=== PATIENT | male | born 1970 | race Caucasian/White ===

== ENCOUNTER 2019-06-26 06:00 | Outpatient (RCR) | payer BC, SELFPAY | END 2019-07-13 23:00 | disposition home or self-care (01) | LOC: TPT 06:00 | PROVIDERS: Visit Provider Nurse Practitioner Family | DX: M54.2 Cervicalgia (principal) | CPT/HCPCS: 97110 ×3; G0283 ×3 ==

== ENCOUNTER → 2019-08-26 15:01 | Outpatient (BNVA) | payer BC, SELFPAY | PROVIDERS: Visit Provider Nurse Practitioner Family | DX: R05 Cough (principal) | CPT/HCPCS: 71046; 85025; 87804 ==

== ENCOUNTER 2019-08-28 12:49 | Inpatient (IN) | payer BC, SELFPAY ==
[2019-08-28] VITALS (16 sets, daily range): BP systolic 138–166; BP diastolic 72–118; PULSE 20–103; RESP 16–24; TEMP 36.4–36.9; O2SAT 91–99; BMI 54.1
--- NOTE | 2019-08-28 13:14 | ED_ITS ---
Entered by Marlys Philip, acting as scribe for Aug 28, 2019 12:49 HPI - SOB/Dyspnea General: Chief Complaint: Shortness of Breath/Dyspnea Stated Complaint: LOW OXYGEN Time Seen by Provider: 08/28/19 13:14 Source: patient and family Mode of arrival: ambulatory Limitations: no limitations History of Present Illness: HPI Narrative: 48 yo male presents with shortness of breath. pt states this started a few hours ago. pt states exertion and walking makes this worse and nothing makes it better. pt has a hx of COPD. MD elicited complaint: shortness of breath Pertinent past history: COPD Onset (ago): hour(s) (today) Timing: constant Severity: moderate Exacerbating factors: exertion and coughing Relieving factors: nothing Known history of: COPD Associated symptoms: Reports cough; Deny abdominal pain, chest pain, fever(s), nausea or vomiting Review of Systems Const: Denies: fever, chills, body aches or change in appetite Eyes: Denies: blurry vision or eye discomfort ENMT: Denies: throat pain or dental pain Card: Denies: chest pain Resp: Reports: shortness of breath and productive cough GI: Denies: abdominal pain, nausea, vomiting or diarrhea : Denies: painful urination Musc: Denies: neck pain or back pain Skin/Breast: Denies: rash Neuro: Denies: headache Psych: Denies: depression Javier/Lymph: Denies: easy bruising All/Imm: Denies: hives PFSH ED PFSH: Statuses (acute, chronic, etc) shown below reflect problem list status as previously entered and may not be historically accurate Social History Smoking and tobacco status: never smoked Alcohol intake: never Current occupational status: disabled Physical Exam Const: COMMON NORMALS: no apparent distress, oriented x3 and healthy appearing HENMT: COMMON NORMALS: normocephalic and head/scalp atraumatic HEAD & SCALP: normocephalic and atraumatic Eye: COMMON NORMALS: PERRL and EOMs intact bilaterally PUPIL: Yes PERRL Neck/C-Spine: COMMON NORMALS: full ROM and supple Chest: COMMONS NORMALS: inspection of chest normal and palpation of chest no rmal Resp: EFFORT & INSPECTION: Yes tachypneic and Yes respiratory distress AUSCULTATION: wheezes Cardio: COMMON NORMALS: regular rate, regular rhythm and no murmurs RATE: regular rate RHYTHM: regular rhythm GI: COMMON NORMALS: normal to inspection, nondistended, normoactive bowel sounds, soft to palpation, non-tender and no masses PALPATION: Yes soft Extremity: COMMON NORMALS: normal to inspection and full ROM Neuro: COMMON NORMALS: oriented x3, moves all extremities and no focal motor deficits Psych: COMMON NORMALS: mental status grossly normal, thought process normal and cooperative THOUGHT PROCESS: normal thought process Skin: COMMON NORMALS: no rashes or lesions noted and no wounds GENERAL SKIN EXAM: no rashes or lesions noted Course Vital Signs: Vital signs: Vital Signs Temperature 98.2 F 08/28/19 13:13 Pulse Rate 76 08/28/19 15:15 Respiratory Rate 16 08/28/19 15:15 Blood Pressure 149/118 08/28/19 15:15 Pulse Oximetry 91 08/28/19 15:15 MDM - SOB/Dyspnea MDM Narrative: Medical decision making narrative: Patient presents here with cough along with bronchitis. Likely has COPD exacerbation with possible pneumonia. Patient is requiring oxygen here even after breathing treatment. I spoke to hospitalist will admit on antibiotics and continue steroids and treatments. Lab Data: Labs: Lab Results 08/28/19 08/28/19 Range/Units 13:45 13:45 WBC 7.1 (4.0-10.0) 10^3/ uL RBC 3.93 L (4.1-5.3) 10^6/u L Hgb 9.4 L (11.7-16.6) g/dL Hct 31.4 L (42.0-52.0) % MCV 79.9 L (80-94) fL MCH 23.9 L (28.0-34.0) pg MCHC 29.9 L (30.0-36.0) g/dL RDW 14.9 (12.1-15.1) % Plt Count 272 (130-400) 10^3/c mm MPV 9.6 (7.4-10.4) fL Neut % (Auto) 72.1 % Lymph % (Auto) 16.8 % Terrell % (Auto) 9.8 % Eos % (Auto) 0.3 % Baso % (Auto) 0.6 % Neut # (Auto) 5.1 (1.8-7.7) 10^3/u L Lymph # (Auto) 1.2 (0.8-4.8) 10^3/u L Terrell # (Auto) 0.7 (0.2-0.9) 10^3/u L Eos # (Auto) 0.0 (0.0-0.8) 10^3/u L Baso # (Auto) 0.0 (0.0-0.1) 10^3/u L Nucleated RBC % (a uto) 0.3 % Nucleated RBCs # 0.0 /100WBC Sodium 143 (136-145) mmol/L Potassium 2.9 L (3.5-5.1) mmol/L Chloride 98 (98-107) mmol/L Carbon Dioxide 34 H (22-29) mmol/L Anion Gap 13.9 (5-19) BUN 14 (6-20) mg/dL Creatinine 1.7 H (0.7-1.2) mg/dL GFR Calculation 43.2 L (90-130) mL/min Glucose 125 H (74-109) mg/dL Calcium 8.8 (8.5-10.5) mg/dL Total Bilirubin 0.2 (0.15-1.2) mg/dL AST 14 (0-40) U/L ALT 11 (0-41) U/L Alkaline Phosphata se 100 (40-130) IU/L NT-Pro-B Natriuret Pep 673 H (0-125) pg/mL Total Protein 6.7 (6.6-8.7) g/dL Albumin 3.5 (3.5-5.2) g/dL Globulin 3.2 (1.3-4.6) g/dL Imaging Data^: CXR: Radiologist's impression: Ordering Provider/Ordering MD: Jere Tom MD Date of Service: 08/28/19 Procedure(s): XR chest 1V portable [id number] Accession Number(s): [id number] Report Number: [id number] PROCEDURE INFORMATION: Exam: XR Chest, 1 View Exam date and time: 08/28/2019 1:25 PM Age: 48 years old Clinical indication: Shortness of breath; Additional info: SOB TECHNIQUE: Imaging protocol: XR of the chest Views: 1 view. COMPARISON: CR XR chest 2V* [id number] 08/26/2019 3:08 PM FINDINGS: Lungs: There is a streaky left basilar opacity. Pleural space: No pleural effusion. No pneumothorax. Heart/Mediastinum: No cardiomegaly. Bones/joints: Unremarkable for technique. XR/XR chest 1V portable [id number] IMPRESSION: 1. Streaky left basilar opacity, likely reflecting atelectasis. Early consolidation is possible and clinical correlation is suggested. Discharge Plan Discharge Condition: Stable Prescriptions: No Action albuterol sulfate 2.5 mg/0.5 mL solution for nebulization 2.5 mg INHALATION ONCE Qty: 1 RF: 0 prednisone 20 mg tablet 40 mg PO QDAY Qty: 10 RF: 0 amoxicillin-pot clavulanate [Augmentin] 875-125 mg tablet 1 tab PO BID 10 Days Qty: 20 RF: 0 amlodipine 10 mg tablet 15 mg PO QDAY RF: 0 llhupubdnn-qbwrtocepjate-runh 50-325-40 mg tablet 1 tab PO BID PRNRF: 0 cyclobenzaprine 10 mg tablet 10 mg PO TID RF: 0 escitalopram oxalate 10 mg tablet 10 mg PO QDAY RF: 0 furosemide 20 mg tablet 20 mg PO QAM RF: 0 hydralazine 50 mg tablet 50 mg PO BID RF: 0 potassium chloride [Klor-Con M20] 20 mEq tablet,ER particles/crystals 20 meq PO QDAY RF: 0 Latuda 80 mg tablet 80 mg PO QAM RF: 0 losartan 100 mg tablet 100 mg PO QDAY RF: 0 melatonin 5 mg capsule 5 mg PO .hs RF: 0 metoprolol tartrate 100 mg tablet 100 mg PO BID RF: 0 omeprazole 20 mg capsule,delayed release(DR/EC) 20 mg PO QDAY RF: 0 albuterol sulfate [ProAir HFA] 90 mcg/actuation HFA aerosol inhaler 2 puff INHALATION QID RF: 0 simvastatin 20 mg tablet 20 mg PO QDAY RF: 0 Tradjenta 5 mg tablet 5 mg PO QAM RF: 0 trazodone 150 mg tablet 150 mg PO .hs RF: 0 Aimovig Autoinjector 140 mg/mL auto-injector 140 mg SUBCUT .monthly RF: 0 Tresiba FlexTouch U-200 200 unit/mL (3 mL) insulin pen 70 unit SUBCUT QDAY 30 Days Qty: 10.5 RF: 3 Coding Level of Care Code 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
--- NOTE | 2019-08-28 13:24 | XRR_ITS ---
PROCEDURE INFORMATION: Exam: XR Chest, 1 View Exam date and time: 08/28/2019 1:25 PM Age: 48 years old Clinical indication: Shortness of breath; Additional info: SOB TECHNIQUE: Imaging protocol: XR of the chest Views: 1 view. COMPARISON: CR XR chest 2V* [id number] 08/26/2019 3:08 PM FINDINGS: Lungs: There is a streaky left basilar opacity. Pleural space: No pleural effusion. No pneumothorax. Heart/Mediastinum: No cardiomegaly. Bones/joints: Unremarkable for technique. XR/XR chest 1V portable [id number] IMPRESSION: 1. Streaky left basilar opacity, likely reflecting atelectasis. Early consolidation is possible and clinical correlation is suggested.
[2019-08-28] MEDS: ipratropium-albuterol 3 mL Neb INHALATION ×4 (13:50→23:35)
--- NOTE | 2019-08-28 13:52 | PC.NURSE ---
Placed on O2 @ 2L due to sats 88-89%. Within 2min of O2, sats 95-96%
[2019-08-28 13:53] LABS: Basophils % 0.6 %; Eosinophils % 0.3 %; Hematocrit 31.4 % (42.0-52.0); Hemoglobin 9.4 g/dL (11.7-16.6); Lymphocytes # 1.2 10^3/uL (0.8-4.8); Lymphocytes % 16.8 %; Mean Corpuscular HGB Conc 29.9 g/dL (30.0-36.0); Mean Corpuscular Hemoglobin 23.9 pg (28.0-34.0); Mean Corpuscular Volume 79.9 fL (80-94); Mean Platelet Volume 9.6 fL (7.4-10.4); Monocytes # 0.7 10^3/uL (0.2-0.9); Monocytes % 9.8 %; Neutrophils # 5.1 10^3/uL (1.8-7.7); Neutrophils % 72.1 %; Nucleated Red Blood Cells % 0.3 %; Platelet Count 272 10^3/cmm (130-400); Red Blood Count 3.93 10^6/uL (4.1-5.3); Red Cell Distribution Width 14.9 % (12.1-15.1); White Blood Count 7.1 10^3/uL (4.0-10.0)
[2019-08-28 14:29] LABS: Alanine Aminotransferase 11 U/L (0-41); Albumin Level 3.5 g/dL (3.5-5.2); Alkaline Phosphatase 100 IU/L (40-130); Anion Gap 13.9 (5-19); Aspartate Amino Transferase 14 U/L (0-40); Blood Urea Nitrogen 14 mg/dL (6-20); Calcium 8.8 mg/dL (8.5-10.5); Carbon Dioxide 34 mmol/L (22-29); Chloride 98 mmol/L (98-107); Globulin 3.2 g/dL (1.3-4.6); Glomerular Filtration Rate 43.2 mL/min (90-130); Glucose 125 mg/dL (74-109); NT Pro B Type Natriuretic Pept 673 pg/mL (0-125); Potassium 2.9 mmol/L (3.5-5.1); Sodium 143 mmol/L (136-145); Total Bilirubin 0.2 mg/dL (0.15-1.2); Total Protein 6.7 g/dL (6.6-8.7)
[2019-08-28] MEDS: cefTRIAXone 1,000 MG in sodium chloride 0.9% (plus) 50 ML 100 MG IV (15:20)
[2019-08-28] MEDS: azithromycin 500 MG in sodium chloride 0.9% 250 ML 250 MG IV (15:52)
--- NOTE | 2019-08-28 16:09 | CTR_ITS ---
PROCEDURE INFORMATION: Exam: CT Chest With Contrast Exam date and time: 08/28/2019 4:49 PM Age: 48 years old Clinical indication: Shortness of breath and wheezing; Patient HX: SOB, wheezing, and hypoxia. TECHNIQUE: Imaging protocol: Computed tomography of the chest with intravenous contrast. Total DLP: 938.07 mGy-cm Radiation optimization: All CT scans at this facility use at least one of these dose optimization techniques: automated exposure control; mA and/or kV adjustment per patient size (includes targeted exams where dose is matched to clinical indication); or iterative reconstruction. Contrast material: VISI 320; Contrast volume: 95 ml; Contrast route: 20G; COMPARISON: CR (CHEST, ) 08/28/2019 1:29 PM FINDINGS: Lungs: There are streaky opacities within the left lower lobe and lingula with a few small air bronchograms. Scattered ground-glass and tree-in-bud opacities are present within the left lower lobe. Pleural space: No pneumothorax. No pleural effusion. Heart: No cardiomegaly. No significant pericardial effusion. Aorta: No aortic aneurysm. Lymph nodes: No enlarged lymph nodes. Bones/joints: There are no acute osseous findings. Soft tissues: There is mild bilateral gynecomastia. Other findings: Incidental note is made of a bovine arch. CT/CT chest w con* [id number] IMPRESSION: 1. Streaky opacities within the left lower lobe and lingula with scattered tree-in-bud opacities within left lower lobe. Findings most commonly reflect nonspecific inflammatory or infectious change to include atypical and fungal disease. Consider follow-up evaluation in 4-6 weeks to assess for resolution. 2. Additional nonacute findings as detailed above. Radiation Dose CTDIVOL = (mGy): DLP = 938.07 (mGy-cm)
--- NOTE | 2019-08-28 16:12 | P.HP_ITS ---
Providers/Chief Complaint Admitting Physician: Jarrod Reyes MD Chief Complaint: LOW OXYGEN History of Present Illness Buddy Yanez is a 48 year old male with a past medical history of COPD, not oxygen dependent, no smoking history, exposure to pollutants, migraine headaches, back pain, bilateral extremity edema, hypertension, insulin-dependent type 2 diabetes mellitus, hyperlipidemia, GERD, who presents to the emergency room due to 1 week complaint of cough, shortness of breath, wheezing. 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 Denies any hospitalization for COPD, no isolation, no intubation, does not use CPAP at home, no diagnosis of LORENZA. Patient states that for the past week he has been having a nonproductive cough, expiratory wheezing, shortness of breath at with exertion, progressing to with exertion. Patient states at baseline, he has no significant limitations in terms of his shortness of breath. However for the past week, he has been short of breath less than 50 feet, progressing to shortness of breath at rest, expiratory wheezing at rest. Denies any sick contacts, no recent illness, no sick contacts, no recent travel. Patient denies fevers, chills, nausea, vomiting. Denies calf pain, calf swelling. Does have bilateral lower extremity swelling, does see a nuclear equipment sales engineer because he says he is worried about about his heart given his family history of CAD, but no diagnosis of CHF or CAD. Patient states that he has been very anxious for the last few days, about his health, states that he is very anxious at baseline. Patient states that he always has chest pain, they have chalked it up to anxiety according to him, states that the chest pain is pinpoint pain, sometimes substernal on the right and left, last a few seconds, stabbing pain, nonradiating, not associate with shortness of breath, no lightheaded, no dizziness, usually goes away on its own, but he gets worried given his family history of CAD. Patient states that he saw his nuclear equipment sales engineer 2 months ago acc ording to him he had an echocardiogram done which was normal at that time. Currently no chest pain Review of Systems Const: Denies: fever, chills, fatigue or malaise Eyes: Denies: change in vision or blurry vision ENMT: Denies: nasal congestion Card: Reports: chest pain; Denies: palpitations or irregular heart rhythm Resp: Reports: shortness of breath, non-productive cough and wheezing; Denies: productive cough GI: Denies: abdominal pain, nausea, vomiting, vomiting blood, diarrhea, constipation, blood in stool or black tarry stool : Denies: flank pain, difficulty urinating, painful urination or urinary fr equency Musc: Denies: neck pain or back pain Skin/Breast: Denies: rash Neuro: Denies: headache, dizziness or vertigo Psych: Denies: anxiety or depression Endo: Denies: excessive urination or excessive thirst Medications/Allergies Home Medications Medication Instructions Recorded Confirmed Last Taken Type insulin aspart U-100 [Novolog See Rx Instructions .ROUTE .COMPLEX 08/28/19 08/28/19 Unknown History PenFill U-100 Insulin] metformin 1,000 mg PO BID 08/28/19 08/28/19 Unknown History sumatriptan succinate 100 mg PO PRN 08/28/19 08/28/19 Unknown History Allergies Allergy/AdvReac Type Severity Reaction Status Date / Time venom-wasp Allergy breathing Verified 08/28/19 13:19 issues Additional Medication Information Additional Medication Information: Albuterol Amlodipine 5 mg once daily Flexeril 10 mg p.o. 3 times daily aimovig Escitalopram 10 mg once daily Lasix 20 mg p.o. every morning Hydralazine 50 twice daily Tresiba 70 units every afternoon Losartan 100 mg once daily Latuda 80 mg p.o. every morning Melatonin 5 milligrams at bedtime Metoprolol 100 twice daily Omeprazole 20 mg p.o. daily Potassium chloride 20 mEq p.o. daily Simvastatin 20 mg p.o. daily Trazodone 150 mg p.o. nightly Insulin sliding scale PFSH Acute PFSH: Statuses (acute, chronic, etc) shown below reflect problem list status as previously entered and may not be historically accurate Medical History (Updated 08/28/19 @ 16:25 by Jarrod Reyes MD) Bipolar 1 disorder (Acute) CKD (chronic kidney disease) (Acute) Depression (Acute) Diabetes (Acute) Fibromyalgia (Acute) JACY (generalized anxiety disorder) (Acute) Hypertension (Acute) Hypothyroidism (Acute) Insomnia (Acute) Legally blind in right eye, as defined in [place] (Acute) Surgical History (Updated 08/28/19 @ 16:21 by Jarrod Reyes MD) S/P hernia repair (Acute) Family History (Updated 08/28/19 @ 16:21 by Jarrod Reyes MD) Mother CAD (coronary artery disease) Father CAD (coronary artery disease) Social History Smoking and tobacco status: never smoked Alcohol intake: never Current occupational status: disabled Vitals/I&O/Wt Last Vital Signs Temp 98.2 F 08/28/19 13:13 Pulse 76 08/28/19 15:15 Resp 16 08/28/19 15:15 BP 149/118 08/28/19 15:15 Pulse Ox 95 08/28/19 15:15 Weight last 48 hrs Weight 142.882 kg Physical Exam Const: COMMON NORMALS: no apparent distress and oriented x3 GENERAL APPEARANCE: cooperative and comfortable HENMT: COMMON NORMALS: normocephalic HEAD & SCALP: normocephalic Eye: COMMON NORMALS: PERRL, EOMs intact bilaterally and no papilledema GENERAL EYE: normal appearance of both eyes PUPIL: Yes PERRL DIRECT OPH THALMOSCOPY: Yes no papilledema Neck/C-Spine: COMMON NORMALS: full ROM, no lymphadenopathy, no JVD and thyroid normal THYROID: thyroid normal Lymph: LYMPHATIC: no lymphadenopathy noted Resp: COMMON NORMALS: normal respiratory effort and no use of accessory muscles EFFORT & INSPECTION: Yes tachypneic AUSCULTATION: clear to auscultation bilaterally and wheezes Cardio: COMMON NORMALS: no JVD, regular rate, regular rhythm, S1 normal heart sound, S2 normal heart sound, no gallops, no clicks and no murmurs RATE: regu lar rate RHYTHM: regular rhythm HEART SOUNDS: S1 normal and S2 normal GI: COMMON NORMALS: normal to inspection, nondistended, normoactive bowel sounds, soft to palpation, non-tender and no hepatosplenomegaly PALPATION: Yes soft and Yes no hepatosplenomegaly Extremity: COMMON NORMALS: normal to inspection, full ROM and no pedal edema Neuro: COMMON NORMALS: oriented x3, CN's II-XII intact bilaterally, moves all extremities and no focal motor deficits Psych: COMMON NORMALS: mental status grossly normal, thought process normal and cooperative THOUGHT PROCESS: normal thought process Data : 08/28/19 13:45 08/28/19 13:45 Micro: Microbiology 08/28/19 13:45 Blood Culture - Preliminary Blood SPECIMEN COLLECTED 08/28/19 15:04 Blood Culture - Preliminary Blood SPECIMEN COLLECTED A&P Assessment and plan (1) Acute respiratory failure with hypoxia: -Patient's oxygen saturations were dropping to the late low 80s on room air -ABG is currently pending -Chest x-ray shows left basilar opacity -Has bilateral lower extremity edema nonpitting, BNP 673 -Likely secondary to COPD Plan: -Solu-Medrol -Duo nebs -Azithromycin Rocephin -Lasix 40 mg IV push -Urine bacterial antigen, respiratory viral panel pending -CT of the chest without contrast -We will order cardiac echocardiogram to evaluate for CHF Status: Acute Code(s): J96.01 - Acute respiratory failure with hypoxia (2) Type 2 diabetes mellitus: Continue Tresiba and insulin sliding scale Status: Acute Code(s): E11.9 - Type 2 diabetes mellitus without complications (3) Hypertension: Continue amlodipine 10 mg once daily, metoprolol 100 twice daily, losartan 100 mg once daily Status: Acute Code(s): I10 - Essential (primary) hypertension (4) Fibromyalgia: Continue Latuda, Flexeril, Status: Acute Code(s): M79.7 - Fibromyalgia (5) JACY (generalized anxiety disorder): Status: Acute Code(s): F41.1 - Generalized anxiety disorder (6) Insomnia: Status: Acute Code(s): G47.00 - Insomnia, unspecified (7) Depression: Status: Acute Code(s): F32.9 - Major depressive disorder, single episode, unspecified (8) Bipolar 1 disorder: Status: Acute Code(s): F31.9 - Bipolar disorder, unspecified (9) CKD stage 3 due to type 2 diabetes mellitus: Creatinine is 1.7 Baseline creatinine is 1.4 Monitor urine output, monitor creatinine Status: Acute Code(s): E11.22 - Type 2 diabetes mellitus with diabetic chronic kidney disease; N18.3 - Chronic kidney disease, stage 3 (moderate) (10) Anemia: Patient's hemoglobin has slowly been declining, hemoglobin is 9.4, patient states that he had a work-up for GI bleed including a negative colonoscopy, negative EGD, negative capsule endoscopy in [facility] [place] patient state patient states that he always has bloody stools Ferritin, TIBC, reticulocyte Status: Acute Code(s): D64.9 - Anemia, unspecified Attestations Medical Necessity Statement*: Patient requires hospitalization, outpatient observation, hypoxic respiratory failure Coding Level of Care Code 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
--- NOTE | 2019-08-28 16:15 | ECG_ITS ---
Measurements Intervals [place] Rate: 85 P: 55 NM: 155 QRS: 11 QRSD: 84 T: 42 QT: 376 QTc: [address] & T-WAVE ABNORMALITY INTERPRETATION BASED ON A DEFAULT AGE OF 40 YEARS Compared to ECG 09/10/2017 21:49:16 T-wave abnormality now present Myocardial infarct finding no longer present Electronically Signed On 08-28-2019 20:26:58 ASSEMBLY INSPECTOR by Yonathan Luna M.D. [email or web address]
[2019-08-28 16:37] LABS: Folate Level 9.6 ng/mL (4.5-32.2)
[2019-08-28 16:39] LABS: ABG PCO2 53.5 mmHg (35-45); ABG PH Result 7.42 (7.35-7.45); Arterial Blood Gas Hematocrit 32.7 % (42-52); Base Excess ABG 8.5 mmol/L (-2.0-2.0); Blood Gas Sample Site Brachial, right; Blood Gas Sample Type Arterial; HCO3 ABG 34.4 mmol/L (22-26); Oxygen Device NC; PO2 ABG 74.2 mmHg (80.0-100.0)
[2019-08-28 16:44] LABS: Procalcitonin 0.08 ng/mL (0-0.5); Vitamin B12 396 pg/mL (232-1245)
[2019-08-28] MEDS: iodixanol 320 mg/mL 100mL Btl IV (16:51)
[2019-08-28 16:55] LABS: Ferritin 14 ng/mL (30-400); Iron 28 ug/dL (59-158); Percent Saturation 8.8 % (20-50); Total Iron Binding Capacity 317 mcg/dl; Unsaturated Iron Binding 289 ug/dL (112-347)
[2019-08-28 17:26] LABS: Glucose Point of Care 110 mg/dL (70-110)
[2019-08-28 18:00] LABS: Troponin(5th) Baseline 15 ng/mL (0-15)
[2019-08-28] MEDS: amlodipine 10 mg Tablet PO (18:14)
[2019-08-28] MEDS: losartan 50 mg Tablet 100 MG PO (18:14)
[2019-08-28] MEDS: FUROsemide 10 mg/mL SDV 4mL 40 MG IVP (18:15)
[2019-08-28] MEDS: escitalopram 10 mg Tablet PO (18:15)
[2019-08-28] MEDS: hyDRALAzine 50 mg Tablet PO (18:15)
[2019-08-28] MEDS: metoprolol tartrate 50 mg Tablet 100 MG PO (18:15)
[2019-08-28] MEDS: enoxaparin 40 mg/0.4 mL Syringe SUBCUT (18:16)
[2019-08-28] MEDS: sodium chloride 0.9% 1,000 ML 75 ML IV (18:25)
[2019-08-28 19:12] LABS: Potassium 2.7 mmol/L (3.5-5.1)
[2019-08-28 20:45] LABS: Troponin 5 2HR 13.61 ng/mL (0-15); Troponin 5 2HR Delta -1.39 ABS# (0-10)
[2019-08-28] MEDS: trazodone 150 mg Tablet PO (21:15)
[2019-08-28] MEDS: cyclobenzaprine 10 mg Tablet PO (21:15)
[2019-08-28 21:33] LABS: Glucose Point of Care 262 mg/dL (70-110)
[2019-08-28 23:20] LABS: Magnesium 1.8 mg/dL (1.7-2.3)
[2019-08-29] VITALS (20 sets, daily range): BP systolic 132–154; BP diastolic 69–88; PULSE 75–105; RESP 15–20; TEMP 36.5–36.8; O2SAT 89–95
[2019-08-29 00:57] LABS: Anion Gap 17.1 (5-19); Blood Urea Nitrogen 16 mg/dL (6-20); Calcium 8.5 mg/dL (8.5-10.5); Carbon Dioxide 31 mmol/L (22-29); Chloride 93 mmol/L (98-107); Glomerular Filtration Rate 40.5 mL/min (90-130); Glucose 305 mg/dL (74-109); Osmolality Calculated 294 mOsm/kg (285-295); Potassium 3.1 mmol/L (3.5-5.1); Sodium 138 mmol/L (136-145)
[2019-08-29 00:59] LABS: Troponin 5 6HR 11.46 ng/L (0-15)
[2019-08-29 01:00] LABS: Troponin 5 6HR Delta -3.54 ng/L (0-12)
[2019-08-29] MEDS: ipratropium-albuterol 3 mL Neb INHALATION ×6 (03:36→23:19)
[2019-08-29 05:25] LABS: Hematocrit 30.2 % (42.0-52.0); Hemoglobin 9.1 g/dL (11.7-16.6); Lymphocytes # 0.7 10^3/uL (0.8-4.8); Lymphocytes % 10.6 %; Mean Corpuscular HGB Conc 30.1 g/dL (30.0-36.0); Mean Corpuscular Hemoglobin 23.8 pg (28.0-34.0); Mean Corpuscular Volume 79.1 fL (80-94); Mean Platelet Volume 10.5 fL (7.4-10.4); Monocytes # 0.3 10^3/uL (0.2-0.9); Monocytes % 5.2 %; Neutrophils # 5.5 10^3/uL (1.8-7.7); Nucleated Red Blood Cells % 0 %; Platelet Count 278 10^3/cmm (130-400); Red Blood Count 3.82 10^6/uL (4.1-5.3); Red Cell Distribution Width 15.2 % (12.1-15.1); White Blood Count 6.6 10^3/uL (4.0-10.0)
[2019-08-29 05:56] LABS: Alanine Aminotransferase 11 U/L (0-41); Albumin Level 3.3 g/dL (3.5-5.2); Alkaline Phosphatase 96 IU/L (40-130); Anion Gap 17.3 (5-19); Aspartate Amino Transferase 15 U/L (0-40); Blood Urea Nitrogen 18 mg/dL (6-20); Calcium 8.4 mg/dL (8.5-10.5); Carbon Dioxide 31 mmol/L (22-29); Chloride 95 mmol/L (98-107); Globulin 3.1 g/dL (1.3-4.6); Glomerular Filtration Rate 43.2 mL/min (90-130); Glucose 252 mg/dL (74-109); Potassium 3.3 mmol/L (3.5-5.1); Sodium 140 mmol/L (136-145); Total Bilirubin 0.2 mg/dL (0.15-1.2); Total Protein 6.4 g/dL (6.6-8.7)
[2019-08-29] MEDS: FUROsemide 20 mg Tablet PO (06:16)
[2019-08-29] MEDS: lurasidone 80 mg Tablet PO (06:16)
[2019-08-29] MEDS: sodium chloride 0.9% 1,000 ML 75 ML IV (06:17)
[2019-08-29 06:39] LABS: Glucose Point of Care 234 mg/dL (70-110)
[2019-08-29] MEDS: metoprolol tartrate 50 mg Tablet 100 MG PO ×2 (08:10→18:23)
[2019-08-29] MEDS: losartan 50 mg Tablet 100 MG PO (08:10)
[2019-08-29] MEDS: escitalopram 10 mg Tablet PO (08:10)
[2019-08-29] MEDS: hyDRALAzine 50 mg Tablet PO ×2 (08:10→18:23)
[2019-08-29] MEDS: cyclobenzaprine 10 mg Tablet PO ×3 (08:11→21:58)
[2019-08-29] MEDS: amlodipine 10 mg Tablet PO (08:11)
[2019-08-29] MEDS: pantoprazole DR 40 mg Tablet PO (08:11)
[2019-08-29] MEDS: atorvastatin 40 mg Tablet 20 MG PO (08:11)
[2019-08-29] MEDS: cefTRIAXone 1,000 MG in sodium chloride 0.9% (plus) 50 ML 100 MG IV (08:12)
[2019-08-29] MEDS: azithromycin 500 MG in sodium chloride 0.9% 250 ML 250 MG IV (10:13)
--- NOTE | 2019-08-29 11:19 | P.PN_ITS ---
Subjective Subjective: Interval history: Chart reviewed. AM labs noted. Still requiring supplemental oxygen. Patient seen and examined, family at bedside, audibly wheezing and looks swollen. Echo ordered. Will give extra dose of Lasix, IVF already discontinued. Medications: Reviewed: Yes Medication Review Details: Current Medications Generic Name Dose Route Start Last Admin Trade Name Freq PRN Reason Stop Dose Admin Albuterol/Ipratrop ium 3 ml 08/28/19 20:00 08/29/19 08:31 Duoneb INHALATION 3 ml Q4H.RESPIRATORY S CH Administration Amlodipine Besylat e 10 mg 08/28/19 15:45 08/29/19 08:11 Norvasc PO 10 mg DAILY ANÍBAL Administration Atorvastatin Calci um 20 mg 08/29/19 09:00 08/29/19 08:11 Lipitor PO 20 mg DAILY ANÍBAL Administration Cyclobenzaprine HC l 10 mg 08/28/19 21:00 08/29/19 08:11 Flexeril PO 10 mg TID ANÍBAL Administration Enoxaparin Sodium 40 mg 08/28/19 17:02 08/28/19 18:16 Lovenox SUBCUT 40 mg Q24H ANÍBAL Administration Escitalopram Oxala te 10 mg 08/28/19 16:45 08/29/19 08:10 Lexapro PO 10 mg DAILY ANÍBAL Administration Furosemide 20 mg 08/29/19 06:00 08/29/19 06:16 Lasix PO 20 mg QAM ANÍBAL Administration Hydralazine HCl 50 mg 08/28/19 18:00 08/29/19 08:10 Apresoline PO 50 mg BID ANÍBAL Administration Azithromycin 500 m g/ Sodium 250 mls @ 250 mls /hr 08/29/19 08:00 08/29/19 10:13 Chloride IV 250 mls/hr Q24H ANÍBAL Administration Protocol Ceftriaxone Sodium 1,000 mg/ 50 mls @ 100 mls/ hr 08/29/19 08:00 08/29/19 08:12 Sodium Chloride IV 100 mls/hr Q24H ANÍBAL Administration Protocol Sodium Chloride 1,000 mls @ 75 ml s/hr 08/28/19 17:02 08/29/19 06:17 Sodium Chloride 0.9% IV 75 mls/hr .[id number] ANÍBAL Administration Insulin Aspart 0 unit 08/28/19 18:00 08/29/19 08:08 Novolog SUBCUT 6 unit TIDWM ANÍBAL Administration Protocol Losartan Potassium 100 mg 08/28/19 17:00 08/29/19 08:10 Cozaar PO 100 mg DAILY ANÍBAL Administration Lurasidone HCl 80 mg 08/29/19 06:00 08/29/19 06:16 Latuda PO 80 mg QAM ANÍBAL Administration Methylprednisolone Sodium Succinate 40 mg 08/29/19 08:00 08/29/19 08:13 Solu-Medrol IVP 40 mg Q8H ANÍBAL Administration Metoprolol Tartrat e 100 mg 08/28/19 18:00 08/29/19 08:10 Lopressor PO 100 mg BID ANÍBAL Administration Non-Formulary Medi cation 70 unit 08/28/19 18:00 08/28/19 18:18 Insulin Degludec [Tresiba Flextouc h U-200] SUBCUT Not Given QPM NAÍBAL Pantoprazole Sodiu m 40 mg 08/29/19 09:00 08/29/19 08:11 Protonix PO 40 mg DAILY ANÍBAL Administration Potassium Chloride 20 meq 08/28/19 17:00 08/29/19 08:11 Klor-Con 10 PO 20 meq DAILY ANÍBAL Administration Trazodone HCl 150 mg 08/28/19 21:00 08/28/19 21:15 Desyrel PO 150 mg BEDTIME ANÍBAL Administration Vitals/I&O/Wt Last Vital Signs Temp 97.7 F 08/29/19 08:00 Pulse 105 H 08/29/19 08:40 Resp 20 H 08/29/19 08:40 BP 132/69 08/29/19 08:10 Pulse Ox 95 08/29/19 08:40 08/28/19 08/29/19 08/29/19 22:59 06:59 14:59 Intake Total 598.75 / 598.75 1591.25 / 2190.00 360 / 360 Output Total 1300 / 1300 501 / 1801 300 / 300 Balance -701.25 / -701.25 1090.25 / 389.00 60 / 60 Weight last 48 hrs Weight 142.882 kg Physical Exam Const: COMMON NORMALS: no apparent distress and oriented x3 GENERAL APPEARANCE: cooperative and comfortable NUTRITIONAL APPEARANCE: obese morbidly obese ORIENTATION/CONSCIOUSNESS: Yes awake HENMT: COMMON NORMALS: normocephalic, head/scalp atraumatic, hearing grossly normal bilaterally and moist oral mucous membranes HEAD & SCALP: normo cephalic and atraumatic Eye: COMMON NORMALS: PERRL, EOMs intact bilaterally and conjunctivae normal CONJUNCTIVA: Yes conjunctivae normal PUPIL: Yes PERRL Neck/C-Spine: COMMON NORMALS: full ROM GENERAL: Yes normal visual inspection and Yes trachea midline Resp: COMMON NORMALS: normal respiratory effort, no retractions and no use of accessory muscles EFFORT & INSPECTION: Yes able to speak in complete sentence s, Yes symmetric chest movement and No tachypneic AUSCULTATION: rhonchi and wheezes expiratory wheezes Cardio: COMMON NORMALS: regular rate, regular rhythm, S1 normal heart sound, S2 normal heart sound and no murmurs RATE: regular rate RHYTHM: regular rhythm HEART SOUNDS: S1 normal and S2 normal GI: COMMON NORMALS: normal to inspection, nondistended, normoactive bowel sounds, soft to palpation and non-tender INSPECTION: Yes central obesity PALPATION: Yes soft Extremity: COMMON NORMALS: normal to inspection, full ROM and no clubbing, cyanosis or edema GENERAL: Yes edema (pedal, bilateral) Neuro: COMMON NORMALS: oriented x3, moves all extremities, no focal motor deficits, no sensory deficits noted and gait normal Psych: COMMON NORMALS: mental status grossly normal, thought process normal, cooperative, affect normal and speech normal SPEECH: Yes normal speech THOUGHT PROCESS: normal thought process Skin: COMMON NORMALS: no rashes or lesions noted, no jaundice, no petechiae and no mottling GENERAL SKIN EXAM: no rashes or lesions noted Data : 08/29/19 05:00 08/29/19 05:00 Micro: Microbiology 08/28/19 19:34 Legionella Urinary Antigen - Final Urine,Voided 08/28/19 19:34 Bacterial Antigens - Final Urine,Clean Catch 08/28/19 13:45 Blood Culture - Preliminary Blood SPECIMEN COLLECTED 08/28/19 15:04 Blood Culture - Preliminary Blood SPECIMEN COLLECTED A&P Assessment and plan (1) Acute respiratory failure with hypoxia: -likely secondary to acute COPD exacerbation with superimposed infectious process -continue IV steroids, Neb treatments, empiric antibiotics -reviewed CXR, CT chest -supplemental oxygen as needed; home oxygen evaluation if unable to wean as not oxygen dependent at baseline -no leukocytosis, afebrile, pro-calcitonin wnl -continue to monitor respiratory status -ABG noted -negative Legionella, bacterial antigens -f/u blood cx -check Echo to r/o component of CHF; EF=67%, G2DD, no RWMA, mild MR, mild AR, mild TR -due to concern for fluid overload, d/c IVF and give extra dose of Lasix Status: Acute Code(s): J96.01 - Acute respiratory failure with hypoxia (2) Anemia: -has acute on chronic iron deficiency anemia -per patient report, he has had extensive GI w/u done in [place] including EGD, colonoscopy, small capsule endoscopy, all negative -iron panel noted -continue to monitor H/H Status: Acute Qualifiers: Anemia type: iron deficiency Iron deficiency anemia type: other iron deficiency Qualified Code(s): D50.8 - Other iron deficiency anemias Code(s): D64.9 - Anemia, unspecified (3) CKD stage 3 due to type 2 diabetes mellitus: -baseline Cr around 1.4 -has VERONICA on CKD stage 3 -stable Cr today -continue to monitor renal function -avoid nephrotoxins, renally dose meds Status: Acute Code(s): E11.22 - Type 2 diabetes mellitus with diabetic chronic kidney disease; N18.3 - Chronic kidney disease, stage 3 (moderate) Additional A&P Information -Morbid obesity: BMI-54 kg/m2 -Depression/Anxiety, Bipolar disorder; continue home meds -Fibromyalgia; pain control as needed -Insulin dependent DM type II; accuchecks, ISS, consistent carb diet -Insomnia -GI ppx with PPI -DVT ppx with SCDs due to bleeding risk -Dispo: home -Code status: FULL code Attestations Medical Necessity Statement*: Patient requires hospitalization for continued management of acute COPD exacerbation with superimposed infectious process, on h igher than baseline oxygen requirement, IV steroids, IV antibiotics. Time Spent in Patient Care: Greater than 35 minutes (>than 50% of time spent in counselling and/or direct pt care on unit) . Coding Level of Care Code Acute Clock And Watch Hands Painter for Chg Fwd Exam Problem Focused Diagnoses Acute respiratory failure with hypoxia J96.01 Anemia D50.8 Anemia type: iron deficiency Iron deficiency anemia type: other iron deficiency CKD stage 3 due to type 2 diabetes mellitus E11.22; N18.3
--- NOTE | 2019-08-29 11:26 | USCV_ITS ---
Buddy Yanez Age: 48 Gender: M : 1970 Exam Date: 08/29/2019 14:15 Ordering Phys: Trisha Parada MD Technologist: María Mars [place] [facility] [place]: Shortness of breath BP: 146 / 82 HR: 91 Rhythm: Sinus Technical Quality: Technically difficult study MEASUREMENTS (Male / Female) Normal Values 2D ECHO LV Diastolic Diameter PLAX 3.7 cm 4.2 - 5.9 / 3.9 - 5.3 cm LV Systolic Diameter PLAX 2.6 cm LV Chamber Size 3.3 cm IVS Diastolic Thickness 1.5 cm 0.6 - 1.0 / 0.6 - 0.9 cm IVS Systolic Thickness 2.0 cm LVPW Diastolic Thickness 1.5 cm 0.6 - 1.0 / 0.6 - 0.9 cm LVPW Systolic Thickness 1.6 cm RV Chamber Size 2.5 cm LVOT Diameter 2.1 cm LV Ejection Fraction 2D Teich 58.3 % LA Diameter 4.6 cm LA Width 3.4 cm LA Height 4.5 cm RA Width 3.1 cm RA Height 3.1 cm Aorta at Sinotubular Diameter 2.6 cm M-MODE LV Diastolic Diameter MM 5.3 cm 4.2 - 5.9 / 3.9 - 5.3 cm LV Systolic Diameter MM 3.3 cm LV Ejection Fraction MM Teich 67.1 % IVS Diastolic Thickness MM 1.4 cm 0.6 - 1.0 / 0.6 - 0.9 cm IVS Systolic Thickness MM 1.8 cm LVPW Diastolic Thickness MM 1.3 cm 0.6 - 1.0 / 0.6 - 0.9 cm LVPW Systolic Thickness MM 1.7 cm Aortic Annulus Diameter 3.2 cm LA Ao Ratio MM 1.4 MV E Point Septal Separation 0.4 cm DOPPLER AV Peak Velocity 118.0 cm/s LVOT Peak Velocity 79.0 cm/s AV Area Cont Eq vti 2.1 cm squared AV Area Cont Eq pk 2.2 cm squared MV Area PHT 5.0 cm squared Mitral E to A Ratio 1.3 MV E' Velocity 11.0 cm/s Mitral E to MV E' Ratio 9.3 Mitral E to LV E' Lateral Ratio 9.5 Mitral E to LV E' Septal Ratio 9.2 TV Peak E Velocity 105.0 cm/s Right Atrial Pressure 8.0 mmHg PV Peak Velocity 75.0 cm/s RV Acceleration Time 0.1 s RV Ejection Time 0.3 s RV AcT/ET 0.3 FINDINGS Left Ventricle Normal left ventricular cavity size. Normal left ventricular systolic function. No regional wall motion abnormalities. Left ventricular ejection fraction is estimated at 67 %. Grade II/IV diastolic dysfunction, moderately elevated filling pressures. Right Ventricle The right ventricle is normal in size and function. RVSP could not be calculated due to incomplete tricuspid regurgitation velocity profile. Right Atrium The right atrium is normal in size. Left Atrium The left atrium is normal in size. Mitral Valve Moderately thickened mitral valve. Mild mitral annular calcification. No mitral valve stenosis. Mild mitral valve regurgitation. Aortic Valve Mild aortic valve calcification. No aortic valve stenosis. Mild aortic valve regurgitation. Tricuspid Valve Mild tricuspid valve regurgitation. Pulmonic Valve Structurally normal pulmonic valve without significant stenosis. There is no pulmonic regurgitation. Pericardium Normal pericardium without effusion. Aorta Normal ascending aorta dimension. CONCLUSIONS 1-Normal left ventricular cavity size. Normal left ventricular systolic function. No regional wall motion abnormalities. Left ventricular ejection fraction is estimated at 67 %. Grade II/IV diastolic dysfunction, moderately elevated filling pressures. 2-Moderately thickened mitral valve. Mild mitral annular calcification. No mitral valve stenosis. Mild mitral valve regurgitation. 3-Mild aortic valve calcification. No aortic valve stenosis. Mild aortic valve regurgitation. 4-Mild tricuspid valve regurgitation. 5-The right ventricle is normal in size and function. RVSP could not be calculated due to incomplete tricuspid regurgitation velocity profile. 6-Right atrial pressure is around 5 mm of mercury. 7-There are no prior echocardiogram studies to compare. Fabrizio Silva MD (Electronically Signed) Final Date: 29 August 2019 18:07 S
[2019-08-29 11:27] LABS: Glucose Point of Care 302 mg/dL (70-110)
--- NOTE | 2019-08-29 12:49 | PC.CHAP ---
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 [] Patient/Family/Request visit [] Outpatient visit [] Follow-up visit [] Physician referral [] Code/Alert [] Routine visit [] Staff referral [] Actively dying [x] Patient sleeping [] Family support [] [] Out of room [] Palliative care [] [] Receiving care in room [] Pre-surgical visit [] Trauma [] Long length of stay [] ICU visit [x] Other: Follow up needed Relational/Emotional Strength [] Patient feels connected with others/family/visitors/staff [] Distress [] Loneliness/isolation [] Abandonment Spirituality of Patient [] Person of Chen [] Attends Adventism of their Chen [] Believes in Prayer [] Reads Bible or Confucianist materials [] There are Spiritual issues to be addressed Fruit Canner Interventions [] Prayer [] Active listening [] Non-anxious presence [] Spiritual/emotional support [] Crisis/trauma care [] Spiritual counseling [] Bereavement support [] Provided bereavement packet [] Provided Bible/devotional materials [] Provided toy/stuffed animal, coloring book to patient or family member [] Provided Communion [] Anointing/[place] [] Salvation [] Completed spiritual assessment [] Other: Impact on Illness or Injury [] Angry [] Fearful [] Anxious [] Often cries [] Exhaustion [] Unable to work [] Unable to attend mu-ism [] Unable to walk/stand [] Unable to read [] Unable to drive [] Unable to eat/drink [] Unable to sleep [] Unable to be with family [] Patient intubated [] Other: Summary Pt will be sleeping much due to medications. Follow up needed Time spent with patient 3 minutes
[2019-08-29] MEDS: enoxaparin 40 mg/0.4 mL Syringe SUBCUT (16:34)
[2019-08-29] MEDS: FUROsemide 10 mg/mL SDV 4mL 40 MG IVP (16:34)
[2019-08-29 17:03] LABS: Glucose Point of Care 280 mg/dL (70-110)
[2019-08-29 21:15] LABS: Glucose Point of Care 232 mg/dL (70-110)
[2019-08-29] MEDS: trazodone 150 mg Tablet PO (21:58)
[2019-08-30] VITALS (15 sets, daily range): BP systolic 145–179; BP diastolic 69–100; PULSE 73–97; RESP 16–24; TEMP 36.4–37; O2SAT 91–97
[2019-08-30] MEDS: ipratropium-albuterol 3 mL Neb INHALATION ×6 (03:16→23:39)
[2019-08-30 05:17] LABS: Basophils % 0.1 %; Hematocrit 31.8 % (42.0-52.0); Hemoglobin 9.4 g/dL (11.7-16.6); Lymphocytes # 0.8 10^3/uL (0.8-4.8); Lymphocytes % 7.9 %; Mean Corpuscular HGB Conc 29.6 g/dL (30.0-36.0); Mean Corpuscular Hemoglobin 23.7 pg (28.0-34.0); Mean Corpuscular Volume 80.1 fL (80-94); Mean Platelet Volume 10.2 fL (7.4-10.4); Monocytes # 0.4 10^3/uL (0.2-0.9); Monocytes % 4.2 %; Neutrophils # 8.8 10^3/uL (1.8-7.7); Neutrophils % 87.1 %; Nucleated Red Blood Cells % 0 %; Platelet Count 290 10^3/cmm (130-400); Red Blood Count 3.97 10^6/uL (4.1-5.3); Red Cell Distribution Width 15.8 % (12.1-15.1)
[2019-08-30 05:31] LABS: Alanine Aminotransferase 14 U/L (0-41); Albumin Level 3.3 g/dL (3.5-5.2); Alkaline Phosphatase 90 IU/L (40-130); Anion Gap 15.8 (5-19); Aspartate Amino Transferase 20 U/L (0-40); Blood Urea Nitrogen 26 mg/dL (6-20); Calcium 8.9 mg/dL (8.5-10.5); Carbon Dioxide 33 mmol/L (22-29); Chloride 97 mmol/L (98-107); Globulin 3.3 g/dL (1.3-4.6); Glucose 145 mg/dL (74-109); Potassium 3.8 mmol/L (3.5-5.1); Sodium 142 mmol/L (136-145); Total Bilirubin 0.2 mg/dL (0.15-1.2); Total Protein 6.6 g/dL (6.6-8.7)
[2019-08-30] MEDS: lurasidone 80 mg Tablet PO (05:39)
[2019-08-30] MEDS: FUROsemide 20 mg Tablet PO (05:39)
[2019-08-30 06:33] LABS: Glucose Point of Care 138 mg/dL (70-110)
[2019-08-30] MEDS: metoprolol tartrate 50 mg Tablet 100 MG PO ×2 (08:59→18:24)
[2019-08-30] MEDS: amlodipine 10 mg Tablet PO (08:59)
[2019-08-30] MEDS: losartan 50 mg Tablet 100 MG PO (09:00)
[2019-08-30] MEDS: atorvastatin 40 mg Tablet 20 MG PO (09:00)
[2019-08-30] MEDS: hyDRALAzine 50 mg Tablet PO ×2 (09:00→18:24)
[2019-08-30] MEDS: pantoprazole DR 40 mg Tablet PO (09:00)
[2019-08-30] MEDS: cyclobenzaprine 10 mg Tablet PO ×3 (09:00→20:35)
[2019-08-30] MEDS: escitalopram 10 mg Tablet PO (09:00)
[2019-08-30] MEDS: cefTRIAXone 1,000 MG in sodium chloride 0.9% (plus) 50 ML 100 MG IV (09:02)
[2019-08-30] MEDS: azithromycin 500 MG in sodium chloride 0.9% 250 ML 250 MG IV (10:44)
--- NOTE | 2019-08-30 11:12 | PM.PN ---
Subjective Subjective: Interval history: AM labs noted, had 1150 mL urine output overnight. Patient seen and examined, family at bedside, looks a little better today, renal function noted with worsening creatinine. Medications: Reviewed: Yes Medication Review Details: Current Medications Generic Name Dose Route Start Last Admin Trade Name Freq PRN Reason Stop Dose Admin Albuterol/Ipratrop ium 3 ml 08/28/19 20:00 08/30/19 07:28 Duoneb INHALATION 3 ml Q4H.RESPIRATORY S CH Administration Amlodipine Besylat e 10 mg 08/28/19 15:45 08/30/19 08:59 Norvasc PO 10 mg DAILY ANÍBAL Administration Atorvastatin Calci um 20 mg 08/29/19 09:00 08/30/19 09:00 Lipitor PO 20 mg DAILY ANÍBAL Administration Cyclobenzaprine HC l 10 mg 08/28/19 21:00 08/30/19 09:00 Flexeril PO 10 mg TID ANÍBAL Administration Enoxaparin Sodium 40 mg 08/28/19 17:02 08/29/19 16:34 Lovenox SUBCUT 40 mg Q24H ANÍBAL Administration Escitalopram Oxala te 10 mg 08/28/19 16:45 08/30/19 09:00 Lexapro PO 10 mg DAILY ANÍBAL Administration Furosemide 20 mg 08/29/19 06:00 08/30/19 05:39 Lasix PO 20 mg QAM ANÍBAL Administration Hydralazine HCl 50 mg 08/28/19 18:00 08/30/19 09:00 Apresoline PO 50 mg BID ANÍBAL Administration Azithromycin 500 m g/ Sodium 250 mls @ 250 mls /hr 08/29/19 08:00 08/30/19 10:44 Chloride IV 250 mls/hr Q24H ANÍBAL Administration Protocol Ceftriaxone Sodium 1,000 mg/ 50 mls @ 100 mls/ hr 08/29/19 08:00 08/30/19 09:02 Sodium Chloride IV 100 mls/hr Q24H ANÍBAL Administration Protocol Insulin Aspart 0 unit 08/28/19 18:00 08/30/19 07:45 Novolog SUBCUT Not Given TIDWM ANÍBAL Protocol Losartan Potassium 100 mg 08/28/19 17:00 08/30/19 09:00 Cozaar PO 100 mg DAILY ANÍBAL Administration Lurasidone HCl 80 mg 08/29/19 06:00 08/30/19 05:39 Latuda PO 80 mg QAM ANÍBAL Administration Methylprednisolone Sodium Succinate 40 mg 08/29/19 08:00 08/30/19 09:12 Solu-Medrol IVP 40 mg Q8H ANÍBAL Administration Metoprolol Tartrat e 100 mg 08/28/19 18:00 08/30/19 08:59 Lopressor PO 100 mg BID ANÍBAL Administration Non-Formulary Medi cation 70 unit 08/28/19 18:00 08/29/19 18:25 Insulin Degludec [Tresiba Flextouc h U-200] SUBCUT 70 unit QPM ANÍBAL Administration Pantoprazole Sodiu m 40 mg 08/29/19 09:00 08/30/19 09:00 Protonix PO 40 mg DAILY ANÍBAL Administration Potassium Chloride 20 meq 08/28/19 17:00 08/30/19 09:00 Klor-Con 10 PO 20 meq DAILY ANÍBAL Administration Trazodone HCl 150 mg 08/28/19 21:00 08/29/19 21:58 Desyrel PO 150 mg BEDTIME ANÍBAL Administration Vitals/I&O/Wt Last Vital Signs Temp 97.9 F 08/30/19 08:00 Pulse 95 08/30/19 08:00 Resp 20 H 08/30/19 08:00 BP 179/99 08/30/19 08:00 Pulse Ox 96 08/30/19 08:00 08/29/19 08/30/19 08/30/19 22:59 06:59 14:59 Intake Total 280 / 1300 600 / 1900 480 / 480 Output Total 1250 / 1830 500 / 2330 300 / 300 Balance -970 / -530 100 / -430 180 / 180 Weight last 48 hrs Weight 142.882 kg Physical Exam Const: COMMON NORMALS: no apparent distress and oriented x3 GENERAL APPEARANCE: cooperative and comfortable NUTRITIONAL APPEARANCE: obese morbidly obese ORIENTATION/CONSCIOUSNESS: Yes awake HENMT: COMMON NORMALS: normocephalic, head/scalp atraumatic, hearing grossly normal bilaterally and moist oral mucous membranes HEAD & SCALP: normocephalic and atraumatic Eye: COMMON NORMALS: PERRL, EOMs intact bilaterally and conjunctivae normal CONJUNCTIVA: Yes conjunctivae normal PUPIL: Yes PERRL Neck/C-Spine: COMMON NORMALS: full ROM GENERAL: Yes normal visual inspection and Yes trachea midline Resp: COMMON NORMALS: normal respiratory effort, no retractions and no use of accessory muscles EFFORT & INSPECTION: Yes able to speak in complete sentences, Yes symmetric chest movement and No tachypneic AUSCULTATION: rhonchi and wheezes expiratory wheezes Cardio: COMMON NORMALS: regular rate, regular rhythm, S1 normal heart sound, S2 normal heart sound and no murmurs RATE: regular rate RHYTHM: regular rhythm HEART SOUNDS: S1 normal and S2 normal GI: COMMON NORMALS: normal to inspection, nondistended, normoactive bowel sounds, soft to palpation and non-tender INSPECTION: Yes central obesity PALPATION: Yes soft Extremity: COMMON NORMALS: normal to inspection, full ROM and no clubbing, cyanosis or edema GENERAL: Yes edema (pedal, bilateral) Neuro: COMMON NORMALS: oriented x3, moves all extremities, no focal motor deficits and no sensory deficits noted Psych: COMMON NORMALS: mental status grossly normal, thought process normal, cooperative, affect normal and speech normal SPEECH: Yes normal speech THOUGHT PROCESS: normal thought process Skin: COMMON NORMALS: no rashes or lesions noted, no jaundice, no petechiae and no mottling GENERAL SKIN EXAM: no rashes or lesions noted Data : 08/30/19 04:50 08/30/19 04:50 Micro: Microbiology 08/28/19 15:04 Blood Culture - Preliminary Blood NEGATIVE TO DATE 08/28/19 13:45 Blood Culture - Preliminary Blood NEGATIVE TO DATE A&P Assessment and plan (1) Acute respiratory failure with hypoxia: -likely secondary to acute COPD exacerbation with superimposed infectious process -continue IV steroids, Neb treatments, empiric antibiotics -reviewed CXR, CT chest -supplemental oxygen as needed; home oxygen evaluation if unable to wean as not oxygen dependent at baseline -no leukocytosis, afebrile, pro-calcitonin wnl -continue to monitor respiratory status -ABG noted -negative Legionella, bacterial antigens -blood cx: prelim negative -Echo: EF=67%, G2DD, no RWMA, mild MR, mild AR, mild TR -due to concern for fluid overload, d/c IVF, got extra dose of Lasix yesterday. Will switch to Bumex for continued diuresis due to renal impairment Status: Acute Code(s): J96.01 - Acute respiratory failure with hypoxia (2) Anemia: -has acute on chronic iron deficiency anemia -per patient report, he has had extensive GI w/u done in [place] including EGD, colonoscopy, small capsule endoscopy, all negative -iron panel noted -baseline Hg around 10 -continue to monitor H/H Status: Acute Qualifiers: Anemia type: iron deficiency Iron deficiency anemia type: other iron deficiency Qualified Code(s): D50.8 - Other iron deficiency anemias Code(s): D64.9 - Anemia, unspecified (3) CKD stage 3 due to type 2 diabetes mellitus: -baseline Cr around 1.4 -has VERONICA on CKD stage 3 -worsening Cr today likely secondary to diuretics -continue to monitor renal function -avoid nephrotoxins, renally dose meds Status: Acute Code(s): E11.22 - Type 2 diabetes mellitus with diabetic chronic kidney disease; N18.3 - Chronic kidney disease, stage 3 (moderate) Additional A&P Information -Morbid obesity: BMI-54 kg/m2 -Depression/Anxiety, Bipolar disorder; continue home meds -Fibromyalgia; pain control as needed -Insulin dependent DM type II; accuchecks, ISS, consistent carb diet -Insomnia -Acute on chronic diastolic CHF; cautious diuresis with renal impairment -GI ppx with PPI -DVT ppx with SCDs due to bleeding risk -Dispo: home -Code status: FULL code Attestations Medical Necessity Statement*: Patient requires hospitalization for continued management of acute COPD exacerbation and mild CHF exacerbation. Time Spent in Patient Care: Greater than 35 minutes (>than 50% of time spent in counselling and/or direct pt care on unit). Coding Level of Care Code Acute Measurer Machine for Riki Fwvenancio Exam Problem Focused Diagnoses Acute respiratory failure with hypoxia J96.01 Anemia D50.8 Anemia type: iron deficiency Iron deficiency anemia type: other iron deficiency CKD stage 3 due to type 2 diabetes mellitus E11.22; N18.3
[2019-08-30 11:15] LABS: Glucose Point of Care 285 mg/dL (70-110)
[2019-08-30] MEDS: enoxaparin 40 mg/0.4 mL Syringe SUBCUT (16:17)
[2019-08-30] MEDS: bumetanide 0.25 mg/mL SDV 10 mL 1 MG IV (18:06)
[2019-08-30] MEDS: trazodone 150 mg Tablet PO (20:35)
[2019-08-31] VITALS (18 sets, daily range): BP systolic 143–162; BP diastolic 77–85; PULSE 78–96; RESP 18–24; TEMP 36.4–36.8; O2SAT 92–96
[2019-08-31 01:43] LABS: Glucose Point of Care 352 mg/dL (70-110)
[2019-08-31 02:30] LABS: Glucose Point of Care 289 mg/dL (70-110)
[2019-08-31] MEDS: ipratropium-albuterol 3 mL Neb INHALATION ×6 (03:21→23:44)
[2019-08-31 05:35] LABS: Basophils % 0.1 %; Hematocrit 31.8 % (42.0-52.0); Hemoglobin 9.4 g/dL (11.7-16.6); Lymphocytes # 0.9 10^3/uL (0.8-4.8); Lymphocytes % 9.1 %; Mean Corpuscular HGB Conc 29.6 g/dL (30.0-36.0); Mean Corpuscular Hemoglobin 23.5 pg (28.0-34.0); Mean Corpuscular Volume 79.5 fL (80-94); Mean Platelet Volume 10.1 fL (7.4-10.4); Monocytes # 0.5 10^3/uL (0.2-0.9); Monocytes % 5.3 %; Neutrophils # 8.3 10^3/uL (1.8-7.7); Neutrophils % 84.7 %; Nucleated Red Blood Cells % 0 %; Platelet Count 284 10^3/cmm (130-400); Red Cell Distribution Width 15.6 % (12.1-15.1); White Blood Count 9.8 10^3/uL (4.0-10.0)
[2019-08-31] MEDS: bumetanide 0.25 mg/mL SDV 10 mL 1 MG IV ×2 (05:41→18:24)
[2019-08-31 05:54] LABS: Alanine Aminotransferase 17 U/L (0-41); Albumin Level 3.3 g/dL (3.5-5.2); Alkaline Phosphatase 83 IU/L (40-130); Anion Gap 14.6 (5-19); Aspartate Amino Transferase 18 U/L (0-40); Blood Urea Nitrogen 36 mg/dL (6-20); Calcium 8.9 mg/dL (8.5-10.5); Carbon Dioxide 33 mmol/L (22-29); Chloride 96 mmol/L (98-107); Glomerular Filtration Rate 43.2 mL/min (90-130); Potassium 3.6 mmol/L (3.5-5.1); Sodium 140 mmol/L (136-145); Total Bilirubin 0.2 mg/dL (0.15-1.2); Total Protein 6.3 g/dL (6.6-8.7)
[2019-08-31 06:24] LABS: Glucose Point of Care 237 mg/dL (70-110)
[2019-08-31] MEDS: cefTRIAXone 1,000 MG in sodium chloride 0.9% (plus) 50 ML 100 MG IV (08:26)
[2019-08-31] MEDS: hyDRALAzine 50 mg Tablet PO ×2 (08:27→18:24)
[2019-08-31] MEDS: cyclobenzaprine 10 mg Tablet PO ×3 (08:27→21:11)
[2019-08-31] MEDS: losartan 50 mg Tablet 100 MG PO (08:27)
[2019-08-31] MEDS: atorvastatin 40 mg Tablet 20 MG PO (08:28)
[2019-08-31] MEDS: escitalopram 10 mg Tablet PO (08:28)
[2019-08-31] MEDS: metoprolol tartrate 50 mg Tablet 100 MG PO ×2 (08:29→18:25)
[2019-08-31] MEDS: pantoprazole DR 40 mg Tablet PO (08:29)
[2019-08-31] MEDS: amlodipine 10 mg Tablet PO (08:29)
[2019-08-31] MEDS: azithromycin 500 MG in sodium chloride 0.9% 250 ML 250 MG IV (08:39)
[2019-08-31] MEDS: acetaminophen 325 mg Tablet 650 MG PO (08:52)
[2019-08-31 09:10] LABS: Glucose 244 mg/dL (65-115)
--- NOTE | 2019-08-31 09:49 | P.PN_ITS ---
Subjective Subjective: Interval history: AM labs noted, had 1025 mL urine output overnight. Creatinine slightly improved. Patient seen and examined, at bedside, resting in bed, complains of bilateral CVA tenderness, denies dysuria, continues to feel puffy. Noted hyperglycemia, will discontinue steroids for now. Medications: Reviewed: Yes Medication Review Details: Current Medications Generic Name Dose Route Start Last Admin Trade Name Freq PRN Reason Stop Dose Admin Acetaminophen 650 mg 08/28/19 17:02 08/31/19 08:52 Tylenol PO 650 mg Q6H PRN Administration Mild/Mod Pain Or Temp >/= 101 Albuterol/Ipratrop ium 3 ml 08/28/19 20:00 08/31/19 08:17 Duoneb INHALATION 3 ml Q4H.RESPIRATORY S CH Administration Amlodipine Besylat e 10 mg 08/28/19 15:45 08/31/19 08:29 Norvasc PO 10 mg DAILY ANÍBAL Administration Atorvastatin Calci um 20 mg 08/29/19 09:00 08/31/19 08:28 Lipitor PO 20 mg DAILY ANÍBAL Administration Bumetanide 1 mg 08/30/19 17:30 08/31/19 05:41 Bumex IV 1 mg Q12H ANÍBAL Administration Cyclobenzaprine HC l 10 mg 08/28/19 21:00 08/31/19 08:27 Flexeril PO 10 mg TID ANÍBAL Administration Enoxaparin Sodium 40 mg 08/28/19 17:02 08/30/19 16:17 Lovenox SUBCUT 40 mg Q24H ANÍBAL Administration Escitalopram Oxala te 10 mg 08/28/19 16:45 08/31/19 08:28 Lexapro PO 10 mg DAILY ANÍBAL Administration Hydralazine HCl 50 mg 08/28/19 18:00 08/31/19 08:27 Apresoline PO 50 mg BID ANÍBAL Administration Azithromycin 500 m g/ Sodium 250 mls @ 250 mls /hr 08/29/19 08:00 08/31/19 08:39 Chloride IV 250 mls/hr Q24H ANÍBAL Administration Protocol Ceftriaxone Sodium 1,000 mg/ 50 mls @ 100 mls/ hr 08/29/19 08:00 08/31/19 08:26 Sodium Chloride IV 100 mls/hr Q24H ANÍBAL Administration Protocol Insulin Aspart 0 unit 08/28/19 18:00 08/31/19 08:26 Novolog SUBCUT 6 unit TIDWM ANÍBAL Administration Protocol Losartan Potassium 100 mg 08/28/19 17:00 08/31/19 08:27 Cozaar PO 100 mg DAILY ANÍBAL Administration Lurasidone HCl 80 mg 08/29/19 06:00 08/31/19 05:41 Latuda PO Not Given QAM ANÍBAL Methylprednisolone Sodium Succinate 40 mg 08/29/19 08:00 08/31/19 08:29 Solu-Medrol IVP 40 mg Q8H ANÍBAL Administration Metoprolol Tartrat e 100 mg 08/28/19 18:00 08/31/19 08:29 Lopressor PO 100 mg BID ANÍBAL Administration Non-Formulary Medi cation 70 unit 08/28/19 18:00 08/30/19 18:25 Insulin Degludec [Tresiba Flextouc h U-200] SUBCUT 70 unit QPM ANÍBAL Administration Pantoprazole Sodiu m 40 mg 08/29/19 09:00 08/31/19 08:29 Protonix PO 40 mg DAILY ANÍBAL Administration Potassium Chloride 20 meq 08/28/19 17:00 08/31/19 08:27 Klor-Con 10 PO 20 meq DAILY ANÍBAL Administration Trazodone HCl 150 mg 08/28/19 21:00 08/30/19 20:35 Desyrel PO 150 mg BEDTIME ANÍBAL Administration Vitals/I&O/Wt Last Vital Signs Temp 98.0 F 08/31/19 07:32 Pulse 90 08/31/19 08:22 Resp 18 08/31/19 08:17 BP 155/81 08/31/19 07:32 Pulse Ox 96 08/31/19 08:17 08/30/19 08/31/19 08/31/19 22:59 06:59 14:59 Intake Total 480 / 480 Output Total 950 / 1250 375 / 1625 250 / 250 Balance -950 / -230 -375 / -605 230 / 230 Physical Exam Const: COMMON NORMALS: no apparent distress and oriented x3 GENERAL APPEARANCE: cooperative and comfortable NUTRITIONAL APPEARANCE: obese morbidly obese ORIENTATION/CONSCIOUSNESS: Yes awake OTHER: Anasarca HENMT: COMMON NORMALS: normocephalic, head/scalp atraumatic, hearing grossly normal bilaterally and moist oral mucous membranes HEAD & SCALP: normocephalic and atraumatic Eye: COMMON NORMALS: PERRL, EOMs intact bilaterally and conjunctivae normal CONJUNCTIVA: Yes conjunctivae normal PUPIL: Yes PERRL Neck/C-Spine: COMMON NORMALS: full ROM GENERAL: Yes normal visual inspection and Yes trachea midline Resp: COMMON NORMALS: normal respiratory effort, no retractions and no use of accessory muscles EFFORT & INSPECTION: Yes able to speak in complete sentences, Yes symmetric chest movement and No tachypneic AUSCULTATION: r hon[place] and wheezes expiratory wheezes Cardio: COMMON NORMALS: regular rate, regular rhythm, S1 normal heart sound, S2 normal heart sound and no murmurs RATE: regular rate RHYTHM: regular rhythm HEART SOUNDS: S1 normal and S2 normal GI: COMMON NORMALS: normal to inspection, nondistended, normoactive bowel sounds, soft to palpation and non-tender INSPECTION: Yes anasarca present and Yes central obesity PALPATION: Yes soft : BLADDER/KIDNEY EXAM: Yes CVA tenderness bilateral (worse on the R) Back/Pelvis: GENERAL BACK: Yes CVA tenderness Extremity: COMMON NORMALS: normal to inspection and full ROM GENERAL: Yes edema (pedal, bilateral) Neuro: COMMON NORMALS: oriented x3, moves all extremities, no focal motor deficits and no sensory deficits noted Psych: COMMON NORMALS: mental status grossly normal, thought process normal, cooperative, affect normal and speech normal SPEECH: Yes normal speech THOUGHT PROCESS: normal thought process Skin: COMMON NORMALS: no rashes or lesions noted, no jaundice, no petechiae and no mottling GENERAL SKIN EXAM: no rashes or lesions noted Data : 08/31/19 05:05 08/31/19 05:05 A&P Assessment and plan (1) Acute respiratory failure with hypoxia: -likely secondary to acute COPD exacerbation with superimposed infectious process as well as mild acute diastolic CHF exacerbation -continue Neb treatments, empiric antibiotics. Discontinue steroids given anasarca, hyperglycemia -reviewed CXR, CT chest -supplemental oxygen as needed; home oxygen evaluation if unable to wean as not oxygen dependent at baseline -no leukocytosis, afebrile, pro-calcitonin wnl -continue to monitor respiratory status -ABG noted -negative Legionella, bacterial antigens -blood cx: prelim negative -Echo: EF=67%, G2DD, no RWMA, mild MR, mild AR, mild TR -due to concern for fluid overload, off IVF. On diuresis with Bumex -continue to monitor daily weights, Is & Os -telemetry monitoring Status: Acute Code(s): J96.01 - Acute respiratory failure with hypoxia (2) Anemia: -has acute on chronic iron deficiency anemia -per patient report, he has had extensive GI w/u done in [place] including EGD, colonoscopy, small capsule endoscopy, all negative -iron panel noted -baseline Hg around 10 -continue to monitor H/H Status: Acute Qualifiers: Anemia type: iron deficiency Iron deficiency anemia type: other iron deficiency Qualified Code(s): D50.8 - Other iron deficiency anemias Code(s): D64.9 - Anemia, unspecified (3) CKD stage 3 due to type 2 diabetes mellitus: -baseline Cr around 1.4 -has VERONICA on CKD stage 3 -worsening Cr today likely secondary to diuretics -continue to monitor renal function -avoid nephrotoxins, renally dose meds Status: Acute Code(s): E11.22 - Type 2 diabetes mellitus with diabetic chronic kidney disease; N18.3 - Chronic kidney disease, stage 3 (moderate) Additional A&P Information -Morbid obesity: BMI-54 kg/m2 -Depression/Anxiety, Bipolar disorder; continue home meds -Fibromyalgia; pain control as needed -Insulin dependent DM type II; accuchecks, ISS, consistent carb diet -Insomnia -Acute on chronic diastolic CHF; cautious diuresis with renal impairment -noted bilateral CVA tenderness, check UA; already on dual antibiotics -GI ppx with PPI -DVT ppx with SCDs due to bleeding risk -Dispo: home -Code status: FULL code Attestations Medical Necessity Statement*: Patient requires hospitalization for continued IV diuresis, management of acute COPD exacerbation. Time Spent in Patient Care: Greater than 35 minutes (>than 50% of time spent in counselling and/or direct pt care on unit) . Coding Level of Care Code Acute Systems Software Manager for Chg Fwd Exam Problem Focused Diagnoses Acute respiratory failure with hypoxia J96.01 Anemia D50.8 Anemia type: iron deficiency Iron deficiency anemia type: other iron deficiency CKD stage 3 due to type 2 diabetes mellitus E11.22; N18.3
[2019-08-31 11:39] LABS: Glucose Point of Care 308 mg/dL (70-110)
[2019-08-31] MEDS: lidocaine 5% Patch 1 PATCH TOPICAL (14:24)
[2019-08-31 15:29] LABS: Glucose Point of Care 291 mg/dL (70-110)
[2019-08-31 16:47] LABS: Glucose Point of Care 318 mg/dL (70-110)
[2019-08-31] MEDS: enoxaparin 40 mg/0.4 mL Syringe SUBCUT (18:26)
[2019-08-31 20:31] LABS: Glucose Point of Care 347 mg/dL (70-110)
[2019-08-31] MEDS: trazodone 150 mg Tablet PO (21:11)
[2019-09-01] VITALS (17 sets, daily range): BP systolic 113–150; BP diastolic 67–84; PULSE 77–87; RESP 16–24; TEMP 36.4–36.9; O2SAT 91–97
[2019-09-01 00:52] LABS: Adenovirus Not Detected (Not Detected); Human Metapneumovirus Detected (Not Detected); Human Parainflu Virus 1 Not Detected (Not Detected); Human Parainflu Virus 2 Not Detected (Not Detected); Human Parainflu Virus 3 Not Detected (Not Detected); Human Rsv A Detected (Not Detected); Influenza A Not Detected (Not Detected); Influenza B Not Detected (Not Detected); Rhinovirus/Enterovirus Not Detected (Not Detected)
[2019-09-01 00:57] LABS: Add Urine Microscopic? NO
[2019-09-01 01:02] LABS: Bilirubin Urine Neg (NEGATIVE); Blood Urine Neg (Negative); Glucose Urine UA Norm (Normal); Ketones Urine Negative (Negative); Leukocyte Esterase Urine Negative (Negative); Nitrate Urine Negative (Negative); Protein Urine Neg (Negative); Specific Gravity, Urine 1.015 (1.005-1.030); Urine Appearance Clear (CLEAR); Urine Color Yellow (Yellow); Urobilinogen Urine Norm (Negative); pH Urine 5 (5-7)
[2019-09-01] MEDS: ipratropium-albuterol 3 mL Neb INHALATION ×6 (03:25→23:24)
[2019-09-01 04:56] LABS: Anion Gap 12.3 (5-19); Blood Urea Nitrogen 39 mg/dL (6-20); Calcium 8.7 mg/dL (8.5-10.5); Carbon Dioxide 34 mmol/L (22-29); Chloride 96 mmol/L (98-107); Glomerular Filtration Rate 46.4 mL/min (90-130); Glucose 152 mg/dL (65-115); Osmolality Calculated 289 mOsm/kg (285-295); Potassium 3.3 mmol/L (3.5-5.1); Sodium 139 mmol/L (136-145)
[2019-09-01] MEDS: bumetanide 0.25 mg/mL SDV 10 mL 1 MG IV ×2 (05:43→17:04)
[2019-09-01 06:16] LABS: Glucose Point of Care 125 mg/dL (70-110)
[2019-09-01] MEDS: metoprolol tartrate 50 mg Tablet 100 MG PO ×2 (08:25→17:03)
[2019-09-01] MEDS: losartan 50 mg Tablet 100 MG PO (08:26)
[2019-09-01] MEDS: pantoprazole DR 40 mg Tablet PO (08:27)
[2019-09-01] MEDS: cyclobenzaprine 10 mg Tablet PO ×3 (08:27→22:38)
[2019-09-01] MEDS: escitalopram 10 mg Tablet PO (08:27)
[2019-09-01] MEDS: atorvastatin 40 mg Tablet 20 MG PO (08:27)
[2019-09-01] MEDS: hyDRALAzine 50 mg Tablet PO ×2 (08:27→17:03)
[2019-09-01] MEDS: amlodipine 10 mg Tablet PO (08:27)
[2019-09-01] MEDS: cefTRIAXone 1,000 MG in sodium chloride 0.9% (plus) 50 ML 100 MG IV (08:28)
[2019-09-01] MEDS: azithromycin 500 MG in sodium chloride 0.9% 250 ML 250 MG IV (09:33)
--- NOTE | 2019-09-01 09:51 | PM.PN ---
Subjective Subjective: Interval history: AM labs noted, had 725 mL urine output overnight. Very modest diuretic effect so far, continues to feel generally swollen. Blood sugar control is much better now that steroids are discontinued. Medications: Reviewed: Yes Medication Review Details: Current Medications Generic Name Dose Route Start Last Admin Trade Name Freq PRN Reason Stop Dose Admin Acetaminophen 650 mg 08/28/19 17:02 08/31/19 08:52 Tylenol PO 650 mg Q6H PRN Administration Mild/Mod Pain Or Temp >/= 101 Albuterol/Ipratrop ium 3 ml 08/28/19 20:00 09/01/19 07:34 Duoneb INHALATION 3 ml Q4H.RESPIRATORY S CH Administration Amlodipine Besylat e 10 mg 08/28/19 15:45 09/01/19 08:27 Norvasc PO 10 mg DAILY ANÍBAL Administration Atorvastatin Calci um 20 mg 08/29/19 09:00 09/01/19 08:27 Lipitor PO 20 mg DAILY ANÍBAL Administration Bumetanide 1 mg 08/30/19 17:30 09/01/19 05:43 Bumex IV 1 mg Q12H ANÍBAL Administration Cyclobenzaprine HC l 10 mg 08/28/19 21:00 09/01/19 08:27 Flexeril PO 10 mg TID ANÍBAL Administration Enoxaparin Sodium 40 mg 08/28/19 17:02 08/31/19 18:26 Lovenox SUBCUT 40 mg Q24H ANÍBAL Administration Escitalopram Oxala te 10 mg 08/28/19 16:45 09/01/19 08:27 Lexapro PO 10 mg DAILY ANÍBAL Administration Hydralazine HCl 50 mg 08/28/19 18:00 09/01/19 08:27 Apresoline PO 50 mg BID ANÍBAL Administration Azithromycin 500 m g/ Sodium 250 mls @ 250 mls /hr 08/29/19 08:00 09/01/19 09:33 Chloride IV 250 mls/hr Q24H ANÍBAL Administration Protocol Ceftriaxone Sodium 1,000 mg/ 50 mls @ 100 mls/ hr 08/29/19 08:00 09/01/19 08:28 Sodium Chloride IV 100 mls/hr Q24H ANÍBAL Administration Protocol Insulin Aspart 0 unit 08/31/19 18:00 09/01/19 08:23 Novolog SUBCUT Not Given WM&BEDTIME ANÍBAL Protocol Lidocaine 1 patch 08/31/19 13:27 08/31/19 22:56 Lidoderm 5% Patc h TOPICAL Not Given O12O12 [facility] Losartan Potassium 100 mg 08/28/19 17:00 09/01/19 08:26 Cozaar PO 100 mg DAILY ANÍBAL Administration Lurasidone HCl 80 mg 08/29/19 06:00 09/01/19 05:46 Latuda PO Not Given QAM [facility] Methylprednisolone Sodium Succinate 40 mg 08/29/19 08:00 08/31/19 08:29 Solu-Medrol IVP 40 mg Q8H ANÍBAL Administration Metoprolol Tartrat e 100 mg 08/28/19 18:00 09/01/19 08:25 Lopressor PO 100 mg BID ANÍBAL Administration Non-Formulary Medi cation 70 unit 08/28/19 18:00 08/31/19 18:49 Insulin Degludec [Tresiba Flextouc h U-200] SUBCUT 70 unit QPM ANÍBAL Administration Pantoprazole Sodiu m 40 mg 08/29/19 09:00 09/01/19 08:27 Protonix PO 40 mg DAILY ANÍBAL Administration Trazodone HCl 150 mg 08/28/19 21:00 08/31/19 21:11 Desyrel PO 150 mg BEDTIME ANÍBAL Administration Vitals/I&O/Wt Last Vital Signs Temp 97.6 F 09/01/19 07:56 Pulse 83 09/01/19 07:56 Resp 20 H 09/01/19 07:56 BP 142/84 09/01/19 08:26 Pulse Ox 92 09/01/19 07:56 08/31/19 09/01/19 09/01/19 22:59 06:59 14:59 Intake Total 360 / 1620 480 / 2100 360 / 360 Output Total 400 / 1150 325 / 1475 1000 / 1000 Balance -40 / 470 155 / 625 -640 / -640 Physical Exam Const: COMMON NORMALS: no apparent distress and oriented x3 GENERAL APPEARANCE: cooperative and comfortable NUTRITIONAL APPEARANCE: obese morbidly obese ORIENTATION/CONSCIOUSNESS: Yes awake OTHER: Anasarca HENMT: COMMON NORMALS: normocephalic, head/scalp atraumatic, hearing grossly normal bilaterally and moist oral mucous membranes HEAD & SCALP: normocephalic and atraumatic Eye: COMMON NORMALS: PERRL, EOMs intact bilaterally and conjunctivae normal CONJUNCTIVA: Yes conjunctivae normal PUPIL: Yes PERRL Neck/C-Spine: COMMON NORMALS: full ROM GENERAL: Yes normal visual inspection and Yes trachea midline Resp: COMMON NORMALS: normal respiratory effort, no retractions and no use of accessory muscles EFFORT & INSPECTION: Yes able to speak in complete sentences, Yes symmetric chest movement and No tachypneic AUSCULTATION: rhonchi and wheezes expiratory wheezes Cardio: COMMON NORMALS: regular rate, regular rhythm, S1 normal heart sound, S2 normal heart sound and no murmurs RATE: regular rate RHYTHM: regular rhythm HEART SOUNDS: S1 normal and S2 normal GI: COMMON NORMALS: normal to inspection, nondistended, normoactive bowel sounds, soft to palpation and non-tender INSPECTION: Yes anasarca present and Yes central obesity PALPATION: Yes soft : BLADDER/KIDNEY EXAM: Yes CVA tenderness bilateral (worse on the R) Back/Pelvis: GENERAL BACK: Yes CVA tenderness Extremity: COMMON NORMALS: normal to inspection and full ROM GENERAL: Yes edema (pedal, bilateral) Neuro: COMMON NORMALS: oriented x3, moves all extremities, no focal motor deficits and no sensory deficits noted Psych: COMMON NORMALS: mental status grossly normal, thought process normal, cooperative, affect normal and speech normal SPEECH: Yes normal speech THOUGHT PROCESS: normal thought process Skin: COMMON NORMALS: no rashes or lesions noted, no jaundice, no petechiae and no mottling GENERAL SKIN EXAM: no rashes or lesions noted Data : 08/31/19 05:05 09/01/19 03:25 A&P Assessment and plan (1) Acute respiratory failure with hypoxia: -likely secondary to acute COPD exacerbation with superimposed infectious process as well as mild acute diastolic CHF exacerbation -continue Neb treatments, empiric antibiotics. Discontinue steroids given anasarca, hyperglycemia -reviewed CXR, CT chest -supplemental oxygen as needed; home oxygen evaluation if unable to wean as not oxygen dependent at baseline -no leukocytosis, afebrile, pro-calcitonin wnl -continue to monitor respiratory status -ABG noted -negative Legionella, bacterial antigens -blood cx: prelim negative -Echo: EF=67%, G2DD, no RWMA, mild MR, mild AR, mild TR -due to concern for fluid overload, off IVF. On diuresis with Bumex, increase dose today and add metolazone -continue to monitor daily weights, Is & Os -telemetry monitoring Status: Acute Code(s): J96.01 - Acute respiratory failure with hypoxia (2) Anemia: -has acute on chronic iron deficiency anemia -per patient report, he has had extensive GI w/u done in [place] including EGD, colonoscopy, small capsule endoscopy, all negative -iron panel noted -baseline Hg around 10 -continue to monitor H/H Status: Acute Qualifiers: Anemia type: iron deficiency Iron deficiency anemia type: other iron deficiency Qualified Code(s): D50.8 - Other iron deficiency anemias Code(s): D64.9 - Anemia, unspecified (3) CKD stage 3 due to type 2 diabetes mellitus: -baseline Cr around 1.4 -has VERONICA on CKD stage 3 -improving Cr -continue to monitor renal function -avoid nephrotoxins, renally dose meds Status: Acute Code(s): E11.22 - Type 2 diabetes mellitus with diabetic chronic kidney disease; N18.3 - Chronic kidney disease, stage 3 (moderate) Additional A&P Information -Morbid obesity: BMI-54 kg/m2 -Depression/Anxiety, Bipolar disorder; continue home meds -Fibromyalgia; pain control as needed -Insulin dependent DM type II; accuchecks, ISS, consistent carb diet -Insomnia -Acute on chronic diastolic CHF; cautious diuresis with renal impairment -noted bilateral CVA tenderness, UA negative; already on dual antibiotics -GI ppx with PPI -DVT ppx with SCDs due to bleeding risk -Dispo: home -Code status: FULL code Attestations Medical Necessity Statement*: Patient requires hospitalization for continued IV diuresis and management of acute COPD exacerbation. Time Spent in Patient Care: Greater than 35 minutes (>than 50% of time spent in counselling and/or direct pt care on unit). Coding Level of Care Code Acute Political Advisor for Chg Fwd Exam Problem Focused Diagnoses Acute respiratory failure with hypoxia J96.01 Anemia D50.8 Anemia type: iron deficiency Iron deficiency anemia type: other iron deficiency CKD stage 3 due to type 2 diabetes mellitus E11.22; N18.3
[2019-09-01 10:58] LABS: Glucose Point of Care 215 mg/dL (70-110)
[2019-09-01 17:03] LABS: Glucose Point of Care 123 mg/dL (70-110)
[2019-09-01] MEDS: enoxaparin 40 mg/0.4 mL Syringe SUBCUT (17:04)
[2019-09-01] MEDS: metOLazone 5 MG Tablet PO (18:08)
[2019-09-01 21:22] LABS: Glucose Point of Care 144 mg/dL (70-110)
[2019-09-01 22:22] LABS: Glucose Point of Care 166 mg/dL (70-110)
[2019-09-01] MEDS: trazodone 150 mg Tablet PO (22:38)
[2019-09-01] MEDS: lidocaine 5% Patch 1 PATCH TOPICAL ×2 (23:22→23:25)
[2019-09-02] VITALS (17 sets, daily range): BP systolic 112–132; BP diastolic 71–85; PULSE 67–101; RESP 17–22; TEMP 36.6–37; O2SAT 91–97
[2019-09-02] MEDS: ipratropium-albuterol 3 mL Neb INHALATION ×6 (03:54→23:34)
[2019-09-02 04:55] LABS: Anion Gap 11.8 (5-19); Blood Urea Nitrogen 37 mg/dL (6-20); Calcium 8.8 mg/dL (8.5-10.5); Carbon Dioxide 39 mmol/L (22-29); Chloride 93 mmol/L (98-107); Glomerular Filtration Rate 43.2 mL/min (90-130); Glucose 89 mg/dL (65-115); Osmolality Calculated 289 mOsm/kg (285-295); Sodium 141 mmol/L (136-145)
[2019-09-02 05:24] LABS: Potassium 2.8 mmol/L (3.5-5.1)
[2019-09-02] MEDS: lurasidone 80 mg Tablet PO (06:21)
[2019-09-02 06:32] LABS: Glucose Point of Care 89 mg/dL (70-110)
[2019-09-02] MEDS: amlodipine 10 mg Tablet PO (09:33)
[2019-09-02] MEDS: metoprolol tartrate 50 mg Tablet 100 MG PO ×2 (09:33→17:45)
[2019-09-02] MEDS: metOLazone 5 MG Tablet PO (09:33)
[2019-09-02] MEDS: cyclobenzaprine 10 mg Tablet PO ×3 (09:33→21:40)
[2019-09-02] MEDS: hyDRALAzine 50 mg Tablet PO ×2 (09:33→17:45)
[2019-09-02] MEDS: escitalopram 10 mg Tablet PO (09:33)
[2019-09-02] MEDS: atorvastatin 40 mg Tablet 20 MG PO (09:34)
[2019-09-02] MEDS: losartan 50 mg Tablet 100 MG PO (09:34)
[2019-09-02] MEDS: bumetanide 0.25 mg/mL SDV 10 mL 2 MG IV ×2 (09:34→21:38)
[2019-09-02] MEDS: pantoprazole DR 40 mg Tablet PO (09:34)
[2019-09-02] MEDS: azithromycin 500 MG in sodium chloride 0.9% 250 ML 250 MG IV (09:35)
[2019-09-02] MEDS: cefTRIAXone 1,000 MG in sodium chloride 0.9% (plus) 50 ML 100 MG IV (09:35)
[2019-09-02] MEDS: lidocaine 5% Patch 1 PATCH TOPICAL (09:36)
[2019-09-02 10:45] LABS: Glucose Point of Care 218 mg/dL (70-110)
--- NOTE | 2019-09-02 16:28 | PM.PN ---
Subjective Subjective: Interval history: Had 1800 mL urine output overnight, negative fluid balance of 4 L. Hemodynamically stable, resting in bed, still has some wheezing, has diuresed very well over the past 24 hours. Potassium replaced orally as patient reportedly gets chest pain with K rider. Medications: Reviewed: Yes Medication Review Details: Current Medications Generic Name Dose Route Start Last Admin Trade Name Freq PRN Reason Stop Dose Admin Acetaminophen 650 mg 08/28/19 17:02 08/31/19 08:52 Tylenol PO 650 mg Q6H PRN Administration Mild/Mod Pain Or Temp >/= 101 Albuterol/Ipratrop ium 3 ml 08/28/19 20:00 09/02/19 15:25 Duoneb INHALATION 3 ml Q4H.RESPIRATORY S CH Administration Amlodipine Besylat e 10 mg 08/28/19 15:45 09/02/19 09:33 Norvasc PO 10 mg DAILY ANÍBAL Administration Atorvastatin Calci um 20 mg 08/29/19 09:00 09/02/19 09:34 Lipitor PO 20 mg DAILY ANÍBAL Administration Bumetanide 2 mg 09/02/19 08:00 09/02/19 09:34 Bumex IV 2 mg Q12H ANÍBAL Administration Cyclobenzaprine HC l 10 mg 08/28/19 21:00 09/02/19 15:31 Flexeril PO 10 mg TID ANÍBAL Administration Enoxaparin Sodium 40 mg 08/28/19 17:02 09/01/19 17:04 Lovenox SUBCUT 40 mg Q24H ANÍBAL Administration Escitalopram Oxala te 10 mg 08/28/19 16:45 09/02/19 09:33 Lexapro PO 10 mg DAILY ANÍBAL Administration Hydralazine HCl 50 mg 08/28/19 18:00 09/02/19 09:33 Apresoline PO 50 mg BID ANÍBAL Administration Azithromycin 500 m g/ Sodium 250 mls @ 250 mls /hr 08/29/19 08:00 09/02/19 09:35 Chloride IV 250 mls/hr Q24H ANÍBAL Administration Protocol Ceftriaxone Sodium 1,000 mg/ 50 mls @ 100 mls/ hr 08/29/19 08:00 09/02/19 09:35 Sodium Chloride IV 100 mls/hr Q24H ANÍBAL Administration Protocol Insulin Aspart 0 unit 08/31/19 18:00 09/02/19 11:22 Novolog SUBCUT 6 unit WM&BEDTIME ANÍBAL Administration Protocol Lidocaine 1 patch 08/31/19 13:27 09/02/19 09:36 Lidoderm 5% Patc h TOPICAL 1 patch O12O12 ANÍBAL Administration Losartan Potassium 100 mg 08/28/19 17:00 09/02/19 09:34 Cozaar PO 100 mg DAILY ANÍBAL Administration Lurasidone HCl 80 mg 08/29/19 06:00 09/02/19 06:21 Latuda PO 80 mg QAM ANÍBAL Administration Methylprednisolone Sodium Succinate 40 mg 08/29/19 08:00 08/31/19 08:29 Solu-Medrol IVP 40 mg Q8H ANÍBAL Administration Metolazone 5 mg 09/01/19 18:00 09/02/19 09:33 Zaroxolyn PO 5 mg DAILY ANÍBAL Administration Metoprolol Tartrat e 100 mg 08/28/19 18:00 09/02/19 09:33 Lopressor PO 100 mg BID ANÍBAL Administration Non-Formulary Medi cation 70 unit 08/28/19 18:00 09/01/19 17:05 Insulin Degludec [Tresiba Flextouc h U-200] SUBCUT 70 unit QPM ANÍBAL Administration Pantoprazole Sodiu m 40 mg 08/29/19 09:00 09/02/19 09:34 Protonix PO 40 mg DAILY ANÍBAL Administration Trazodone HCl 150 mg 08/28/19 21:00 09/01/19 22:38 Desyrel PO 150 mg BEDTIME ANÍBAL Administration Vitals/I&O/Wt Last Vital Signs Temp 98.5 F 09/02/19 11:48 Pulse 89 09/02/19 15:30 Resp 17 09/02/19 15:26 BP 128/84 09/02/19 11:48 Pulse Ox 94 09/02/19 15:26 09/02/19 09/02/19 09/02/19 06:59 14:59 22:59 Intake Total 720 / 720 Output Total 1325 / 4300 2350 / 2350 Balance -1325 / -3160 -1630 / -1630 Physical Exam Const: COMMON NORMALS: no apparent distress and oriented x3 GENERAL APPEARANCE: cooperative and comfortable NUTRITIONAL APPEARANCE: obese morbidly obese ORIENTATION/CONSCIOUSNESS: Yes awake OTHER: Anasarca HENMT: COMMON NORMALS: normocephalic, head/scalp atraumatic, hearing grossly normal bilaterally and moist oral mucous membranes HEAD & SCALP: normocephalic and atraumatic Eye: COMMON NORMALS: PERRL, EOMs intact bilaterally and conjunctivae normal CONJUNCTIVA: Yes conjunctivae normal PUPIL: Yes PERRL Neck/C-Spine: COMMON NORMALS: full ROM GENERAL: Yes normal visual inspection and Yes trachea midline OTHER: -short, thick neck Resp: COMMON NORMALS: normal respiratory effort, no retractions and no use of accessory muscles EFFORT & INSPECTION: Yes able to speak in complete sentences, Yes symmetric chest movement and No tachypneic AUSCULTATION: wheezes expiratory wheezes Cardio: COMMON NORMALS: regular rate, regular rhythm, S1 normal heart sound, S2 normal heart sound and no murmurs RATE: regular rate RHYTHM: regular rhythm HEART SOUNDS: S1 normal and S2 normal GI: COMMON NORMALS: normal to inspection, nondistended, normoactive bowel sounds, soft to palpation and non-tender INSPECTION: Yes anasarca present and Yes central obesity PALPATION: Yes soft Extremity: COMMON NORMALS: normal to inspection and full ROM GENERAL: Yes edema (pedal, bilateral) Neuro: COMMON NORMALS: oriented x3, moves all extremities, no focal motor deficits and no sensory deficits noted Psych: COMMON NORMALS: mental status grossly normal, thought process normal, cooperative, affect normal and speech normal SPEECH: Yes normal speech THOUGHT PROCESS: normal thought process Skin: COMMON NORMALS: no rashes or lesions noted, no jaundice, no petechiae and no mottling GENERAL SKIN EXAM: no rashes or lesions noted Data : 08/31/19 05:05 09/02/19 03:40 Micro: Microbiology 08/28/19 13:45 Blood Culture - Final Blood NO GROWTH AFTER 5 DAYS 08/28/19 15:04 Blood Culture - Final Blood NO GROWTH AFTER 5 DAYS A&P Assessment and plan (1) Acute respiratory failure with hypoxia: -likely secondary to acute COPD exacerbation with superimposed infectious process as well as mild acute diastolic CHF exacerbation -continue Neb treatments, empiric antibiotics. Discontinue steroids given anasarca, hyperglycemia -reviewed CXR, CT chest -supplemental oxygen as needed; home oxygen evaluation if unable to wean as not oxygen dependent at baseline -no leukocytosis, afebrile, pro-calcitonin wnl -continue to monitor respiratory status -ABG noted -negative Legionella, bacterial antigens -blood cx: prelim negative -Echo: EF=67%, G2DD, no RWMA, mild MR, mild AR, mild TR -due to concern for fluid overload, off IVF. On diuresis with Bumex, metolazone. Negative fluid balance of 4.8 L -continue to monitor daily weights, Is & Os -telemetry monitoring -due to persistent wheezing, will add pulmicort -may benefit from outpatient sleep study to assess for LORENZA Status: Acute Code(s): J96.01 - Acute respiratory failure with hypoxia (2) Anemia: -has acute on chronic iron deficiency anemia -per patient report, he has had extensive GI w/u done in [place] including EGD, colonoscopy, small capsule endoscopy, all negative -iron panel noted -baseline Hg around 10 -continue to monitor H/H Status: Acute Qualifiers: Anemia type: iron deficiency Iron deficiency anemia type: other iron deficiency Qualified Code(s): D50.8 - Other iron deficiency anemias Code(s): D64.9 - Anemia, unspecified (3) CKD stage 3 due to type 2 diabetes mellitus: -baseline Cr around 1.4 -has VERONICA on CKD stage 3 -improving Cr -continue to monitor renal function -avoid nephrotoxins, renally dose meds Status: Acute Code(s): E11.22 - Type 2 diabetes mellitus with diabetic chronic kidney disease; N18.3 - Chronic kidney disease, stage 3 (moderate) Additional A&P Information -Morbid obesity: BMI-54 kg/m2 -Depression/Anxiety, Bipolar disorder; continue home meds -Fibromyalgia; pain control as needed -Insulin dependent DM type II; accuchecks, ISS, consistent carb diet -Insomnia -Acute on chronic diastolic CHF; cautious diuresis with renal impairment -noted bilateral CVA tenderness, UA negative; already on dual antibiotics -GI ppx with PPI -DVT ppx with SCDs due to bleeding risk -Dispo: home -Code status: FULL code Attestations Medical Necessity Statement*: Patient requires hospitalization for continued IV diuresis as part of treatment for acute diastolic CHF exacerbation. Time Spent in Patient Care: Greater than 35 minutes (>than 50% of time spent in counselling and/or direct pt care on unit). Coding Level of Care Code Acute Airplane Pilot Supervisor for g Fwd Exam Problem Focused Diagnoses Acute respiratory failure with hypoxia J96.01 Anemia D50.8 Anemia type: iron deficiency Iron deficiency anemia type: other iron deficiency CKD stage 3 due to type 2 diabetes mellitus E11.22; N18.3
[2019-09-02 17:04] LABS: Glucose Point of Care 144 mg/dL (70-110)
[2019-09-02] MEDS: enoxaparin 40 mg/0.4 mL Syringe SUBCUT (17:45)
[2019-09-02] MEDS: budesonide 0.5 mg/2 mL Neb 0.25 MG INHALATION (19:50)
[2019-09-02 20:41] LABS: Glucose Point of Care 233 mg/dL (70-110)
[2019-09-02] MEDS: trazodone 150 mg Tablet PO (21:39)
[2019-09-03] VITALS (14 sets, daily range): BP systolic 91–128; BP diastolic 62–82; PULSE 80–96; RESP 17–20; TEMP 36.6–36.9; O2SAT 88–95
[2019-09-03] MEDS: ipratropium-albuterol 3 mL Neb INHALATION ×4 (03:26→15:50)
[2019-09-03 06:27] LABS: Glucose Point of Care 102 mg/dL (70-110)
[2019-09-03] MEDS: lurasidone 80 mg Tablet PO (06:50)
[2019-09-03] MEDS: cefTRIAXone 1,000 MG in sodium chloride 0.9% (plus) 50 ML 100 MG IV (08:51)
[2019-09-03] MEDS: azithromycin 500 MG in sodium chloride 0.9% 250 ML 250 MG IV (08:52)
[2019-09-03] MEDS: atorvastatin 40 mg Tablet 20 MG PO (08:53)
[2019-09-03] MEDS: bumetanide 0.25 mg/mL SDV 10 mL 2 MG IV (08:53)
[2019-09-03] MEDS: metOLazone 5 MG Tablet PO (08:54)
[2019-09-03] MEDS: losartan 50 mg Tablet 100 MG PO (08:55)
[2019-09-03] MEDS: escitalopram 10 mg Tablet PO (08:55)
[2019-09-03] MEDS: pantoprazole DR 40 mg Tablet PO (08:55)
[2019-09-03] MEDS: metoprolol tartrate 50 mg Tablet 100 MG PO (08:55)
[2019-09-03] MEDS: hyDRALAzine 50 mg Tablet PO (08:55)
[2019-09-03] MEDS: amlodipine 10 mg Tablet PO (08:55)
[2019-09-03] MEDS: cyclobenzaprine 10 mg Tablet PO (08:55)
[2019-09-03] MEDS: lidocaine 5% Patch 1 PATCH TOPICAL (08:56)
[2019-09-03 09:12] LABS: Blood Urea Nitrogen 38 mg/dL (6-20); Calcium 9.4 mg/dL (8.5-10.5); Chloride 85 mmol/L (98-107); Glucose 93 mg/dL (65-115); Osmolality Calculated 289 mOsm/kg (285-295); Sodium 141 mmol/L (136-145)
[2019-09-03 09:16] LABS: Carbon Dioxide 45 mmol/L (22-29)
--- NOTE | 2019-09-03 09:39 | P.PN_ITS ---
Subjective Subjective: Interval history: AM labs noted, had 1550 mL urine output overnight. K replaced orally. Patient seen and examined, sitting in chair by bedside, ambulated in hallway with PT. Overall, is in good spirits, feels well. Would like to go home today. States he has oxygen at home. Medications: Reviewed: Yes Medication Review Details: Current Medications Generic Name Dose Route Start Last Admin Trade Name Freq PRN Reason Stop Dose Admin Acetaminophen 650 mg 08/28/19 17:02 08/31/19 08:52 Tylenol PO 650 mg Q6H PRN Administration Mild/Mod Pain Or Temp >/= 101 Albuterol/Ipratrop ium 3 ml 08/28/19 20:00 09/03/19 03:26 Duoneb INHALATION 3 ml Q4H.RESPIRATORY S CH Administration Amlodipine Besylat e 10 mg 08/28/19 15:45 09/03/19 08:55 Norvasc PO 10 mg DAILY ANÍBAL Administration Atorvastatin Calci um 20 mg 08/29/19 09:00 09/03/19 08:53 Lipitor PO 20 mg DAILY ANÍBAL Administration Budesonide 0.25 mg 09/02/19 20:00 09/02/19 19:50 Pulmicort INHALATION 0.25 mg BID.RESPIRATORY S CH Administration Bumetanide 2 mg 09/02/19 08:00 09/03/19 08:53 Bumex IV 2 mg Q12H ANÍBAL Administration Cyclobenzaprine HC l 10 mg 08/28/19 21:00 09/03/19 08:55 Flexeril PO 10 mg TID ANÍBAL Administration Enoxaparin Sodium 40 mg 08/28/19 17:02 09/02/19 17:45 Lovenox SUBCUT 40 mg Q24H ANÍBAL Administration Escitalopram Oxala te 10 mg 08/28/19 16:45 09/03/19 08:55 Lexapro PO 10 mg DAILY ANÍBAL Administration Hydralazine HCl 50 mg 08/28/19 18:00 09/03/19 08:55 Apresoline PO 50 mg BID ANÍBAL Administration Azithromycin 500 m g/ Sodium 250 mls @ 250 mls /hr 08/29/19 08:00 09/03/19 08:52 Chloride IV 250 mls/hr Q24H ANÍBAL Administration Protocol Ceftriaxone Sodium 1,000 mg/ 50 mls @ 100 mls/ hr 08/29/19 08:00 09/03/19 08:51 Sodium Chloride IV 100 mls/hr Q24H ANÍBAL Administration Protocol Insulin Aspart 0 unit 08/31/19 18:00 09/03/19 08:56 Novolog SUBCUT Not Given WM&BEDTIME ANÍBAL Protocol Lidocaine 1 patch 08/31/19 13:27 09/03/19 08:56 Lidoderm 5% Patc h TOPICAL 1 patch [id number] ANÍBAL Administration Losartan Potassium 100 mg 08/28/19 17:00 09/03/19 08:55 Cozaar PO 100 mg DAILY ANÍBAL Administration Lurasidone HCl 80 mg 08/29/19 06:00 09/03/19 06:50 Latuda PO 80 mg QAM ANÍBAL Administration Metolazone 5 mg 09/01/19 18:00 09/03/19 08:54 Zaroxolyn PO 5 mg DAILY ANÍBAL Administration Metoprolol Tartrat e 100 mg 08/28/19 18:00 09/03/19 08:55 Lopressor PO 100 mg BID ANÍBAL Administration Non-Formulary Medi cation 70 unit 08/28/19 18:00 09/02/19 17:46 Insulin Degludec [Tresiba Flextouc h U-200] SUBCUT 70 unit QPM ANÍBAL Administration Pantoprazole Sodiu m 40 mg 08/29/19 09:00 09/03/19 08:55 Protonix PO 40 mg DAILY ANÍBAL Administration Trazodone HCl 150 mg 08/28/19 21:00 09/02/19 21:39 Desyrel PO 150 mg BEDTIME ANÍBAL Administration Vitals/I&O/Wt Last Vital Signs Temp 98.4 F 09/03/19 08:00 Pulse 94 09/03/19 08:00 Resp 20 H 09/03/19 08:00 BP 128/82 09/03/19 08:00 Pulse Ox 93 09/03/19 08:00 09/02/19 09/03/19 09/03/19 22:59 06:59 14:59 Output Total 900 / 3250 1200 / 4450 250 / 250 Balance -900 / -2230 -1200 / -3430 -250 / -250 Physical Exam Const: COMMON NORMALS: no apparent distress and oriented x3 GENERAL APPEARANCE: cooperative and comfortable NUTRITIONAL APPEARANCE: obese morbidly obese ORIENTATION/CONSCIOUSNESS: Yes awake OTHER: Anasarca HENMT: COMMON NORMALS: normocephalic, head/scalp atraumatic, hearing grossly normal bilaterally and moist oral mucous membranes HEAD & SCALP: normocephalic and atraumatic Eye: COMMON NORMALS: PERRL, EOMs intact bilaterally and conjunctivae normal CONJUNCTIVA: Yes conjunctivae normal PUPIL: Yes PERRL Neck/C-Spine: COMMON NORMALS: full ROM GENERAL: Yes normal visual inspection and Yes trachea midline OTHER: -short, thick neck Resp: COMMON NORMALS: normal respiratory effort, no retractions and no use of accessory muscles EFFORT & INSPECTION: Yes able to speak in complete sentence s, Yes symmetric chest movement and No tachypneic AUSCULTATION: wheezes expiratory wheezes (minimal) Cardio: COMMON NORMALS: regular rate, regular rhythm, S1 normal heart sound, S2 normal heart sound and no murmurs RATE: regular rate RHYTHM: regular rhythm HEART SOUNDS: S1 normal and S2 normal GI: COMMON NORMALS: normal to inspection, nondistended, normoactive bowel sounds, soft to palpation and non-tender INSPECTION: Yes anasarca present and Yes central obesity PALPATION: Yes soft Extremity: COMMON NORMALS: normal to inspection and full ROM GENERAL: Yes edema (pedal, bilateral) Neuro: COMMON NORMALS: oriented x3, moves all extremities, no focal motor deficits and no sensory deficits noted Psych: COMMON NORMALS: mental status grossly normal, thought process normal, cooperative, affect normal and speech normal SPEECH: Yes normal speech THOUGHT PROCESS: normal thought process Skin: COMMON NORMALS: no rashes or lesions noted, no jaundice, no petechiae an d no mottling GENERAL SKIN EXAM: no rashes or lesions noted Data : 08/31/19 05:05 09/03/19 08:49 Micro: Microbiology 08/28/19 13:45 Blood Culture - Final Blood NO GROWTH AFTER 5 DAYS 08/28/19 15:04 Blood Culture - Final Blood NO GROWTH AFTER 5 DAYS A&P Assessment and plan (1) Acute respiratory failure with hypoxia: -likely secondary to acute COPD exacerbation with superimposed infectious process as well as mild acute diastolic CHF exacerbation -continue Neb treatments, empiric antibiotics. Discontinue steroids given anasarca, hyperglycemia -reviewed CXR, CT chest -supplemental oxygen as needed; home oxygen evaluation if unable to wean as not oxygen dependent at baseline -no leukocytosis, afebrile, pro-calcitonin wnl -continue to monitor respiratory status -ABG noted -negative Legionella, bacterial antigens -blood cx: prelim negative -Echo: EF=67%, G2DD, no RWMA, mild MR, mild AR, mild TR -due to concern for fluid overload, off IVF. On diuresis with Bumex, metolazone. Negative fluid balance of 6.9 L. Will hold off on further diuresis today to allow for renal recovery -continue to monitor daily weights, Is & Os -telemetry monitoring -due to persistent wheezing, added pulmicort -may benefit from outpatient sleep study to assess for LORENZA Status: Acute Code(s): J96.01 - Acute respiratory failure with hypoxia (2) Anemia: -has acute on chronic iron deficiency anemia -per patient report, he has had extensive GI w/u done in [place] including EGD, colonoscopy, small capsule endoscopy, all negative -iron panel noted -baseline Hg around 10 -continue to monitor H/H Status: Acute Qualifiers: Anemia type: iron deficiency Iron deficiency anemia type: other iron deficiency Qualified Code(s): D50.8 - Other iron deficiency anemias Code(s): D64.9 - Anemia, unspecified (3) CKD stage 3 due to type 2 diabetes mellitus: -baseline Cr around 1.4 -has VERONICA on CKD stage 3 -slightly worsened Cr today, d/c diuretics -continue to monitor renal function -avoid nephrotoxins, renally dose meds Status: Acute Code(s): E11.22 - Type 2 diabetes mellitus with diabetic chronic kidney disease; N18.3 - Chronic kidney disease, stage 3 (moderate) Additional A&P Information -Morbid obesity: BMI-54 kg/m2 -Depression/Anxiety, Bipolar disorder; continue home meds -Fibromyalgia; pain control as needed -Insulin dependent DM type II; accuchecks, ISS, consistent carb diet -Insomnia -Acute on chronic diastolic CHF; cautious diuresis with renal impairment -noted bilateral CVA tenderness, UA negative; already on dual antibiotics -GI ppx with PPI -DVT ppx with SCDs due to bleeding risk -Dispo: home -Code status: FULL code Attestations Medical Necessity Statement*: Discharge home today Time Spent in Patient Care: Greater than 35 minutes (>than 50% of time spent in counselling and/or direct pt care on unit) . 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
[2019-09-03] MEDS: budesonide 0.5 mg/2 mL Neb 0.25 MG INHALATION (11:20)
[2019-09-03 12:32] LABS: Glucose Point of Care 212 mg/dL (70-110)
--- NOTE | 2019-09-03 15:54 | PM.DCS ---
Discharge Providers Date of Admission: 08/29/19 16:27 Date of Discharge: Date of Discharge: September 03, 2019 Attending Provider at Admission: Jarrod Reyes MD Attending Provider at Discharge: Trisha Parada MD Diagnoses at Discharge Discharge Diagnosis (1) Acute respiratory failure with hypoxia: Status: Acute Problem details: -likely secondary to acute COPD exacerbation with superimposed infectious process as well as mild acute diastolic CHF exacerbation -continue Neb treatments, empiric antibiotics. Discontinue steroids given anasarca, hyperglycemia -reviewed CXR, CT chest -supplemental oxygen as needed; home oxygen evaluation if unable to wean as not oxygen dependent at baseline -no leukocytosis, afebrile, pro-calcitonin wnl -continue to monitor respiratory status -ABG noted -negative Legionella, bacterial antigens -blood cx: prelim negative -Echo: EF=67%, G2DD, no RWMA, mild MR, mild AR, mild TR -due to concern for fluid overload, off IVF. On diuresis with Bumex, metolazone. Negative fluid balance of 6.9 L. Will hold off on further diuresis today to allow for renal recovery -continue to monitor daily weights, Is & Os -telemetry monitoring -due to persistent wheezing, added pulmicort -may benefit from outpatient sleep study to assess for LORENZA (2) Anemia: Status: Acute Problem details: -has acute on chronic iron deficiency anemia -per patient report, he has had extensive GI w/u done in [place] including EGD, colonoscopy, small capsule endoscopy, all negative -iron panel noted -baseline Hg around 10 -continue to monitor H/H Qualifiers: Anemia type: iron deficiency Iron deficiency anemia type: other iron deficiency Qualified Code(s): D50.8 - Other iron deficiency anemias (3) CKD stage 3 due to type 2 diabetes mellitus: Status: Acute Problem details: -baseline Cr around 1.4 -has VERONICA on CKD stage 3 -slightly worsened Cr today, d/c diuretics -continue to monitor renal function -avoid nephrotoxins, renally dose meds Other Information Additional DC diagnoses/information: -Morbid obesity: BMI-54 kg/m2 -Depression/Anxiety, Bipolar disorder; continue home meds -Fibromyalgia; pain control as needed -Insulin dependent DM type II; accuchecks, ISS, consistent carb diet -Insomnia -Acute on chronic diastolic CHF; cautious diuresis with renal impairment -noted bilateral CVA tenderness, UA negative; completed antibiotics Reason for Visit Reason for Visit: Reason For Visit: LOW OXYGEN Hospital Course Hospital Course: Patient was admitted to the medical surgical floor and started on diuretics as well as nebulizer treatments, empiric antibiotics and supplemental oxygen as part of management of acute COPD and acute CHF exacerbation. He had an echo done as reported above. Due to his history of CKD stage III he was diuresed with Bumex and metolazone. Initially diuresis was quite modest and required escalation. He has diuresed well with a total loss of approximately 6.8 L and subsequent clinical improvement. He has been oxygen dependent throughout his hospital stay so has had a home oxygen evaluation done prior to discharge. He has a chronic history of iron deficiency anemia and his hemoglobin has remained stable with no need for transfusion of any blood products. He would likely benefit from having a sleep study to evaluate for obstructive sleep apnea so this has been ordered on discharge. His renal function was closely monitored given his underlying chronic kidney disease. He did have slight elevation in his creatinine today so IV diuretics have been discontinued. His respiratory status has significantly improved and he has completed his antibiotic course so none will be prescribed on discharge. He will require continued follow-up to continue to monitor his renal function. Discharge Summary: -Patient to follow-up with Dr. Reyes as soon as next available appointment. He will likely need follow-up BMP to continue to monitor his renal function -Patient to have sleep study done as soon as scheduled to evaluate for obstructive sleep apnea Physical Exam Const: COMMON NORMALS: no apparent distress and oriented x3 GENERAL APPEARANCE: cooperative and comfortable NUTRITIONAL APPEARANCE: obese morbidly obese ORIENTATION/CONSCIOUSNESS: Yes awake OTHER: Anasarca HENMT: COMMON NORMALS: normocephalic, head/scalp atraumatic, hearing grossly normal bilaterally and moist oral mucous membranes HEAD & SCALP: normocephalic and atraumatic Eye: COMMON NORMALS: PERRL, EOMs intact bilaterally and conjunctivae normal CONJUNCTIVA: Yes conjunctivae normal PUPIL: Yes PERRL Neck/C-Spine: COMMON NORMALS: full ROM GENERAL: Yes normal visual inspection and Yes trachea midline OTHER: -short, thick neck Resp: COMMON NORMALS: normal respiratory effort, no retractions and no use of accessory muscles EFFORT & INSPECTION: Yes able to speak in complete sentences, Yes symmetric chest movement and No tachypneic AUSCULTATION: wheezes expiratory wheezes (minimal) Cardio: COMMON NORMALS: regular rate, regular rhythm, S1 normal heart sound, S2 normal heart sound and no murmurs RATE: regular rate RHYTHM: regular rhythm HEART SOUNDS: S1 normal and S2 normal GI: COMMON NORMALS: normal to inspection, nondistended, normoactive bowel sounds, soft to palpation and non-tender INSPECTION: Yes anasarca present and Yes central obesity PALPATION: Yes soft : BLADDER/KIDNEY EXAM: Yes CVA tenderness bilateral (worse on the R) Back/Pelvis: GENERAL BACK: Yes CVA tenderness Extremity: COMMON NORMALS: normal to inspection and full ROM GENERAL: Yes edema (pedal, bilateral) Neuro: COMMON NORMALS: oriented x3, moves all extremities, no focal motor deficits and no sensory deficits noted Psych: COMMON NORMALS: mental status grossly normal, thought process normal, cooperative, affect normal and speech normal SPEECH: Yes normal speech THOUGHT PROCESS: normal thought process Skin: COMMON NORMALS: no rashes or lesions noted, no jaundice, no petechiae and no mottling GENERAL SKIN EXAM: no rashes or lesions noted Discharge Data Data Completed and Pending: Completed Studies During Hospitalization Category Date Time Status CT chest w con* 7 [id number] Stat Cat Scan 08/28/19 16:09 Completed XR chest 1V laurie ble [id number] Urgent Exams 08/28/19 13:24 Completed CV echo complete* [id number] Routine Ultrasound 08/29/19 11:26 Completed Pending at discharge Category Date Time Status Basic Metabolic P charli AM LABS Lab 09/04/19 04:00 Ordered Labs from last 24 hours 09/03/19 09/03/19 09/03/19 11:52 08:49 06:22 Sodium 141 Potassium 3.0 L Chloride 85 L Carbon Dioxide 45 H* Anion Gap 14.0 BUN 38 H Creatinine 1.9 H GFR Calculation 38.0 L Glucose 93 POC Glucose 212 102 Calculated Osmolal ity 289 Calcium 9.4 09/02/19 09/02/19 20:38 16:55 Sodium Potassium Chloride Carbon Dioxide Anion Gap BUN Creatinine GFR Calculation Glucose POC Glucose 233 144 Calculated Osmolal ity Calcium Vitals: Last Vital Signs Temp 97.8 F 09/03/19 12:00 Pulse 96 09/03/19 15:54 Resp 17 09/03/19 15:50 BP 91/62 09/03/19 12:00 Pulse Ox 90 02/08/20 15:50 Discharge Plan Discharge Patient Disposition: Home, Self-Care Condition: Stable Prescriptions: New budesonide 0.5 mg/2 mL Suspension For Nebulization 0.25 mg inhalation BID.RESPIRATORY 30 Days Qty: 60 RF: 0 Continued albuterol sulfate 2.5 mg/0.5 mL solution for nebulization 2.5 mg INHALATION ONCE Qty: 1 RF: 0 cyclobenzaprine 10 mg tablet 10 mg PO TID PRN (Reason: Spasms) RF: 0 escitalopram oxalate 10 mg tablet 20 mg PO DAILY RF: 0 hydralazine 50 mg tablet 50 mg PO TID RF: 0 potassium chloride [Klor-Con M20] 20 mEq tablet,ER particles/crystals 20 meq PO QDAY RF: 0 Latuda 80 mg tablet 80 mg PO QAM RF: 0 losartan 100 mg tablet 100 mg PO DAILY RF: 0 melatonin 5 mg capsule 10 mg PO BEDTIME RF: 0 metoprolol tartrate 100 mg tablet 50 mg PO BID RF: 0 omeprazole 20 mg capsule,delayed release(DR/EC) 20 mg PO DAILY RF: 0 albuterol sulfate [ProAir HFA] 90 mcg/actuation HFA aerosol inhaler 2 puff INHALATION QID RF: 0 simvastatin 20 mg tablet 20 mg PO DAILY RF: 0 Tradjenta 5 mg tablet 5 mg PO QAM RF: 0 trazodone 150 mg tablet 150 mg PO BEDTIME RF: 0 Aimovig Autoinjector 140 mg/mL auto-injector 140 mg SUBCUT Q30D RF: 0 Tresiba FlexTouch U-200 200 unit/mL (3 mL) insulin pen 70 unit SUBCUT QDAY 30 Days Qty: 10.5 RF: 3 sumatriptan succinate 100 mg tablet 100 mg PO PRN RF: 0 Novolog PenFill U-100 Insulin 100 unit/mL Cartridge See Rx Instructions .ROUTE .COMPLEX RF: 0 Vicks NyQuil Cold/Flu Liquicap 6.25-15-325 mg Capsule 1 cap PO Q4H PRN (Reason: UNKNOWN) RF: 0 Mucinex 600 mg Tablet Extended Release 12hr 600 mg PO BID RF: 0 Changed amlodipine 10 mg tablet 10 mg PO DAILY 30 Days Qty: 30 RF: 0 furosemide 20 mg tablet 20 mg PO BID 30 Days Qty: 60 RF: 0 Discontinued prednisone 20 mg tablet 40 mg PO QDAY Qty: 10 RF: 0 metformin 1,000 mg Tablet 1,000 mg PO BID RF: 0 No Action amoxicillin-pot clavulanate [Augmentin] 875-125 mg tablet 1 tab PO BID 10 Days Qty: 20 RF: 0 Discharge Orders: Discharge Order (Routine); Ordered 09/03/19 Ordered By: Trisha Parada Other Ambulatory Orders: Sleep Study/Titration (Routine) Timeframe: 1 Month Location: None Selected Ordered By: Trisha Parada Referrals: Jarrod Reyes MD [Hospitalist] - 4-7 days (post-hospital discharge. Needs continued follow up on CKD) Discharge Diet: Cardiac and Diabetic Discharge Activity: Resume usual activity Discharge Attestations Time Spent in Discharge Care*: greater than 30 min Specific Discharge Activities: Specific discharge activities: educating patient, documenting/other paperwork and evaluating patient/reviewing data Status at Discharge: Cognitive status at discharge: cognitively intact, Behavioral status at discharge: cooperative, Functional status at discharge: independent ambulation Overall status at discharge: patient is back to baseline Quality Metrics Clinical Quality Measures During this hospital stay, did patient experience: None Coding Level of Care Code Acute Brick Burner Head for Riki Fwd Diagnoses Acute respiratory failure with hypoxia J96.01 Anemia D50.8 Anemia type: iron deficiency Iron deficiency anemia type: other iron deficiency CKD stage 3 due to type 2 diabetes mellitus E11.22; N18.3
[2019-09-03 17:15] LABS: Glucose Point of Care 173 mg/dL (70-110)
--- NOTE | 2019-09-03 18:08 | PC.NURSE ---
pt without iv at this time. physician is aware. pt to be discharged
== END 2019-09-03 19:07 | disposition home or self-care (01) | DRG 190 ==
LOC: ER 13:14 → MEDSURG 15:25
PROVIDERS: Internal Medicine; Admitting Provider Family Medicine; Emergency Provider Emergency Medicine; Visit Provider Family Medicine
DX: J44.1 Chronic obstructive pulmonary disease with (acute) exacerbation (principal); I50.33 Acute on chronic diastolic (congestive) heart failure; J96.01 Acute respiratory failure with hypoxia; I13.0 Hypertensive heart and chronic kidney disease with heart failure and stage 1 through stage 4 chronic kidney disease, or unspecified chronic kidney disease; Z68.43 Body mass index [BMI] 50.0-59.9, adult; M54.9 Dorsalgia, unspecified; E11.22 Type 2 diabetes mellitus with diabetic chronic kidney disease; N18.3 Chronic kidney disease, stage 3 (moderate); Z79.4 Long term (current) use of insulin; T38.0X5A Adverse effect of glucocorticoids and synthetic analogues, initial encounter; E78.5 Hyperlipidemia, unspecified; K21.9 Gastro-esophageal reflux disease without esophagitis; F31.9 Bipolar disorder, unspecified; M79.7 Fibromyalgia; F41.9 Anxiety disorder, unspecified; E03.9 Hypothyroidism, unspecified; G47.00 Insomnia, unspecified; H54.40 Blindness, one eye, unspecified eye; Z82.49 Family history of ischemic heart disease and other diseases of the circulatory system; D63.1 Anemia in chronic kidney disease; Z79.51 Long term (current) use of inhaled steroids; E66.01 Morbid (severe) obesity due to excess calories; D50.9 Iron deficiency anemia, unspecified; E11.65 Type 2 diabetes mellitus with hyperglycemia
CPT/HCPCS: 12345; 36415; 36416; 36600; 71045; 71260; 80048; 80053; 81003; 82607; 82728; 82746; 82803; 82962; 83540; 83550; 83735; 83880; 84132; 84145; 84484; 85025; 85045; 86403; 87040; 87449; 93005; 93306; 94640; 96372; 96374; 96375; 97110; 97161; 99283; G0378; J0456; J0696; J1650; J1815; J1940; J2920; J2930; J3490; J7030; J7050; J7611; J7626; Q9967

== ENCOUNTER → 2019-09-05 16:40 | Outpatient (BNVA) | payer BC, SELFPAY | PROVIDERS: Visit Provider Nurse Practitioner Family | DX: Z09 Encounter for follow-up examination after completed treatment for conditions other than malignant neoplasm (principal); E11.22 Type 2 diabetes mellitus with diabetic chronic kidney disease; N18.3 Chronic kidney disease, stage 3 (moderate); J96.01 Acute respiratory failure with hypoxia | CPT/HCPCS: 80048; 85025 ==

== ENCOUNTER → 2019-09-12 16:31 | Outpatient (BNVA) | payer BC, SELFPAY | PROVIDERS: Visit Provider Family Medicine | DX: R39.89 Other symptoms and signs involving the genitourinary system (principal); E11.22 Type 2 diabetes mellitus with diabetic chronic kidney disease; N18.3 Chronic kidney disease, stage 3 (moderate); J96.01 Acute respiratory failure with hypoxia | CPT/HCPCS: 80048; 81003 ==

== ENCOUNTER 2019-09-17 12:47 | Emergency (ER) | payer BC, SELFPAY ==
--- NOTE | 2019-09-17 13:10 | XR_ITS ---
WS: [id number] XR chest 1V portable [id number] REASON FOR EXAM: cp FINDINGS: The heart and mediastinal interfaces normal comparisons were made to previous exam of 2018. Today's exam shows no definite active processes. No pulmonary edema or pleural effusion. The hilum and apices are normal. There is no evidence of pneumothorax. XR/XR chest 1V portable [id number] IMPRESSION: Negative chest for active pathology.
[2019-09-17 13:15] VITALS: BP 119/79; PULSE 71; RESP 18; TEMP 36.4; O2SAT 98; BMI 53.7
[2019-09-17 14:07] LABS: Basophils % 0.4 %; Eosinophils # 0.3 10^3/uL (0.0-0.8); Eosinophils % 4.3 %; Hematocrit 31.5 % (42.0-52.0); Lymphocytes # 2.2 10^3/uL (0.8-4.8); Lymphocytes % 30.9 %; Mean Corpuscular HGB Conc 28.6 g/dL (30.0-36.0); Mean Corpuscular Hemoglobin 23.9 pg (28.0-34.0); Mean Corpuscular Volume 83.8 fL (80-94); Mean Platelet Volume 9.4 fL (7.4-10.4); Monocytes # 0.7 10^3/uL (0.2-0.9); Monocytes % 9.8 %; Neutrophils # 3.9 10^3/uL (1.8-7.7); Neutrophils % 54.3 %; Nucleated Red Blood Cells % 0 %; Platelet Count 225 10^3/cmm (130-400); Red Blood Count 3.76 10^6/uL (4.1-5.3); Red Cell Distribution Width 15.6 % (12.1-15.1); White Blood Count 7.1 10^3/uL (4.0-10.0)
[2019-09-17 14:33] LABS: Alanine Aminotransferase 16 U/L (0-41); Albumin Level 3.9 g/dL (3.5-5.2); Alkaline Phosphatase 102 IU/L (40-130); Anion Gap 13.3 (5-19); Aspartate Amino Transferase 19 U/L (0-40); Blood Urea Nitrogen 14 mg/dL (6-20); Calcium 9.3 mg/dL (8.5-10.5); Carbon Dioxide 39 mmol/L (22-29); Chloride 95 mmol/L (98-107); Glomerular Filtration Rate 40.5 mL/min (90-130); Glucose 82 mg/dL (65-115); NT Pro B Type Natriuretic Pept 319 pg/mL (0-125); Potassium 3.3 mmol/L (3.5-5.1); Sodium 144 mmol/L (136-145); Total Bilirubin 0.2 mg/dL (0.15-1.2); Total Protein 6.9 g/dL (6.6-8.7)
--- NOTE | 2019-09-17 14:33 | ED_ITS ---
Entered by Snadra Lees, acting as scribe for Champ Shah DO Sep 17, 2019 12:47 HPI - SOB/Dyspnea General: Chief Complaint: Shortness of Breath/Dyspnea Stated Complaint: CHF Time Seen by Provider: 09/17/19 14:32 Source: patient Mode of arrival: ambulatory Limitations: no limitations History of Present Illness: HPI Narrative: 48 yo Male presents to ED with complaint of swelling and shortness of breath. Pt states that he came in last week and was diagnosed with congestive heart failure. Pt states that he was told if he had any more swelling to come back to the ED. Pt states that he is swollen in his face and neck now and he didn't have that swelling before. Pt states that he is not more short of breath when he lays flat. MD elicited complaint: shortness of breath Pertinent past history: congestive heart failure Onset (ago): day(s) Context: recent illness Timing: constant Exacerbating factors: nothing Relieving factors: oxygen Known history of: congestive heart failure and diabetes Associated symptoms: Reports vomiting (x 2 weeks); Deny chest pain, dizziness, extremity pain, fever(s), nausea, orthopnea, palpitations, polydipsia, polyuria or syncope Review of Systems Const: Denies: fever, chills, body aches, fatigue, malaise or night sweats Eyes: Denies: change in vision or blurry vision ENMT: Denies: throat pain, oral sores/lesions, dental pain, nasal discharge or nasal congestion Card: Reports: edema, swelling of feet/ankles and shortness of breath on exertion; Denies: chest pain, palpitations, irregular heart rhythm, syncope, shortness of breath when lying down or leg pain with exertion Resp: Reports: shortness of breath; Denies: productive cough, non-productive cough or wheezing GI: Reports: vomiting (x 2 weeks); Denies: nausea : Denies: flank pain, difficulty urinating, painful urination, urinary frequency, urinary urgency, urinary incontinence or blood in urine Musc: Denies: neck pain, back pain, extremity pain, extremity swelling, joint pain or joint swelling Skin/Breast: Denies: rash, itching or redness Neuro: Denies: headache, numbness in extremities, weakness in extremities, changes in sensation, lack of coordination, difficulty walking, frequent falls, dizziness, vertigo or confusion Psych: Denies: anxiety, depression, loss of interest, visual hallucinations, auditory hallucinations, suicidal ideation or homicidal ideation Endo: Denies: excessive urination, excessive thirst, tired all the time or cold intolerance Javier/Lymph: Denies: easy bruising, easy bleeding, petechiae, enlarged lymph nodes or tender lymph nodes PFSH ED PFSH: Medical History Bipolar 1 disorder CKD (chronic kidney disease) Depression Diabetes Fibromyalgia JACY (generalized anxiety disorder) Hypertension Hypothyroidism Insomnia Legally blind in right eye, as defined in [place] Surgical History S/P hernia repair Family History Mother CAD (coronary artery disease) Father CAD (coronary artery disease) Social History Smoking and tobacco status: never smoked Alcohol intake: never Current occupational status: disabled Physical Exam Const: COMMON NORMALS: average body habitus, oriented x3 and alert GENERAL APPEARANCE: cooperative, comfortable, well kempt and well developed NUTRITIONAL APPEARANCE: obese ORIENTATION/CONSCIOUSNESS: Yes awake, Yes oriented to person and Yes oriented to place HENMT: COMMON NORMALS: normocephalic, head/scalp atraumatic, EAC's normal, TM's normal bilaterally, external nose normal, moist oral mucous membranes and oropharynx normal HEAD & SCALP: normocephalic and atraumatic NOSE: external nose normal EXTERNAL AUDITORY CANAL: EAC's normal TYMPANIC MEMBRANE: TM's normal bilaterally MOUTH: oral and palatal mucosa normal, lip normal and tongue normal THROAT: posterior oropharynx normal and tonsils normal Eye: COMMON NORMALS: PERRL, EOMs intact bilaterally, conjunctivae normal and no scleral icterus CONJUNCTIVA: Yes conjunctivae normal PUPIL: Yes PERRL Neck/C-Spine: COMMON NORMALS: full ROM, no lymphadenopathy, supple, no meningeal signs and thyroid normal THYROID: thyroid normal and asymmetrical Lymph: LYMPHATIC: no lymphadenopathy noted Resp: COMMON NORMALS: normal respiratory effort, no retractions, no use of accessory muscles and clear to auscultation bilaterally AUSCULTATION: clear to auscultation bilaterally Cardio: COMMON NORMALS: regular rate and regular rhythm RATE: regular rate RHYTHM: regular rhythm HEART SOUNDS: no murmurs GI: COMMON NORMALS: normal to inspection, nondistended, normoactive bowel sounds, soft to palpation and no hepatosplenomegaly PALPATION: Yes soft and Yes no hepatosplenomegaly : COMMON NORMALS: Yes no CVA tenderness BLADDER/KIDNEY EXAM: Yes no CVA tenderness Back/Pelvis: COMMON NORMALS: no CVA tenderness LUMBAR SPINE/LOWER BACK: Yes normal to inspection Extremity: COMMON NORMALS: no clubbing, cyanosis or edema, no calf tenderness and no pedal edema Neuro: COMMON NORMALS: oriented x3 SENSORIUM/ORIENTATION: Yes alert, Yes oriented to person and Yes oriented to place MENINGEAL SIGNS: Yes no meningeal signs Psych: APPEARANCE: Yes well kempt Skin: COMMON NORMALS: no rashes or lesions noted and skin turgor normal GENERAL SKIN EXAM: no rashes or lesions noted and turgor normal Course ED course: We will have him double up on his Lasix and his potassium for 3 days and follow-up with his primary care provider Riley return if has worsening problems in the interim Vital Signs: Vital signs: Vital Signs Temperature 98.7 F 09/17/19 16:25 Pulse Rate 72 09/17/19 16:25 Respiratory Rate 16 09/17/19 16:25 Blood Pressure 115/79 09/17/19 16:25 Pulse Oximetry 98 09/17/19 16:25 MDM - SOB/Dyspnea Lab Data: Labs: Lab Results 09/17/19 09/17/19 Range/Units 14:00 14:00 WBC 7.1 (4.0-10.0) 10^3/ uL RBC 3.76 L (4.1-5.3) 10^6/u L Hgb 9.0 L (11.7-16.6) g/dL Hct 31.5 L (42.0-52.0) % MCV 83.8 (80-94) fL MCH 23.9 L (28.0-34.0) pg MCHC 28.6 L (30.0-36.0) g/dL RDW 15.6 H (12.1-15.1) % Plt Count 225 (130-400) 10^3/c mm MPV 9.4 (7.4-10.4) fL Neut % (Auto) 54.3 % Lymph % (Auto) 30.9 % [place] % (Auto) 9.8 % Eos % (Auto) 4.3 % Baso % (Auto) 0.4 % Neut # (Auto) 3.9 (1.8-7.7) 10^3/u L Lymph # (Auto) 2.2 (0.8-4.8) 10^3/u L [place] # (Auto) 0.7 (0.2-0.9) 10^3/u L Eos # (Auto) 0.3 (0.0-0.8) 10^3/u L Baso # (Auto) 0.0 (0.0-0.1) 10^3/u L Nucleated RBC % (a uto) 0 % Nucleated RBCs # 0.0 /100WBC Sodium 144 (136-145) mmol/L Potassium 3.3 L (3.5-5.1) mmol/L Chloride 95 L (98-107) mmol/L Carbon Dioxide 39 H (22-29) mmol/L Anion Gap 13.3 (5-19) BUN 14 (6-20) mg/dL Creatinine 1.8 H (0.7-1.2) mg/dL GFR Calculation 40.5 L (90-130) mL/min Glucose 82 (65-115) mg/dL Calcium 9.3 (8.5-10.5) mg/dL Total Bilirubin 0.2 (0.15-1.2) mg/dL AST 19 (0-40) U/L ALT 16 (0-41) U/L Alkaline Phosphata se 102 (40-130) IU/L NT-Pro-B Natriuret Pep 319 H (0-125) pg/mL Total Protein 6.9 (6.6-8.7) g/dL Albumin 3.9 (3.5-5.2) g/dL Globulin 3.0 (1.3-4.6) g/dL Imaging Data^: CXR: Radiologist's impression: [address] [address] XRay Report Signed Patient: Kimberley Yanez #: [id number] : 1970Acct#:[id number] Age/Sex: 48 / MADM Date: 09/17/19 Loc: ERRoom/Bed: Attending Dr: Ordering Provider/Ordering MD: Jere Tom MD Date of Service: 09/17/19 Procedure(s): XR chest 1V portable [id number] Accession Number(s): [id number] Report Number: [id number] WS: [id number] XR chest 1V portable [id number] REASON FOR EXAM: cp FINDINGS: The heart and mediastinal interfaces normal comparisons were made to previous exam of August 28, 2018. Today's exam shows no definite active processes. No pulmonary edema or pleural effusion. The hilum and apices are normal. There is no evidence of pneumothorax. XR/XR chest 1V portable [id number] IMPRESSION: Negative chest for active pathology. Dictated By:Armen Jay DO Signed By:Armen Jay DOSigned Date/Time:09/17/19 1340 DD/ 1339 Discharge Plan Discharge Patient Disposition: Home, Self-Care Clinical Impression: Bilateral lower extremity edema, Hypertension, Diabetes Condition: Stable Prescriptions: Changed furosemide 20 mg tablet 40 mg PO BID 30 Days Qty: 60 RF: 0 No Action albuterol sulfate 2.5 mg/0.5 mL solution for nebulization 2.5 mg INHALATION ONCE Qty: 1 RF: 0 prednisone 20 mg tablet 40 mg PO QDAY Qty: 10 RF: 0 cyclobenzaprine 10 mg tablet 10 mg PO TID PRN (Reason: Spasms) RF: 0 escitalopram oxalate 10 mg tablet 20 mg PO DAILY RF: 0 hydralazine 50 mg tablet 50 mg PO TID RF: 0 potassium chloride [Klor-Con M20] 20 mEq tablet,ER particles/crystals 20 meq PO QDAY RF: 0 Latuda 80 mg tablet 80 mg PO QAM RF: 0 losartan 100 mg tablet 100 mg PO DAILY RF: 0 melatonin 5 mg capsule 10 mg PO BEDTIME RF: 0 metoprolol tartrate 100 mg tablet 50 mg PO BID RF: 0 omeprazole 20 mg capsule,delayed release(DR/EC) 20 mg PO DAILY RF: 0 albuterol sulfate [ProAir HFA] 90 mcg/actuation HFA aerosol inhaler 2 puff INHALATION QID RF: 0 simvastatin 20 mg tablet 20 mg PO DAILY RF: 0 Tradjenta 5 mg tablet 5 mg PO QAM RF: 0 trazodone 150 mg tablet 150 mg PO BEDTIME RF: 0 Aimovig Autoinjector 140 mg/mL auto-injector 140 mg SUBCUT Q30D RF: 0 Tresiba FlexTouch U-200 200 unit/mL (3 mL) insulin pen 70 unit SUBCUT QDAY 30 Days Qty: 10.5 RF: 3 budesonide 0.5 mg/2 mL suspension for nebulization 0.5 mg inhalation BID.RESPIRATORY 30 Days Qty: 120 RF: 2 sumatriptan succinate 100 mg tablet 100 mg PO PRN RF: 0 metformin 1,000 mg Tablet 1,000 mg PO BID RF: 0 Novolog PenFill U-100 Insulin 100 unit/mL Cartridge See Rx Instructions .ROUTE .COMPLEX RF: 0 Vicks NyQuil Cold/Flu Liquicap 6.25-15-325 mg Capsule 1 cap PO Q4H PRN (Reason: UNKNOWN) RF: 0 Mucinex 600 mg Tablet Extended Release 12hr 600 mg PO BID RF: 0 amlodipine 10 mg tablet 10 mg PO DAILY 30 Days Qty: 30 RF: 0 Discharge Orders: Discharge Order (Routine); Ordered 09/17/19 Ordered By: Champ Shah Referrals: Meagan Serrano MD [Primary Care Provider] - Activity Restrictions/Additional Instructions: Increase Lasix to 40 mg twice a day for 3 days then resume 20 mg twice a day. Follow-up with your doctor next week. 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
[2019-09-17] MEDS: FUROsemide 40 mg Tablet 60 MG PO (16:00)
[2019-09-17 16:25] VITALS: BP 115/79; PULSE 72; RESP 16; TEMP 37.1; O2SAT 98
== END 2019-09-17 16:18 | disposition home or self-care (01) ==
PROVIDERS: Emergency Medicine; Emergency Provider Family Medicine; PCP Family Medicine
DX: R60.0 Localized edema (principal); I13.0 Hypertensive heart and chronic kidney disease with heart failure and stage 1 through stage 4 chronic kidney disease, or unspecified chronic kidney disease; E11.22 Type 2 diabetes mellitus with diabetic chronic kidney disease; N18.9 Chronic kidney disease, unspecified; I50.9 Heart failure, unspecified; E66.9 Obesity, unspecified; Z68.43 Body mass index [BMI] 50.0-59.9, adult; E03.9 Hypothyroidism, unspecified; Z82.49 Family history of ischemic heart disease and other diseases of the circulatory system; Z79.4 Long term (current) use of insulin
CPT/HCPCS: 36415; 71045; 80053; 83880; 85025; 96374; 99281; 99284

== ENCOUNTER → 2019-09-19 16:23 | Outpatient (BNVA) | payer BC, SELFPAY | PROVIDERS: PCP Family Medicine; Visit Provider Family Medicine | DX: E87.6 Hypokalemia (principal); E11.22 Type 2 diabetes mellitus with diabetic chronic kidney disease; N18.3 Chronic kidney disease, stage 3 (moderate); R60.0 Localized edema | CPT/HCPCS: 80048 ==

== ENCOUNTER → 2019-09-30 10:54 | Outpatient (BNVA) | payer BC, SELFPAY | PROVIDERS: PCP Family Medicine; Visit Provider Family Medicine | DX: E87.6 Hypokalemia (principal) | CPT/HCPCS: 80048 ==

== ENCOUNTER → 2019-10-17 14:32 | Outpatient (BNVA) | payer BC, SELFPAY | PROVIDERS: PCP Family Medicine; Visit Provider Family Medicine | DX: E11.22 Type 2 diabetes mellitus with diabetic chronic kidney disease (principal); F32.9 Major depressive disorder, single episode, unspecified; E87.6 Hypokalemia; E78.5 Hyperlipidemia, unspecified; K21.9 Gastro-esophageal reflux disease without esophagitis; I12.9 Hypertensive chronic kidney disease with stage 1 through stage 4 chronic kidney disease, or unspecified chronic kidney disease; N18.3 Chronic kidney disease, stage 3 (moderate) | CPT/HCPCS: 80048; 81000 ==

== ENCOUNTER → 2020-03-26 11:31 | Outpatient (BNVA) | payer BC, SELFPAY | PROVIDERS: PCP Family Medicine; Visit Provider Nurse Practitioner Family | DX: J06.9 Acute upper respiratory infection, unspecified (principal) | CPT/HCPCS: 87635 ==

== ENCOUNTER → 2020-11-06 10:04 | Outpatient (BNVA) | payer OTHER, SELFPAY | PROVIDERS: PCP Nurse Practitioner Family; Referring Provider Nurse Practitioner Family; Visit Provider Podiatrist Foot & Ankle Surgery | DX: S92.351S Displaced fracture of fifth metatarsal bone, right foot, sequela (principal); X58.XXXS Exposure to other specified factors, sequela | CPT/HCPCS: 73630 ==

== ENCOUNTER 2020-12-10 15:03 | Outpatient (CLI) | payer MEDICARE, MEDICAID, SELFPAY ==
--- NOTE | 2020-12-10 15:14 | MR_ITS ---
WS: [id number] MRI CERVICAL SPINE NONCONTRAST TECHNIQUE: Sagittal T1, T2 and STIR imaging. Axial T2, gradient, and fiesta imaging. CLINICAL INFORMATION: CERVICALGIA;MUSCLE WEAKNESS COMPARISON: None. FINDINGS: Straightening of the normal cervical lordosis. Cord signal is normal. Disc bulging worse at C6-7. C2-C3: Normal. C3-C4: No significant disc bulging. Mild facet arthropathy. Spinal canal and foramen are patent. C4-C5: Mild left bony foraminal narrowing. Spinal canal and foramen are patent. C5-C6: Mild disc osteophytic ridging. Slight effacement of the ventral thecal sac. Mild central canal stenosis. Mild left and no significant right foraminal narrowing. Mild facet arthropathy. C6-C7: Left pericentral disc osteophyte protrusion with indentation left ventral cervical cord. Moder ate central canal stenosis. Moderate bilateral bony foraminal narrowing. Mild to moderate facet arthr opathy. C7-T1: Tiny central disc protrusion. Spinal canal and foramen are patent. Visualized brain stem structures: Normal. Prevertebral soft tissues: Normal. MR/MR cervical spin wo con* [id number] IMPRESSION: 1. Straightening of the normal cervical lordosis. Cord signal is normal. 2. Left pericentral disc osteophyte protrusion C6-C7 with indentation on the l eft ventral cervical cord. Mild flattening of the left ventral cervical cord. M oderate central canal stenosis. 3. Mild disc bulging C5-C6 with mild central canal stenosis. 4. Moderate bilateral bony foraminal narrowing C6-C7 with mild to moderate fac et arthropathy.
--- NOTE | 2020-12-10 15:14 | MR_ITS ---
WS: [id number] MRI HEAD WITHOUT CONTRAST TECHNIQUE: Sagittal T1, T2 axial, T2 axial FLAIR, axial and coronal T1 images, axial susceptibility w eighted imaging, axial diffusion weighted images, and coronal T2 images were obtained. CLINICAL INFORMATION: CERVICALGIA;MUSCLE WEAKNESS COMPARISON: CT head 2 15,018 FINDINGS: No evidence of restricted diffusion to suggest acute ischemia. Mild small vessel changes. Moderate pa renchymal volume loss. Normal posterior fossa. Tiny chronic lacunar infarct right cerebellum. Normal vascular flow voids at the skull base. No extra-axial fluid collections. No evidence of mass or mass effect. Paranasal sinuses and mastoid air cells are well aerated. No hemo siderin on susceptibly weighted images. Normal optic chiasm and pituitary infundibulum. Mild symmetri c atrophy temporal lobes and hippocampal formations. Normal cavernous sinuses and Meckel's cave. MR/MR head wo con* [id number] IMPRESSION: 1. No evidence of restricted diffusion to suggest acute. 2. Mild small vessel changes with moderate parenchymal volume loss. 3. Tiny chronic lacunar infarct right cerebellum. 4. Mild symmetric atrophy temporal lobes and hippocampal formations. 5. No hemosiderin on susceptibly weighted images.
== END 2020-12-10 15:04 | disposition home or self-care (01) ==
LOC: RADSHAW 15:10
PROVIDERS: PCP Nurse Practitioner Family; Visit Provider Nurse Practitioner Family
DX: R29.6 Repeated falls (principal); M54.16 Radiculopathy, lumbar region; R41.3 Other amnesia; I63.81 Other cerebral infarction due to occlusion or stenosis of small artery; G31.9 Degenerative disease of nervous system, unspecified; M50.222 Other cervical disc displacement at C5-C6 level; M48.02 Spinal stenosis, cervical region; M25.78 Osteophyte, vertebrae
CPT/HCPCS: 70551; 72141

== ENCOUNTER 2020-12-21 15:41 | Outpatient (CLI) | payer MEDICARE, MEDICAID, SELFPAY ==
--- NOTE | 2020-12-21 15:49 | MR_ITS ---
WS: [id number] MRI LUMBAR SPINE NONCONTRAST TECHNIQUE: Sagittal T1, T2 and STIR imaging. Axial T1 and T2 imaging. CLINICAL INFORMATION: CHRONIC LUMBAR RADICULOPATHY COMPARISON: None. FINDINGS: Minimal lumbar curve. No acute compression. No high-grade central canal stenosis. Tiny annular fissur e L5-S1. Incidental perineural cyst right T12-L1. Small central protrusions in the cervical spine at C5-C6 and C6-C7 seen on the white sidewall tire buffer imaging with mil d central canal stenosis. Small left pericentral protrusion at T7-T8 seen on the white sidewall tire buffer imaging. L1-L2: Normal. L2-L3: No significant disc bulging. Spinal canal and foramen are patent. Mild facet arthropathy. L3-L4: No significant disc bulging. Spinal canal and foramen are patent. Mild facet arthropathy. L4-L5: Shallow central protrusion with slight contact of the traversing L5 nerve roots. Eccentric dis c bulge with mild bilateral foraminal narrowing. Mild facet arthropathy. L5-S1: Mild annular bulging. Tiny central annular fissure. Spinal canal and foramen are patent. Mild facet arthropathy. Visualized pelvic bony structures: Normal. Paravertebral soft tissues: Normal. MR/MR lumbar spine wo con* [id number] IMPRESSION: 1. Minimal lumbar curve. No acute compression. No high-grade central canal nico nosis. 2. Tiny shallow central protrusion L4-5 with slight contact of the traversing L5 nerve roots bilaterally. Mild bilateral foraminal narrowing at this level. 3. Tiny central annular fissure L5-S1. Spinal canal and foramen are patent. 4. Mild central canal stenosis seen on the white sidewall tire buffer imaging with small central pr otrusions at C5-C6 and C6-C7. 5. Small left pericentral protrusion in the mid thoracic spine at T7-T8 with s light contact of the thoracic cord.
== END 2020-12-21 15:42 | disposition home or self-care (01) ==
PROVIDERS: PCP Nurse Practitioner Family; Visit Provider Nurse Practitioner Family
DX: M54.16 Radiculopathy, lumbar region (principal); M51.26 Other intervertebral disc displacement, lumbar region; M48.02 Spinal stenosis, cervical region; M51.24 Other intervertebral disc displacement, thoracic region
CPT/HCPCS: 72148

== ENCOUNTER 2021-01-10 04:20 | Emergency (ER) | payer MEDICARE, MEDICAID, SELFPAY ==
--- NOTE | 2021-01-10 04:24 | XRR_ITS ---
PROCEDURE INFORMATION: Exam: XR Chest Exam date and time: 01/10/2021 4:24 AM Age: 50 years old Clinical indication: Cough and shortness of breath; Patient HX: Cough with SOB. TECHNIQUE: Imaging protocol: XR of the chest. Views: 1 view. COMPARISON: CR XR chest 1V portable [id number] 09/17/2019 1:33 PM FINDINGS: Lungs: Low lung volumes. There is a new hazy airspace opacity in the left lung base with slight indistinctness of the left hemidiaphragm, which may represent atelectasis or pneumonia in the adequate clinical setting. Pleural spaces: Unremarkable. No pleural effusion. No pneumothorax. Heart/Mediastinum: Stable cardiomediastinal silhouette. Bones/joints: Unremarkable. XR/XR chest 1V portable [id number] IMPRESSION: Left basilar atelectasis versus pneumonia, clinical correlation is recommended.
[2021-01-10 04:30] VITALS: BP 170/104; PULSE 98; RESP 18; TEMP 36.7; O2SAT 98; BMI 50.4
--- NOTE | 2021-01-10 04:31 | ECG_ITS ---
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 Measurements Intervals [place] Rate: 94 P: 57 IA: 158 QRS: 30 QRSD: 77 T: 48 QT: 337 QTc: 422 Interpretive Statements SINUS RHYTHM LOW QRS VOLTAGE IN PRECORDIAL LEADS [QRS DEFLECTION < 1.0 mV IN CHEST LEADS] Compared to ECG 08/28/2019 16:41:21 Low QRS voltage now present T-wave abnormality no longer present Electronically Signed On 01-10-2021 18:23:21 CDT by Guillaume Maria M.D. [email or web address]
--- NOTE | 2021-01-10 04:33 | W.ED.SOB ---
HPI - SOB/Dyspnea General: Chief Complaint: Shortness of Breath/Dyspnea Stated Complaint: Coughing Breathing Difficulty Time Seen by Provider: 01/10/21 04:23 Mode of arrival: ambulatory Limitations: no limitations History of Present Illness: HPI Narrative: 50-year-old male with a history of COPD states he has been having shortness of breath cough and wheezing over the last week. He denies any worsening or improving factors. He states that he is ran out of all his albuterol nebs at home. He just finished a prescription of Augmentin. Patient is in no distress here and pulse ox is 94% on room air. He denies any chest pain. Associated symptoms: Deny abdominal pain, chest pain, fever(s), nausea or vomiting Review of Systems Const: Denies: fever(s), chills, body aches or change in appetite Eyes: Denies: blurry vision or eye discomfort ENMT: Denies: throat pain or dental pain Card: Denies: chest pain Resp: Reports: dyspnea, non-productive cough and wheezing GI: Denies: abdominal pain, nausea, vomiting or diarrhea : Denies: dysuria Musc: Denies: neck pain or back pain Skin/Breast: Denies: rash Neuro: Denies: headache(s) Psych: Denies: depression Javier/Lymph: Denies: easy bruising All/Imm: Denies: urticaria PFSH ED PFSH: Medical History Bipolar 1 disorder CKD (chronic kidney disease) Depression Diabetes Fibromyalgia JACY (generalized anxiety disorder) Hypertension Hypothyroidism Insomnia Legally blind in right eye, as defined in [place] Surgical History S/P hernia repair Family History Mother CAD (coronary artery disease) Father CAD (coronary artery disease) Social History Smoking and tobacco status: never smoked Alcohol intake: never Current occupational status: disabled Physical Exam Const: COMMON NORMALS: no acute distress, patient oriented x3 and healthy appearing HENMT: COMMON NORMALS: normocephalic and atraumatic HEAD & SCALP: normocephalic and atraumatic Eye: COMMON NORMALS: Equal, round and reactive pupils present and EOMs intact bilaterally PUPIL: Yes Equal, round and reactive pupils present Neck/C-Spine: COMMON NORMALS: full ROM and supple Chest: COMMONS NORMALS: normal inspection of the chest and normal palpation of entire chest wall Resp: COMMON NORMALS: normal respiratory effort, No retractions and No use of accessory muscles AUSCULTATION: wheezes Cardio: COMMON NORMALS: regular rate, regular rhythm and No murmurs present (Cardio) RATE: regular rate RHYTHM: regular rhythm GI: COMMON NORMALS: Normal to inspection, nondistended, normoactive bowel sounds present, Soft to palpation, non-tender and no masses PALPATION: Yes Soft to palpation Extremity: COMMON NORMALS: normal to inspection and full ROM Neuro: COMMON NORMALS: patient oriented x3, moves all extremities and no focal motor deficits Psych: COMMON NORMALS: mental status grossly normal, Normal thought process present and cooperative THOUGHT PROCESS: Normal thought process present Skin: COMMON NORMALS: no rashes or lesions noted and no wounds GENERAL SKIN EXAM: no rashes or lesions noted Course Vital Signs: Vital signs: Vital Signs Temperature 98.1 F 01/10/21 04:30 Pulse Rate 95 01/10/21 06:03 Respiratory Rate 20 H 01/10/21 06:03 Blood Pressure 131/85 01/10/21 06:03 Pulse Oximetry 97 01/10/21 06:03 MDM - SOB/Dyspnea MDM Narrative: Medical decision making narrative: Patient presents here with likely bronchitis. He is well-appearing here and not requiring any oxygen and is no distress. His blood work here is all normal. Patient started on doxycycline and will prescribe him albuterol nebs. He is to follow-up his PCP and return if worsening. Lab Data: Labs: Lab Results 01/10/21 01/10/21 Range/Units 04:50 04:50 WBC 10.0 (4.0-10.0) 10^3/ uL RBC 3.93 L (4.1-5.3) 10^6/u L Hgb 9.4 L (11.7-16.6) g/dL Hct 32.4 L (42.0-52.0) % MCV 82.4 (80-94) fL MCH 23.9 L (28.0-34.0) pg MCHC 29.0 L (30.0-36.0) g/dL RDW 15.5 H (12.1-15.1) % Plt Count 331 (130-400) 10^3/c mm MPV 10.1 (7.4-10.4) fL Neut % (Auto) 57.8 % Lymph % (Auto) 20.7 % [place] % (Auto) 8.3 % Eos % (Auto) 11.6 % Baso % (Auto) 0.8 % Neut # (Auto) 5.77 (1.8-7.7) 10^3/u L Lymph # (Auto) 2.1 (0.8-4.8) 10^3/u L [place] # (Auto) 0.8 (0.2-0.9) 10^3/u L Eos # (Auto) 1.2 H (0.0-0.8) 10^3/u L Baso # (Auto) 0.1 (0.0-0.1) 10^3/u L Nucleated RBC % (a uto) 0 % Nucleated RBCs # 0.0 /100WBC Sodium 137 (136-145) mmol/L Potassium 4.9 (3.5-5.1) mmol/L Chloride 98 (98-107) mmol/L Carbon Dioxide 32 H (22-29) mmol/L Anion Gap 11.9 (5-19) BUN 16 (6-20) mg/dL Creatinine 2.0 H (0.7-1.2) mg/dL GFR Calculation 35.5 L (90-130) mL/min Glucose 209 H (65-115) mg/dL Calculated Osmolal ity 291 (285-295) mOsm/k g Calcium 9.0 (8.5-10.5) mg/dL Total Bilirubin 0.2 (0.15-1.2) mg/dL AST 13 (0-40) U/L ALT 16 (0-41) U/L Alkaline Phosphata se 99 (40-130) IU/L NT-Pro-B Natriuret Pep 183 H (0-125) pg/mL Total Protein 6.3 L (6.6-8.7) g/dL Albumin 3.6 (3.5-5.2) g/dL Globulin 2.7 (1.3-4.6) g/dL Imaging Data^: CXR: Attestation: I personally reviewed and interpreted this imaging study as follows: My impression: no acute abnormality EKG Data^: EKG 1: Attestation: I personally reviewed and interpreted this EKG as follows: EKG Interpretation Date: 01/10/21 EKG interpretation time: 04:43 Interpretation: Normal sinus rhythm heart rate 94 QRS 77 QTc 388 Discharge Plan Discharge Patient Disposition: Home Clinical Impression: Bronchitis Condition: Stable Prescriptions: New albuterol sulfate 2.5 mg /3 mL (0.083 %) solution for nebulization 2.5 mg INHALATION Q4H PRN (Reason: shortness of breath or wheezing) Qty: 90 RF: 0 doxycycline hyclate 100 mg capsule 100 mg PO BID 7 Days Qty: 14 RF: 0 No Action albuterol sulfate 2.5 mg/0.5 mL solution for nebulization 2.5 mg INHALATION ONCE Qty: 1 RF: 0 prednisone 20 mg tablet 40 mg PO QDAY Qty: 10 RF: 0 potassium chloride [Klor-Con M20] 20 mEq tablet,ER particles/crystals 60 meq PO QDAY Qty: 90 RF: 2 metoprolol tartrate 100 mg tablet 150 mg PO BID 30 Days Qty: 90 RF: 4 Latuda 80 mg tablet 80 mg PO QAM Qty: 30 RF: 4 (DME) Diabetic Shoes See Rx Instructions .ROUTE .MEDSUPPLY Qty: 1 RF: 0 cyclobenzaprine 10 mg tablet 10 mg PO TID PRN (Reason: Spasms) RF: 0 hydralazine 50 mg tablet 50 mg PO TID RF: 0 losartan 100 mg tablet 100 mg PO DAILY RF: 0 melatonin 5 mg capsule 10 mg PO BEDTIME RF: 0 albuterol sulfate [ProAir HFA] 90 mcg/actuation HFA aerosol inhaler 2 puff INHALATION QID RF: 0 Tradjenta 5 mg tablet 5 mg PO QAM RF: 0 trazodone 150 mg tablet 150 mg PO BEDTIME RF: 0 amoxicillin-pot clavulanate [Augmentin] 875-125 mg tablet 1 tab PO BID 7 Days Qty: 14 RF: 0 albuterol sulfate [ProAir HFA] 90 mcg/actuation HFA aerosol inhaler 2 inh inhalation Q4H PRN (Reason: shortness of breath or wheezing) Qty: 8.5 RF: 0 escitalopram oxalate 20 mg tablet 20 mg PO DAILY Qty: 30 RF: 5 budesonide 0.5 mg/2 mL suspension for nebulization See Rx Instructions .ROUTE .COMPLEX Qty: 120 RF: 0 insulin degludec [Tresiba FlexTouch U-200] 200 unit/mL (3 mL) insulin pen See Rx Instructions .ROUTE .COMPLEX Qty: 9 RF: 0 simvastatin 20 mg tablet See Rx Instructions .ROUTE .COMPLEX Qty: 30 RF: 0 Aimovig Autoinjector 140 mg/mL auto-injector 140 mg SUBCUT Q30D Qty: 1 RF: 5 omeprazole 20 mg capsule,delayed release(DR/EC) 20 mg PO DAILY 30 Days Qty: 30 RF: 0 sumatriptan succinate 100 mg tablet 100 mg PO PRN RF: 0 Novolog PenFill U-100 Insulin 100 unit/mL Cartridge See Rx Instructions .ROUTE .COMPLEX RF: 0 furosemide 20 mg tablet 40 mg PO BID 30 Days Qty: 60 RF: 0 Discharge Orders: Discharge ED (Routine); Ordered 01/10/21 Ordered By: Jere Tom Referrals: Lara Garcia [Primary Care Provider] - 1-3 days Discharge Diet: Advance as tolerated Discharge Activity: Resume usual activity Patient Instructions: Acute Bronchitis (ED) Coding Level of Care Code ED Machine Puller Over for Riki Fwd Exam Comprehensive
[2021-01-10] MEDS: ipratropium-albuterol 3 mL Neb INHALATION (04:49)
[2021-01-10 04:50] VITALS: PULSE 90; RESP 16; O2SAT 96
[2021-01-10 04:59] VITALS: PULSE 93
[2021-01-10 05:03] LABS: Basophils # 0.1 10^3/uL (0.0-0.1); Basophils % 0.8 %; Eosinophils # 1.2 10^3/uL (0.0-0.8); Eosinophils % 11.6 %; Hematocrit 32.4 % (42.0-52.0); Hemoglobin 9.4 g/dL (11.7-16.6); Lymphocytes # 2.1 10^3/uL (0.8-4.8); Lymphocytes % 20.7 %; Mean Corpuscular Hemoglobin 23.9 pg (28.0-34.0); Mean Corpuscular Volume 82.4 fL (80-94); Mean Platelet Volume 10.1 fL (7.4-10.4); Monocytes # 0.8 10^3/uL (0.2-0.9); Monocytes % 8.3 %; Neutrophils # 5.77 10^3/uL (1.8-7.7); Neutrophils % 57.8 %; Nucleated Red Blood Cells % 0 %; Platelet Count 331 10^3/cmm (130-400); Red Blood Count 3.93 10^6/uL (4.1-5.3); Red Cell Distribution Width 15.5 % (12.1-15.1)
[2021-01-10 05:33] LABS: Alanine Aminotransferase 16 U/L (0-41); Albumin Level 3.6 g/dL (3.5-5.2); Alkaline Phosphatase 99 IU/L (40-130); Anion Gap 11.9 (5-19); Aspartate Amino Transferase 13 U/L (0-40); Blood Urea Nitrogen 16 mg/dL (6-20); Carbon Dioxide 32 mmol/L (22-29); Chloride 98 mmol/L (98-107); Globulin 2.7 g/dL (1.3-4.6); Glomerular Filtration Rate 35.5 mL/min (90-130); Glucose 209 mg/dL (65-115); Osmolality Calculated 291 mOsm/kg (285-295); Potassium 4.9 mmol/L (3.5-5.1); Sodium 137 mmol/L (136-145); Total Bilirubin 0.2 mg/dL (0.15-1.2); Total Protein 6.3 g/dL (6.6-8.7)
[2021-01-10 05:34] LABS: NT Pro B Type Natriuretic Pept 183 pg/mL (0-125)
[2021-01-10 06:03] VITALS: BP 131/85; PULSE 95; RESP 20; O2SAT 97
== END 2021-01-10 06:05 | disposition home or self-care (01) ==
PROVIDERS: Emergency Provider Emergency Medicine; PCP Nurse Practitioner Family
DX: J40 Bronchitis, not specified as acute or chronic (principal); Z79.4 Long term (current) use of insulin; E11.9 Type 2 diabetes mellitus without complications; I10 Essential (primary) hypertension
CPT/HCPCS: 71045; 80053; 83880; 85025; 93005; 94640; 96374; 99284; J2930; J7611

== ENCOUNTER 2021-01-21 15:58 | Emergency (ER) | payer MEDICARE, MEDICAID, SELFPAY ==
[2021-01-21 16:06] VITALS: BP 166/94; PULSE 75; RESP 18; TEMP 36.8; O2SAT 98; BMI 53.4
--- NOTE | 2021-01-21 17:14 | XRR_ITS ---
PROCEDURE INFORMATION: Exam: XR Chest Exam date and time: 01/21/2021 5:14 PM Age: 50 years old Clinical indication: Cough and dyspnea; Additional info: Bronchitis TECHNIQUE: Imaging protocol: XR of the chest. Views: 1 view. COMPARISON: CR (CHEST, ) 01/10/2021 4:28 AM FINDINGS: Lungs: Unremarkable. No consolidation. Pleural spaces: Unremarkable. No pleural effusion. No pneumothorax. Heart/Mediastinum: Unremarkable. No cardiomegaly. Bones/joints: Unremarkable. XR/XR chest 1V portable [id number] IMPRESSION: No acute findings.
--- NOTE | 2021-01-21 18:29 | ECG_ITS ---
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 Measurements Intervals [place] Rate: 70 P: 29 PA: 160 QRS: 19 QRSD: 82 T: 45 QT: 400 QTc: 434 Interpretive Statements SINUS RHYTHM Compared to ECG 01/10/2021 04:43:28 No significant changes Electronically Signed On 01-21-2021 21:20:42 CDT by Yonathan Luna M.D. [id number]
--- NOTE | 2021-01-21 19:02 | W.ED.SOB ---
HPI - SOB/Dyspnea General: Chief Complaint: Shortness of Breath/Dyspnea Stated Complaint: Ear pain, possible pneumonia Time Seen by Provider: 01/21/21 18:27 Source: patient Mode of arrival: ambulatory Limitations: no limitations History of Present Illness: HPI Narrative: 50-year-old male who was seen here 10 days ago and diagnosed with a pneumonia. He states he is finished his steroids and antibiotics and states that he does not feel any improved. States he still continues to have a cough. Patient here has a 96% room air pulse ox. He denies any fevers. He denies any vomiting or diarrhea. He denies any chest pain. Associated symptoms: Deny abdominal pain, chest pain, fever(s), nausea or vomiting Review of Systems Const: Denies: fever(s), chills, body aches or change in appetite Eyes: Denies: blurry vision or eye discomfort ENMT: Denies: throat pain or dental pain Card: Denies: chest pain Resp: Reports: dyspnea GI: Denies: abdominal pain, nausea, vomiting or diarrhea : Denies: dysuria Musc: Denies: neck pain or back pain Skin/Breast: Denies: rash Neuro: Denies: headache(s) Psych: Denies: depression Javier/Lymph: Denies: easy bruising All/Imm: Denies: urticaria PFSH ED PFSH: Medical History Bipolar 1 disorder CKD (chronic kidney disease) Depression Diabetes Fibromyalgia JACY (generalized anxiety disorder) Hypertension Hypothyroidism Insomnia Legally blind in right eye, as defined in [place] Surgical History S/P hernia repair Family History Mother CAD (coronary artery disease) Father CAD (coronary artery disease) Social History Smoking and tobacco status: never smoked Alcohol intake: never Current occupational status: disabled Physical Exam Const: COMMON NORMALS: no acute distress, patient oriented x3 and healthy appearing NUTRITIONAL APPEARANCE: obese HENMT: COMMON NORMALS: normocephalic and atraumatic HEAD & SCALP: normocephalic and atraumatic OTHER: Erythema to right TM Eye: COMMON NORMALS: Equal, round and reactive pupils present and EOMs intact bilaterally PUPIL: Yes Equal, round and reactive pupils present Neck/C-Spine: COMMON NORMALS: full ROM and supple Chest: COMMONS NORMALS: normal inspection of the chest and normal palpation of entire chest wall Resp: COMMON NORMALS: normal respiratory effort, No retractions, No use of accessory muscles and clear to auscultation bilaterally AUSCULTATION: clear to auscultation bilaterally Cardio: COMMON NORMALS: regular rate, regular rhythm and No murmurs present (Cardio) RATE: regular rate RHYTHM: regular rhythm GI: COMMON NORMALS: Normal to inspection, nondistended, normoactive bowel sounds present, Soft to palpation, non-tender and no masses PALPATION: Yes Soft to palpation Extremity: COMMON NORMALS: normal to inspection and full ROM Neuro: COMMON NORMALS: patient oriented x3, moves all extremities and no focal motor deficits Psych: COMMON NORMALS: mental status grossly normal, Normal thought process present and cooperative THOUGHT PROCESS: Normal thought process present Skin: COMMON NORMALS: no rashes or lesions noted and no wounds GENERAL SKIN EXAM: no rashes or lesions noted Course Vital Signs: Vital signs: Vital Signs Temperature 98.3 F 01/21/21 16:06 Pulse Rate 81 01/21/21 20:38 Respiratory Rate 18 01/21/21 20:38 Blood Pressure 149/82 01/21/21 20:38 Pulse Oximetry 97 01/21/21 20:38 MDM - SOB/Dyspnea MDM Narrative: Medical decision making narrative: Patient presents here with otitis media to the right ear. We will place him on amoxicillin. Patient's lung exam here is benign he is not requiring any oxygen x-ray shows no signs pneumonia. He stable for discharge will have him follow-up with pulmonology. Lab Data: Labs: Lab Results 01/21/21 01/21/21 01/21/21 Range/Units 19:35 19:35 19:35 WBC 10.3 H (4.0-10.0) 10^3/ uL RBC 3.81 L (4.1-5.3) 10^6/u L Hgb 9.2 L (11.7-16.6) g/dL Hct 32.5 L (42.0-52.0) % MCV 85.3 (80-94) fL MCH 24.1 L (28.0-34.0) pg MCHC 28.3 L (30.0-36.0) g/dL RDW 16.6 H (12.1-15.1) % Plt Count 271 (130-400) 10^3/c mm MPV 10.1 (7.4-10.4) fL Neut % (Auto) 61.6 % Lymph % (Auto) 25.7 % [place] % (Auto) 7.9 % Eos % (Auto) 3.8 % Baso % (Auto) 0.6 % Neut # (Auto) 6.32 (1.8-7.7) 10^3/u L Lymph # (Auto) 2.6 (0.8-4.8) 10^3/u L [place] # (Auto) 0.8 (0.2-0.9) 10^3/u L Eos # (Auto) 0.4 (0.0-0.8) 10^3/u L Baso # (Auto) 0.1 (0.0-0.1) 10^3/u L Nucleated RBC % (a uto) 0 % Nucleated RBCs # 0.0 /100WBC Sodium 140 (136-145) mmol/L Potassium 4.3 (3.5-5.1) mmol/L Chloride 100 (98-107) mmol/L Carbon Dioxide 32 H (22-29) mmol/L Anion Gap 12.3 (5-19) BUN 18 (6-20) mg/dL Creatinine 2.0 H (0.7-1.2) mg/dL GFR Calculation 35.5 L (90-130) mL/min Glucose 125 H (65-115) mg/dL Calculated Osmolal ity 293 (285-295) mOsm/k g Calcium 9.2 (8.5-10.5) mg/dL Total Bilirubin 0.2 (0.15-1.2) mg/dL AST 16 (0-40) U/L ALT 14 (0-41) U/L Alkaline Phosphata se 79 (40-130) IU/L NT-Pro-B Natriuret Pep 240 H (0-125) pg/mL Total Protein 6.0 L (6.6-8.7) g/dL Albumin 3.6 (3.5-5.2) g/dL Globulin 2.4 (1.3-4.6) g/dL SARS-CoV-2 Ag (Rap id) Negative (Negative) EKG Data^: EKG 1: Attestation: I personally reviewed and interpreted this EKG as follows: EKG Interpretation Date: 01/21/21 EKG interpretation time: 18:40 Interpretation: nsr hr [address] or t wave abnormalities qrs 82 qtc 421 Discharge Plan Discharge Patient Disposition: Home Clinical Impression: Dyspnea Otitis media Qualifiers: Otitis media type: other nonsuppurative Chronicity: acute Laterality: right Recurrence: non-recurrent Qualified Code(s): H65.191 - Other acute nonsuppurative otitis media, right ear Condition: Stable Prescriptions: New amoxicillin 875 mg tablet 875 mg PO BID Qty: 14 RF: 0 No Action albuterol sulfate 2.5 mg/0.5 mL solution for nebulization 2.5 mg INHALATION ONCE Qty: 1 RF: 0 prednisone 20 mg tablet 40 mg PO QDAY Qty: 10 RF: 0 potassium chloride [Klor-Con M20] 20 mEq tablet,ER particles/crystals 60 meq PO QDAY Qty: 90 RF: 2 metoprolol tartrate 100 mg tablet 150 mg PO BID 30 Days Qty: 90 RF: 4 Latuda 80 mg tablet 80 mg PO QAM Qty: 30 RF: 4 (DME) Diabetic Shoes See Rx Instructions .ROUTE .MEDSUPPLY Qty: 1 RF: 0 cyclobenzaprine 10 mg tablet 10 mg PO TID PRN (Reason: Spasms) RF: 0 hydralazine 50 mg tablet 50 mg PO TID RF: 0 losartan 100 mg tablet 100 mg PO DAILY RF: 0 melatonin 5 mg capsule 10 mg PO BEDTIME RF: 0 albuterol sulfate [ProAir HFA] 90 mcg/actuation HFA aerosol inhaler 2 puff INHALATION QID RF: 0 Tradjenta 5 mg tablet 5 mg PO QAM RF: 0 trazodone 150 mg tablet 150 mg PO BEDTIME RF: 0 amoxicillin-pot clavulanate [Augmentin] 875-125 mg tablet 1 tab PO BID 7 Days Qty: 14 RF: 0 albuterol sulfate [ProAir HFA] 90 mcg/actuation HFA aerosol inhaler 2 inh inhalation Q4H PRN (Reason: shortness of breath or wheezing) Qty: 8.5 RF: 0 escitalopram oxalate 20 mg tablet 20 mg PO DAILY Qty: 30 RF: 5 budesonide 0.5 mg/2 mL suspension for nebulization See Rx Instructions .ROUTE .COMPLEX Qty: 120 RF: 0 insulin degludec [Tresiba FlexTouch U-200] 200 unit/mL (3 mL) insulin pen See Rx Instructions .ROUTE .COMPLEX Qty: 9 RF: 0 simvastatin 20 mg tablet See Rx Instructions .ROUTE .COMPLEX Qty: 30 RF: 0 Aimovig Autoinjector 140 mg/mL auto-injector 140 mg SUBCUT Q30D Qty: 1 RF: 5 omeprazole 20 mg capsule,delayed release(DR/EC) 20 mg PO DAILY 30 Days Qty: 30 RF: 0 sumatriptan succinate 100 mg tablet 100 mg PO PRN RF: 0 Novolog PenFill U-100 Insulin 100 unit/mL Cartridge See Rx Instructions .ROUTE .COMPLEX RF: 0 furosemide 20 mg tablet 40 mg PO BID 30 Days Qty: 60 RF: 0 albuterol sulfate 2.5 mg /3 mL (0.083 %) solution for nebulization 2.5 mg INHALATION Q4H PRN (Reason: shortness of breath or wheezing) Qty: 90 RF: 0 Discharge Orders: Discharge ED (Routine); Ordered 01/21/21 Ordered By: Jere Tom Referrals: Lara Garcia [Primary Care Provider] - Discharge Diet: Advance as tolerated Discharge Activity: Resume usual activity Patient Instructions: Otitis Media (ED) Coding Level of Care Code ED Surgical Elastic Knitter for Chg Fwd Exam Comprehensive
[2021-01-21 19:54] LABS: Basophils # 0.1 10^3/uL (0.0-0.1); Basophils % 0.6 %; Eosinophils # 0.4 10^3/uL (0.0-0.8); Eosinophils % 3.8 %; Hematocrit 32.5 % (42.0-52.0); Hemoglobin 9.2 g/dL (11.7-16.6); Lymphocytes # 2.6 10^3/uL (0.8-4.8); Lymphocytes % 25.7 %; Mean Corpuscular HGB Conc 28.3 g/dL (30.0-36.0); Mean Corpuscular Hemoglobin 24.1 pg (28.0-34.0); Mean Corpuscular Volume 85.3 fL (80-94); Mean Platelet Volume 10.1 fL (7.4-10.4); Monocytes # 0.8 10^3/uL (0.2-0.9); Monocytes % 7.9 %; Neutrophils # 6.32 10^3/uL (1.8-7.7); Neutrophils % 61.6 %; Nucleated Red Blood Cells % 0 %; Platelet Count 271 10^3/cmm (130-400); Red Blood Count 3.81 10^6/uL (4.1-5.3); Red Cell Distribution Width 16.6 % (12.1-15.1); White Blood Count 10.3 10^3/uL (4.0-10.0)
[2021-01-21 20:13] LABS: SARS Covid-2 Antigen Negative (Negative)
[2021-01-21 20:20] LABS: Alanine Aminotransferase 14 U/L (0-41); Albumin Level 3.6 g/dL (3.5-5.2); Alkaline Phosphatase 79 IU/L (40-130); Anion Gap 12.3 (5-19); Aspartate Amino Transferase 16 U/L (0-40); Blood Urea Nitrogen 18 mg/dL (6-20); Calcium 9.2 mg/dL (8.5-10.5); Carbon Dioxide 32 mmol/L (22-29); Chloride 100 mmol/L (98-107); Globulin 2.4 g/dL (1.3-4.6); Glomerular Filtration Rate 35.5 mL/min (90-130); Glucose 125 mg/dL (65-115); NT Pro B Type Natriuretic Pept 240 pg/mL (0-125); Osmolality Calculated 293 mOsm/kg (285-295); Potassium 4.3 mmol/L (3.5-5.1); Sodium 140 mmol/L (136-145); Total Bilirubin 0.2 mg/dL (0.15-1.2)
[2021-01-21 20:38] VITALS: BP 149/82; PULSE 81; RESP 18; O2SAT 97
[2021-01-21 21:00] VITALS: PULSE 77; RESP 19; O2SAT 99
[2021-01-21] MEDS: ipratropium-albuterol 3 mL Neb INHALATION (21:00)
[2021-01-21 21:05] VITALS: PULSE 80
[2021-01-21 21:13] VITALS: BP 131/83; PULSE 83; RESP 17; O2SAT 99
--- NOTE | 2021-01-22 09:04 | PC.SOCIAL ---
Addendum entered by Kathleen Cantu 03/15/21 12:34: Appointment was rescheduled to a later date. Addendum entered by Kathleen Cantu 02/06/21 15:02: Patient has a follow up appointment scheduled for February at 11:[address] Jerez at [facility]. Clinic called patient with appointment information. Original Note: Referral called to Kecia at [facility] for Pulmonology for COPD per Dr Tom. They will call patient with an appointment.
== END 2021-01-21 21:29 | disposition home or self-care (01) ==
PROVIDERS: Physician Assistant; Emergency Provider Emergency Medicine; PCP Nurse Practitioner Family
DX: R06.00 Dyspnea, unspecified (principal); H65.191 Other acute nonsuppurative otitis media, right ear; Z79.4 Long term (current) use of insulin; E11.9 Type 2 diabetes mellitus without complications; I10 Essential (primary) hypertension; Z20.822 Contact with and (suspected) exposure to COVID-19
CPT/HCPCS: 71045; 80053; 83880; 85025; 87426; 93005; 94640; 99284

== ENCOUNTER 2021-01-26 14:01 | Emergency (ER) | payer MEDICARE, MEDICAID, SELFPAY ==
[2021-01-26 14:16] VITALS: BP 130/85; PULSE 67; RESP 16; TEMP 36.5; O2SAT 96; BMI 53.4
[2021-01-26 16:22] LABS: Basophils # 0.1 10^3/uL (0.0-0.1); Basophils % 0.8 %; Eosinophils # 0.5 10^3/uL (0.0-0.8); Hematocrit 31.5 % (42.0-52.0); Lymphocytes # 2.1 10^3/uL (0.8-4.8); Lymphocytes % 27.1 %; Mean Corpuscular HGB Conc 28.6 g/dL (30.0-36.0); Mean Corpuscular Hemoglobin 24.5 pg (28.0-34.0); Mean Corpuscular Volume 85.6 fL (80-94); Mean Platelet Volume 9.4 fL (7.4-10.4); Monocytes # 0.7 10^3/uL (0.2-0.9); Monocytes % 9.4 %; Neutrophils # 4.19 10^3/uL (1.8-7.7); Neutrophils % 55.3 %; Nucleated Red Blood Cells % 0 %; Platelet Count 264 10^3/cmm (130-400); Red Blood Count 3.68 10^6/uL (4.1-5.3); Red Cell Distribution Width 16.5 % (12.1-15.1); White Blood Count 7.6 10^3/uL (4.0-10.0)
[2021-01-26 16:34] VITALS: BP 138/76; PULSE 71; RESP 16; O2SAT 95
[2021-01-26] MEDS: sodium chloride 0.9% 1,000 ML 999 ML IV (16:36)
[2021-01-26 16:40] LABS: Alanine Aminotransferase 14 U/L (0-41); Albumin Level 3.6 g/dL (3.5-5.2); Alkaline Phosphatase 78 IU/L (40-130); Anion Gap 13.8 (5-19); Aspartate Amino Transferase 13 U/L (0-40); Blood Urea Nitrogen 17 mg/dL (6-20); Carbon Dioxide 30 mmol/L (22-29); Chloride 101 mmol/L (98-107); Globulin 2.5 g/dL (1.3-4.6); Glomerular Filtration Rate 37.7 mL/min (90-130); Glucose 177 mg/dL (65-115); Lipase 24 U/L (13-60); Osmolality Calculated 296 mOsm/kg (285-295); Potassium 4.8 mmol/L (3.5-5.1); Sodium 140 mmol/L (136-145); Total Bilirubin 0.2 mg/dL (0.15-1.2); Total Protein 6.1 g/dL (6.6-8.7)
[2021-01-26 16:41] LABS: Lactate (Lactic Acid level) 1.3 mmol/L (0.5-2.2)
[2021-01-26 16:51] LABS: Glucose Urine UA Norm (Normal); Ketones Urine Negative (Negative); Protein Urine Neg (Negative); Urine Appearance Clear (CLEAR); Urine Color Yellow (Yellow); pH Urine 5 (5-7)
[2021-01-26 16:52] LABS: Add Urine Culture? No; Bacteria Urine TRACE /hpf; Bilirubin Urine 1+ (Negative); Blood Urine Neg (Negative); Leukocyte Esterase Urine Negative (Negative); Nitrate Urine Negative (Negative); RBC Urine 0-4 /hpf (0-2); Squamous Epithelial Cell Urine 0-4 /hpf (0-5); Urobilinogen Urine Norm (Negative)
--- NOTE | 2021-01-26 17:49 | CTR_ITS ---
PROCEDURE INFORMATION: Exam: CT Abdomen And Pelvis Without Contrast Exam date and time: 01/26/2021 5:49 PM Age: 50 years old Clinical indication: Abdominal pain; Right; Prior surgery; Surgery date: 6+ months; Surgery type: Hernia; Patient HX: C/O R flank pain x 8 days; Additional info: RT flank pain TECHNIQUE: Imaging protocol: Computed tomography of the abdomen and pelvis without contrast. Radiation optimization: All CT scans at this facility use at least one of these dose optimization techniques: automated exposure control; mA and/or kV adjustment per patient size (includes targeted exams where dose is matched to clinical indication); or iterative reconstruction. COMPARISON: CT abdomen pelvis w con* [id number] 10/27/2016 11:14 PM RADIATION DOSE METRICS: Total DLP (mGy-cm): 2048.21 FINDINGS: Liver: Normal. No mass. Gallbladder and bile ducts: Normal. No calcified stones. No ductal dilation. Pancreas: Normal. No ductal dilation. Spleen: Normal. No splenomegaly. Adrenal glands: Normal. No mass. Kidneys and ureters: Mild chronic perinephric stranding. The kidneys are otherwise normal. No hydronephrosis. No renal calculus. Stomach and bowel: 1.5 cm rectangular foreign body in the cecum could represent a medication capsule. The stomach, colon, and small bowel are unremarkable. Appendix: The appendix is visualized and is normal. Intraperitoneal space: Unremarkable. No free air. No significant fluid collection. Vasculature: Unremarkable. No abdominal aortic aneurysm. Lymph nodes: Unremarkable. No enlarged lymph nodes. Urinary bladder: Unremarkable as visualized. Reproductive: Unremarkable as visualized. Bones/joints: Unremarkable. No acute fracture. Soft tissues: Mild subcutaneous flank edema. Injection granulomas in the right buttock. CT/CT kidney stone [id number] IMPRESSION: 1. No acute abnormality identified in the abdomen or pelvis. Radiation Dose CTDIVOL = (mGy): DLP = 2048.21 (mGy-cm)
[2021-01-26 19:22] VITALS: BP 128/79; O2SAT 92
[2021-01-26 19:41] VITALS: BP 128/70; PULSE 73; RESP 15; O2SAT 92
[2021-01-26] MEDS: cyclobenzaprine 10 mg Tablet 5 MG PO (20:33)
[2021-01-26 20:34] VITALS: BP 132/73; PULSE 73; RESP 17; O2SAT 94
--- NOTE | 2021-01-26 20:35 | W.ED.BACK ---
HPI - Back Pain/Injury General: Chief Complaint: Back Pain/Injury Stated Complaint: LOWER ABD PAIN Time Seen by Provider: 01/26/21 15:45 History of Present Illness: HPI Narrative: The patient is a 50-year-old male with past medical history fibromyalgia, diabetes, hypertension. He comes to the ER complaining for the past 8 days he has had right flank pain that radiates to his groin. Denies nausea vomiting and diarrhea. Denies urinary symptoms to me as well. The pain hurts when he moves and is better when he rests. He says he has chronic kidney disease as well. MD elicited complaint: back pain Severity: severe Quality: sharp Location: lumbar spine and right lower back Radiation: abdomen and groin Exacerbating factors: movement Associated symptoms: Reports no associated symptoms; Deny abdominal pain, difficulty walking, fatigue or urinary urgency Review of Systems General: Reports: 10 or more systems reviewed and unremarkable except in HPI and below Const: Denies: fatigue Eyes: Denies: change in vision, blurry vision or eye redness ENMT: Denies: throat pain, swelling of lips/tongue, ear or mastoid pain or nasal congestion Card: Denies: chest pain, palpitations, irregular heart rhythm, edema, dyspnea on exertion or orthopnea Resp: Denies: dyspnea, productive cough or non-productive cough GI: Denies: abdominal pain, diarrhea or GI cramping : Reports: flank pain; Denies: urinary frequency or urinary urgency Musc: Denies: neck pain, back pain, extremity pain, joint pain, joint redness, limited range of motion or muscle weakness Skin/Breast: Denies: rash, pruritus, erythema, skin pain or skin tenderness Neuro: Denies: headache(s), numbness in extremities, weakness in extremities, sensory changes, difficulty walking, dizziness, confusion or Slurred speech present Psych: Denies: anxiety or depression Endo: Denies: polyuria All/Imm: Denies: urticaria, throat swelling or tongue swelling PFSH ED PFSH: Medical History Bipolar 1 disorder CKD (chronic kidney disease) Depression Diabetes Fibromyalgia JACY (generalized anxiety disorder) Hypertension Hypothyroidism Insomnia Legally blind in right eye, as defined in [place] Surgical History S/P hernia repair Family History Mother CAD (coronary artery disease) Father CAD (coronary artery disease) Social History Smoking and tobacco status: never smoked Alcohol intake: never Current occupational status: disabled Physical Exam Const: COMMON NORMALS: no acute distress, average body habitus, patient oriented x3, no limitations, healthy appearing, alert and well nourished GENERAL APPEARANCE: cooperative, comfortable, well kempt and well developed ORIENTATION/CONSCIOUSNESS: Yes awake, Yes oriented to person, Yes oriented to place and Yes oriented to time HENMT: COMMON NORMALS: normocephalic, external ears normal and Normal external nose present HEAD & SCALP: normal to inspection and normocephalic NOSE: Normal external nose present EXTERNAL EAR: Yes external ears normal MOUTH: Normal oral and palatal mucosa present THROAT: posterior oropharynx normal Eye: COMMON NORMALS: Equal, round and reactive pupils present and EOMs intact bilaterally GENERAL EYE: appearance normal, both eyes and all related structures PUPIL: Yes Equal, round and reactive pupils present Neck/C-Spine: COMMON NORMALS: full ROM, no lymphadenopathy, no meningeal signs and no JVD GENERAL: Yes normal visual inspection Lymph: LYMPHATIC: no lymphadenopathy noted Chest: COMMONS NORMALS: normal inspection of the chest and normal palpation of entire chest wall Resp: COMMON NORMALS: normal respiratory effort, No retractions, No use of accessory muscles, clear to auscultation bilaterally and percussion normal EFFORT & INSPECTION: Yes able to speak in complete sentences AUSCULTATION: clear to auscultation bilaterally PERCUSSION: percussion normal Cardio: COMMON NORMALS: no JVD, regular rate, regular rhythm, S1 normal heart sound present, S2 normal heart sound present and Peripheral pulses 2+ throughout RATE: regular rate RHYTHM: regular rhythm HEART SOUNDS: S1 normal heart sound present and S2 normal heart sound present PERIPHERAL PULSES: Peripheral pulses 2+ throughout GI: COMMON NORMALS: Normal to inspection, nondistended, normoactive bowel sounds present, Soft to palpation, non-tender and no masses INSPECTION: Yes normal to inspection PALPATION: Yes Soft to palpation : BLADDER/KIDNEY EXAM: Yes CVA tenderness on the right Back/Pelvis: COMMON NORMALS: thoracic and lumbar spine normal to inspection, no thoracic nor lumbar tenderness and thoraco-lumbar ROM normal GENERAL BACK: Yes CVA tenderness Extremity: COMMON NORMALS: normal to inspection, full ROM, capillary refill normal, no joint enlargement and no pedal edema GENERAL: Yes normal exam except as noted Neuro: COMMON NORMALS: patient oriented x3, CN's II-XII intact bilaterally, moves all extremities, no focal motor deficits, no sensory deficits noted and gait normal SENSORIUM/ORIENTATION: Yes alert, Yes oriented to person, Yes oriented to place and Yes oriented to time MENINGEAL SIGNS: Yes no meningeal signs Psych: COMMON NORMALS: mental status grossly normal, Normal thought process present, cooperative, normal affect and speech normal APPEARANCE: Yes well kempt ATTITUDE: Yes calm SPEECH: Yes normal speech THOUGHT PROCESS: Normal thought process present Skin: COMMON NORMALS: no rashes or lesions noted GENERAL SKIN EXAM: no rashes or lesions noted Course Vital Signs: Vital signs: Vital Signs Temperature 97.7 F 01/26/21 14:16 Pulse Rate 73 01/26/21 20:34 Respiratory Rate 17 01/26/21 20:34 Blood Pressure 132/73 01/26/21 20:34 Pulse Oximetry 94 01/26/21 20:34 MDM - Back Pain/Injury MDM Narrative: Medical decision making narrative: The patient came in complaining of right flank pain and he is tender there however he is also tender in his muscles in the low back and does have fibromyalgia. Urine is clean, blood work shows chronic kidney disease with a stable creatinine and CAT scan of his belly is normal. Stable for discharge home likely musculoskeletal pain. ER with worsening symptoms at any time otherwise follow-up with primary care physician next week. Lab Data: Labs: Lab Results 01/26/21 01/26/21 01/26/21 Range/Units 16:05 16:05 16:05 WBC 7.6 (4.0-10.0) 10^3/ uL RBC 3.68 L (4.1-5.3) 10^6/u L Hgb 9.0 L (11.7-16.6) g/dL Hct 31.5 L (42.0-52.0) % MCV 85.6 (80-94) fL MCH 24.5 L (28.0-34.0) pg MCHC 28.6 L (30.0-36.0) g/dL RDW 16.5 H (12.1-15.1) % Plt Count 264 (130-400) 10^3/c mm MPV 9.4 (7.4-10.4) fL Neut % (Auto) 55.3 % Lymph % (Auto) 27.1 % Marion % (Auto) 9.4 % Eos % (Auto) 7.0 % Baso % (Auto) 0.8 % Neut # (Auto) 4.19 (1.8-7.7) 10^3/u L Lymph # (Auto) 2.1 (0.8-4.8) 10^3/u L Marion # (Auto) 0.7 (0.2-0.9) 10^3/u L Eos # (Auto) 0.5 (0.0-0.8) 10^3/u L Baso # (Auto) 0.1 (0.0-0.1) 10^3/u L Nucleated RBC % (a uto) 0 % Nucleated RBCs # 0.0 /100WBC Sodium 140 (136-145) mmol/L Potassium 4.8 (3.5-5.1) mmol/L Chloride 101 (98-107) mmol/L Carbon Dioxide 30 H (22-29) mmol/L Anion Gap 13.8 (5-19) BUN 17 (6-20) mg/dL Creatinine 1.9 H (0.7-1.2) mg/dL GFR Calculation 37.7 L (90-130) mL/min Glucose 177 H (65-115) mg/dL Calculated Osmolal ity 296 H (285-295) mOsm/k g Lactate 1.3 (0.5-2.2) mmol/L Calcium 9.0 (8.5-10.5) mg/dL Total Bilirubin 0.2 (0.15-1.2) mg/dL AST 13 (0-40) U/L ALT 14 (0-41) U/L Alkaline Phosphata se 78 (40-130) IU/L Total Protein 6.1 L (6.6-8.7) g/dL Albumin 3.6 (3.5-5.2) g/dL Globulin 2.5 (1.3-4.6) g/dL Lipase 24 (13-60) U/L Urine Color (Yellow) Urine Appearance (CLEAR) Urine pH (5-7) Ur Specific Gravit y (1.005-1.030) Urine Protein (Negative) Urine Glucose (UA) (Normal) Urine Ketones (Negative) Urine Blood (Negative) Urine Nitrate (Negative) Urine Bilirubin (Negative) Urine Urobilinogen (Negative) mg/dL Ur Leukocyte Kenyatta ase (Negative) Urine RBC (0-2) /hpf Urine WBC (0-5) /hpf Ur Squamous Epith Cells (0-5) /hpf Amorphous Sediment Urine Bacteria (NONE) /hpf 01/26/21 Range/Units 16:37 WBC (4.0-10.0) 10^3/ uL RBC (4.1-5.3) 10^6/u L Hgb (11.7-16.6) g/dL Hct (42.0-52.0) % MCV (80-94) fL MCH (28.0-34.0) pg MCHC (30.0-36.0) g/dL RDW (12.1-15.1) % Plt Count (130-400) 10^3/c mm MPV (7.4-10.4) fL Neut % (Auto) % Lymph % (Auto) % Marion % (Auto) % Eos % (Auto) % Baso % (Auto) % Neut # (Auto) (1.8-7.7) 10^3/u L Lymph # (Auto) (0.8-4.8) 10^3/u L Marion # (Auto) (0.2-0.9) 10^3/u L Eos # (Auto) (0.0-0.8) 10^3/u L Baso # (Auto) (0.0-0.1) 10^3/u L Nucleated RBC % (a uto) % Nucleated RBCs # /100WBC Sodium (136-145) mmol/L Potassium (3.5-5.1) mmol/L Chloride (98-107) mmol/L Carbon Dioxide (22-29) mmol/L Anion Gap (5-19) BUN (6-20) mg/dL Creatinine (0.7-1.2) mg/dL GFR Calculation (90-130) mL/min Glucose (65-115) mg/dL Calculated Osmolal ity (285-295) mOsm/k g Lactate (0.5-2.2) mmol/L Calcium (8.5-10.5) mg/dL Total Bilirubin (0.15-1.2) mg/dL AST (0-40) U/L ALT (0-41) U/L Alkaline Phosphata se (40-130) IU/L Total Protein (6.6-8.7) g/dL Albumin (3.5-5.2) g/dL Globulin (1.3-4.6) g/dL Lipase (13-60) U/L Urine Color Yellow (Yellow) Urine Appearance Clear (CLEAR) Urine pH 5 (5-7) Ur Specific Gravit y 1.020 (1.005-1.030) Urine Protein Neg (Negative) Urine Glucose (UA) Norm (Normal) Urine Ketones Negative (Negative) Urine Blood Neg (Negative) Urine Nitrate Negative (Negative) Urine Bilirubin 1+ H (Negative) Urine Urobilinogen Norm (Negative) mg/dL Ur Leukocyte Kenyatta ase Negative (Negative) Urine RBC 0-4 H (0-2) /hpf Urine WBC None (0-5) /hpf Ur Squamous Epith Cells 0-4 H (0-5) /hpf Amorphous Sediment Not Reportable Urine Bacteria Trace (NONE) /hpf Discharge Plan Discharge Patient Disposition: Home Clinical Impression: Musculoskeletal pain, CKD (chronic kidney disease) Condition: Stable Prescriptions: No Action (DME) Diabetic Shoes See Rx Instructions .ROUTE .MEDSUPPLY Qty: 1 RF: 0 cyclobenzaprine 10 mg tablet 10 mg PO TID PRN (Reason: Spasms) RF: 0 hydralazine 50 mg tablet 25 mg PO BID@0900,2100 RF: 0 losartan 100 mg tablet 50 mg PO DAILY@0900 RF: 0 melatonin 5 mg capsule 10 mg PO BEDTIME@2100 RF: 0 albuterol sulfate [ProAir HFA] 90 mcg/actuation HFA aerosol inhaler 2 puff INHALATION QID RF: 0 Tradjenta 5 mg tablet 5 mg PO DAILY@0900 RF: 0 budesonide 0.5 mg/2 mL suspension for nebulization See Rx Instructions .ROUTE .COMPLEX Qty: 120 RF: 0 insulin degludec [Tresiba FlexTouch U-200] 200 unit/mL (3 mL) insulin pen See Rx Instructions .ROUTE .COMPLEX Qty: 9 RF: 0 Aimovig Autoinjector 140 mg/mL auto-injector 140 mg SUBCUT Q30D Qty: 1 RF: 5 sumatriptan succinate 100 mg tablet 100 mg PO PRN RF: 0 insulin aspart U-100 [Novolog PenFill U-100 Insulin] 100 unit/mL Cartridge See Rx Instructions .ROUTE .COMPLEX RF: 0 albuterol sulfate 2.5 mg /3 mL (0.083 %) solution for nebulization 2.5 mg INHALATION Q4H PRN (Reason: shortness of breath or wheezing) Qty: 90 RF: 0 Latuda 20 mg tablet 20 mg PO DAILY@0900 RF: 0 metoprolol tartrate 100 mg tablet 100 mg PO BID@0900,2100 RF: 0 amoxicillin 875 mg tablet 875 mg PO BID@0900,2100 RF: 0 Klor-Con M20 20 mEq tablet,ER particles/crystals 20 meq PO BID@0900,2099 RF: 0 simvastatin 20 mg tablet 20 mg PO DAILY@2099 RF: 0 omeprazole 20 mg capsule,delayed release(DR/EC) 20 mg PO DAILY@0900 RF: 0 furosemide 20 mg tablet See Rx Instructions .ROUTE .COMPLEX RF: 0 escitalopram oxalate 20 mg tablet 20 mg PO DAILY@0900 RF: 0 Latuda 80 mg tablet 80 mg PO DAILY@0900 RF: 0 lamotrigine 200 mg tablet 200 mg PO DAILY@0900 RF: 0 donepezil 10 mg tablet 10 mg PO BEDTIME@2100 RF: 0 clonazepam 0.5 mg tablet 1.5 mg PO BEDTIME@2100 RF: 0 spironolactone 25 mg tablet 25 mg PO DAILY@0900 RF: 0 trazodone 100 mg Tablet 200 mg PO BEDTIME@2100 RF: 0 pantoprazole 40 mg tablet,delayed release (DR/EC) 40 mg PO DAILY@0900 RF: 0 calcitriol 0.5 mcg capsule 0.5 mcg PO DAILY@0900 RF: 0 apple cider vinegar 1 tab PO DAILY@0900 RF: 0 Discharge Orders: Discharge ED (Routine); Ordered 01/26/21 Ordered By: Grayson Lozoya Referrals: Lara Garcia [Primary Care Provider] - Discharge Diet: Advance as tolerated Discharge Activity: Resume usual activity Patient Instructions: Chronic Kidney Disease (ED), Back Pain (ED), Opioid Safety Activity Restrictions/Additional Instructions: The pain in your right lower back is more than likely your muscles in your back given you pain. Work-up for your kidneys has been negative including blood work which shows you have chronic kidney disease with a stable creatinine and the CAT scan of your belly is normal. Also your urine is normal. Please take your home medications as needed for your pain and follow-up with your primary care physician next week. Return to the ER at anytime with worsening symptoms Coding Level of Care Code ED Clinical Document Improvement Educator for Riki Velázquez
== END 2021-01-26 20:50 | disposition home or self-care (01) ==
PROVIDERS: Physician Assistant; Emergency Provider Family Medicine; PCP Nurse Practitioner Family
DX: M79.18 Myalgia, other site (principal); E11.22 Type 2 diabetes mellitus with diabetic chronic kidney disease; I12.9 Hypertensive chronic kidney disease with stage 1 through stage 4 chronic kidney disease, or unspecified chronic kidney disease; N18.9 Chronic kidney disease, unspecified; Z79.4 Long term (current) use of insulin
CPT/HCPCS: 74176; 80053; 81001; 83605; 83690; 85025; 96360; 99284; J7030

== ENCOUNTER 2021-02-14 15:41 | Emergency (ER) | payer MEDICARE, MEDICAID, SELFPAY ==
[2021-02-14 16:42] LABS: Lithium 0.6 mmol/L (0.6-1.2)
[2021-02-14 17:00] VITALS: BP 119/75; PULSE 64; RESP 19; TEMP 36.7; O2SAT 96; BMI 56.9
--- NOTE | 2021-02-14 17:10 | ED_ITS ---
HPI - General Adult General: Chief complaint: General Medical Stated complaint: SENT FOR LITHIUM CK Time Seen by Provider: 02/14/21 17:10 History of Present Illness: HPI narrative: 50-year-old male patient was sent in by his psychiatrist for concerns of possible lithium toxicity. Patient had some symptoms that was concerning for lithium toxicity and his psychiatrist referred him to the emergency room for a lithium level. Patient denies any other signs or concerns. Patient's caregiver also reports no other concerns. Associated symptoms: Reports nausea Review of Systems General: Reports: 10 or more systems reviewed and unremarkable except in HPI and below GI: Reports: nausea PFSH ED PFSH: Medical History Bipolar 1 disorder CKD (chronic kidney disease) Depression Diabetes Fibromyalgia JACY (generalized anxiety disorder) Hypertension Hypothyroidism Insomnia Legally blind in right eye, as defined in [place] Surgical History S/P hernia repair Family History Mother CAD (coronary artery disease) Father CAD (coronary artery disease) Social History Smoking and tobacco status: never smoked Alcohol intake: never Current occupational status: disabled Physical Exam Const: COMMON NORMALS: no acute distress and patient oriented x3 GENERAL APPEARANCE: cooperative HENMT: COMMON NORMALS: normocephalic and Normal external nose present HEAD & SCALP: normal to inspection and normocephalic NOSE: Normal external nose present MOUTH: Normal oral and palatal mucosa present Eye: GENERAL EYE: appearance normal, both eyes and all related structures Neck/C-Spine: COMMON NORMALS: full ROM Chest: COMMONS NORMALS: normal inspection of the chest Resp: COMMON NORMALS: normal respiratory effort EFFORT & INSPECTION: Yes able to speak in complete sentences Cardio: COMMON NORMALS: regular rate and regular rhythm RATE: regular rate RHYTHM: regular rhythm GI: COMMON NORMALS: non-tender Extremity: COMMON NORMALS: normal to inspection Neuro: COMMON NORMALS: patient oriented x3 and moves all extremities Psych: COMMON NORMALS: mental status grossly normal and cooperative Skin: COMMON NORMALS: no rashes or lesions noted GENERAL SKIN EXAM: no r ashes or lesions noted Course Vital Signs: Vital signs: Vital Signs Temperature 98.1 F 02/14/21 17:00 Pulse Rate 64 02/14/21 17:00 Respiratory Rate 19 H 02/14/21 17:00 Blood Pressure 119/75 02/14/21 17:00 Pulse Oximetry 96 02/14/21 17:00 MDM - General Adult MDM Narrative: Medical decision making narrative: Patient was referred to the ER for evaluation of lithium level due to some concerns of nausea and possible lithium toxicity. On exam patient appears chronically ill but none no acute distress. Vital signs are normal. Differential diagnosis includes but not limited to lithium toxicity, adverse drug effect, malingering. [place] level 0.6. Reviewed exam with patient with recommendations for treatment and follow- up with primary care and psychiatry. Patient reported understanding along with caregiver. Lab Data: Labs: Lab Results 02/14/21 Range/Units 16:12 [place] 0.6 (0.6-1.2) mmol/L Discharge Plan Discharge Patient Disposition: Home Clinical Impression: [place] use Condition: Stable Prescriptions: No Action (DME) Diabetic Shoes See Rx Instructions .ROUTE .MEDSUPPLY Qty: 1 RF: 0 silver sulfadiazine [Silvadene] 1 % cream 1 applic topical BID Qty: 50 RF: 0 cyclobenzaprine 10 mg tablet 10 mg PO TID PRN (Reason: Spasms) RF: 0 hydralazine 50 mg tablet 25 mg PO BID@0900,2100 RF: 0 losartan 100 mg tablet 50 mg PO DAILY@0900 RF: 0 melatonin 5 mg capsule 10 mg PO BEDTIME@2100 RF: 0 albuterol sulfate [ProAir HFA] 90 mcg/actuation HFA aerosol inhaler 2 puff INHALATION QID RF: 0 Tradjenta 5 mg tablet 5 mg PO DAILY@0900 RF: 0 budesonide 0.5 mg/2 mL suspension for nebulization See Rx Instructions .ROUTE .COMPLEX Qty: 120 RF: 0 insulin degludec [Tresiba FlexTouch U-200] 200 unit/mL (3 mL) insulin pen See Rx Instructions .ROUTE .COMPLEX Qty: 9 RF: 0 Aimovig Autoinjector 140 mg/mL auto-injector 140 mg SUBCUT Q30D Qty: 1 RF: 5 sumatriptan succinate 100 mg tablet 100 mg PO PRN RF: 0 insulin aspart U-100 [Novolog PenFill U-100 Insulin] 100 unit/mL Cartridge See Rx Instructions .ROUTE .COMPLEX RF: 0 albuterol sulfate 2.5 mg /3 mL (0.083 %) solution for nebulization 2.5 mg INHALATION Q4H PRN (Reason: shortness of breath or wheezing) Qty: 90 RF: 0 Latuda 20 mg tablet 20 mg PO DAILY@0900 RF: 0 metoprolol tartrate 100 mg tablet 100 mg PO BID@09,2099 RF: 0 amoxicillin 875 mg tablet 875 mg PO BID@0900,2099 RF: 0 Klor-Con M20 20 mEq tablet,ER particles/crystals 20 meq PO BID@899,2099 RF: 0 simvastatin 20 mg tablet 20 mg PO DAILY@2099 RF: 0 omeprazole 20 mg capsule,delayed release(DR/EC) 20 mg PO DAILY@0900 RF: 0 furosemide 20 mg tablet See Rx Instructions .ROUTE .COMPLEX RF: 0 escitalopram oxalate 20 mg tablet 20 mg PO DAILY@0900 RF: 0 Latuda 80 mg tablet 80 mg PO DAILY@0900 RF: 0 lamotrigine 200 mg tablet 200 mg PO DAILY@09 RF: 0 donepezil 10 mg tablet 10 mg PO BEDTIME@2099 RF: 0 clonazepam 0.5 mg tablet 1.5 mg PO BEDTIME@2099 RF: 0 spironolactone 25 mg tablet 25 mg PO DAILY@0900 RF: 0 trazodone 100 mg Tablet 200 mg PO BEDTIME@2100 RF: 0 pantoprazole 40 mg tablet,delayed release (DR/EC) 40 mg PO DAILY@0900 RF: 0 calcitriol 0.5 mcg capsule 0.5 mcg PO DAILY@0900 RF: 0 apple cider vinegar 1 tab PO DAILY@0900 RF: 0 Discharge Orders: Discharge ED (Routine); Ordered 02/14/21 Ordered By: Nagi Monroe Referrals: Lara Garcia [Primary Care Provider] - Discharge Diet: Usual diet Discharge Activity: Increase activity as tolerated Patient Instructions: [place] (By mouth), Opioid Safety Activity Restrictions/Additional Instructions: Continue with routine care. Follow-up with psychiatrist for further recommendations. Return to the emergency department for new concerns. Coding Level of Care Code ED Staffing Rn for Riki Velázquez
== END 2021-02-14 18:00 | disposition home or self-care (01) ==
PROVIDERS: Family Medicine; Emergency Provider Nurse Practitioner Family; PCP Nurse Practitioner Family
DX: Z04.89 Encounter for examination and observation for other specified reasons (principal); Z79.899 Other long term (current) drug therapy
CPT/HCPCS: 80178; 99281

== ENCOUNTER 2021-05-22 06:00 | Outpatient (RCR) | payer MEDICARE, MEDICAID, SELFPAY | END 2021-05-26 23:59 | disposition home or self-care (01) | LOC: TPT 06:00 | PROVIDERS: PCP Nurse Practitioner Family; Referring Provider Nurse Practitioner Family; Visit Provider Nurse Practitioner Family | DX: M62.81 Muscle weakness (generalized) (principal) | CPT/HCPCS: 97110; 97163 ==

== ENCOUNTER 2021-05-27 06:00 | Outpatient (RCR) | payer MEDICARE, SELFPAY | END 2021-06-25 23:59 | disposition home or self-care (01) | LOC: TPT 06:00 | PROVIDERS: PCP Nurse Practitioner Family; Referring Provider Nurse Practitioner Family; Visit Provider Nurse Practitioner Family | DX: R26.9 Unspecified abnormalities of gait and mobility (principal); M62.81 Muscle weakness (generalized); E66.01 Morbid (severe) obesity due to excess calories; Z68.41 Body mass index [BMI] 40.0-44.9, adult | CPT/HCPCS: 97110; 97116 ==

== ENCOUNTER 2021-06-03 21:05 | Emergency (ER) | payer MEDICARE, MEDICAID, SELFPAY ==
--- NOTE | 2021-06-03 21:09 | CTR_ITS ---
PROCEDURE INFORMATION: Exam: CT Head Without Contrast Exam date and time: 06/03/2021 9:09 PM Age: 50 years old Clinical indication: Altered mental status/memory loss; Additional info: AMS TECHNIQUE: Imaging protocol: Computed tomography of the head without contrast. Total images: 188 Radiation optimization: All CT scans at this facility use at least one of these dose optimization techniques: automated exposure control; mA and/or kV adjustment per patient size (includes targeted exams where dose is matched to clinical indication); or iterative reconstruction. COMPARISON: MR head wo con* [id number] 12/10/2020 3:57 PM RADIATION DOSE METRICS: Total DLP (mGy-cm): 850.18 FINDINGS: Brain: No evidence of active or acute intracranial pathologic process, hemorrhage, or trauma. No visible evidence of diffuse cerebral edema or generalized demyelination. No mass effect. No midline shift. No hyperdense MCA or insular ribbon sign. Cerebral ventricles: No ventriculomegaly. Paranasal sinuses: Visualized sinuses are unremarkable. No fluid levels. Mastoid air cells: Visualized mastoid air cells are well aerated. Bones/joints: Unremarkable. No acute fracture. Soft tissues: Unremarkable. CT/CT head wo con* [id number] IMPRESSION: No evidence of active or acute intracranial pathologic process, hemorrhage, or trauma. Radiation Dose CTDIVOL = (mGy): DLP = 850.18 (mGy-cm)
--- NOTE | 2021-06-03 21:09 | XRR_ITS ---
PROCEDURE INFORMATION: Exam: XR Chest Exam date and time: 06/03/2021 9:09 PM Age: 50 years old Clinical indication: Cough; Additional info: AMS TECHNIQUE: Imaging protocol: XR of the chest. Views: 1 view. Total images: 1 COMPARISON: CR XR chest 1V portable [id number] 01/21/2021 5:23 PM FINDINGS: Lungs: No visible active interstitial or alveolar airspace disease. Pleural spaces: Unremarkable. No pleural effusion. No pneumothorax. Heart/Mediastinum: Cardiac structures and configuration with cardiac size upper limits of normal. Bones/joints: Unremarkable. Other findings: Obesity. XR/XR chest 1V portable [id number] IMPRESSION: Nonacute. Radiation Dose CTDIVOL = (mGy): DLP = (mGy-cm)
--- NOTE | 2021-06-03 21:11 | ECG_ITS ---
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 [id number]
[2021-06-03 21:14] VITALS: BP 132/91; PULSE 65; RESP 18; TEMP 36.4; O2SAT 94; BMI 51.5
--- NOTE | 2021-06-03 21:31 | ED_ITS ---
HPI - Weakness General: Chief complaint: Weakness Stated complaint: WEAKNESS Time Seen by Provider: 06/03/21 21:07 Source: patient and EMS Mode of arrival: EMS Limitations: altered mental status History of Present Illness: HPI Narrative: 50-year-old male who has multiple medical issues in the past states that he is acting normal yesterday and all day today has been having extreme weakness and some confusion patient is able answer most my questions he knew the president he knew the year he knows his name. He states he has had weakness in all extremities is having difficulty moving all 4 extremities no focal findings denies any vision changes he has no slurred speech Associated symptoms: Denies chest pain, chills, dysuria, easy bruising, fever(s), nausea or vomiting Review of Systems Const: Denies: fever(s), chills, body aches or change in appetite Eyes: Denies: blurry vision or eye discomfort ENMT: Denies: throat pain or dental pain Card: Denies: chest pain Resp: Denies: dyspnea GI: Denies: abdominal pain, nausea, vomiting or diarrhea : Denies: dysuria Musc: Denies: neck pain or back pain Skin/Breast: Denies: rash Neuro: Reports: weakness in extremities Psych: Denies: depression Javier/Lymph: Denies: easy bruising All/Imm: Denies: urticaria PFSH ED PFSH: Medical History Bipolar 1 disorder CKD (chronic kidney disease) CKD stage 3 due to type 2 diabetes mellitus Depression Diabetes Diabetes mellitus with diabetic polyneuropathy Fibromyalgia JACY (generalized anxiety disorder) Hypertension Hypothyroidism Insomnia Legally blind in right eye, as defined in [place] Surgical History S/P hernia repair Family History Mother CAD (coronary artery disease) Father CAD (coronary artery disease) Social History Smoking and tobacco status: never smoked Alcohol intake: never Current occupational status: disabled Physical Exam Const: COMMON NORMALS: no acute distress, patient oriented x3 and healthy appearing HENMT: COMMON NORMALS: normocephalic and atraumatic HEAD & SCALP: normocephalic and atraumatic Eye: COMMON NORMALS: Equal, round and reactive pupils present and EOMs intact bilaterally PUPIL: Yes Equal, round and reactive pupils present Neck/C-Spine: COMMON NORMALS: full ROM and supple Chest: COMMONS NORMALS: normal inspection of the chest and normal palpation of entire chest wall Resp: COMMON NORMALS: normal respiratory effort, No retractions, No use of accessory muscles and clear to auscultation bilaterally AUSCULTATION: clear to auscultation bilaterally Cardio: COMMON NORMALS: regular rate, regular rhythm and No murmurs present (Cardio) RATE: regular rate RHYTHM: regular rhythm GI: COMMON NORMALS: Normal to inspection, nondistended, normoactive bowel sounds present, Soft to palpation, non-tender and no masses PALPATION: Yes Soft to palpation Extremity: COMMON NORMALS: normal to inspection and full ROM Neuro: COMMON NORMALS: patient oriented x3, moves all extremities and no focal motor deficits Psych: COMMON NORMALS: mental status grossly normal, Normal thought process present and cooperative THOUGHT PROCESS: Normal thought process present Skin: COMMON NORMALS: no rashes or lesions noted and no wounds GENERAL SKIN EXAM: no rashes or lesions noted Course Vital Signs: Vital signs: Vital Signs Temperature 97.6 F 06/03/21 23:55 Pulse Rate 61 06/03/21 23:55 Respiratory Rate 20 H 06/03/21 23:55 Blood Pressure 168/94 06/03/21 23:55 Pulse Oximetry 95 06/03/21 23:55 MDM - Weakness MDM Narrative: Medical decision making narrative: Patient presents here with generalized weakness patient is back to his baseline currently he is much more awake now he states he felt like his hypoglycemia is causing it he is able to ambulate the halls I would offer him admission he states he felt improved and would like to go home blood work here is otherwise normal he is stable for discharge and return if worsening. Lab Data: Labs: Lab Results 06/03/21 06/03/21 06/03/21 21:09 21:27 21:27 WBC 7.3 10^3/uL 10^3/ uL (4.0-10.0) RBC 4.62 10^6/uL 10^6 /uL (4.1-5.3) Hgb 10.2 g/dL L g/dL (11.7-16.6) Hct 36.1 % L % (42.0-52.0) MCV 78.1 fl L fl (80-94) MCH 22.1 pg L pg (28.0-34.0) MCHC 28.3 g/dL L g/dL (30.0-36.0) RDW 15.0 % % (12.1-15.1) Plt Count 295 10^3/cmm 10^3 /cmm (130-400) MPV 10.5 fL H fL (7.4-10.4) Neut % (Auto) 64.3 % % Lymph % (Auto) 21.6 % % [place] % (Auto) 9.1 % % Eos % (Auto) 3.6 % % Baso % (Auto) 1.0 % % Neut # (Auto) 4.68 10^3/uL 10^3 /uL (1.8-7.7) Lymph # (Auto) 1.6 10^3/uL 10^3/ uL (0.8-4.8) [place] # (Auto) 0.7 10^3/uL 10^3/ uL (0.2-0.9) Eos # (Auto) 0.3 10^3/uL 10^3/ uL (0.0-0.8) Baso # (Auto) 0.1 10^3/uL 10^3/ uL (0.0-0.1) Nucleated RBC % (a uto) 0 % % Nucleated RBCs # 0.0 /100WBC /100W BC PT 13.20 SECONDS SEC ONDS (12.1-14.9) INR 0.97 (0.8-1.2) Specimen Type Arterial Sample Site Radial, right ABG pH 7.37 (7.35-7.45) ABG pCO2 51.4 mmHg H mmHg (35-45) ABG pO2 69.3 mmHg L mmHg (80.0-100.0) ABG HCO3 29.6 mmol/L H mmo l/L (22-26) ABG Base Excess 3.6 mmol/L H mmol /L (-2.0-2.0) Balwinder Test Pos Hematocrit 29.5 % L % (42-52) O2 Delivery Device Room air Product Development Consultant ID [id number] Sodium Potassium Chloride Carbon Dioxide Anion Gap BUN Creatinine GFR Calculation Glucose POC Glucose Calculated Osmolal ity Calcium Total Bilirubin AST ALT Alkaline Phosphata se Ammonia Troponin T Baselin e Troponin T 120 Min [place] Troponin T Total Protein Albumin Globulin Urine Color Urine Appearance Urine pH Ur Specific Gravit y Urine Protein Urine Glucose (UA) Urine Ketones Urine Blood Urine Nitrate Urine Bilirubin Urine Urobilinogen Ur Leukocyte Kenyatta ase 06/03/21 06/03/21 06/03/21 21:27 21:27 21:27 WBC RBC Hgb Hct MCV MCH MCHC RDW Plt Count MPV Neut % (Auto) Lymph % (Auto) [place] % (Auto) Eos % (Auto) Baso % (Auto) Neut # (Auto) Lymph # (Auto) [place] # (Auto) Eos # (Auto) Baso # (Auto) Nucleated RBC % (a uto) Nucleated RBCs # PT INR Specimen Type Sample Site ABG pH ABG pCO2 ABG pO2 ABG HCO3 ABG Base Excess Balwinder Test Hematocrit O2 Delivery Device Product Development Consultant ID Sodium 137 mmol/L mmol/L (136-145) Potassium 4.6 mmol/L mmol/L (3.5-5.1) Chloride 100 mmol/L mmol/L (98-107) Carbon Dioxide 28 mmol/L mmol/L (22-29) Anion Gap 13.6 (5-19) BUN 12 mg/dL mg/dL (6-20) Creatinine 1.4 mg/dL H mg/dL (0.7-1.2) GFR Calculation 53.6 mL/min L mL/ min (90-130) Glucose 337 mg/dL H mg/dL (65-115) POC Glucose Calculated Osmolal ity 297 mOsm/kg H mOs m/kg (285-295) Calcium 8.9 mg/dL mg/dL (8.5-10.5) Total Bilirubin 0.2 mg/dL mg/dL (0.15-1.2) AST 19 U/L U/L (0-40) ALT 26 U/L U/L (0-41) Alkaline Phosphata se 87 IU/L IU/L (40-130) Ammonia 19 umol/L umol/L (16-60) Troponin T Baselin e 14 ng/L ng/L (0-15) Troponin T 120 Min [place] Troponin T Total Protein 5.7 g/dL L g/dL (6.6-8.7) Albumin 3.7 g/dL g/dL (3.5-5.2) Globulin 2.0 g/dL g/dL (1.3-4.6) Urine Color Urine Appearance Urine pH Ur Specific Gravit y Urine Protein Urine Glucose (UA) Urine Ketones Urine Blood Urine Nitrate Urine Bilirubin Urine Urobilinogen Ur Leukocyte Kenyatta ase 06/03/21 06/03/21 06/03/21 22:20 23:17 23:17 WBC RBC Hgb Hct MCV MCH MCHC RDW Plt Count MPV Neut % (Auto) Lymph % (Auto) [place] % (Auto) Eos % (Auto) Baso % (Auto) Neut # (Auto) Lymph # (Auto) [place] # (Auto) Eos # (Auto) Baso # (Auto) Nucleated RBC % (a uto) Nucleated RBCs # PT INR Specimen Type Sample Site ABG pH ABG pCO2 ABG pO2 ABG HCO3 ABG Base Excess Balwinder Test Hematocrit O2 Delivery Device Product Development Consultant ID Sodium Potassium Chloride Carbon Dioxide Anion Gap BUN Creatinine GFR Calculation Glucose POC Glucose 334 mg/dL H mg/dL (70-110) Calculated Osmolal ity Calcium Total Bilirubin AST ALT Alkaline Phosphata se Ammonia Troponin T Baselin e Troponin T 120 Min [place] 12.98 ng/L ng/L (0-15) Delta Troponin T -1.02 ABS# L ABS# (0-10) Total Protein Albumin Globulin Urine Color Yellow (Yellow) Urine Appearance Clear (CLEAR) Urine pH 6.5 (5-7) Ur Specific Gravit y 1.015 (1.005-1.030) Urine Protein Neg (Negative) Urine Glucose (UA) 4+ H (Normal) Urine Ketones Negative (Negative) Urine Blood Neg (Negative) Urine Nitrate Negative (Negative) Urine Bilirubin Neg (Negative) Urine Urobilinogen Norm mg/dL mg/dL (Negative) Ur Leukocyte Kenyatta ase Negative (Negative) Imaging Data^: CT Head: Attestation: I personally reviewed and interpreted this imaging study as follows: Radiologist's impression: [address] [address] [address] Scan Report Signed Patient: Buddy Yanez Unit #: [id number] : 1970 Age/Sex: 50 / M ADM Date: 06/03/21 Loc: ER Room/Bed: Attending Dr: Ordering Provider/Ordering MD: Jere Tom MD Date of Service: 06/03/21 Procedure(s): CT head wo con* [id number] Accession Number(s): [id number] Report Number: [id number] PROCEDURE INFORMATION: Exam: CT Head Without Contrast Exam date and time: 06/03/2021 9:09 PM Age: 50 years old Clinical indication: Altered mental status/memory loss; Additional info: AMS TECHNIQUE: Imaging protocol: Computed tomography of the head without contrast. Total images: 188 Radiation optimization: All CT scans at this facility use at least one of these dose optimization techniques: automated exposure control; mA and/or kV adjustment per patient size (includes targeted exams where dose is matched to clinical indication); or iterative reconstruction. COMPARISON: MR head wo con* [id number] 12/10/2020 3:57 PM RADIATION DOSE METRICS: Total DLP (mGy-cm): 850.18 FINDINGS: Brain: No evidence of active or acute intracranial pathologic process, hemorrhage, or trauma. No visible evidence of diffuse cerebral edema or generalized demyelination. No mass effect. No midline shift. No hyperdense MCA or insular ribbon sign. Cerebral ventricles: No ventriculomegaly. Paranasal sinuses: Visualized sinuses are unremarkable. No fluid levels. Mastoid air cells: Visualized mastoid air cells are well aerated. Bones/joints: Unremarkable. No acute fracture. Soft tissues: Unremarkable. CT/CT head wo con* [id number] IMPRESSION: No evidence of active or acute intracranial pathologic process, hemorrhage, or trauma. Radiation Dose CTDIVOL = (mGy): DLP = 850.18 (mGy-cm) Dictated By: Ananda Park Signed By: Ananda Park Signed Date/Time: 06/03/212229 DD/ 08 CXR: Radiologist's impression: [address] [address] XRay Report Signed Patient: Buddy Yanez Unit #: [id number] : 1970 Age/Sex: 50 / M ADM Date: 06/03/21 Loc: ER Room/Bed: Attending Dr: Ordering Provider/Ordering MD: Jere Tom MD Date of Service: 06/03/21 Procedure(s): XR chest 1V portable [id number] Accession Number(s): [id number] Report Number: [id number] PROCEDURE INFORMATION: Exam: XR Chest Exam date and time: 06/03/2021 9:09 PM Age: 50 years old Clinical indication: Cough; Additional info: AMS TECHNIQUE: Imaging protocol: XR of the chest. Views: 1 view. Total images: 1 COMPARISON: CR XR chest 1V portable [id number] 01/21/2021 5:23 PM FINDINGS: Lungs: No visible active interstitial or alveolar airspace disease. Pleural spaces: Unremarkable. No pleural effusion. No pneumothorax. Heart/Mediastinum: Cardiac structures and configuration with cardiac size upper limits of normal. Bones/joints: Unremarkable. Other findings: Obesity. XR/XR chest 1V portable [id number] IMPRESSION: Nonacute. Radiation Dose CTDIVOL = (mGy): DLP = (mGy-cm) Dictated By: Ananda Park Signed By: Ananda Park Signed Date/Time: 06/03/212200 DD/ 08 EKG Data^: EKG 1: Attestation: I personally reviewed and interpreted this EKG as follows: EKG interpretation date: 06/03/21 EKG interpretation time: 21:30 Interpretation: nsr hr [address] or t wave abnormalities qrs 90 qtc 448 Discharge Plan Discharge Patient Disposition: Home Clinical Impression: Weakness Condition: Stable Prescriptions: No Action (DME) Diabetic Shoes See Rx Instructions .ROUTE .MEDSUPPLY Qty: 1 RF: 0 cyclobenzaprine 10 mg tablet 10 mg PO TID PRN (Reason: Spasms) RF: 0 hydralazine 50 mg tablet 25 mg PO BID@0900,2100 RF: 0 losartan 100 mg tablet 50 mg PO DAILY@0900 RF: 0 melatonin 5 mg capsule 10 mg PO BEDTIME@2100 RF: 0 albuterol sulfate [ProAir HFA] 90 mcg/actuation HFA aerosol inhaler 2 puff INHALATION QID RF: 0 Tradjenta 5 mg tablet 5 mg PO DAILY@0900 RF: 0 budesonide 0.5 mg/2 mL suspension for nebulization See Rx Instructions .ROUTE .COMPLEX Qty: 120 RF: 0 insulin degludec [Tresiba FlexTouch U-200] 200 unit/mL (3 mL) insulin pen See Rx Instructions .ROUTE .COMPLEX Qty: 9 RF: 0 insulin aspart U-100 [Novolog PenFill U-100 Insulin] 100 unit/mL Cartridge See Rx Instructions .ROUTE .COMPLEX RF: 0 albuterol sulfate 2.5 mg /3 mL (0.083 %) solution for nebulization 2.5 mg INHALATION Q4H PRN (Reason: shortness of breath or wheezing) Qty: 90 RF: 0 potassium chloride [Klor-Con M20] 20 mEq tablet,ER particles/crystals 20 meq PO BID@0900,2100 RF: 0 furosemide 20 mg tablet See Rx Instructions .ROUTE .COMPLEX RF: 0 escitalopram oxalate 20 mg tablet 20 mg PO DAILY@0900 RF: 0 Latuda 80 mg tablet 80 mg PO DAILY@0900 RF: 0 lamotrigine 200 mg tablet 200 mg PO DAILY@0900 RF: 0 donepezil 10 mg tablet 10 mg PO BEDTIME@2100 RF: 0 clonazepam 0.5 mg tablet 1.5 mg PO BEDTIME@2100 RF: 0 spironolactone 25 mg tablet 25 mg PO DAILY@0900 RF: 0 trazodone 100 mg Tablet 200 mg PO BEDTIME@2100 RF: 0 pantoprazole 40 mg tablet,delayed release (DR/EC) 40 mg PO DAILY@0900 RF: 0 calcitriol 0.5 mcg capsule 0.5 mcg PO DAILY@0900 RF: 0 Discharge Orders: Discharge ED (Routine); Ordered 06/03/21 Ordered By: Jere Tom Referrals: Lara Garcia [Primary Care Provider] - 1-3 days Discharge Diet: Advance as tolerated Discharge Activity: Resume usual activity Patient Instructions: Weakness (ED) Coding Level of Care Code ED Artificial Limb Fitter for Chg Fwd Exam Comprehensive
[2021-06-03 21:35] LABS: Basophils # 0.1 10^3/uL (0.0-0.1); Eosinophils # 0.3 10^3/uL (0.0-0.8); Eosinophils % 3.6 %; Hematocrit 36.1 % (42.0-52.0); Hemoglobin 10.2 g/dL (11.7-16.6); Lymphocytes # 1.6 10^3/uL (0.8-4.8); Lymphocytes % 21.6 %; Mean Corpuscular HGB Conc 28.3 g/dL (30.0-36.0); Mean Corpuscular Hemoglobin 22.1 pg (28.0-34.0); Mean Corpuscular Volume 78.1 fl (80-94); Mean Platelet Volume 10.5 fL (7.4-10.4); Monocytes # 0.7 10^3/uL (0.2-0.9); Monocytes % 9.1 %; Neutrophils # 4.68 10^3/uL (1.8-7.7); Neutrophils % 64.3 %; Nucleated Red Blood Cells % 0 %; Platelet Count 295 10^3/cmm (130-400); Red Blood Count 4.62 10^6/uL (4.1-5.3); White Blood Count 7.3 10^3/uL (4.0-10.0)
[2021-06-03 21:50] LABS: ABG PCO2 51.4 mmHg (35-45); ABG PH Result 7.37 (7.35-7.45); Arterial Blood Gas Hematocrit 29.5 % (42-52); Base Excess ABG 3.6 mmol/L (-2.0-2.0); Blood Gas Allen Test Pos; Blood Gas Sample Site Radial, right; Blood Gas Sample Type Arterial; HCO3 ABG 29.6 mmol/L (22-26); Oxygen Device ROOM AIR; PO2 ABG 69.3 mmHg (80.0-100.0)
[2021-06-03 21:50] LABS: INR 0.97 (0.8-1.2)
[2021-06-03 21:54] LABS: Troponin(5th) Baseline 14 ng/L (0-15)
[2021-06-03 21:55] LABS: Ammonia 19 umol/L (16-60)
[2021-06-03 21:56] LABS: Alanine Aminotransferase 26 U/L (0-41); Albumin Level 3.7 g/dL (3.5-5.2); Alkaline Phosphatase 87 IU/L (40-130); Anion Gap 13.6 (5-19); Aspartate Amino Transferase 19 U/L (0-40); Blood Urea Nitrogen 12 mg/dL (6-20); Calcium 8.9 mg/dL (8.5-10.5); Carbon Dioxide 28 mmol/L (22-29); Chloride 100 mmol/L (98-107); Glomerular Filtration Rate 53.6 mL/min (90-130); Glucose 337 mg/dL (65-115); Osmolality Calculated 297 mOsm/kg (285-295); Potassium 4.6 mmol/L (3.5-5.1); Sodium 137 mmol/L (136-145); Total Bilirubin 0.2 mg/dL (0.15-1.2); Total Protein 5.7 g/dL (6.6-8.7)
--- NOTE | 2021-06-03 22:22 | PC.NURSE ---
glucose 334
[2021-06-03 22:24] VITALS: BP 151/82; PULSE 59; RESP 20; O2SAT 94
[2021-06-03 22:33] LABS: Glucose Point of Care 334 mg/dL (70-110)
[2021-06-03] MEDS: insulin regular-human 100 units/1 mL 6 UNIT IVP (22:59)
[2021-06-03 23:02] VITALS: BP 163/90; PULSE 63; RESP 18; O2SAT 94
[2021-06-03 23:16] VITALS: BP 163/90; PULSE 61; RESP 20; O2SAT 95
[2021-06-03 23:19] LABS: Add Urine Microscopic? NO; Charge for UA Resulting for Rev
[2021-06-03 23:34] LABS: Bilirubin Urine Neg (Negative); Blood Urine Neg (Negative); Glucose Urine UA 4+ (Normal); Ketones Urine Negative (Negative); Leukocyte Esterase Urine Negative (Negative); Nitrate Urine Negative (Negative); Protein Urine Neg (Negative); Specific Gravity, Urine 1.015 (1.005-1.030); Urine Appearance Clear (CLEAR); Urine Color Yellow (Yellow); Urobilinogen Urine Norm (Negative); pH Urine 6.5 (5-7)
[2021-06-03 23:40] LABS: Troponin 5 2HR 12.98 ng/L (0-15)
[2021-06-03 23:42] LABS: Troponin 5 2HR Delta -1.02 ABS# (0-10)
[2021-06-03 23:55] VITALS: BP 168/94; PULSE 61; RESP 20; TEMP 36.4; O2SAT 95
[2021-06-04 00:11] LABS: Thyroid Stimulating Hormone 2.31 uIU/mL (0.27-4.20)
== END 2021-06-03 23:56 | disposition home or self-care (01) ==
PROVIDERS: Emergency Provider Emergency Medicine; PCP Nurse Practitioner Family
DX: R53.1 Weakness (principal); E11.22 Type 2 diabetes mellitus with diabetic chronic kidney disease; I12.9 Hypertensive chronic kidney disease with stage 1 through stage 4 chronic kidney disease, or unspecified chronic kidney disease; N18.30 Chronic kidney disease, stage 3 unspecified; Z79.4 Long term (current) use of insulin; Z79.899 Other long term (current) drug therapy
CPT/HCPCS: 36416; 36600; 70450; 71045; 80053; 81003; 82140; 82803; 82962; 84443; 84484; 85025; 85610; 93005; 96374; 99284; J1815

== ENCOUNTER 2021-06-26 06:00 | Outpatient (RCR) | payer MEDICARE, MEDICAID, SELFPAY | END 2021-07-17 23:59 | disposition home or self-care (01) | LOC: TPT 06:00 | PROVIDERS: PCP Nurse Practitioner Family; Referring Provider Nurse Practitioner Family; Visit Provider Nurse Practitioner Family | DX: M62.81 Muscle weakness (generalized) (principal); R26.89 Other abnormalities of gait and mobility | CPT/HCPCS: 97110; 97116; 97164; 97530 ==

== ENCOUNTER 2021-07-04 13:49 | Outpatient (CLI) | payer MEDICARE, MEDICAID, SELFPAY ==
--- NOTE | 2021-07-04 | CT_ITS ---
WS: [id number] CT HEAD TECHNIQUE: Noncontrast CT of the head obtained from the skullbase to the vertex. CLINICAL INFORMATION: NORMAL PRESSURE HYDROCEPHALUS COMPARISON: CT June 03, 2021 DLP: 1172.[address] scans at [facility] use at least one of these dose optimization techniques: automated e xposure control; mA and/or kV adjustment per patient size (includes targeted exams where dose is matc hed to clinical indication); or iterative reconstruction. FINDINGS: No evidence of intracranial hemorrhage or mass effect. Ventricular system and basal cisterns are menjivar nt. Mild small vessel changes with mild parenchymal volume loss. No extra-axial fluid collections. No evidence of mass or mass effect. Normal gr-white differentiation. Normal ventricular size is uncha nged. Paranasal sinuses and mastoid air cells are well aerated. .Normal visualized soft tissues. CT/CT head wo con* [id number] IMPRESSION: 1. No evidence of intracranial hemorrhage or mass effect. 2. Mild small vessel changes. Mild parenchymal volume loss. 3. No acute intracranial findings and no changes from the prior studies.
== END 2021-07-04 13:50 | disposition home or self-care (01) ==
PROVIDERS: PCP Nurse Practitioner Family; Visit Provider Family Medicine
DX: G91.2 (Idiopathic) normal pressure hydrocephalus (principal)
CPT/HCPCS: 70450

== ENCOUNTER 2021-08-10 14:43 | Emergency (ER) | payer MEDICARE, MEDICAID, SELFPAY ==
--- NOTE | 2021-08-10 14:48 | XRR_ITS ---
PROCEDURE INFORMATION: Exam: XR Left Ankle Exam date and time: 08/10/2021 2:48 PM Age: 50 years old Clinical indication: Injury or trauma; Fall; Blunt trauma; Left; Patient HX: PT fell out of bed injuring L ankle TECHNIQUE: Imaging protocol: XR Left ankle. Views: 1 or 2 views. COMPARISON: No relevant prior studies available. FINDINGS: Bones/joints: Distal fibular diaphyseal oblique nondisplaced fracture. Distal Achilles tendon degenerative calcification. Soft tissues: Normal. XR/XR ankle LT 2V [id number] IMPRESSION: 1. Distal fibular diaphyseal oblique nondisplaced fracture. 2. Distal Achilles tendon degenerative calcification.
[2021-08-10 15:06] VITALS: BP 168/111; PULSE 71; RESP 16; TEMP 36.6; O2SAT 98
--- NOTE | 2021-08-10 15:45 | W.ED.EXTPRO ---
Documented by User: JAIME Negro 08/10/21 16:22 HPI - Extremity Problem General: Chief complaint: Extremity Injury, Lower Stated complaint: LEFT ANKLE PAIN S/P FALL Time Seen by Provider: 08/10/21 15:18 Source: patient Limitations: no limitations History of Present Illness: HPI Narrative: 50-year-old male reports to the ER via EMS with inability to ambulate. States he was climbing out of bed this morning fell twisting his left ankle shortly after noticed he was unable to walk. Diffuse pain patient will not move extremity due to pain. Complaint: extremity pain and extremity swelling Onset (ago): hour(s) Pain Consistency: constant Location: left Severity scale (1-10): 7 Quality: sharp Radiation: none Relieving factors: nothing Exacerbating factors: range of motion, weight bearing, walking and exertion Associated symptoms: Reports no associated symptoms Review of Systems General: Reports: 10 or more systems reviewed and unremarkable except in HPI and below Musc: Reports: extremity pain, joint pain and limited range of motion PFSH ED PFSH: Medical History Bipolar 1 disorder CKD (chronic kidney disease) CKD stage 3 due to type 2 diabetes mellitus Depression Diabetes Diabetes mellitus with diabetic polyneuropathy Fibromyalgia JACY (generalized anxiety disorder) Hypertension Hypothyroidism Insomnia Legally blind in right eye, as defined in [place] Surgical History S/P hernia repair Family History Mother CAD (coronary artery disease) Father CAD (coronary artery disease) Social History Smoking and tobacco status: never smoked Alcohol intake: never Current occupational status: disabled Physical Exam Const: COMMON NORMALS: no acute distress, patient oriented x3, alert and well nourished GENERAL APPEARANCE: cooperative, comfortable and well kempt NUTRITIONAL APPEARANCE: obese HENMT: COMMON NORMALS: normocephalic, atraumatic and hearing grossly normal bilaterally HEAD & SCALP: normal to inspection, normocephalic and atraumatic Eye: COMMON NORMALS: Equal, round and reactive pupils present GENERAL EYE: appearance normal, both eyes and all related structures PUPIL: Yes Equal, round and reactive pupils present Neck/C-Spine: COMMON NORMALS: full ROM, no lymphadenopathy and no JVD Lymph: LYMPHATIC: no lymphadenopathy noted Chest: COMMONS NORMALS: normal inspection of the chest Resp: COMMON NORMALS: normal respiratory effort, No retractions, No use of accessory muscles and clear to auscultation bilaterally EFFORT & INSPECTION: Yes able to speak in complete sentences AUSCULTATION: clear to auscultation bilaterally Cardio: COMMON NORMALS: no JVD, regular rate, S1 normal heart sound present and S2 normal heart sound present RATE: regular rate HEART SOUNDS: S1 normal heart sound present and S2 normal heart sound present GI: COMMON NORMALS: Normal to inspection, nondistended, normoactive bowel sounds present Extremity: GENERAL: Yes normal exam except as noted LEFT LOWER EXTREMITY: Yes ankle joint Left ankle: Yes palpation (tender), Yes ROM (limited due to pain. refuses to rotate.) and Yes neurovascular exam (intact.) OTHER: Bilateral pitting edema diffuse. No visible brusing or trauma Neuro: COMMON NORMALS: patient oriented x3, no focal motor deficits and no sensory deficits noted SENSORIUM/ORIENTATION: Yes alert Psych: COMMON NORMALS: mental status grossly normal APPEARANCE: Yes well kempt Skin: COMMON NORMALS: no rashes or lesions noted, no wounds and turgor normal GENERAL SKIN EXAM: no rashes or lesions noted and turgor normal Course ED course: Presents to ER with inability to ambulate related to fall Limited range of motion due to pain patient will not move ankle. Reevaluation(s): Reevaluation #1: Distal fracture of the fibula. Discussed with Dr. Shah-we will place in short posterior splint. Follow-up with Orthopedics next week. Time: 16:04 Vital Signs: Vital signs: Vital Signs Temperature 97.9 F 08/10/21 15:06 Pulse Rate 71 08/10/21 15:06 Respiratory Rate 16 08/10/21 15:06 Blood Pressure 168/111 08/10/21 15:06 Pulse Oximetry 98 08/10/21 15:06 MDM - Extremity (Nontraumatic) Imaging Data^: Xray Ortho: Radiologist's impression: [address] [place], [place] [address]HJss ReportSigned Patient: Kimberley Yanez #: [id number]: [id number]#:[id number]/Sex: 50 / MADM Date: 08/10/21Loc: ERRoom/Bed:Attending Dr: Ordering Provider/Ordering MD: Pratima Perez Date of Service: 08/10/21 Procedure(s): XR ankle LT 2V 91370 Accession Number(s): [id number] Report Number: [id number] PROCEDURE INFORMATION: Exam: XR Left Ankle Exam date and time: 08/10/2021 2:48 PM Age: 50 years old Clinical indication: Injury or trauma; Fall; Blunt trauma; Left; Patient HX: PT fell out of bed injuring L ankle TECHNIQUE: Imaging protocol: XR Left ankle. Views: 1 or 2 views. COMPARISON: No relevant prior studies available. FINDINGS: Bones/joints: Distal fibular diaphyseal oblique nondisplaced fracture. Distal Achilles tendon degenerative calcification. Soft tissues: Normal. XR/XR ankle LT 2V 12457 IMPRESSION: 1. Distal fibular diaphyseal oblique nondisplaced fracture. 2. Distal Achilles tendon degenerative calcification. Dictated By:Enrike Birch MDSigned By:Enrike Birch MDSigned Date/Time:08/10/21 1547DD/ 1448 Discharge Plan Discharge Patient Disposition: Home Clinical Impression: Fracture of distal fibula Qualifiers: Encounter type: initial encounter Fracture type: closed Fracture morphology: other fracture Laterality: left Qualified Code(s): S82.832A - Other fracture of upper and lower end of left fibula, initial encounter for closed fracture Condition: Stable Prescriptions: New hydrocodone-acetaminophen 5-325 mg tablet 1 tab PO Q4H 5 Days Qty: 30 RF: 0 No Action (DME) Diabetic Shoes See Rx Instructions .ROUTE .MEDSUPPLY Qty: 1 RF: 0 cyclobenzaprine 10 mg tablet 10 mg PO TID PRN (Reason: Spasms) RF: 0 hydralazine 50 mg tablet 25 mg PO BID@0900,2100 RF: 0 losartan 100 mg tablet 50 mg PO DAILY@0900 RF: 0 melatonin 5 mg capsule 10 mg PO BEDTIME@2100 RF: 0 albuterol sulfate [ProAir HFA] 90 mcg/actuation HFA aerosol inhaler 2 puff INHALATION QID RF: 0 Tradjenta 5 mg tablet 5 mg PO DAILY@0900 RF: 0 budesonide 0.5 mg/2 mL suspension for nebulization See Rx Instructions .ROUTE .COMPLEX Qty: 120 RF: 0 insulin degludec [Tresiba FlexTouch U-200] 200 unit/mL (3 mL) insulin pen See Rx Instructions .ROUTE .COMPLEX Qty: 9 RF: 0 insulin aspart U-100 [Novolog PenFill U-100 Insulin] 100 unit/mL Cartridge See Rx Instructions .ROUTE .COMPLEX RF: 0 albuterol sulfate 2.5 mg /3 mL (0.083 %) solution for nebulization 2.5 mg INHALATION Q4H PRN (Reason: shortness of breath or wheezing) Qty: 90 RF: 0 potassium chloride [Klor-Con M20] 20 mEq tablet,ER particles/crystals 20 meq PO BID@0900,2100 RF: 0 furosemide 20 mg tablet See Rx Instructions .ROUTE .COMPLEX RF: 0 escitalopram oxalate 20 mg tablet 20 mg PO DAILY@0900 RF: 0 Latuda 80 mg tablet 80 mg PO DAILY@0900 RF: 0 lamotrigine 200 mg tablet 200 mg PO DAILY@0900 RF: 0 donepezil 10 mg tablet 10 mg PO BEDTIME@2100 RF: 0 clonazepam 0.5 mg tablet 1.5 mg PO BEDTIME@2100 RF: 0 spironolactone 25 mg tablet 25 mg PO DAILY@0900 RF: 0 trazodone 100 mg Tablet 200 mg PO BEDTIME@2100 RF: 0 pantoprazole 40 mg tablet,delayed release (DR/EC) 40 mg PO DAILY@0900 RF: 0 calcitriol 0.5 mcg capsule 0.5 mcg PO DAILY@0900 RF: 0 Discharge Orders: Discharge ED (Routine); Ordered 08/10/21 Ordered By: Pratima Perez Referrals: Lara Garcia [Primary Care Provider] - Apollo Reyes MD [Physician] - 4-7 days Discharge Diet: Usual diet Discharge Activity: Limit activity as instructed Patient Instructions: Ankle Fracture (ED), Opioid Safety Sign Out Sign Out Data: Patient Sign Out occurred on 08/10/21 at 16:36. Patient's care was discussed, and care was transferred from to Champ Shah DO. Coding Level of Care Code ED [employer] Sales Representative for Chg Fwd Exam Comprehensive Documented by User: Champ Shah DO 08/10/21 16:37 HPI - Extremity Problem General: Chief complaint: Extremity Injury, Lower Stated complaint: LEFT ANKLE PAIN S/P FALL Time Seen by Provider: 08/10/21 15:18 PFSH ED PFSH: Medical History Bipolar 1 disorder CKD (chronic kidney disease) CKD stage 3 due to type 2 diabetes mellitus Depression Diabetes Diabetes mellitus with diabetic polyneuropathy Fibromyalgia JACY (generalized anxiety disorder) Hypertension Hypothyroidism Insomnia Legally blind in right eye, as defined in [place] Surgical History S/P hernia repair Family History Mother CAD (coronary artery disease) Father CAD (coronary artery disease) Social History Smoking and tobacco status: never smoked Alcohol intake: never Current occupational status: disabled Course Vital Signs: Vital signs: Vital Signs Temperature 97.9 F 08/10/21 15:06 Pulse Rate 71 08/10/21 15:06 Respiratory Rate 16 08/10/21 15:06 Blood Pressure 168/111 08/10/21 15:06 Pulse Oximetry 98 08/10/21 15:06 MDM - Extremity (Nontraumatic) MDM Narrative: Medical decision making narrative: Reviewed x-ray. Chart reviewed and patient discussed with midlevel. Agree with assessment and plan. Discharge Plan Discharge Patient Disposition: Home Clinical Impression: Fracture of distal fibula Qualifiers: Encounter type: initial encounter Fracture type: closed Fracture morphology: other fracture Laterality: left Qualified Code(s): S82.832A - Other fracture of upper and lower end of left fibula, initial encounter for closed fracture Condition: Stable Prescriptions: New hydrocodone-acetaminophen 5-325 mg tablet 1 tab PO Q4H 5 Days Qty: 30 RF: 0 No Action (DME) Diabetic Shoes See Rx Instructions .ROUTE .MEDSUPPLY Qty: 1 RF: 0 cyclobenzaprine 10 mg tablet 10 mg PO TID PRN (Reason: Spasms) RF: 0 hydralazine 50 mg tablet 25 mg PO BID@0900,2099 RF: 0 losartan 100 mg tablet 50 mg PO DAILY@00 RF: 0 melatonin 5 mg capsule 10 mg PO BEDTIME@2099 RF: 0 albuterol sulfate [ProAir HFA] 90 mcg/actuation HFA aerosol inhaler 2 puff INHALATION QID RF: 0 Tradjenta 5 mg tablet 5 mg PO DAILY@0900 RF: 0 budesonide 0.5 mg/2 mL suspension for nebulization See Rx Instructions .ROUTE .COMPLEX Qty: 120 RF: 0 insulin degludec [Tresiba FlexTouch U-200] 200 unit/mL (3 mL) insulin pen See Rx Instructions .ROUTE .COMPLEX Qty: 9 RF: 0 insulin aspart U-100 [Novolog PenFill U-100 Insulin] 100 unit/mL Cartridge See Rx Instructions .ROUTE .COMPLEX RF: 0 albuterol sulfate 2.5 mg /3 mL (0.083 %) solution for nebulization 2.5 mg INHALATION Q4H PRN (Reason: shortness of breath or wheezing) Qty: 90 RF: 0 potassium chloride [Klor-Con M20] 20 mEq tablet,ER particles/crystals 20 meq PO BID@00,2099 RF: 0 furosemide 20 mg tablet See Rx Instructions .ROUTE .COMPLEX RF: 0 escitalopram oxalate 20 mg tablet 20 mg PO DAILY@0900 RF: 0 Latuda 80 mg tablet 80 mg PO DAILY@0900 RF: 0 lamotrigine 200 mg tablet 200 mg PO DAILY@00 RF: 0 donepezil 10 mg tablet 10 mg PO BEDTIME@2099 RF: 0 clonazepam 0.5 mg tablet 1.5 mg PO BEDTIME@2099 RF: 0 spironolactone 25 mg tablet 25 mg PO DAILY@0900 RF: 0 trazodone 100 mg Tablet 200 mg PO BEDTIME@2099 RF: 0 pantoprazole 40 mg tablet,delayed release (DR/EC) 40 mg PO DAILY@0900 RF: 0 calcitriol 0.5 mcg capsule 0.5 mcg PO DAILY@0900 RF: 0 Discharge Orders: Discharge ED (Routine); Ordered 08/10/21 Ordered By: Pratima Perez Referrals: Lara Garcia [Primary Care Provider] - Apollo Reyes MD [Physician] - 4-7 days Discharge Diet: Usual diet Discharge Activity: Limit activity as instructed Patient Instructions: Ankle Fracture (ED), Opioid Safety Sign Out Sign Out Data: Patient Sign Out occurred on 08/10/21 at 16:36. Patient's care was discussed, and care was transferred from to Champ Shah DO. Coding Level of Care Code ED [employer] Sales Representative for Daveyg Fwd Exam Comprehensive
[2021-08-10] MEDS: HYDROcodone-acetaminophen 5-325 mg Tablet 1 TAB PO (16:12)
--- NOTE | 2021-08-12 10:07 | DCPLANNER ---
land acquisition manager had message to schedule a follow up appointment for patient with ortho. land acquisition manager emailed patients information to Evelyn Meraz at ortho. Patients information will be printed and reviewed. Clinic will call patient with appointment information.
--- NOTE | 2021-08-13 06:37 | DCPLANNER ---
Patient had a follow up appointment scheduled for 08.12.[address] Hinton at [facility] - patient did attend appointment.
== END 2021-08-10 16:35 | disposition home or self-care (01) ==
PROVIDERS: Emergency Provider Family Medicine; PCP Nurse Practitioner Family
DX: S82.832A Other fracture of upper and lower end of left fibula, initial encounter for closed fracture (principal); Z79.4 Long term (current) use of insulin; I12.9 Hypertensive chronic kidney disease with stage 1 through stage 4 chronic kidney disease, or unspecified chronic kidney disease; E11.22 Type 2 diabetes mellitus with diabetic chronic kidney disease; N18.30 Chronic kidney disease, stage 3 unspecified; X50.1XXA Overexertion from prolonged static or awkward postures, initial encounter
CPT/HCPCS: 73600; 99283; E0114

== ENCOUNTER → 2021-08-12 15:25 | Outpatient (BNVA) | payer MEDICARE, MEDICAID, SELFPAY | PROVIDERS: PCP Nurse Practitioner Family; Visit Provider Podiatrist Foot & Ankle Surgery | DX: S82.832A Other fracture of upper and lower end of left fibula, initial encounter for closed fracture (principal); X58.XXXA Exposure to other specified factors, initial encounter; Z46.89 Encounter for fitting and adjustment of other specified devices; S82.832D Other fracture of upper and lower end of left fibula, subsequent encounter for closed fracture with routine healing; X58.XXXD Exposure to other specified factors, subsequent encounter | CPT/HCPCS: 73610; 87635; 97760; L4361 ==

== ENCOUNTER 2021-08-12 16:17 | Outpatient (CLI) | payer MEDICARE, MEDICAID, SELFPAY | END 2021-08-12 16:18 | disposition home or self-care (01) | LOC: SPT 16:18 | PROVIDERS: PCP Nurse Practitioner Family; Visit Provider Podiatrist Foot & Ankle Surgery | DX: Z46.89 Encounter for fitting and adjustment of other specified devices (principal); S82.832D Other fracture of upper and lower end of left fibula, subsequent encounter for closed fracture with routine healing; X58.XXXD Exposure to other specified factors, subsequent encounter | CPT/HCPCS: 87635; 97760; L4361 ==

== ENCOUNTER → 2021-08-13 08:52 | Outpatient (BNVA) | payer MEDICARE, MEDICAID, SELFPAY | PROVIDERS: PCP Nurse Practitioner Family; Referring Provider Family Medicine; Visit Provider Specialist | DX: G31.83 Neurocognitive disorder with Lewy bodies (principal); F02.80 Dementia in other diseases classified elsewhere, unspecified severity, without behavioral disturbance, psychotic disturbance, mood disturbance, and anxiety; E11.42 Type 2 diabetes mellitus with diabetic polyneuropathy; Z79.4 Long term (current) use of insulin | CPT/HCPCS: 96116; 99205 ==

== ENCOUNTER → 2021-08-14 10:55 | Outpatient (BNVA) | payer MEDICARE, MEDICAID, SELFPAY | PROVIDERS: PCP Nurse Practitioner Family; Referring Provider Podiatrist Foot & Ankle Surgery; Visit Provider Specialist | DX: M17.12 Unilateral primary osteoarthritis, left knee (principal); M25.562 Pain in left knee | CPT/HCPCS: 73562 ==

== ENCOUNTER 2021-08-16 15:29 | Observation (INO) | payer MEDICARE, MEDICAID, SELFPAY ==
[2021-08-15 15:06] VITALS: BMI 48.0
[2021-08-16] VITALS (29 sets, daily range): BP systolic 103–178; BP diastolic 68–99; PULSE 64–86; RESP 13–23; TEMP 36.2–36.8; O2SAT 65–100; BMI 48.0
--- NOTE | 2021-08-16 | SCC_ITS ---
Procedure Done: Open reduction internal fixation left distal fibula 2 seconds of fluoroscopic guidance, for a cumulative dose of 0.046 mGy, was provided to Dr. Hinton by the radiology department. C-arm images of the left ankle were saved for the patient's permanent record. GERARDO
[2021-08-16 10:49] LABS: Glucose Point of Care 353 mg/dL (70-110)
[2021-08-16] MEDS: sodium chloride 0.9% 1,000 ML 30 ML IV (10:52)
[2021-08-16] MEDS: HYDROmorphone 1 mg/mL INJ 1 mL 0.5 MG IVP (10:58)
--- NOTE | 2021-08-16 11:03 | P.HPUD_ITS ---
Surgery/Procedure H&P Update DATE OF PROCEDURE: August 16, 2021 DATE H&P PERFORMED: 08/12/21 H&P UPDATE INFORMATION: I have reviewed H&P completed within last 30 days, I have examined patient prior to procedure, No changes to prior documentation and H&P is in [facility] EMR on date indicated PREOP DIAGNOSIS: Left distal fibula fracture PLANNED PROCEDURE: Operation Date: 08/16/21 10:40 Proposed Procedures p ORIF Ankle 54201/s82.839a(Left) - Santhosh Hinton DPM
[2021-08-16] MEDS: ceFAZolin 3,000 MG in sodium chloride 0.9% (100 ml) 100 ML 200 MG IV (11:12)
--- NOTE | 2021-08-16 11:20 | SUR.PREOP ---
11:00 nerve block performed by doctor pepper. patient tolerated well.
--- NOTE | 2021-08-16 11:25 | ANES.PREANE2 ---
Pre-Anesthetic Assessment Pre-Anesthetic Assessment: Height/Weight: Height 1.63 m Weight 127.006 kg Temp Pulse Resp BP Pulse Ox 97.5 F L 64 14 174/99 65 L 08/16/21 10:01 08/16/21 11:19 08/16/21 11:19 08/16/21 11:19 08/16/21 11:19 Preop Diagnosis: Left distal fibula fracture Proposed Procedure: Operation Date: 08/16/21 10:40 Proposed Procedures p ORIF Ankle 36748/s82.839a(Left) - BE EspinoM Was Beta Catherine taken within 24 hours: Yes Was Clonidine taken within 24 hours: N/A Last intake: Intake Last Liquid Date 08/15/21 Last Liquid Time 23:30 Last Solid Date 08/15/21 Last Solid Time 20:00 Social: Social History: No alcohol and No tobacco Exam: Pre-Anes Outpt Exam: alert, oriented x 3, clear to auscultation bilaterally and regular rate & rhythm Airway: Submandibular: WNL Cervical ROM: WNL MP: 2 Dentition: Chipped Pulmonary: Pulmonary: Asthma CV/HEM: CV/HEM: Anemia and HTN : : Chronic renal Insufficiency Metabolic: Metabolic: DM and Morbid obesity Neuropsych: Neuropsych: Anxiety, Dementia, Depression and Neuropathy Anesthetic Plan: ASA status: 3 Anesthesia: General and Regional (specify below) (left popliteal blk) Risk of > 500 ml blood loss (7ml/kg in children): No Medications/Allergies Current Medications: Current Medications Generic Name Dose Route Start Last Admin Trade Name Freq PRN Reason Stop Dose Admin Sodium Chloride 1,000 mls @ 30 ml s/hr 08/16/21 09:45 08/16/21 10:52 Sodium Chloride 0.9% IV 08/17/21 09:44 30 mls/hr .Q24H ANÍBAL Administration PFSH Anesthesia PFSH: Medical History Bipolar 1 disorder CKD (chronic kidney disease) CKD stage 3 due to type 2 diabetes mellitus Depression Diabetes Diabetes mellitus with diabetic polyneuropathy Fibromyalgia JACY (generalized anxiety disorder) Hypertension Hypothyroidism Insomnia Legally blind in right eye, as defined in [place] Surgical History S/P hernia repair Family History Mother CAD (coronary artery disease) Father CAD (coronary artery disease) Social History Alcohol intake: never Current occupational status: disabled Data Anesthesia Other Labs: Laboratory Results - last 48 hr 08/16/21 10:32 POC Glucose 353 H Cardiac Studies: Echocardiogram Ultrasound 08/29/19
--- NOTE | 2021-08-16 11:27 | ANES.PROC ---
Anesthesia Procedures Procedure/Date: 08/16/21 Nerve Block ^: Nerve Block 1: Main Anesthesia: general anesthesia Time Out Performed: Yes Consent: requested by attending/covering physician, from patient, risks and benefits reviewed and patient agrees to proceed Nerve block location: popliteal (left) Anesthesia monitors applied: pulse oximetry, EKG, BP cuff and oxygen Nerve block position: supine Anesthetic Used: ropivicaine 0.5% Amount of anesthesia used (mL): 30 Ultrasound used to: recognize landmarks Nerve Stimulator Used?: No Interscalene/Femoral BLK: 4 stimuplex 21 g needle used for position and inplane approach and visualize local anesthetic spread Injection: neg aspiration of heme Patient Tolerated Procedure: well Complications: none
--- NOTE | 2021-08-16 12:10 | P.OP_ITS ---
Operative Report Date of procedure: August 16, 2021 Pre-op Diagnosis: Left distal fibula fracture Post-op Diagnosis: Left distal fibular fracture Post-op Findings: None Procedure Done: Open reduction internal fixation left distal fibula Implants: Aiden 2.7 mm interfrag screw, Conowingo one third tubular plate 7 hole, Conowingo 3.5 mm locking and nonlocking screws, 2-0 Vicryl, 3-0 Vicryl, skin anat. 10 cc of 0.5% Marcaine plain preoperatively Pathology: none sent Surgeon: Santhosh Hinton D.P.M. Vice President Underwriting: Maurice Bermudez Anesthesia: General Estimated blood loss: 5 Tourniquet time: 38 IV fluids: None Urine output: None Complications: None Findings: Distal fibular fracture anatomic reduction with rigid internal fixation Condition: stable Disposition: observation Brief History: Left distal fibular fracture, fell getting out of bed. Date of injury 08/10/2021 and reported to the emergency department. Patient has a fall risk. Patient has epilepsy and is legally blind in right eye. He is unable to use assistive devices due to poor upper body strength and poor balance. Recommended a more predictable outcome pursuing ORIF of the left distal fibula patient is agreeable wishes to proceed and will require observation following surgery with transfer to [facility] facility for postop recovery 6 weeks. Risks include pain, bleeding, numbness, infection, hardware failure, delayed union, malunion, nonunion, hardware irritation, posttraumatic arthritis, deep vein thrombosis, heart attack, stroke and . Patient is agreeable wishes to proceed, COVID screening negative. Has been n.p.o. since midnight informed consent signed by my self, patient and his . Procedure: Under mild sedation the patient was brought to the operating room and remained on the gurney in supine position. A timeout was performed. Anesthesia was then administered by the anesthesia service. Local anesthesia injected by myself 10 cc of 0.5% Marcaine plain left ankle. Well-padded pneumatic tourniquet applied to high calf of the left lower extremity. Left lower extremity was then scrubbed, prepped and draped utilizing normal aseptic technique. Left foot was then exanguinated with an Esmarch bandage and a tourniquet inflated to 250 mmHg. Attention was directed to the left lateral ankle where the lateral malleolus was palpated. Directly over the lateral malleolus coursing proximally up to the distal fibular diaphysis a linear longitudinal incision was made through skin with dissection carried down through subcutaneous tissue to the layer of periosteum utilizing blunt and sharp technique. Care was taken to retract and preserve neurovascular and tendinous structures. All bleeders were ligated and cauterized as necessary. Periosteal incision was made and exposure of the fracture site was appreciated. This was evacuated of his hematoma utilizing curettage and saline flush. Distal fibular fracture was then temporarily stabilized under traction to maintain anatomic reduction and [id number] forceps for temporary fixation. Next utilizing standard AO technique a Aiden 2.7 millimeter screw was inserted across the fracture site perpendicular to its orientation utilizing standard AO technique with excellent bony apposition and compression noted this was a 2.7 mm x 16 mm cortical screw. Next utilizing standard AO technique a one third tubular plate with 3 screws screws: 3 screws proximal to the fracture was fixated with excellent bony apposition and compression noted in anatomic alignment. No screws violating the ankle mortise confirmed with intraoperative fluoroscopy. Syndesmosis was confirmed to be intact utilizing cotton hook test. Incision was flushed with saline solution and closed in a layered fashion with 2-0 Vicryl at periosteum, 3-0 Vicryl at subcutaneous tissue and skin with skin anat. Incision was then dressed with Adaptic, sterile 4 x 4, Kerlix and Addison wrap cam boot was reapplied and tourniquet was deflated with a prompt hyperemic response noted to the distal digits of the left foot. Patient tolerated the procedure and anesthesia well and was transferred to the PACU with vital signs stable and vascular status intact. Will collaborate with hospitalist for patient to be admitted for observation he is not a candidate to go home they do not have means to remain nonweightbearing, patient has poor upper body strength and poor balance, per neurology report patient has advanced Lewy body dementia, has apraxia, poor balance, progressive cognitive dysfunction, hallucinations and personality changes. Patient will require strict nonweightbearing status and is not safe to utilize normal offloading means such as crutches or even a wheelchair by himself unassisted. I recommend [facility] to [facility] facility for 6 weeks postoperatively then transitioning back to home when he is able to be weightbearing again. Recommend 81 mg aspirin to potentially reduce risk for deep vein thrombosis, 81 mg aspirin once daily until he begins weightbearing likely 6 weeks.
--- NOTE | 2021-08-16 12:11 | XR_ITS ---
WS: [id number] Exam: XR ankle LT min 3V* [id number] Date/Time of Exam: 08/16/2021 2:39 PM Reason For Exam: Status post ORIF Comparison 08/12/2021. There is plate and screw fixation involving a fracture of the lower fibula. The fracture is in anatom ic position for healing. No other fractures of the ankle are identified. The ankle mortise is intact. Surgical skin clips noted laterally. XR/XR ankle LT min 3V* [id number] IMPRESSION: 1. Satisfactory internal orthopedic fixation involving a fracture of the lower fibula.
--- NOTE | 2021-08-16 12:46 | P.HP_ITS ---
Providers/Chief Complaint Primary Care Provider: Lara Garcia Chief Complaint: fracture of distal fibula [id number] History of Present Illness Buddy Yanez is a 50 year old male who has history of Lewy body dementia, hallucinations, BiPAP dependent at night, poorly controlled type 2 diabetes who is being admitted postoperatively after ORIF left ankle fracture. is at the bedside who is stating that before his surgery he was wheelchair-bound, he has been living center lifestyle for quite some time, he has been deteriorating on a gradual basis. He only takes short acting insulin with his Tresiba at night, he will not check his sugar with every meal. After the surgery he is requiring oxygen secondary to hypoventilation. I saw him on MedSurg room 254 he is able to open his eyes follow commands, recognizes . I asked RT to start BiPAP Patient received popliteal nerve block. No active pain. Left foot is in brace will not be able to take care of him, he will need care home placement Review of Systems Const: Denies: fever(s) Eyes: Denies: change in vision ENMT: Denies: throat pain Card: Denies: chest pain Resp: Denies: dyspnea GI: Denies: abdominal pain : Denies: flank pain Musc: Denies: neck pain Skin/Breast: Denies: rash Neuro: Denies: headache(s) Psych: Reports: anxiety and depression Endo: Denies: polyuria Javier/Lymph: Denies: easy bruising All/Imm: Denies: urticaria Medications/Allergies Home Medications Medication Instructions Recorded Confirmed Last Taken Type albuterol sulfate 90 mcg/actuation 2 puff INHALATION QID PRN 08/24/19 08/16/21 08/09/21 History aerosol inhaler cyclobenzaprine 10 mg tablet 10 mg PO TID PRN 08/24/19 08/16/21 08/15/21 20:00 History hydralazine 50 mg tablet 25 mg PO BID@0900,2100 tab 08/24/19 08/16/21 08/15/21 21:00 History linagliptin 5 mg tablet 5 mg PO DAILY@0900 08/24/19 08/16/21 08/15/21 09:00 History losartan 100 mg tablet 50 mg PO DAILY@0900 08/24/19 08/16/21 05/15/21 History melatonin 5 mg capsule 10 mg PO BEDTIME@2099 cap 08/24/19 08/16/21 08/15/21 21:00 History insulin aspart U-100 [Novolog See Rx Instructions .ROUTE .COMPLEX 08/28/1908/12/21 History PenFill U-100 Insulin] Diabetic Shoes #1 ea 11/06/20 08/14/21 Unknown Rx albuterol sulfate 2.5 mg INHALATION Q4H PRN #90 ml 01/10/21 08/16/21 07/10/21 Rx calcitriol 0.5 mcg PO DAILY@89901/26/21 08/16/21 08/15/21 History clonazepam 1.5 mg PO BEDTIME@209901/26/21 08/16/21 08/15/21 20:00 History donepezil 10 mg PO BEDTIME@209901/26/21 08/16/21 08/15/21 21:00 History escitalopram oxalate 20 mg PO DAILY@89901/26/21 08/16/21 08/15/21 08:00 History furosemide 40 mg PO DIRECTED PRN 01/26/21 08/16/21 07/26/21 History lamotrigine [Lamictal] 200 mg PO DAILY@89901/26/21 08/16/21 08/16/21 09:00 History lurasidone [Latuda] 80 mg PO DAILY@89901/26/21 08/16/21 08/15/21 21:00 History pantoprazole 40 mg PO DAILY@89901/26/21 08/16/21 08/15/21 09:00 History potassium chloride [Klor-Con M20] 20 meq PO BID@0900,209901/26/21 08/16/21 08/15/21 09:00 History spironolactone 25 mg PO DAILY@89901/26/21 08/16/21 08/15/21 09:00 History trazodone 200 mg PO BEDTIME@209901/26/21 08/16/21 08/15/21 20:00 History Cam Boot to left #1 ea 08/12/21 08/14/21 Unknown Rx quetiapine 100 mg tablet See Rx Instructions PO .COMPLEX 08/13/21 08/16/21 21:00 Rx #75 tab Tresiba FlexTouch U-200 70 unit SUBCUT BEDTIME 08/15/21 08/16/21 08/12/21 History tizanidine 4 mg PO Q6H PRN 08/15/21 08/16/21 08/15/21 09:00 History metoprolol tartrate 25 mg PO BID 08/16/21 08/16/21 08/15/21 21:00 History Allergies Allergy/AdvReac Type Severity Reaction Status Date / Time lithium Allergy Unknown Verified 08/15/21 14:42 venom-wasp Allergy breathing Verified 08/15/21 14:42 issues PFSH Acute PFSH: Medical History (Updated 08/16/21 @ 15:08 by Fabrizio Owusu MD) Bipolar 1 disorder CKD (chronic kidney disease) CKD stage 3 due to type 2 diabetes mellitus Depression Diabetes Diabetes mellitus with diabetic polyneuropathy Fibromyalgia JACY (generalized anxiety disorder) Hammer toe Hypertension Hypothyroidism Insomnia Legally blind in right eye, as defined in [place] Onychodystrophy Surgical History S/P hernia repair Family History Mother CAD (coronary artery disease) Father CAD (coronary artery disease) Social History Alcohol intake: never Current occupational status: disabled Vitals/I&O/Wt Last Vital Signs Temp 97.5 F L 08/16/21 10:01 Pulse 64 08/16/21 11:19 Resp 14 08/16/21 11:19 BP 174/99 08/16/21 11:19 Pulse Ox 65 L 08/16/21 11:19 08/15/21 08/16/21 08/16/21 22:59 06:59 14:59 Intake Total 100 / 100 Balance 100 / 100 Weight last 48 hrs Weight 127.006 kg Weight 127.006 kg Physical Exam Narrative: EXAM NARRATIVE: Middle-age male who appears more than stated age Saturating well on 2 L nasal cannula Normal hemodynamics at the bedside Nonfocal neuro exam No signs of edema Left leg in brace Abdomen distended visceral obesity soft no signs of rigidity or guarding EOMI, PERRLA No acute audible stridor or wheezing A&P Assessment and plan (1) Lewy body dementia: Status: Acute (2) Fracture of distal fibula: Status: Acute Qualifiers: Encounter type: initial encounter Fracture morphology: other fracture Fracture type: closed Laterality: left Qualified Code(s): S82.832A - Other fracture of upper and lower end of left fibula, initial encounter for closed fracture (3) Fracture of distal end of fibula: Status: Acute (4) Asthma: Status: Acute Qualifiers: Asthma severity: unspecified severity Asthma persistence: unspecified Asthma complication type: uncomplicated Qualified Code(s): J45.909 - Unspecified asthma, uncomplicated (5) CKD stage 3 due to type 2 diabetes mellitus: Status: Acute (6) Pes planus of both feet: Status: Acute (7) Diabetes mellitus with diabetic polyneuropathy: Status: Acute Qualifiers: Diabetes mellitus type: type 2 Diabetes mellitus care home insulin use: with care home use Qualified Code(s): E11.42 - Type 2 diabetes mellitus with diabetic polyneuropathy; Z79.4 - buttermaker continuous churn (current) use of insulin (8) Anemia: Status: Acute Qualifiers: Anemia type: iron deficiency Iron deficiency anemia type: other iron deficiency Qualified Code(s): D50.8 - Other iron deficiency anemias (9) Type 2 diabetes mellitus: Status: Acute (10) Acute respiratory failure with hypoxia: Status: Acute (11) Hypothyroidism: Status: Acute (12) Bipolar 1 disorder: Status: Acute (13) Fibromyalgia: Status: Acute (14) Legally blind in right eye, as defined in [place]: Status: Acute Additional A&P Information Physically deconditioned Status post ORIF left distal fibula fracture Postop day 0 Currently requiring BiPAP to improve ventilation, secondary to anesthesia effect he is hyperventilating Arousable, no new focal deficit Asked RT to start BiPAP DVT prophylaxis: Lovenox 30mg twice daily secondary to high BMI Hyperglycemia: We will do Lantus 50 units along sliding scale Continue IV fluids Patient does use BiPAP at night does not know the settings History of Lewy body dementia, is stating that he has been hallucinating quite a lot lately he has been diagnosed with Lewy body dementia by Dr. 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 [employer] Fwd Diagnoses Lewy body dementia G31.83; F02.80 Fracture of distal fibula S82.832A Encounter type: initial encounter Fracture morphology: other fracture Fracture type: closed Laterality: left Fracture of distal end of fibula S82.839A Asthma J45.909 Asthma severity: unspecified severity Asthma persistence: unspecified Asthma complication type: uncomplicated CKD stage 3 due to type 2 diabetes mellitus E11.22; N18.3 Pes planus of both feet M21.41; M21.42 Diabetes mellitus with diabetic polyneuropathy E11.42; Z79.4 Diabetes mellitus type: type 2 Diabetes mellitus care home insulin use: with care home use Anemia D50.8 Anemia type: iron deficiency Iron deficiency anemia type: other iron deficiency Type 2 diabetes mellitus E11.9 Acute respiratory failure with hypoxia J96.01 Hypothyroidism E03.9 Bipolar 1 disorder F31.9 Fibromyalgia M79.7 Legally blind in right eye, as defined in [place] H54.8
[2021-08-16 12:56] LABS: Glucose Point of Care 234 mg/dL (70-110)
[2021-08-16 14:13] LABS: Glucose Point of Care 225 mg/dL (70-110)
--- NOTE | 2021-08-16 14:33 | ANE.PACU2 ---
Inpatient post-anesthesia follow up: Airway intact: Yes Vital signs: Temperature 97.2 F Pulse Rate 79 Respiratory Rate 17 Blood Pressure 124/68 Pulse Oximetry 95 Oxygen Delivery Me thod Simple Mask Oxygen Flow Rate 2 Fraction of Inspir ed Oxygen Hydration adequate: Yes Nausea and vomiting: No Pain level: 1 Mental status: Baseline
[2021-08-16] MEDS: lactated ringers 500 ML 999 ML IV (16:48)
[2021-08-16 16:55] LABS: Glucose Point of Care 252 mg/dL (70-110)
[2021-08-16] MEDS: sodium chloride 0.9% 1,000 ML 75 ML IV (18:19)
[2021-08-16] MEDS: insulin lispro 100 unit/1 mL SUBCUT (18:19)
[2021-08-16 23:04] LABS: Glucose Point of Care 212 mg/dL (70-110)
[2021-08-16] MEDS: enoxaparin 40 mg/0.4 mL Syringe SUBCUT (23:12)
[2021-08-16] MEDS: insulin glargine 100 units/1 mL 50 UNIT SUBCUT (23:13)
[2021-08-17] VITALS (10 sets, daily range): BP systolic 115–160; BP diastolic 70–90; PULSE 67–123; RESP 14–18; TEMP 36.8–37.1; O2SAT 90–99
[2021-08-17 05:29] LABS: Basophils # 0.1 10^3/uL (0.0-0.1); Basophils % 0.7 %; Eosinophils # 0.2 10^3/uL (0.0-0.8); Eosinophils % 2.2 %; Hematocrit 34.9 % (42.0-52.0); Hemoglobin 9.7 g/dL (11.7-16.6); Lymphocytes # 0.8 10^3/uL (0.8-4.8); Lymphocytes % 9.8 %; Mean Corpuscular HGB Conc 27.8 g/dL (30.0-36.0); Mean Corpuscular Hemoglobin 22.5 pg (28.0-34.0); Mean Corpuscular Volume 80.8 fl (80-94); Mean Platelet Volume 11.8 fL (7.4-10.4); Monocytes # 0.8 10^3/uL (0.2-0.9); Monocytes % 9.8 %; Neutrophils # 6.44 10^3/uL (1.8-7.7); Neutrophils % 77.3 %; Nucleated Red Blood Cells % 0 %; Platelet Count 302 10^3/cmm (130-400); Red Blood Count 4.32 10^6/uL (4.1-5.3); Red Cell Distribution Width 17.2 % (12.1-15.1); White Blood Count 8.3 10^3/uL (4.0-10.0)
[2021-08-17 05:39] LABS: Anion Gap 16.4 (5-19); Blood Urea Nitrogen 9 mg/dL (6-20); C Reactive Protein 29.9 mg/L (0.0-4.9); Calcium 9.2 mg/dL (8.5-10.5); Carbon Dioxide 28 mmol/L (22-29); Chloride 100 mmol/L (98-107); Glomerular Filtration Rate 58.4 mL/min (90-130); Glucose 201 mg/dL (65-115); Magnesium 1.5 mg/dL (1.7-2.3); Osmolality Calculated 294 mOsm/kg (285-295); Potassium 4.4 mmol/L (3.5-5.1); Sodium 140 mmol/L (136-145)
[2021-08-17] MEDS: sodium chloride 0.9% 1,000 ML 75 ML IV (06:37)
[2021-08-17 06:50] LABS: Glucose Point of Care 251 mg/dL (70-110)
--- NOTE | 2021-08-17 08:46 | PM.PN ---
Subjective Subjective: Interval history: Patient is feeling better, used BiPAP overnight No overnight events Pain is under control He was on 3L nasal cannula this morning Vitals/I&O/Wt Last Vital Signs Temp 98.6 F 08/17/21 07:49 Pulse 97 08/17/21 07:49 Resp 16 08/17/21 07:49 BP 152/87 08/17/21 07:49 Pulse Ox 96 08/17/21 07:49 08/16/21 08/17/21 08/17/21 22:59 06:59 14:59 Intake Total 1500 / 1600 922.5 / 2522.5 Output Total 200 / 220 Balance 1300 / 1380 922.5 / 2302.5 Weight last 48 hrs Weight 127.006 kg Weight 127.006 kg Weight 127.006 kg Physical Exam Narrative: EXAM NARRATIVE: Resting comfortably in his bed S1, S2 No audible stridor or wheezing Abdomen soft 3 L nasal cannula Nonfocal neuro exam Left leg in brace No active pain Looks euvolemic Data : 08/17/21 04:30 08/17/21 04:30 A&P Assessment and plan (1) Left knee pain: Status: Acute Qualifiers: Chronicity: acute Qualified Code(s): M25.562 - Pain in left knee (2) Lewy body dementia: Status: Acute (3) Fracture of distal fibula: Status: Acute Qualifiers: Encounter type: initial encounter Fracture morphology: other fracture Fracture type: closed Laterality: left Qualified Code(s): S82.832A - Other fracture of upper and lower end of left fibula, initial encounter for closed fracture (4) Asthma: Status: Acute Qualifiers: Asthma severity: unspecified severity Asthma persistence: unspecified Asthma complication type: uncomplicated Qualified Code(s): J45.909 - Unspecified asthma, uncomplicated (5) CKD stage 3 due to type 2 diabetes mellitus: Status: Acute (6) Diabetes: Status: Acute (7) Hypothyroidism: Status: Acute (8) Type 2 diabetes mellitus: Status: Acute (9) Bipolar 1 disorder: Status: Acute (10) Fibromyalgia: Status: Acute Additional A&P Information Postop day 1 ORIF left ankle fracture Peroneal nerve block No active pain To work with PT Chronic kidney disease creatinine seems to be around baseline Low magnesium 1.5 we will add mag oxide No severe electrolyte imbalance No overnight events Patient uses BiPAP at night at home Hypoxia requiring 3 L of oxygen during the daytime, most often related to hypoventilation, wean off oxygen Need [facility] placement Consistent carb diet Full code Partial weightbearing for transfers only DVT prophylaxis Lovenox secondary to high BMI would use Lovenox 30 mg every 12h Attestations Medical Necessity Statement*: Awaiting placement Time Spent in Patient Care: less than 15 minutes Coding Level of Care Code Acute Victims Advocate Clerk/Specialist for [facility] Fwd Diagnoses Left knee pain M25.562 Chronicity: acute Lewy body dementia G31.83; F02.80 Fracture of distal fibula S82.832A Encounter type: initial encounter Fracture morphology: other fracture Fracture type: closed Laterality: left Asthma J45.909 Asthma severity: unspecified severity Asthma persistence: unspecified Asthma complication type: uncomplicated CKD stage 3 due to type 2 diabetes mellitus E11.22; N18.3 Diabetes E11.9 Hypothyroidism E03.9 Type 2 diabetes mellitus E11.9 Bipolar 1 disorder F31.9 Fibromyalgia M79.7
[2021-08-17] MEDS: insulin lispro 100 unit/1 mL SUBCUT ×3 (09:38→17:35)
[2021-08-17] MEDS: sennosides-docusate Tablet 1 TAB PO (09:38)
[2021-08-17] MEDS: enoxaparin 30 mg/0.3 mL Syringe SUBCUT ×2 (09:38→20:15)
[2021-08-17] MEDS: magnesium oxide 400 mg tablet PO ×2 (09:38→17:35)
[2021-08-17] MEDS: morphine IR 15 mg Tablet PO (11:03)
[2021-08-17 11:35] LABS: Glucose Point of Care 276 mg/dL (70-110)
[2021-08-17 17:26] LABS: Glucose Point of Care 179 mg/dL (70-110)
[2021-08-17] MEDS: insulin glargine 100 units/1 mL 50 UNIT SUBCUT (20:13)
[2021-08-17 20:41] LABS: Glucose Point of Care 238 mg/dL (70-110)
[2021-08-18] VITALS (14 sets, daily range): BP systolic 123–170; BP diastolic 83–99; PULSE 88–110; RESP 14–20; TEMP 36.4–37.1; O2SAT 88–98
[2021-08-18 00:40] LABS: Estmated Average Glucose 258; Hemoglobin A1C 10.6 % (4.0-6.0)
[2021-08-18 06:27] LABS: Glucose Point of Care 223 mg/dL (70-110)
[2021-08-18] MEDS: sennosides-docusate Tablet 1 TAB PO (08:31)
[2021-08-18] MEDS: enoxaparin 30 mg/0.3 mL Syringe SUBCUT ×2 (08:31→23:11)
[2021-08-18] MEDS: insulin lispro 100 unit/1 mL SUBCUT ×3 (08:31→18:08)
[2021-08-18] MEDS: magnesium oxide 400 mg tablet PO (08:31)
[2021-08-18] MEDS: morphine IR 15 mg Tablet PO ×2 (08:34→23:13)
--- NOTE | 2021-08-18 08:52 | P.PN_ITS ---
Subjective Subjective: Interval history: Patient is doing fine currently on 3 L, asked RT to wean him off to room air No overnight events He has not moved at all, not interested at the bedside Fatigue lethargic Stating that he did not use BiPAP last night Vitals/I&O/Wt Last Vital Signs Temp 97.8 F 08/18/21 08:33 Pulse 88 08/18/21 08:33 Resp 18 08/18/21 08:34 BP 170/98 08/18/21 08:33 Pulse Ox 96 08/18/21 08:33 08/17/21 08/18/21 08/18/21 22:59 06:59 14:59 Intake Total 1000 / 1250 460 / 1710 Output Total 500 / 900 Balance 500 / 350 460 / 810 Weight last 48 hrs Weight 127.006 kg Physical Exam Narrative: EXAM NARRATIVE: Patient resting comfortably in his bed Fatigue and lethargic Well-hydrated Yellow, PERRLA Nonfocal neuro exam On 3 L nasal cannula saturating well Distended abdomen visceral obesity Left leg in brace without any active pain No new focal deficit Data : 08/17/21 04:30 08/17/21 04:30 A&P Assessment and plan (1) Lewy body dementia: Status: Acute (2) Fracture of distal end of fibula: Status: Acute (3) CKD stage 3 due to type 2 diabetes mellitus: Status: Acute (4) Pes planus of both feet: Status: Acute (5) Diabetes mellitus with diabetic polyneuropathy: Status: Acute Qualifiers: Diabetes mellitus type: type 2 Diabetes mellitus technician terminal and repeater insulin use: with technician terminal and repeater use Qualified Code(s): E11.42 - Type 2 diabetes mellitus with diabetic polyneuropathy; Z79.4 - long-term (current) use of insulin (6) S/P ORIF (open reduction internal fixation) fracture: Status: Acute Additional A&P Information Patient is awaiting placement to half-way Status post ORIF left ankle fracture Peroneal nerve block No active pain No bowel movement yet, will give him stronger bowel regimen Hyperglycemia related to type 2 diabetes we will increase Lantus today and use high-dose sliding scale Wean his oxygen off to room air He would need BiPAP overnight DVT prophylaxis every 12 hours Lovenox 30 mg Consistent carb diet Attestations Medical Necessity Statement*: Awaiting half-way placement Time Spent in Patient Care: less than 15 minutes Coding Level of Care Code 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
[2021-08-18 11:10] LABS: Glucose Point of Care 244 mg/dL (70-110)
--- NOTE | 2021-08-18 11:59 | P.PN_ITS ---
Subjective Subjective: Interval history: Mr. Wilkinson seen bedside this afternoon. He is 2 days status post open reduction internal fixation left distal fibular fracture. Awaiting placement to longterm facility. Has been working with physical therapy, my instruction is that he can be partial weightbearing for transfers to the left lower extremity. Vitals/I&O/Wt Last Vital Signs Temp 97.8 F 08/18/21 08:33 Pulse 88 08/18/21 08:33 Resp 18 08/18/21 08:34 BP 170/98 08/18/21 08:33 Pulse Ox 96 08/18/21 08:33 08/17/21 08/18/21 08/18/21 22:59 06:59 14:59 Intake Total 1000 / 1250 460 / 1710 240 / 240 Output Total 500 / 900 Balance 500 / 350 460 / 810 240 / 240 Weight last 48 hrs Weight 280 lb Physical Exam Narrative: EXAM NARRATIVE: GENERAL: Patient is alert and oriented ?3 and in no acute distress. The following is a focused left lower extremity exam. VASCULAR: Dorsalis pedis and posterior tibial arteries palpable. Capillary re fill time less than 3 seconds to the distal hallux bilaterally. Calf is supple and nontender proximally and distally. Mild edema at the operative site consistent with postoperative course. NEUROLOGICAL: Protective sensation intact to light touch. DERMATOLOGICAL: Incision site is well coapted with anat intact mild ecchymosis no erythema no dehiscence no drainage or warmth. MUSCULOSKELETAL: Tenderness about the operative site consistent with postoperative course. No pain with posterior calf squeeze. Further musculoskeletal exam deferred due to postoperative state. Data : 08/17/21 04:30 08/17/21 04:30 A&P Assessment and plan (1) S/P ORIF (open reduction internal fixation) fracture: Status: Acute (2) CKD stage 3 due to type 2 diabetes mellitus: Status: Acute (3) Type 2 diabetes mellitus: Status: Acute Status post open reduction internal fixation left distal fibula date of operation 08/16/2021 Incision site is well-healing without clinical signs of infection Current dressings will be left on for 7 days, plan for staple removal approximately 14 days out from surgery this will be done in podiatry clinic Patient may be partial weightbearing with a cam boot and assistive devices for transfers only. Will continue to work with physical therapy Greatly appreciate hospitalist efforts and medical management during this hospitalization, social work currently seeking longterm facility placement. SNF would be safest option for patients further rehabilitation and recovery, his cognitive and physical conditioning puts him at risk for fall and further injury. Podiatry will follow Santhosh Hinton D.P.M. 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
[2021-08-18 17:06] LABS: Glucose Point of Care 237 mg/dL (70-110)
[2021-08-18] MEDS: ipratropium-albuterol 3 mL Neb INHALATION (20:31)
[2021-08-18 21:42] LABS: Glucose Point of Care 174 mg/dL (70-110)
[2021-08-18] MEDS: insulin glargine 100 units/1 mL 60 UNIT SUBCUT (23:11)
[2021-08-19] VITALS (8 sets, daily range): BP systolic 124–152; BP diastolic 75–91; PULSE 86–105; RESP 12–18; TEMP 36.4–36.9; O2SAT 92–98
[2021-08-19 05:55] LABS: Basophils # 0.1 10^3/uL (0.0-0.1); Basophils % 0.9 %; Eosinophils # 0.4 10^3/uL (0.0-0.8); Eosinophils % 6.4 %; Hematocrit 32.2 % (42.0-52.0); Lymphocytes # 1.9 10^3/uL (0.8-4.8); Lymphocytes % 30.2 %; Mean Corpuscular Hemoglobin 22.3 pg (28.0-34.0); Mean Corpuscular Volume 79.9 fl (80-94); Mean Platelet Volume 10.8 fL (7.4-10.4); Monocytes # 0.8 10^3/uL (0.2-0.9); Monocytes % 11.8 %; Neutrophils % 50.4 %; Nucleated Red Blood Cells % 0 %; Platelet Count 259 10^3/cmm (130-400); Red Blood Count 4.03 10^6/uL (4.1-5.3); Red Cell Distribution Width 17.4 % (12.1-15.1); White Blood Count 6.4 10^3/uL (4.0-10.0)
[2021-08-19 06:16] LABS: Anion Gap 15.5 (5-19); Blood Urea Nitrogen 6 mg/dL (6-20); Calcium 8.9 mg/dL (8.5-10.5); Carbon Dioxide 29 mmol/L (22-29); Chloride 102 mmol/L (98-107); Glomerular Filtration Rate 70.9 mL/min (90-130); Glucose 134 mg/dL (65-115); Osmolality Calculated 296 mOsm/kg (285-295); Potassium 3.5 mmol/L (3.5-5.1); Sodium 143 mmol/L (136-145)
[2021-08-19 06:42] LABS: Glucose Point of Care 163 mg/dL (70-110)
[2021-08-19] MEDS: magnesium oxide 400 mg tablet PO ×2 (08:35→17:48)
[2021-08-19] MEDS: enoxaparin 30 mg/0.3 mL Syringe SUBCUT (08:35)
[2021-08-19] MEDS: sennosides-docusate Tablet 1 TAB PO (08:35)
[2021-08-19] MEDS: insulin lispro 100 unit/1 mL SUBCUT ×2 (08:36→17:47)
[2021-08-19] MEDS: acetaminophen 500 mg Tablet PO ×2 (09:34→16:34)
--- NOTE | 2021-08-19 12:04 | PM.PN ---
Subjective Subjective: Interval history: Patient seen this morning no overnight events, patient is complaining of left foot pain today, Reading prior authorization to be placed to care home Vitals/I&O/Wt Last Vital Signs Temp 98.2 F 08/19/21 08:00 Pulse 105 H 08/19/21 10:11 Resp 16 08/19/21 10:11 BP 132/86 08/19/21 08:00 Pulse Ox 92 08/19/21 10:11 08/18/21 08/19/21 08/19/21 22:59 06:59 14:59 Intake Total 200 / 680 Output Total 875 / 875 Balance -675 / -195 Physical Exam Narrative: EXAM NARRATIVE: Patient resting comfortably On room air S1, S2 Abdomen distended bowel sound present Bilateral foot without any signs of ischemic ulcers Left foot in brace Patient is awake and alert Nonfocal neuro exam Data : 08/19/21 04:19 08/19/21 04:19 A&P Assessment and plan (1) S/P ORIF (open reduction internal fixation) fracture: Status: Acute (2) Left knee pain: Status: Acute Qualifiers: Chronicity: acute Qualified Code(s): M25.562 - Pain in left knee (3) Lewy body dementia: Status: Acute (4) Risk for falls: Status: Acute (5) Fracture of distal end of fibula: Status: Acute (6) CKD stage 3 due to type 2 diabetes mellitus: Status: Acute (7) Type 2 diabetes mellitus: Status: Acute (8) Bipolar 1 disorder: Status: Acute (9) Hypertension: Status: Acute (10) Fibromyalgia: Status: Acute Additional A&P Information Patient is awaiting placement Currently doing well on room air Hypoxia resolved Requires BiPAP at night for sleep apnea Type 2 diabetes: Euglycemia Complaining of left foot pain, continue bowel regimen along opioids Full code Consistent carb diet DVT prophylaxis on board Anemia of chronic disease: Stable Attestations Medical Necessity Statement*: Awaiting placement Time Spent in Patient Care: less than 15 minutes Coding Level of Care Code Acute Admitting Counselor for Chg Fwd Diagnoses S/P ORIF (open reduction internal fixation) fracture Z98.890; Z87.81 Left knee pain M25.562 Chronicity: acute Lewy body dementia G31.83; F02.80 Risk for falls Z91.81 Fracture of distal end of fibula S82.839A CKD stage 3 due to type 2 diabetes mellitus E11.22; N18.3 Type 2 diabetes mellitus E11.9 Bipolar 1 disorder F31.9 Hypertension I10 Fibromyalgia M79.7
[2021-08-19 12:30] LABS: Glucose Point of Care 114 mg/dL (70-110)
--- NOTE | 2021-08-19 13:34 | PM.DCS ---
Discharge Providers Date of Admission: 08/16/21 15:29 Date of Discharge: August 19, 2021 Attending Provider at Admission: Fabrizio Owusu MD Attending Provider at Discharge: Santhosh Hinton DPM Primary Care Provider: Lara Garcia Diagnoses at Discharge Discharge Diagnosis (1) S/P ORIF (open reduction internal fixation) fracture: Status: Acute (2) Left knee pain: Status: Acute Qualifiers: Chronicity: acute Qualified Code(s): M25.562 - Pain in left knee (3) Lewy body dementia: Status: Acute (4) Risk for falls: Status: Acute (5) Fracture of distal end of fibula: Status: Acute (6) CKD stage 3 due to type 2 diabetes mellitus: Status: Acute (7) Type 2 diabetes mellitus: Status: Acute (8) Bipolar 1 disorder: Status: Acute (9) Hypertension: Status: Acute (10) Fibromyalgia: Status: Acute Reason for Visit Reason for Visit: fracture of distal fibula [id number] Hospital Course Hospital Course Buddy Yanez is a 50 year old male who has history of Lewy body dementia, hallucinations, BiPAP dependent at night, poorly controlled type 2 diabetes who is being admitted postoperatively after ORIF left ankle fracture. After his procedure patient was requiring oxygen secondary to hypoventilation however we were able to wean him off to room air, he is postoperative period was uneventful. He was complaining of pain 48 hours after the procedure he received peroneal nerve block which kept his pain under control for about 2 days. Afebrile, he was tolerating his diet, blood sugar was within target range. He has been accepted at [facility]. He will need skilled therapy to regain some of his strength back for at least next 3 to 4 weeks, he will get DVT prophylaxis 2.5 mg of Eliquis twice a day for 30 days. I am also giving him oxycodone with bowel regimen. Outpatient follow-up with Dr. Hinton. Current dressings will be left on for 7 days, plan for staple removal approximately 14 days out from surgery this will be done in podiatry clinic Patient may be partial weightbearing with a cam boot and assistive devices for transfers only. Physical Exam Narrative: EXAM NARRATIVE: Patient resting comfortably On room air S1, S2 Abdomen distended bowel sound present Bilateral foot without any signs of ischemic ulcers Left foot in brace, no sign of ischemic ulcer, Patient is awake and alert Nonfocal neuro exam Discharge Data Data Completed and Pending: Completed Studies During Hospitalization Category Date Time Status XR ankle LT min 3 V* [id number] Routine Exams 08/16/21 12:11 Completed Labs from last 24 hours 08/19/21 08/19/21 08/19/21 11:55 06:12 04:19 WBC RBC Hgb Hct MCV MCH MCHC RDW Plt Count MPV Neut % (Auto) Lymph % (Auto) Woodson % (Auto) Eos % (Auto) Baso % (Auto) Neut # (Auto) Lymph # (Auto) Woodson # (Auto) Eos # (Auto) Baso # (Auto) Nucleated RBC % (a uto) Nucleated RBCs # Sodium 143 Potassium 3.5 Chloride 102 Carbon Dioxide 29 Anion Gap 15.5 BUN 6 Creatinine 1.1 GFR Calculation 70.9 L Glucose 134 H POC Glucose 114 H 163 H Calculated Osmolal ity 296 H Calcium 8.9 08/19/21 08/18/21 08/18/21 04:19 21:03 16:57 WBC 6.4 RBC 4.03 L Hgb 9.0 L Hct 32.2 L MCV 79.9 L MCH 22.3 L MCHC 28.0 L RDW 17.4 H Plt Count 259 MPV 10.8 H Neut % (Auto) 50.4 Lymph % (Auto) 30.2 Woodson % (Auto) 11.8 Eos % (Auto) 6.4 Baso % (Auto) 0.9 Neut # (Auto) 3.20 Lymph # (Auto) 1.9 Woodson # (Auto) 0.8 Eos # (Auto) 0.4 Baso # (Auto) 0.1 Nucleated RBC % (a uto) 0 Nucleated RBCs # 0.0 Sodium Potassium Chloride Carbon Dioxide Anion Gap BUN Creatinine GFR Calculation Glucose POC Glucose 174 H 237 H Calculated Osmolal ity Calcium Vitals: Last Vital Signs Temp 98.2 F 08/19/21 08:00 Pulse 105 H 08/19/21 10:11 Resp 16 08/19/21 10:11 BP 132/86 08/19/21 08:00 Pulse Ox 92 08/19/21 10:11 Discharge Plan Discharge Patient Disposition: Xfer SNF Condition: Stable Prescriptions: New oxycodone 10 mg tablet 10 mg PO Q8H Qty: 20 RF: 0 Senna-S 8.6-50 mg tablet 1 tab-cap PO DAILY Qty: 30 RF: 0 Eliquis 2.5 mg tablet 2.5 mg PO BID Qty: 60 RF: 0 Continued (DME) Diabetic Shoes See Rx Instructions .ROUTE .MEDSUPPLY Qty: 1 RF: 0 cyclobenzaprine 10 mg tablet 10 mg PO TID PRN (Reason: Spasms) RF: 0 hydralazine 50 mg tablet 25 mg PO BID@0900,2100 RF: 0 losartan 100 mg tablet 50 mg PO DAILY@0900 MDD SEE PHARMACY COMMENT ON HOLD RF: 0 melatonin 5 mg capsule 10 mg PO BEDTIME@2099 RF: 0 albuterol sulfate [ProAir HFA] 90 mcg/actuation HFA aerosol inhaler 2 puff INHALATION QID PRN (Reason: Shortness Of Breath) RF: 0 (DME) Cam Boot to left See Rx Instructions .Route .MEDSUPPLY Qty: 1 RF: 0 insulin aspart U-100 [Novolog PenFill U-100 Insulin] 100 unit/mL Cartridge See Rx Instructions .ROUTE .COMPLEX RF: 0 albuterol sulfate 2.5 mg /3 mL (0.083 %) solution for nebulization 2.5 mg INHALATION Q4H PRN (Reason: shortness of breath or wheezing) Qty: 90 RF: 0 potassium chloride [Klor-Con M20] 20 mEq tablet,ER particles/crystals 40 meq PO DAILY@0900 RF: 0 furosemide 20 mg tablet 40 mg PO DAILY PRN (Reason: Edema) RF: 0 escitalopram oxalate 20 mg tablet 20 mg PO DAILY@0900 RF: 0 Latuda 80 mg tablet 80 mg PO DAILY@0900 RF: 0 lamotrigine [Lamictal] 200 mg tablet 200 mg PO DAILY@0900 RF: 0 donepezil 10 mg tablet 10 mg PO BEDTIME@2099 RF: 0 clonazepam 0.5 mg tablet 0.5 mg PO BID MDD see pharmacy comment PRN (Reason: Anxiety) RF: 0 spironolactone 25 mg tablet 25 mg PO DAILY@0900 RF: 0 trazodone 100 mg Tablet 200 mg PO BEDTIME@2099 RF: 0 pantoprazole 40 mg tablet,delayed release (DR/EC) 40 mg PO DAILY@0900 RF: 0 calcitriol 0.5 mcg capsule 0.5 mcg PO DAILY@0900 RF: 0 tizanidine 4 mg Capsule 4 mg PO Q6H PRN (Reason: muscle spasms) RF: 0 Tresiba FlexTouch U-200 200 unit/mL (3 mL) insulin pen 70 unit SUBCUT BEDTIME RF: 0 metoprolol tartrate 100 mg tablet 25 mg PO BID RF: 0 hydrocodone-acetaminophen 5-325 mg Tablet 1 tab PO Q4H PRN (Reason: Pain) RF: 0 ergocalciferol (vitamin D2) 1,250 mcg (50,000 unit) Capsule 1,250 mcg PO DAILY RF: 0 Wellbutrin XL 300 mg Tablet Extended Release 24 Hr 300 mg PO DAILY RF: 0 Latuda 20 mg Tablet 20 mg PO DAILY@0900 RF: 0 Aimovig Autoinjector 140 mg/mL Auto-Injector 140 mg SUBCUT Q30D RF: 0 Seroquel 100 mg tablet See Rx Instructions .ROUTE .COMPLEX RF: 0 Discharge Orders: Discharge Order (Routine); Ordered 08/19/21 Ordered By: Fabrizio Owusu Referrals: [facility] [Outside] Santhosh Hinton DPM [Physician] - 7-10 days Discharge Diet: Diabetic Discharge Activity: Increase activity as tolerated Discharge Attestations Time Spent in Discharge Care*: less than 30 min Status at Discharge: Cognitive status at discharge: cognitively intact, Behavioral status at discharge: cooperative, Quality Metrics Clinical Quality Measures During this hospital stay, did patient experience: None Coding Level of Care Code Acute [facility] DC note Diagnoses S/P ORIF (open reduction internal fixation) fracture Z98.890; Z87.81 Left knee pain M25.562 Chronicity: acute Lewy body dementia G31.83; F02.80 Risk for falls Z91.81 Fracture of distal end of fibula S82.839A CKD stage 3 due to type 2 diabetes mellitus E11.22; N18.3 Type 2 diabetes mellitus E11.9 Bipolar 1 disorder F31.9 Hypertension I10 Fibromyalgia M79.7
--- NOTE | 2021-08-19 14:00 | PC.SOCIAL ---
Pt is in Obs, Pg 2 IMM not required.
--- NOTE | 2021-08-19 15:27 | PC.NURSE ---
Called report to Anabell Madison LPN at [facility]
[2021-08-19 15:53] LABS: SARS Covid-2 Antigen Negative (Negative)
[2021-08-19 17:40] LABS: Glucose Point of Care 257 mg/dL (70-110)
[2021-08-19 18:29] LABS: Glucose Point of Care 227 mg/dL (70-110)
== END 2021-08-19 18:54 | disposition skilled nursing facility (03) ==
LOC: MEDSURG 15:39
PROVIDERS: Admitting Provider Internal Medicine; PCP Nurse Practitioner Family; Visit Provider Podiatrist Foot & Ankle Surgery
PROC: (CPT 27792; principal; 2021-08-16 10:40)
DX: S82.402A Unspecified fracture of shaft of left fibula, initial encounter for closed fracture (principal); W06.XXXA Fall from bed, initial encounter; G31.83 Neurocognitive disorder with Lewy bodies; F02.80 Dementia in other diseases classified elsewhere, unspecified severity, without behavioral disturbance, psychotic disturbance, mood disturbance, and anxiety; E11.22 Type 2 diabetes mellitus with diabetic chronic kidney disease; I12.9 Hypertensive chronic kidney disease with stage 1 through stage 4 chronic kidney disease, or unspecified chronic kidney disease; N18.30 Chronic kidney disease, stage 3 unspecified; M79.7 Fibromyalgia; J45.909 Unspecified asthma, uncomplicated; E03.9 Hypothyroidism, unspecified; E66.01 Morbid (severe) obesity due to excess calories; Z68.42 Body mass index [BMI] 45.0-49.9, adult; H54.8 Legal blindness, as defined in USA
CPT/HCPCS: 27792; 36415; 36416; 64450; 73610; 76000; 76942; 80048; 82962; 83036; 83735; 85025; 86140; 87426; 94640; 94660; 96372; 97110; 97162; 97530; C1713; G0378; J0690; J1170; J1650; J1815 ×2; J2405; J2704; J2710; J2795; J3010; J3490; J7030

== ENCOUNTER → 2021-09-16 10:48 | Outpatient (BNVA) | payer MEDICARE, MEDICAID, SELFPAY | PROVIDERS: PCP Nurse Practitioner Family; Visit Provider Podiatrist Foot & Ankle Surgery | DX: Z98.890 Other specified postprocedural states (principal) | CPT/HCPCS: 73610 ==

== ENCOUNTER → 2021-09-30 14:02 | Outpatient (BNVA) | payer MEDICARE, MEDICAID, SELFPAY | PROVIDERS: PCP Nurse Practitioner Family; Visit Provider Podiatrist Foot & Ankle Surgery | DX: Z98.890 Other specified postprocedural states (principal) | CPT/HCPCS: 73610 ==

== ENCOUNTER → 2021-10-08 15:31 | Outpatient (BNVA) | payer MEDICARE, MEDICAID, SELFPAY | PROVIDERS: PCP Nurse Practitioner Family; Visit Provider Specialist | DX: G31.83 Neurocognitive disorder with Lewy bodies (principal); F02.80 Dementia in other diseases classified elsewhere, unspecified severity, without behavioral disturbance, psychotic disturbance, mood disturbance, and anxiety; E11.42 Type 2 diabetes mellitus with diabetic polyneuropathy; Z79.4 Long term (current) use of insulin; F41.1 Generalized anxiety disorder; G47.33 Obstructive sleep apnea (adult) (pediatric); E66.01 Morbid (severe) obesity due to excess calories; Z68.42 Body mass index [BMI] 45.0-49.9, adult; G43.711 Chronic migraine without aura, intractable, with status migrainosus; K22.2 Esophageal obstruction | CPT/HCPCS: 99215 ==

== ENCOUNTER 2021-10-15 14:55 | Outpatient (CLI) | payer OTHER, MEDICAID, SELFPAY | END 2021-10-15 14:56 | disposition home or self-care (01) | LOC: SPT 14:56 | PROVIDERS: PCP Nurse Practitioner Family; Visit Provider Podiatrist Foot & Ankle Surgery | DX: Z47.89 Encounter for other orthopedic aftercare (principal) | CPT/HCPCS: 73610; 97760; L1902 ==

== ENCOUNTER 2021-10-23 06:00 | Outpatient (RCR) | payer OTHER, MEDICAID, SELFPAY | END 2021-10-24 23:59 | disposition home or self-care (01) | LOC: TPT 06:00 | PROVIDERS: PCP Nurse Practitioner Family; Referring Provider Podiatrist Foot & Ankle Surgery; Visit Provider Podiatrist Foot & Ankle Surgery | DX: Z47.89 Encounter for other orthopedic aftercare (principal) | CPT/HCPCS: 81003; 97163 ==

== ENCOUNTER → 2021-10-23 13:10 | Outpatient (BNVA) | payer OTHER, MEDICAID, SELFPAY | PROVIDERS: PCP Nurse Practitioner Family; Visit Provider Urology | DX: Q53.9 Undescended testicle, unspecified (principal) | CPT/HCPCS: 81003 ==

== ENCOUNTER 2021-10-25 06:00 | Outpatient (RCR) | payer MEDICARE, MEDICAID, SELFPAY | END 2021-11-07 23:59 | disposition home or self-care (01) | LOC: TPT 06:00 | PROVIDERS: PCP Nurse Practitioner Family; Referring Provider Podiatrist Foot & Ankle Surgery; Visit Provider Podiatrist Foot & Ankle Surgery | DX: Z47.89 Encounter for other orthopedic aftercare (principal) | CPT/HCPCS: 97140 ==

== ENCOUNTER 2021-10-30 16:28 | Emergency (ER) | payer MEDICARE, MEDICAID, SELFPAY ==
--- NOTE | 2021-10-30 16:34 | CTR_ITS ---
PROCEDURE INFORMATION: Exam: CTA Chest With Contrast Exam date and time: 10/30/2021 6:41 PM Age: 51 years old Clinical indication: Shortness of breath; Patient HX: HX copd, SOB HTN; Additional info: Pe TECHNIQUE: Imaging protocol: Computed tomographic angiography of the chest with contrast. 3D rendering (Not supervised by radiologist): MIP and/or 3D reconstructed images were created by the technologist. Radiation optimization: All CT scans at this facility use at least one of these dose optimization techniques: automated exposure control; mA and/or kV adjustment per patient size (includes targeted exams where dose is matched to clinical indication); or iterative reconstruction. Contrast material: VISIPAQUE; Contrast volume: 95 ml; Contrast route: INTRAVENOUS (IV); COMPARISON: CT chest w con* [id number] 08/28/2019 5:02 PM RADIATION DOSE METRICS: Total DLP (mGy-cm): 488.13 FINDINGS: Pulmonary arteries: Normal. No pulmonary emboli. Aorta: Unremarkable. No aortic aneurysm. No aortic dissection. Lungs: Mild mosaic attenuation in both lungs. Minimal atelectasis. No consolidation. Pleural spaces: Unremarkable. No pneumothorax. No pleural effusion. Heart: Unremarkable. No cardiomegaly. No pericardial effusion. Lymph nodes: Unremarkable. No enlarged lymph nodes. Bones/joints: Unremarkable. No acute fracture. Soft tissues: Unremarkable. CT/CT angio chest PE protcl [id number] IMPRESSION: 1. No evidence for pulmonary embolus. 2. Mild mosaic attenuation in both lungs most likely represents small airways disease with air trapping.
--- NOTE | 2021-10-30 16:35 | XRR_ITS ---
PROCEDURE INFORMATION: Exam: XR Chest Exam date and time: 10/30/2021 4:40 PM Age: 51 years old Clinical indication: Shortness of breath; Additional info: SOB TECHNIQUE: Imaging protocol: XR of the chest. Views: 1 view. COMPARISON: CR XR chest 1V portable [id number] 06/03/2021 9:34 PM FINDINGS: Lungs: Unremarkable. No consolidation. Pleural spaces: Unremarkable. No pleural effusion. No pneumothorax. Heart/Mediastinum: Unremarkable. No cardiomegaly. Bones/joints: Unremarkable. XR/XR chest 1V portable [id number] IMPRESSION: No acute findings.
--- NOTE | 2021-10-30 16:35 | ECG_ITS ---
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 Measurements Intervals [place] Rate: 51 P: 44 AK: 181 QRS: 23 QRSD: 87 T: 52 QT: 508 QTc: 471 Interpretive Statements SINUS BRADYCARDIA PROLONGED QT INTERVAL Compared to ECG 06/03/2021 21:30:58 Prolonged QT interval now present Sinus rhythm no longer present Sinus arrhythmia no longer present Electronically Signed On 10-30-2021 18:22:37 CDT by Gala Amos M.D. [email or web address]
--- NOTE | 2021-10-30 16:36 | ED_ITS ---
Documented by User: Emigdio Villar MD 10/30/21 18:10 HPI - SOB/Dyspnea General: Chief Complaint: General Medical Stated Complaint: LETHARGIC/ SOB Time Seen by Provider: 10/30/21 16:30 History of Present Illness: HPI Narrative: 51-year-old presents due to shortness of breath. Lightheadedness. He presents from the clinic where he was noted to be short of breath during physical therapy. He is not normally on oxygen but requires 3 L by nasal cannula to maintain saturation in the 90s. He recently had a left ankle fracture and has been doing physical therapy for this. Denies any lower extremity swelling but does note chronic pain since his injury. Denies any chest pain. Denies any head injury or headache. Review of Systems Narrative: - CONSTITUTIONAL: Denies weight loss, fever and chills. - HEENT: Denies changes in vision and hearing. - RESPIRATORY: As above - CV: Denies palpitations and CP. - GI: Denies abdominal pain, nausea, vomiting and diarrhea. - : Denies dysuria and urinary frequency. - MSK: Denies myalgia and joint pain. - SKIN: Denies rash and pruritus. - NEUROLOGICAL: Denies headache, weakness, numbness and syncope. - PSYCHIATRIC: Denies suicidal ideation [facility] PFSH: Medical History Acute respiratory failure with hypoxia -likely secondary to acute COPD exacerbation with superimposed infectious process as well as mild acute diastolic CHF exacerbation -continue Neb treatments, empiric antibiotics. Discontinue steroids given anasarca, hyperglycemia -reviewed CXR, CT chest -supplemental oxygen as needed; home oxygen evaluation if unable to wean as not oxygen dependent at baseline -no leukocytosis, afebrile, pro-calcitonin wnl -continue to monitor respiratory status -ABG noted -negative Legionella, bacterial antigens -blood cx: prelim negative -Echo: EF=67%, G2DD, no RWMA, mild MR, mild AR, mild TR -due to concern for fluid overload, off IVF. On diuresis with Bumex, metolazone. Negative fluid balance of 6.9 L. Will hold off on further diuresis today to allow for renal recovery -continue to monitor daily weights, Is & Os -telemetry monitoring -due to persistent wheezing, added pulmicort -may benefit from outpatient sleep study to assess for LORENZA Anemia -has acute on chronic iron deficiency anemia -per patient report, he has had extensive GI w/u done in [place] including EGD, colonoscopy, small capsule endoscopy, all negative -iron panel noted -baseline Hg around 10 -continue to monitor H/H Asthma Bipolar 1 disorder CKD (chronic kidney disease) CKD stage 3 due to type 2 diabetes mellitus Depression Diabetes Diabetes mellitus with diabetic polyneuropathy Diabetes mellitus with diabetic polyneuropathy Fibromyalgia Fracture of distal end of fibula JACY (generalized anxiety disorder) Hammer toe Hypertension Hypothyroidism Insomnia Left knee pain Legally blind in right eye, as defined in [place] Lewy body dementia Onychodystrophy Pes planus of both feet Risk for falls Type 2 diabetes mellitus Undescended testicle Surgical History S/P hernia repair S/P ORIF (open reduction internal fixation) fracture Family History Mother , at age 71 CAD (coronary artery disease) Father CAD (coronary artery disease) Social History Smoking and tobacco status: never smoked Alcohol intake: never Marital status: Current occupational status: disabled History of recent travel: No Physical Exam Narrative: EXAM NARRATIVE: - GENERAL: Alert and oriented x 3. No acute distress. Well-nourished. - EYES: EOMI. Anicteric. - HENT: Atraumatic, no C-spine tenderness. Moist mucous membranes. No scleral icterus. No cervical lymphadenopathy. - LUNGS: Clear to auscultation bilaterally. No accessory muscle use. Equal lung sounds bilaterally. No respiratory distress. - CARDIOVASCULAR: Regular rate and rhythm. No murmur. No JVD. - ABDOMEN: Soft, non-tender and non-distended. Negative CVA tenderness bilaterally, no rebound or guarding, negative Jay sign. No palpable masses. - EXTREMITIES: No edema. Brace over the left ankle, there is tenderness in this area. Extremities neurovascularly intact. - SKIN: No rashes or lesions. Warm. - NEUROLOGIC: No meningismus or focal neurological deficits. CN II-XII grossly intact. - PSYCHIATRIC: Cooperative. Appropriate mood and affect. Course Vital Signs: Vital signs: Vital Signs Temperature 97 F L 04/06/22 19:20 Pulse Rate 60 10/30/21 20:14 Respiratory Rate 18 10/30/21 20:14 Blood Pressure 158/77 10/30/21 20:14 Pulse Oximetry 95 10/30/21 20:14 MDM - SOB/Dyspnea Medical Decision Making 51-year-old presents with shortness of breath lightheadedness. Has mild bradycardia to the 50s on exam. Initially required 3 L by nasal cannula according to EMS but weaned down to room air without intervention and saturating well. Does have recent ankle fracture. No clinical signs of DVT. CTA for PE pending. Lab work currently pending. Patient signed out to Dr. Tom. Lab Data : 10/30/21 16:50 10/30/21 16:50 Labs/Radiology: Radiology Impressions Chest CTA 10/30/21 16:34 IMPRESSION: 1. No evidence for pulmonary embolus. 2. Mild mosaic attenuation in both lungs most likely represents small airways disease with air trapping. Chest X-Ray 10/30/21 16:35 IMPRESSION: No acute findings. Laboratory Results WBC 8.3 10^3/uL (4.0-10.0) 10/30/21 16:50 RBC 4.25 10^6/uL (4.1-5.3) 10/30/21 16:50 Hgb 10.0 g/dL (11.7-16.6) L 10/30/21 16:50 Hct 34.7 % (42.0-52.0) L 10/30/21 16:50 MCV 81.6 fl (80-94) 10/30/21 16:50 MCH 23.5 pg (28.0-34.0) L 10/30/21 16:50 MCHC 28.8 g/dL (30.0-36.0) L 10/30/21 16:50 RDW 17.2 % (12.1-15.1) H 10/30/21 16:50 Plt Count 251 10^3/cmm (130-400) 10/30/21 16:50 MPV 10.7 fL (7.4-10.4) H 10/30/21 16:50 Neut % (Auto) 57.1 % 10/30/21 16:50 Lymph % (Auto) 29.3 % 10/30/21 16:50 [place] % (Auto) 8.7 % 10/30/21 16:50 Eos % (Auto) 4.0 % 10/30/21 16:50 Baso % (Auto) 0.7 % 10/30/21 16:50 Neut # (Auto) 4.72 10^3/uL (1.8-7.7) 10/30/21 16:50 Lymph # (Auto) 2.4 10^3/uL (0.8-4.8) 10/30/21 16:50 [place] # (Auto) 0.7 10^3/uL (0.2-0.9) 10/30/21 16:50 Eos # (Auto) 0.3 10^3/uL (0.0-0.8) 10/30/21 16:50 Baso # (Auto) 0.1 10^3/uL (0.0-0.1) 10/30/21 16:50 Nucleated RBC % (auto) 0 % 10/30/21 16:50 Nucleated RBCs # 0.0 /100WBC 10/30/21 16:50 Specimen Type Arterial 10/30/21 16:47 Sample Site Radial, left 10/30/21 16:47 ABG pH 7.37 (7.35-7.45) 10/30/21 16:47 ABG pCO2 54.5 mmHg (35-45) H 10/30/21 16:47 ABG pO2 65.3 mmHg (80.0-100.0) L 10/30/21 16:47 ABG HCO3 31.1 mmol/L (22-26) H 10/30/21 16:47 ABG O2 Saturation 92.8 10/30/21 16:47 ABG Base Excess 4.7 mmol/L (-2.0-2.0) H 10/30/21 16:47 Balwinder Test Pos 10/30/21 16:47 A-a O2 Gradient 2.2 mmHg (5-10) L 10/30/21 16:47 Hematocrit 32.5 % (42-52) L 10/30/21 16:47 Hgb O2 Saturation 90.8 % (95-100) L 10/30/21 16:47 Carboxyhemoglobin 1.3 %THgb (0.4-20.1) 10/30/21 16:47 Methemoglobin 0.8 % (0.4-1.5) 10/30/21 16:47 Total Hemoglobin 10.6 g/dL (14-18) L 10/30/21 16:47 Sodium 137.0 mmol/L (131-143) 10/30/21 16:47 Potassium 4.3 mmol/L (3.5-5.0) 10/30/21 16:47 Glucose 324.0 mg/dL (70-115) H 10/30/21 16:47 Ionized Calcium 1.2 mmol/L (1.1-1.4) 10/30/21 16:47 O2 Delivery Device Room air 10/30/21 16:47 FiO2 21.0 % 10/30/21 16:47 Mental Hygienist ID Cak 10/30/21 16:47 Sodium 135 mmol/L (136-145) L 10/30/21 16:50 Potassium 4.4 mmol/L (3.5-5.1) 10/30/21 16:50 Chloride 98 mmol/L (98-107) 10/30/21 16:50 Carbon Dioxide 28 mmol/L (22-29) 10/30/21 16:50 Anion Gap 13.4 (5-19) 10/30/21 16:50 BUN 17 mg/dL (6-20) 10/30/21 16:50 Creatinine 1.4 mg/dL (0.7-1.2) H 10/30/21 16:50 GFR Calculation 53.4 mL/min (90-130) L 10/30/21 16:50 Glucose 320 mg/dL (65-115) H 10/30/21 16:50 Calculated Osmolality 294 mOsm/kg (285-295) 10/30/21 16:50 Calcium 9.1 mg/dL (8.5-10.5) 10/30/21 16:50 Total Bilirubin 0.2 mg/dL (0.15-1.2) 10/30/21 16:50 AST 18 U/L (0-40) 10/30/21 16:50 ALT 22 U/L (0-41) 10/30/21 16:50 Alkaline Phosphatase 96 IU/L (40-130) 10/30/21 16:50 Troponin T Baseline 13 ng/L (0-15) 10/30/21 16:50 Troponin T 120 Minute 12.90 ng/L (0-15) 10/30/21 19:26 Delta Troponin T -0.1 ABS# (0-10) L 10/30/21 19:26 NT-Pro-B Natriuret Pep 431 pg/mL (0-125) H 10/30/21 16:50 Total Protein 5.9 g/dL (6.6-8.7) L 10/30/21 16:50 Albumin 3.4 g/dL (3.5-5.2) L 10/30/21 16:50 Globulin 2.5 g/dL (1.3-4.6) 10/30/21 16:50 TSH 4.17 uIU/mL (0.27-4.20) 10/30/21 16:50 SARS-CoV-2 Ag (Rapid) Negative (Negative) 10/30/21 17:58 EKG Data EKG 1: Other EKG Comments: Sinus bradycardia, rate of 51, no sign of acute ischemia or other acute abnormality. Discharge Plan Discharge Patient Disposition: Home Clinical Impression: Generalized weakness Condition: Stable Prescriptions: No Action (DME) Diabetic Shoes See Rx Instructions .ROUTE .MEDSUPPLY Qty: 1 0RF Rx Instructions: As directed, with 3 pairs of inserts made by [employer] (DME) [employer]on See Rx Instructions .Route .MEDSUPPLY Qty: 1 0RF Rx Instructions: As directed cyclobenzaprine 10 mg tablet 10 mg PO TID PRN (Reason: Spasms) 0RF hydralazine 50 mg tablet 25 mg PO BID@0900,2100 0RF melatonin 5 mg capsule 10 mg PO BEDTIME@2100 0RF albuterol sulfate [ProAir HFA] 90 mcg/actuation HFA aerosol inhaler 2 puff INHALATION QID PRN (Reason: Shortness Of Breath) 0RF (DME) Cam Boot to left See Rx Instructions .Route .MEDSUPPLY Qty: 1 0RF Rx Instructions: As directed tamsulosin 0.4 mg capsule 0.4 mg PO QDAY Qty: 30 12RF mupirocin 2 % ointment 1 applic topical BID Qty: 22 0RF Rx Instructions: Apply pea sized amount to affected area twice daily (DME) ASO to the Left See Rx Instructions .Route .MEDSUPPLY Qty: 1 0RF Rx Instructions: As directed olanzapine [Zyprexa] 2.5 mg tablet 2.5 mg PO DAILY Qty: 60 1RF (DME) Hospital Bed See Rx Instructions .Route .MEDSUPPLY Qty: 1 0RF Rx Instructions: As directed insulin aspart U-100 [Novolog PenFill U-100 Insulin] 100 unit/mL Cartridge See Rx Instructions .ROUTE .COMPLEX 0RF Rx Instructions: PER SLIDING SCALE albuterol sulfate 2.5 mg /3 mL (0.083 %) solution for nebulization 2.5 mg INHALATION Q4H PRN (Reason: shortness of breath or wheezing) Qty: 90 0RF potassium chloride [Klor-Con M20] 20 mEq tablet,ER particles/crystals 40 meq PO DAILY@0900 0RF lamotrigine [Lamictal] 200 mg tablet 200 mg PO DAILY@0900 0RF donepezil 10 mg tablet 10 mg PO BEDTIME@2100 0RF clonazepam 0.5 mg tablet 0.5 mg PO BID MDD see pharmacy comment PRN (Reason: Anxiety) 0RF spironolactone 25 mg tablet 25 mg PO DAILY@0900 0RF trazodone 100 mg Tablet 200 mg PO BEDTIME@2100 0RF pantoprazole 40 mg tablet,delayed release (DR/EC) 40 mg PO DAILY@0900 0RF calcitriol 0.5 mcg capsule 0.5 mcg PO DAILY@0900 0RF Latuda 80 mg tablet 40 mg PO DAILY@0900 0RF Rx Instructions: TAKE WITH 20 MG TO MAKE 100 MG DAILY tizanidine 4 mg Capsule 4 mg PO Q6H PRN (Reason: muscle spasms) 0RF Tresiba FlexTouch U-200 200 unit/mL (3 mL) insulin pen 70 unit SUBCUT BEDTIME 0RF metoprolol tartrate 100 mg tablet 25 mg PO BID 0RF ergocalciferol (vitamin D2) 1,250 mcg (50,000 unit) Capsule 1,250 mcg PO DAILY 0RF Rx Instructions: ON WEDNESDAYS Wellbutrin XL 300 mg Tablet Extended Release 24 Hr 300 mg PO DAILY 0RF Aimovig Autoinjector 140 mg/mL Auto-Injector 140 mg SUBCUT Q30D 0RF Rx Instructions: ( OF THE MONTH) Senna-S 8.6-50 mg tablet 1 tab-cap PO DAILY Qty: 60 0RF Eliquis 2.5 mg tablet 2.5 mg PO BID Qty: 60 0RF Discharge Orders: Discharge ED (Routine); Ordered 10/30/21 Ordered By: Jere Tom Referrals: Lara Garcia [Primary Care Provider] - 1-3 days Discharge Diet: Advance as tolerated Discharge Activity: Resume usual activity Patient Instructions: Weakness (ED) Coding Level of Care Code ED Industrial Maintenance Repairer Helper for Chg Fwd Documented by User: Jere Tom MD 10/30/21 20:22 HPI - SOB/Dyspnea General: Chief Complaint: General Medical Stated Complaint: LETHARGIC/ SOB Time Seen by Provider: 10/30/21 16:30 PFSH ED PFSH: Medical History Acute respiratory failure with hypoxia -likely secondary to acute COPD exacerbation with superimposed infectious process as well as mild acute diastolic CHF exacerbation -continue Neb treatments, empiric antibiotics. Discontinue steroids given anasarca, hyperglycemia -reviewed CXR, CT chest -supplemental oxygen as needed; home oxygen evaluation if unable to wean as not oxygen dependent at baseline -no leukocytosis, afebrile, pro-calcitonin wnl -continue to monitor respiratory status -ABG noted -negative Legionella, bacterial antigens -blood cx: prelim negative -Echo: EF=67%, G2DD, no RWMA, mild MR, mild AR, mild TR -due to concern for fluid overload, off IVF. On diuresis with Bumex, metolazone. Negative fluid balance of 6.9 L. Will hold off on further diuresis today to allow for renal recovery -continue to monitor daily weights, Is & Os -telemetry monitoring -due to persistent wheezing, added pulmicort -may benefit from outpatient sleep study to assess for LORENZA Anemia -has acute on chronic iron deficiency anemia -per patient report, he has had extensive GI w/u done in [place] including EGD, colonoscopy, small capsule endoscopy, all negative -iron panel noted -baseline Hg around 10 -continue to monitor H/H Asthma Bipolar 1 disorder CKD (chronic kidney disease) CKD stage 3 due to type 2 diabetes mellitus Depression Diabetes Diabetes mellitus with diabetic polyneuropathy Diabetes mellitus with diabetic polyneuropathy Fibromyalgia Fracture of distal end of fibula JACY (generalized anxiety disorder) Hammer toe Hypertension Hypothyroidism Insomnia Left knee pain Legally blind in right eye, as defined in [place] Lewy body dementia Onychodystrophy Pes planus of both feet Risk for falls Type 2 diabetes mellitus Undescended testicle Surgical History S/P hernia repair S/P ORIF (open reduction internal fixation) fracture Family History Mother , at age 71 CAD (coronary artery disease) Father CAD (coronary artery disease) Social History Smoking and tobacco status: never smoked Alcohol intake: never Marital status: Current occupational status: disabled History of recent travel: No Course Vital Signs: Vital signs: Vital Signs Temperature 97 F L 10/30/21 19:20 Pulse Rate 60 10/30/21 20:14 Respiratory Rate 18 10/30/21 20:14 Blood Pressure 158/77 10/30/21 20:14 Pulse Oximetry 95 10/30/21 20:14 MDM - SOB/Dyspnea Medical Decision Making 51-year-old presents with shortness of breath lightheadedness. Has mild bradycardia to the 50s on exam. Initially required 3 L by nasal cannula according to EMS but weaned down to room air without intervention and saturating well. Does have recent ankle fracture. No clinical signs of DVT. CTA for PE pending. Lab work currently pending. Patient signed out to Dr. Tom. Patient is not requiring any oxygen here at this time his CTA is normal blood work here is normal as well. He feels improved he stable for discharge is to follow-up with PCP as scheduled return if worsening he understands agrees to plan. Lab Data : 10/30/21 16:50 10/30/21 16:50 Labs/Radiology: Radiology Impressions Chest CTA 10/30/21 16:34 IMPRESSION: 1. No evidence for pulmonary embolus. 2. Mild mosaic attenuation in both lungs most likely represents small airways disease with air trapping. Chest X-Ray 10/30/21 16:35 IMPRESSION: No acute findings. Laboratory Results WBC 8.3 10^3/uL (4.0-10.0) 10/30/21 16:50 RBC 4.25 10^6/uL (4.1-5.3) 10/30/21 16:50 Hgb 10.0 g/dL (11.7-16.6) L 10/30/21 16:50 Hct 34.7 % (42.0-52.0) L 10/30/21 16:50 MCV 81.6 fl (80-94) 10/30/21 16:50 MCH 23.5 pg (28.0-34.0) L 10/30/21 16:50 MCHC 28.8 g/dL (30.0-36.0) L 10/30/21 16:50 RDW 17.2 % (12.1-15.1) H 10/30/21 16:50 Plt Count 251 10^3/cmm (130-400) 10/30/21 16:50 MPV 10.7 fL (7.4-10.4) H 10/30/21 16:50 Neut % (Auto) 57.1 % 10/30/21 16:50 Lymph % (Auto) 29.3 % 10/30/21 16:50 [place] % (Auto) 8.7 % 10/30/21 16:50 Eos % (Auto) 4.0 % 10/30/21 16:50 Baso % (Auto) 0.7 % 10/30/21 16:50 Neut # (Auto) 4.72 10^3/uL (1.8-7.7) 10/30/21 16:50 Lymph # (Auto) 2.4 10^3/uL (0.8-4.8) 10/30/21 16:50 [place] # (Auto) 0.7 10^3/uL (0.2-0.9) 10/30/21 16:50 Eos # (Auto) 0.3 10^3/uL (0.0-0.8) 10/30/21 16:50 Baso # (Auto) 0.1 10^3/uL (0.0-0.1) 10/30/21 16:50 Nucleated RBC % (auto) 0 % 10/30/21 16:50 Nucleated RBCs # 0.0 /100WBC 10/30/21 16:50 Specimen Type Arterial 10/30/21 16:47 Sample Site Radial, left 10/30/21 16:47 ABG pH 7.37 (7.35-7.45) 10/30/21 16:47 ABG pCO2 54.5 mmHg (35-45) H 10/30/21 16:47 ABG pO2 65.3 mmHg (80.0-100.0) L 10/30/21 16:47 ABG HCO3 31.1 mmol/L (22-26) H 10/30/21 16:47 ABG O2 Saturation 92.8 10/30/21 16:47 ABG Base Excess 4.7 mmol/L (-2.0-2.0) H 10/30/21 16:47 Balwinder Test Pos 10/30/21 16:47 A-a O2 Gradient 2.2 mmHg (5-10) L 10/30/21 16:47 Hematocrit 32.5 % (42-52) L 10/30/21 16:47 Hgb O2 Saturation 90.8 % (95-100) L 10/30/21 16:47 Carboxyhemoglobin 1.3 %THgb (0.4-20.1) 10/30/21 16:47 Methemoglobin 0.8 % (0.4-1.5) 10/30/21 16:47 Total Hemoglobin 10.6 g/dL (14-18) L 10/30/21 16:47 Sodium 137.0 mmol/L (131-143) 10/30/21 16:47 Potassium 4.3 mmol/L (3.5-5.0) 10/30/21 16:47 Glucose 324.0 mg/dL (70-115) H 10/30/21 16:47 Ionized Calcium 1.2 mmol/L (1.1-1.4) 10/30/21 16:47 O2 Delivery Device Room air 10/30/21 16:47 FiO2 21.0 % 10/30/21 16:47 Mental Hygienist ID Cak 10/30/21 16:47 Sodium 135 mmol/L (136-145) L 10/30/21 16:50 Potassium 4.4 mmol/L (3.5-5.1) 10/30/21 16:50 Chloride 98 mmol/L (98-107) 10/30/21 16:50 Carbon Dioxide 28 mmol/L (22-29) 10/30/21 16:50 Anion Gap 13.4 (5-19) 10/30/21 16:50 BUN 17 mg/dL (6-20) 10/30/21 16:50 Creatinine 1.4 mg/dL (0.7-1.2) H 10/30/21 16:50 GFR Calculation 53.4 mL/min (90-130) L 10/30/21 16:50 Glucose 320 mg/dL (65-115) H 10/30/21 16:50 Calculated Osmolality 294 mOsm/kg (285-295) 10/30/21 16:50 Calcium 9.1 mg/dL (8.5-10.5) 10/30/21 16:50 Total Bilirubin 0.2 mg/dL (0.15-1.2) 10/30/21 16:50 AST 18 U/L (0-40) 10/30/21 16:50 ALT 22 U/L (0-41) 10/30/21 16:50 Alkaline Phosphatase 96 IU/L (40-130) 10/30/21 16:50 Troponin T Baseline 13 ng/L (0-15) 10/30/21 16:50 Troponin T 120 Minute 12.90 ng/L (0-15) 10/30/21 19:26 Delta Troponin T -0.1 ABS# (0-10) L 10/30/21 19:26 NT-Pro-B Natriuret Pep 431 pg/mL (0-125) H 10/30/21 16:50 Total Protein 5.9 g/dL (6.6-8.7) L 10/30/21 16:50 Albumin 3.4 g/dL (3.5-5.2) L 10/30/21 16:50 Globulin 2.5 g/dL (1.3-4.6) 10/30/21 16:50 TSH 4.17 uIU/mL (0.27-4.20) 10/30/21 16:50 SARS-CoV-2 Ag (Rapid) Negative (Negative) 10/30/21 17:58 Discharge Plan Discharge Patient Disposition: Home Clinical Impression: Generalized weakness Condition: Stable Prescriptions: No Action (DME) Diabetic Shoes See Rx Instructions .ROUTE .MEDSUPPLY Qty: 1 0RF Rx Instructions: As directed, with 3 pairs of inserts made by [employer] (DME) [employer] See Rx Instructions .Route .MEDSUPPLY Qty: 1 0RF Rx Instructions: As directed cyclobenzaprine 10 mg tablet 10 mg PO TID PRN (Reason: Spasms) 0RF hydralazine 50 mg tablet 25 mg PO BID@0900,2100 0RF melatonin 5 mg capsule 10 mg PO BEDTIME@2100 0RF albuterol sulfate [ProAir HFA] 90 mcg/actuation HFA aerosol inhaler 2 puff INHALATION QID PRN (Reason: Shortness Of Breath) 0RF (DME) Cam Boot to left See Rx Instructions .Route .MEDSUPPLY Qty: 1 0RF Rx Instructions: As directed tamsulosin 0.4 mg capsule 0.4 mg PO QDAY Qty: 30 12RF mupirocin 2 % ointment 1 applic topical BID Qty: 22 0RF Rx Instructions: Apply pea sized amount to affected area twice daily (DME) ASO to the Left See Rx Instructions .Route .MEDSUPPLY Qty: 1 0RF Rx Instructions: As directed olanzapine [Zyprexa] 2.5 mg tablet 2.5 mg PO DAILY Qty: 60 1RF (DME) Hospital Bed See Rx Instructions .Route .MEDSUPPLY Qty: 1 0RF Rx Instructions: As directed insulin aspart U-100 [Novolog PenFill U-100 Insulin] 100 unit/mL Cartridge See Rx Instructions .ROUTE .COMPLEX 0RF Rx Instructions: PER SLIDING SCALE albuterol sulfate 2.5 mg /3 mL (0.083 %) solution for nebulization 2.5 mg INHALATION Q4H PRN (Reason: shortness of breath or wheezing) Qty: 90 0RF potassium chloride [Klor-Con M20] 20 mEq tablet,ER particles/crystals 40 meq PO DAILY@0900 0RF lamotrigine [Lamictal] 200 mg tablet 200 mg PO DAILY@0900 0RF donepezil 10 mg tablet 10 mg PO BEDTIME@2100 0RF clonazepam 0.5 mg tablet 0.5 mg PO BID MDD see pharmacy comment PRN (Reason: Anxiety) 0RF spironolactone 25 mg tablet 25 mg PO DAILY@0900 0RF trazodone 100 mg Tablet 200 mg PO BEDTIME@2100 0RF pantoprazole 40 mg tablet,delayed release (DR/EC) 40 mg PO DAILY@0900 0RF calcitriol 0.5 mcg capsule 0.5 mcg PO DAILY@0900 0RF Latuda 80 mg tablet 40 mg PO DAILY@0900 0RF Rx Instructions: TAKE WITH 20 MG TO MAKE 100 MG DAILY tizanidine 4 mg Capsule 4 mg PO Q6H PRN (Reason: muscle spasms) 0RF Tresiba FlexTouch U-200 200 unit/mL (3 mL) insulin pen 70 unit SUBCUT BEDTIME 0RF metoprolol tartrate 100 mg tablet 25 mg PO BID 0RF ergocalciferol (vitamin D2) 1,250 mcg (50,000 unit) Capsule 1,250 mcg PO DAILY 0RF Rx Instructions: ON WEDNESDAYS Wellbutrin XL 300 mg Tablet Extended Release 24 Hr 300 mg PO DAILY 0RF Aimovig Autoinjector 140 mg/mL Auto-Injector 140 mg SUBCUT Q30D 0RF Rx Instructions: (1ST OF THE MONTH) Senna-S 8.6-50 mg tablet 1 tab-cap PO DAILY Qty: 60 0RF Eliquis 2.5 mg tablet 2.5 mg PO BID Qty: 60 0RF Discharge Orders: Discharge ED (Routine); Ordered 10/30/21 Ordered By: Jere Tom Referrals: Lara Garcia [Primary Care Provider] - 1-3 days Discharge Diet: Advance as tolerated Discharge Activity: Resume usual activity Patient Instructions: Weakness (ED) Coding Level of Care Code ED Industrial Maintenance Repairer Helper for Riki Velzáquez
[2021-10-30 16:58] LABS: ABG PCO2 54.5 mmHg (35-45); ABG PH Result 7.37 (7.35-7.45); Alveolar-Arterial Oxygen Gradi 2.2 mmHg (5-10); Arterial Blood Gas Hematocrit 32.5 % (42-52); Base Excess ABG 4.7 mmol/L (-2.0-2.0); Blood Gas Allen Test Pos; Blood Gas Operator Identificat CAK; Blood Gas Sample Site Radial, left; Blood Gas Sample Type Arterial; Carboxyhemoglobin 1.3 %THgb (0.4-20.1); HCO3 ABG 31.1 mmol/L (22-26); HGB O2 Sat 90.8 % (95-100); Ionized Calcium Level - ABG 1.2 mmol/L (1.1-1.4); Methemoglobin 0.8 % (0.4-1.5); Oxygen Device ROOM AIR; Oxygen Saturation ABG 92.8; PO2 ABG 65.3 mmHg (80.0-100.0); Potassium Level - ABG 4.3 mmol/L (3.5-5.0); Total Hemoglobin 10.6 g/dL (14-18)
[2021-10-30 17:05] LABS: Basophils # 0.1 10^3/uL (0.0-0.1); Basophils % 0.7 %; Eosinophils # 0.3 10^3/uL (0.0-0.8); Hematocrit 34.7 % (42.0-52.0); Lymphocytes # 2.4 10^3/uL (0.8-4.8); Lymphocytes % 29.3 %; Mean Corpuscular HGB Conc 28.8 g/dL (30.0-36.0); Mean Corpuscular Hemoglobin 23.5 pg (28.0-34.0); Mean Corpuscular Volume 81.6 fl (80-94); Mean Platelet Volume 10.7 fL (7.4-10.4); Monocytes # 0.7 10^3/uL (0.2-0.9); Monocytes % 8.7 %; Neutrophils # 4.72 10^3/uL (1.8-7.7); Neutrophils % 57.1 %; Nucleated Red Blood Cells % 0 %; Platelet Count 251 10^3/cmm (130-400); Red Blood Count 4.25 10^6/uL (4.1-5.3); Red Cell Distribution Width 17.2 % (12.1-15.1); White Blood Count 8.3 10^3/uL (4.0-10.0)
[2021-10-30 17:46] LABS: Troponin(5th) Baseline 13 ng/L (0-15)
--- NOTE | 2021-10-30 17:51 | PC.NURSE ---
rn cardiac applied upon arrival from ems, patient sinus lori.
[2021-10-30 17:53] VITALS: BP 97/71; PULSE 51; RESP 14; O2SAT 92
[2021-10-30 17:53] LABS: Alanine Aminotransferase 22 U/L (0-41); Albumin Level 3.4 g/dL (3.5-5.2); Alkaline Phosphatase 96 IU/L (40-130); Anion Gap 13.4 (5-19); Aspartate Amino Transferase 18 U/L (0-40); Blood Urea Nitrogen 17 mg/dL (6-20); Calcium 9.1 mg/dL (8.5-10.5); Carbon Dioxide 28 mmol/L (22-29); Chloride 98 mmol/L (98-107); Globulin 2.5 g/dL (1.3-4.6); Glomerular Filtration Rate 53.4 mL/min (90-130); Glucose 320 mg/dL (65-115); NT Pro B Type Natriuretic Pept 431 pg/mL (0-125); Osmolality Calculated 294 mOsm/kg (285-295); Potassium 4.4 mmol/L (3.5-5.1); Sodium 135 mmol/L (136-145); Thyroid Stimulating Hormone 4.17 uIU/mL (0.27-4.20); Total Bilirubin 0.2 mg/dL (0.15-1.2); Total Protein 5.9 g/dL (6.6-8.7)
--- NOTE | 2021-10-30 18:00 | PC.NURSE ---
Patient tolerated covid swab. Patient and family states he was oxygen in the past for 6 months. Patient's family member also states that patient has lewy body dementia and he sleeps 20 hours a day.
[2021-10-30 18:31] LABS: SARS Covid-2 Antigen Negative (Negative)
--- NOTE | 2021-10-30 18:34 | PC.NURSE ---
Patient going to CT at this time.
[2021-10-30] MEDS: iodixanol 320 mg/mL 100mL Btl IV (18:51)
[2021-10-30 19:16] VITALS: BMI 49.2
[2021-10-30 19:20] VITALS: BP 154/78; PULSE 55; RESP 18; TEMP 36.1; O2SAT 93
[2021-10-30 19:50] LABS: Troponin 5 2HR Delta -0.1 ABS# (0-10)
[2021-10-30 20:14] VITALS: BP 158/77; PULSE 60; RESP 18; O2SAT 95
[2021-10-30 20:31] LABS: Bilirubin Urine Neg (Negative); Blood Urine Neg (Negative); Glucose Urine UA 2+ (Normal); Ketones Urine Negative (Negative); Leukocyte Esterase Urine Negative (Negative); Nitrate Urine Negative (Negative); Protein Urine Neg (Negative); Urine Appearance Clear (CLEAR); Urine Color Yellow (Yellow); Urobilinogen Urine Norm (Negative); pH Urine 6.5 (5-7)
[2021-10-30 20:39] LABS: Amphetamines Screen Urine Negative (Negative); Barbiturates Screen Urine Negative (Negative); Benzodiazepines Screen Urine Negative (Negative); Cocaine Screen Urine Negative (Negative); Opiate Screen Urine Positive (Negative); PCP Screen Urine Negative (Negative); THC Screen Urine Negative (Negative)
[2021-10-30 20:45] LABS: Add Urine Culture? No; RBC Urine 0-4 /hpf (0-2); WBC Urine 0-4 /hpf (0-5)
== END 2021-10-30 20:18 | disposition home or self-care (01) ==
PROVIDERS: Emergency Medicine; Emergency Provider Emergency Medicine; PCP Nurse Practitioner Family
DX: R53.1 Weakness (principal); E11.42 Type 2 diabetes mellitus with diabetic polyneuropathy; I12.9 Hypertensive chronic kidney disease with stage 1 through stage 4 chronic kidney disease, or unspecified chronic kidney disease; N18.30 Chronic kidney disease, stage 3 unspecified; E03.9 Hypothyroidism, unspecified
CPT/HCPCS: 36600; 71045; 71275; 80051; 80053; 80306; 81001; 82330; 82805; 83880; 84443; 84484; 85025; 87426; 93005; 99283; Q9967

== ENCOUNTER 2021-11-13 20:32 | Emergency (ER) | payer MEDICARE, MEDICAID, SELFPAY ==
[2021-11-13 20:41] VITALS: BP 171/97; PULSE 86; RESP 20; TEMP 36.8; O2SAT 87; BMI 49.1
--- NOTE | 2021-11-13 20:41 | XRR_ITS ---
PROCEDURE INFORMATION: Exam: XR Left Knee Exam date and time: 11/13/2021 8:51 PM Age: 51 years old Clinical indication: Pain; Knee; Left; Additional info: Injury TECHNIQUE: Imaging protocol: XR Left knee. Views: 3 views. COMPARISON: CR XR ankle LT min 3V* [id number] 10/15/2021 1:27 PM FINDINGS: Bones/joints: No acute fracture dislocation or obvious joint effusion. Minimal patellar spurring consistent with early degenerative disease. Well preserved joint spaces on this nonweightbearing exam. Soft tissues: Normal. Other findings: 3 nonweightbearing views submitted. XR/XR knee LT 3V* [id number] IMPRESSION: No acute findings.
--- NOTE | 2021-11-13 20:41 | XRR_ITS ---
PROCEDURE INFORMATION: Exam: XR Left Ankle Exam date and time: 11/13/2021 8:51 PM Age: 51 years old Clinical indication: Pain; Left; Prior surgery; Surgery date: 6+ months; Surgery type: Lt ankle; Additional info: Injury TECHNIQUE: Imaging protocol: XR Left ankle. Views: 3 or more views. COMPARISON: CR XR ankle LT min 3V* [id number] 10/15/2021 1:27 PM FINDINGS: Bones/joints: Distal fibular fracture status post ORIF with metallic plate and multiple screws in stable alignment. No acute fracture dislocation. Mild spurring at the medial malleolus, unchanged. Soft tissues: Mild medial and lateral soft tissue swelling with slight interval improvement. Other findings: Three views submitted. The lateral view is suboptimally positioned. XR/XR ankle LT min 3V* [id number] IMPRESSION: No acute fracture dislocation.
--- NOTE | 2021-11-13 20:44 | ED_ITS ---
HPI - Fall General: Chief Complaint: Extremity Injury, Lower Stated Complaint: ANKLE PAIN Time Seen by Provider: 11/13/21 20:37 Source: patient Mode of arrival: ambulatory Limitations: no limitations History of Present Illness: 51-year-old male who fell tonight at home at 630 he did fracture his ankle earlier she had had surgery on his left ankle states he twisted ankle has been having pain in it since then. States pain is currently 3 out of 10 he has been having difficulty walking. Has some slight knee pain as well denies any other injuries from his fall. Associated symptoms-after fall: Denies abdominal pain, chest pain, headache(s) or neck pain Review of Systems Const: Denies: fever(s), chills, body aches or change in appetite Eyes: Denies: blurry vision or eye discomfort ENMT: Denies: throat pain or dental pain Card: Denies: chest pain Resp: Denies: dyspnea GI: Denies: abdominal pain, nausea, vomiting or diarrhea : Denies: dysuria Musc: Reports: extremity pain; Denies: neck pain or back pain Skin/Breast: Denies: rash Neuro: Denies: headache(s) Psych: Denies: depression Javier/Lymph: Denies: easy bruising All/Imm: Denies: urticaria PFSH ED PFSH: Medical History Acute respiratory failure with hypoxia -likely secondary to acute COPD exacerbation with superimposed infectious process as well as mild acute diastolic CHF exacerbation -continue Neb treatments, empiric antibiotics. Discontinue steroids given anasarca, hyperglycemia -reviewed CXR, CT chest -supplemental oxygen as needed; home oxygen evaluation if unable to wean as not oxygen dependent at baseline -no leukocytosis, afebrile, pro-calcitonin wnl -continue to monitor respiratory status -ABG noted -negative Legionella, bacterial antigens -blood cx: prelim negative -Echo: EF=67%, G2DD, no RWMA, mild MR, mild AR, mild TR -due to concern for fluid overload, off IVF. On diuresis with Bumex, metolazone. Negative fluid balance of 6.9 L. Will hold off on further diuresis today to allow for renal recovery -continue to monitor daily weights, Is & Os -telemetry monitoring -due to persistent wheezing, added pulmicort -may benefit from outpatient sleep study to assess for LORENZA Anemia -has acute on chronic iron deficiency anemia -per patient report, he has had extensive GI w/u done in [place] including EGD, colonoscopy, small capsule endoscopy, all negative -iron panel noted -baseline Hg around 10 -continue to monitor H/H Asthma Bipolar 1 disorder CKD (chronic kidney disease) CKD stage 3 due to type 2 diabetes mellitus Depression Diabetes Diabetes mellitus with diabetic polyneuropathy Diabetes mellitus with diabetic polyneuropathy Fibromyalgia Fracture of distal end of fibula JACY (generalized anxiety disorder) Hammer toe Hypertension Hypothyroidism Insomnia Left knee pain Legally blind in right eye, as defined in [place] Lewy body dementia Onychodystrophy Pes planus of both feet Risk for falls Type 2 diabetes mellitus Undescended testicle Surgical History S/P hernia repair S/P ORIF (open reduction internal fixation) fracture Family History Mother , at age 71 CAD (coronary artery disease) Father CAD (coronary artery disease) Social History Smoking and tobacco status: never smoked Alcohol intake: never Marital status: Current occupational status: disabled History of recent travel: No Physical Exam Const: COMMON NORMALS: no acute distress, patient oriented x3 and healthy appearing HENMT: COMMON NORMALS: normocephalic and atraumatic HEAD & SCALP: normo cephalic and atraumatic Eye: COMMON NORMALS: Equal, round and reactive pupils present and EOMs intact bilaterally PUPIL: Yes Equal, round and reactive pupils present Neck/C-Spine: COMMON NORMALS: full ROM and supple Chest: COMMONS NORMALS: normal inspection of the chest and normal palpation of entire chest wall Resp: COMMON NORMALS: normal respiratory effort, No retractions, No use of accessory muscles and clear to auscultation bilaterally AUSCULTATION: clear to auscultation bilaterally Cardio: COMMON NORMALS: regular rate, regular rhythm and No murmurs present (Cardio) RATE: regular rate RHYTHM: regular rhythm GI: COMMON NORMALS: Normal to inspection, nondistended, normoactive bowel sounds present, Soft to palpation, non-tender and no masses PALPATION: Yes Soft to palpation Extremity: COMMON NORMALS: normal to inspection and full ROM NARRATIVE EXTREMITY EXAM: Slight tenderness to the left lateral ankle no obvious deformity no swelling Neuro: COMMON NORMALS: patient oriented x3, moves all extremities and no focal motor deficits Psych: COMMON NORMALS: mental status grossly normal, Normal thought process present and cooperative THOUGHT PROCESS: Normal thought process present Skin: COMMON NORMALS: no rashes or lesions noted and no wounds GENERAL SKIN EXAM: no rashes or lesions noted Course Vital Signs: Vital signs: Vital Signs Temperature 98.2 F 11/13/21 20:41 Pulse Rate 77 11/13/21 21:54 Respiratory Rate 18 11/13/21 21:54 Blood Pressure 164/87 11/13/21 21:54 Pulse Oximetry 94 11/13/21 21:54 MDM - Fall Medical Decision Making Patient presents with an ankle sprain from a fall x-ray shows no fracture she is well-appearing here he stable for discharge back home follow-up with PCP and return if worsening. Lab Data Radiology Impressions Ankle X-Ray 11/13/21 20:41 IMPRESSION: No acute fracture dislocation. Knee X-Ray 11/13/21 20:41 IMPRESSION: No acute findings. Discharge Plan Discharge Patient Disposition: Home Clinical Impression: Ankle sprain and strain, Fall Condition: Stable Prescriptions: No Action (DME) Diabetic Shoes See Rx Instructions .ROUTE .MEDSUPPLY Qty: 1 0RF Rx Instructions: As directed, with 3 pairs of inserts made by [employer] (DME) Corazon See Rx Instructions .Route .MEDSUPPLY Qty: 1 0RF Rx Instructions: As directed cyclobenzaprine 10 mg tablet 10 mg PO TID PRN (Reason: Spasms) 0RF hydralazine 50 mg tablet 25 mg PO BID@0900,2100 0RF melatonin 5 mg capsule 10 mg PO BEDTIME@2100 0RF albuterol sulfate [ProAir HFA] 90 mcg/actuation HFA aerosol inhaler 2 puff INHALATION QID PRN (Reason: Shortness Of Breath) 0RF (DME) Cam Boot to left See Rx Instructions .Route .MEDSUPPLY Qty: 1 0RF Rx Instructions: As directed tamsulosin 0.4 mg capsule 0.4 mg PO QDAY Qty: 30 12RF mupirocin 2 % ointment 1 applic topical BID Qty: 22 0RF Rx Instructions: Apply pea sized amount to affected area twice daily (DME) ASO to the Left See Rx Instructions .Route .MEDSUPPLY Qty: 1 0RF Rx Instructions: As directed olanzapine [Zyprexa] 2.5 mg tablet 2.5 mg PO DAILY Qty: 60 1RF (DME) Hospital Bed See Rx Instructions .Route .MEDSUPPLY Qty: 1 0RF Rx Instructions: As directed insulin aspart U-100 [Novolog PenFill U-100 Insulin] 100 unit/mL Cartridge See Rx Instructions .ROUTE .COMPLEX 0RF Rx Instructions: PER SLIDING SCALE albuterol sulfate 2.5 mg /3 mL (0.083 %) solution for nebulization 2.5 mg INHALATION Q4H PRN (Reason: shortness of breath or wheezing) Qty: 90 0RF potassium chloride [Klor-Con M20] 20 mEq tablet,ER particles/crystals 40 meq PO DAILY@0900 0RF lamotrigine [Lamictal] 200 mg tablet 200 mg PO DAILY@0900 0RF donepezil 10 mg tablet 10 mg PO BEDTIME@2100 0RF clonazepam 0.5 mg tablet 0.5 mg PO BID MDD see pharmacy comment PRN (Reason: Anxiety) 0RF spironolactone 25 mg tablet 25 mg PO DAILY@0900 0RF trazodone 100 mg Tablet 200 mg PO BEDTIME@2100 0RF pantoprazole 40 mg tablet,delayed release (DR/EC) 40 mg PO DAILY@0900 0RF calcitriol 0.5 mcg capsule 0.5 mcg PO DAILY@0900 0RF Latuda 80 mg tablet 40 mg PO DAILY@0900 0RF Rx Instructions: TAKE WITH 20 MG TO MAKE 100 MG DAILY tizanidine 4 mg Capsule 4 mg PO Q6H PRN (Reason: muscle spasms) 0RF Tresiba FlexTouch U-200 200 unit/mL (3 mL) insulin pen 70 unit SUBCUT BEDTIME 0RF metoprolol tartrate 100 mg tablet 25 mg PO BID 0RF ergocalciferol (vitamin D2) 1,250 mcg (50,000 unit) Capsule 1,250 mcg PO DAILY 0RF Rx Instructions: ON WEDNESDAYS Wellbutrin XL 300 mg Tablet Extended Release 24 Hr 300 mg PO DAILY 0RF Aimovig Autoinjector 140 mg/mL Auto-Injector 140 mg SUBCUT Q30D 0RF Rx Instructions: (1ST OF THE MONTH) Senna-S 8.6-50 mg tablet 1 tab-cap PO DAILY Qty: 60 0RF Eliquis 2.5 mg tablet 2.5 mg PO BID Qty: 60 0RF Discharge Orders: Discharge ED (Routine); Ordered 11/13/21 Ordered By: Jere Tom Referrals: Lara Garcia [Primary Care Provider] - Discharge Diet: Advance as tolerated Discharge Activity: Resume usual activity Patient Instructions: Ankle Sprain (ED) Coding Level of Care Code ED Student Activities Director for Riki Fwd Exam Comprehensive
[2021-11-13 20:48] VITALS: PULSE 78; RESP 18; O2SAT 99
[2021-11-13 21:54] VITALS: BP 164/87; PULSE 77; RESP 18; O2SAT 94
[2021-11-14 00:25] VITALS: BP 168/116; PULSE 77; RESP 18; O2SAT 95
== END 2021-11-14 01:32 | disposition home or self-care (01) ==
PROVIDERS: Emergency Provider Emergency Medicine; PCP Nurse Practitioner Family
DX: S93.402A Sprain of unspecified ligament of left ankle, initial encounter (principal); W18.30XA Fall on same level, unspecified, initial encounter; Z79.4 Long term (current) use of insulin; Z79.01 Long term (current) use of anticoagulants
CPT/HCPCS: 73562; 73610; 99283

== ENCOUNTER → 2021-12-03 15:38 | Outpatient (BNVA) | payer MEDICARE, MEDICAID, SELFPAY | PROVIDERS: PCP Nurse Practitioner Family; Visit Provider Podiatrist Foot & Ankle Surgery | DX: E11.42 Type 2 diabetes mellitus with diabetic polyneuropathy (principal) | CPT/HCPCS: 99213; 99214 ==

== ENCOUNTER → 2022-01-16 12:53 | Outpatient (BNVA) | payer MEDICARE, MEDICAID, SELFPAY | PROVIDERS: PCP Family Medicine; Visit Provider Specialist | DX: G43.711 Chronic migraine without aura, intractable, with status migrainosus (principal); E11.42 Type 2 diabetes mellitus with diabetic polyneuropathy; Z79.4 Long term (current) use of insulin; E66.01 Morbid (severe) obesity due to excess calories; Z68.42 Body mass index [BMI] 45.0-49.9, adult; G47.33 Obstructive sleep apnea (adult) (pediatric); G31.83 Neurocognitive disorder with Lewy bodies; F02.80 Dementia in other diseases classified elsewhere, unspecified severity, without behavioral disturbance, psychotic disturbance, mood disturbance, and anxiety | CPT/HCPCS: 64615; 80053; 80069; 82310; 83970; 85025; 99213; J0585 ==

== ENCOUNTER 2022-04-04 11:57 | Observation (INO) | payer MEDICARE, MEDICAID, SELFPAY ==
--- NOTE | 2022-04-04 12:00 | W.ED.AMS ---
HPI - Altered Mental Status General: Chief Complaint: Altered Mental Status Stated Complaint: CONFUSION/ UNRESPONSIVESS Time Seen by Provider: 04/04/22 11:59 Limitations: altered mental status History of Present Illness: Mr. Wilkinson is a 51-year-old gentleman with history of Lewy body Parkinson's disease, diabetes on insulin, anxiety/depression who presents to the emergency department due to altered mental status. Apparently the patient has been decreased in responsiveness for a number of days progressively worsening however today was completely unresponsive. EMS was activated and the patient's report that patient's blood sugar was in the 500s and she gave him 16 units of insulin. Upon their arrival patient was unresponsive however upon moving him became more awake. Patient himself only provides limited history and does not specifically recall events, where he is, or date/year. History otherwise limited by mental status. Onset (ago): unknown Consistency of symptoms: Waxing and Waning Review of Systems General: Reports: ROS unobtainable due to mental status [facility] ED PFSH: Medical History (Updated 04/06/22 @ 00:01 by ) Acute respiratory failure with hypoxia -likely secondary to acute COPD exacerbation with superimposed infectious process as well as mild acute diastolic CHF exacerbation -continue Neb treatments, empiric antibiotics. Discontinue steroids given anasarca, hyperglycemia -reviewed CXR, CT chest -supplemental oxygen as needed; home oxygen evaluation if unable to wean as not oxygen dependent at baseline -no leukocytosis, afebrile, pro-calcitonin wnl -continue to monitor respiratory status -ABG noted -negative Legionella, bacterial antigens -blood cx: prelim negative -Echo: EF=67%, G2DD, no RWMA, mild MR, mild AR, mild TR -due to concern for fluid overload, off IVF. On diuresis with Bumex, metolazone. Negative fluid balance of 6.9 L. Will hold off on further diuresis today to allow for renal recovery -continue to monitor daily weights, Is & Os -telemetry monitoring -due to persistent wheezing, added pulmicort -may benefit from outpatient sleep study to assess for LORENZA Anemia -has acute on chronic iron deficiency anemia -per patient report, he has had extensive GI w/u done in [place] including EGD, colonoscopy, small capsule endoscopy, all negative -iron panel noted -baseline Hg around 10 -continue to monitor H/H Asthma Bipolar 1 disorder Chronic migraine without aura, intractable, with status migrainosus CKD (chronic kidney disease) CKD stage 3 due to type 2 diabetes mellitus Depression Diabetes Diabetes mellitus with diabetic polyneuropathy Diabetes mellitus with diabetic polyneuropathy Diabetic peripheral neuropathy associated with type 2 diabetes mellitus Esophageal stricture Fibromyalgia Fracture of distal end of fibula JACY (generalized anxiety disorder) Hammer toe Hospice care Hypertension Hypothyroidism Insomnia Left knee pain Legally blind in right eye, as defined in [place] Lewy body dementia Lewy body Parkinson disease Morbid obesity Obstructive sleep apnea Onychodystrophy Pes planus of both feet Risk for falls Type 2 diabetes mellitus Undescended testicle Surgical History S/P hernia repair S/P ORIF (open reduction internal fixation) fracture Family History Mother , at age 71 CAD (coronary artery disease) Father CAD (coronary artery disease) Social History Smoking and tobacco status: never smoked Alcohol intake: never Marital status: Current occupational status: disabled History of recent travel: No Physical Exam Const: COMMON NORMALS: alert GENERAL APPEARANCE: cooperative and well developed HENMT: COMMON NORMALS: normocephalic and atraumatic HEAD & SCALP: normocephalic and atraumatic Eye: COMMON NORMALS: conjunctivae normal CONJUNCTIVA: Yes conjunctivae normal SCLERA: sclerae normal Neck/C-Spine: COMMON NORMALS: supple GENERAL: Yes trachea midline Resp: COMMON NORMALS: normal respiratory effort and clear to auscultation bilaterally EFFORT & INSPECTION: Yes able to speak in complete sentences AUSCULTATION: clear to auscultation bilaterally Cardio: COMMON NORMALS: regular rate and regular rhythm RATE: regular rate RHYTHM: regular rhythm GI: COMMON NORMALS: Soft to palpation PALPATION: Yes Soft to palpation and No Tenderness to palpation present (GI) Extremity: GENERAL: Yes normal exam except as noted and No edema Neuro: COMMON NORMALS: CN's II-XII intact bilaterally, moves all extremities, no focal motor deficits and no sensory deficits noted SENSORIUM/ORIENTATION: Yes alert and Yes Orientation impaired Course ED course: - Patient was seen and evaluated by me at bedside - Patient placed on cardiac monitors, IV access obtained - Initial evaluation notable for exam as above - Labs and xrays personally interpreted by me. EKG notable for sinus tachycardia with nonspecific ST segment abnormalities. -Fluids and antibiotics given - Labs notable for leukocytosis, normal hemoglobin. Metabolic panel with mild evidence of dehydration, delta troponin negative. Possible UTI. Serum ketones negative. - Imaging notable for mild perihilar infiltrates. CT head without acute pathology to explain mental status change. CT chest abdomen pelvis with likely evidence of pneumonia. - Upon serial reexamination after treatment the patient was only mildly improved - Based on patient history, evaluation, and testing as interpreted the most likely cause of the patient's condition is altered mental status secondary to pneumonia/sepsis - The results of ED evaluation were discussed with the patient including plan for admission due to requirement for level of care not available if discharged to prevent significant worsening/deterioration. - Admitting service was contacted and Dr Braswell with the hospitalist service agreed to admit the patient - Patient was admitted without further deterioration or significant events. Note: Click bubbles or prepopulated bardales in note writing are used for assistance with data collection and billing and are inherently more limited than narrative and other text portions of this note. Please use narrative for additional clinical history and defer to narrative/free test for any case of contradictory information. If information appears in only free text or click bubble it should be considered present or absent as reported. Please contact note check writer salesperson for clarifications of clinical information or contradictory information. MDM is a brief summary, contradictory or erroneous seeming information should be clarified and full note should be reviewed. Vital Signs: Vital signs: Vital Signs Pulse Rate 79 04/05/22 16:10 Respiratory Rate 16 04/05/22 16:10 Blood Pressure 127/84 04/05/22 16:10 Pulse Oximetry 94 04/05/22 16:10 Oxygen Delivery Or thod 04/05/22 08:05 Oxygen Flow Rate 2 04/05/22 08:05 MDM - Altered Mental Status Medical Decision Making 51-year-old gentleman presenting with altered mental status found to have pneumonia. Admitted for further management. Medical Records I reviewed the patient's medical records. Lab Data I reviewed the patient's lab results. : 04/04/22 12:25 04/04/22 12:25 Radiology Impressions Chest X-Ray 04/04/22 12:11 IMPRESSION: 1. Mild bilateral perihilar stranding. Suspect mild edema versus overlying pneumonia and pneumonitis. 2. No pneumonia. 3. No pleural effusion. Head CT 04/04/22 12:11 IMPRESSION: 1. No evidence of intracranial hemorrhage or mass effect. 2. Mild small vessel changes. Mild parenchymal volume loss. 3. No acute intracranial findings and no significant changes from previous. Chest/Abdomen/Pelvis CT 04/04/22 13:09 IMPRESSION: 1. Subsegmental and round atelectasis in the lung bases. 2. Compressive atelectasis LEFT lower lobe and posterior segment RIGHT upper lobe with associated air bronchograms. Recommend correlation for pneumonia. 3. Bilateral perihilar bronchovascular thickening with prominent hilar lymph nodes nonspecific but likely reactive. No mediastinal lymphadenopathy. 4. Hepatomegaly. Mild splenomegaly. 5. Small esophageal hiatal hernia. 6. Dempsey catheter. 7. Mild pancolonic constipation. 8. No other remarkable findings Laboratory Results WBC 16.2 10^3/uL (4.0-10.0) H 04/04/22 12:25 RBC 4.73 10^6/uL (4.1-5.3) 04/04/22 12:25 Hgb 11.9 g/dL (11.7-16.6) 04/04/22 12:25 Hct 41.4 % (42.0-52.0) L 04/04/22 12:25 MCV 87.5 fl (80-94) 04/04/22 12:25 MCH 25.2 pg (28.0-34.0) L 04/04/22 12:25 MCHC 28.7 g/dL (30.0-36.0) L 04/04/22 12:25 RDW 14.8 % (12.1-15.1) 04/04/22 12:25 Plt Count 318 10^3/cmm (130-400) 04/04/22 12:25 MPV 11.3 fL (7.4-10.4) H 04/04/22 12:25 Neut % (Auto) 80.6 % 04/04/22 12:25 Lymph % (Auto) 11.0 % 04/04/22 12:25 Wright % (Auto) 6.3 % 04/04/22 12:25 Eos % (Auto) 1.1 % 04/04/22 12:25 Baso % (Auto) 0.5 % 04/04/22 12:25 Neut # (Auto) 13.05 10^3/uL (1.8-7.7) H 04/04/22 12:25 Lymph # (Auto) 1.8 10^3/uL (0.8-4.8) 04/04/22 12:25 Wright # (Auto) 1.0 10^3/uL (0.2-0.9) H 04/04/22 12:25 Eos # (Auto) 0.2 10^3/uL (0.0-0.8) 04/04/22 12:25 Baso # (Auto) 0.1 10^3/uL (0.0-0.1) 04/04/22 12:25 Nucleated RBC % (auto) 0 % 04/04/22 12: Nucleated RBCs # 0.0 /100WBC 04/04/22 12:25 Specimen Type Arterial 04/04/22 12:22 Sample Site Radial, left 04/04/22 12:22 ABG pH 7.47 (7.35-7.45) H 04/04/22 12:22 ABG pCO2 41.8 mmHg (35-45) 04/04/22 12:22 ABG pO2 55.7 mmHg (80.0-100.0) L 04/04/22 12:22 ABG HCO3 30.5 mmol/L (22-26) H 04/04/22 12:22 ABG Base Excess 6.2 mmol/L (-2.0-2.0) H 04/04/22 12:22 Balwinder Test Pos 04/04/22 12:22 Hematocrit 35.5 % (42-52) L 04/04/22 12:22 O2 Delivery Device Nc 04/04/22 12:22 O2 Liters/Min 2.0 % 04/04/22 12:22 FiO2 28.0 % 04/04/22 12:22 Planer Offbearer ID Cak 04/04/22 12:22 Sodium 140 mmol/L (136-145) 04/04/22 12:25 Potassium 4.0 mmol/L (3.5-5.1) 04/04/22 12:25 Chloride 97 mmol/L (98-107) L 04/04/22 12:25 Carbon Dioxide 25 mmol/L (22-29) 04/04/22 12:25 Anion Gap 22.0 (5-19) H 04/04/22 12:25 BUN 15 mg/dL (6-20) 04/04/22 12:25 Creatinine 1.5 mg/dL (0.7-1.2) H 04/04/22 12:25 GFR Calculation 49.3 mL/min (90-130) L 04/04/22 12:25 Glucose 335 mg/dL (65-115) H 04/04/22 12:25 POC Glucose 310 mg/dL (70-110) H 04/04/22 12:20 Calculated Osmolality 304 mOsm/kg (285-295) H 04/04/22 12:25 Lactic Acid 1.9 mmol/L (0.5-2.2) 04/04/22 12:25 Calcium 10.3 mg/dL (8.5-10.5) 04/04/22 12:25 Magnesium 1.7 mg/dL (1.7-2.3) 04/04/22 12:25 Total Bilirubin 0.4 mg/dL (0.15-1.2) 04/04/22 12:25 AST 9 U/L (0-40) 04/04/22 12:25 ALT 11 U/L (0-41) 04/04/22 12:25 Alkaline Phosphatase 124 U/L (40-130) 04/04/22 12:25 Troponin T Baseline 34 ng/L (0-15) H 04/04/22 12:25 Troponin T 120 Minute 31.71 ng/L (0-15) H 04/04/22 14:32 Delta Troponin T -2.29 ABS# (0-10) L 04/04/22 14:32 C-Reactive Protein 175.3 mg/L (0.0-4.9) H 04/04/22 12:25 Total Protein 7.1 g/dL (6.6-8.7) 04/04/22 12:25 Albumin 3.6 g/dL (3.5-5.2) 04/04/22 12:25 Globulin 3.5 g/dL (1.3-4.6) 04/04/22 12:25 Procalcitonin 0.20 ng/mL (0-0.5) 04/04/22 12:25 TSH 1.00 uIU/mL (0.27-4.20) 04/04/22 12:25 Urine Color Yellow (Yellow) 04/04/22 14:50 Urine Appearance Hazy (CLEAR) A 04/04/22 14:50 Urine pH 5 (5-7) 04/04/22 14:50 Ur Specific [place] 1.010 (1.005-1.030) 04/04/22 14:50 Urine Protein 1+ (Negative) H 04/04/22 14:50 Urine Glucose (UA) 4+ (Normal) H 04/04/22 14:50 Urine Ketones 2+ (Negative) H 04/04/22 14:50 Urine Blood 3+ (Negative) H 04/04/22 14:50 Urine Nitrate Positive (Negative) H 04/04/22 14:50 Urine Bilirubin Neg (Negative) 04/04/22 14:50 Urine Urobilinogen Norm mg/dL (Negative) 04/04/22 14:50 Ur Leukocyte Esterase Negative (Negative) 04/04/22 14:50 Urine RBC 5-10 /hpf (0-2) H 04/04/22 14:50 Urine WBC 5-10 /hpf (0-5) H 04/04/22 14:50 Ur Squamous Epith Cells 0-4 /hpf (0-5) H 04/04/22 14:50 Amorphous Sediment 1+ /hpf 04/04/22 14:50 Urine Bacteria 1+ /hpf (NONE) H 04/04/22 14:50 Salicylates < 0.3 mg/dL (3-10) L 04/04/22 12:25 Urine Opiates Screen Positive ng/mL (Negative) H 04/04/22 14:50 Acetaminophen < 5.0 ug/mL (10-30) L 04/04/22 12:25 Ur Barbiturates Screen Negative ng/mL (Negative) 04/04/22 14:50 Ur Phencyclidine Scrn Negative ng/mL (Negative) 04/04/22 14:50 Ur Amphetamines Screen Negative ng/mL (Negative) 04/04/22 14:50 U Benzodiazepines Scrn Positive ng/mL (Negative) H 04/04/22 14:50 Urine Cocaine Screen Negative ng/mL (Negative) 04/04/22 14:50 U Marijuana (THC) Screen Negative ng/mL (Negative) 04/04/22 14:50 Ethyl Alcohol < 10 mg/dL (0-10) 04/04/22 12:25 Serum Ketones Negative (Negative) 04/04/22 12:25 Critical Care Time Critical Care Time: Critical Care Time: Yes Total Critical Care Time: 35 Attestation: Due to a high probability of clinically significant, possibly life threatening deterioration, the patient required my highest level of attention and preparedness to intervene emergently and I personally spent this critical care time directly and personally managing the patient. This critical care time included obtaining a history; examining the patient; pulse oximetry; ordering and review of laboratory and imaging studies; arranging urgent treatment with development of a management plan; evaluation of patient's response to treatment; frequent reassessment; and, discussions with other providers as applicable. It was exclusive of separately billable procedures. Primary system involved is infectious/cardiovascular. Discharge Plan Discharge Patient Disposition: Admitted As Inpatient Admit Provider: Travis Braswell Clinical Impression: Altered mental status, Sepsis, Pneumonia Condition: Stable Discharge Diet: Usual diet Discharge Activity: Resume usual activity Coding Level of Care Code ED [employer] Consultant for Riki Fwd Exam Comprehensive
[2022-04-04 12:03] VITALS: BP 138/89; PULSE 130; RESP 20; O2SAT 90
--- NOTE | 2022-04-04 12:11 | CT_ITS ---
WS: [id number] CT HEAD TECHNIQUE: Noncontrast CT of the head obtained from the skullbase to the vertex. CLINICAL INFORMATION: ams COMPARISON: July 04, 2021 DLP: 1021.[address] scans at [facility] use at least one of these dose optimization techniques: automated e xposure control; mA and/or kV adjustment per patient size (includes targeted exams where dose is matc hed to clinical indication); or iterative reconstruction. FINDINGS: No evidence of intracranial hemorrhage or mass effect. Ventricular system and basal cisterns are menjivar nt. Mild small vessel changes with mild parenchymal volume loss. No extra-axial fluid collections. No evidence of mass or mass effect. Paranasal sinuses and mastoid air cells are well aerated. .Normal visualized soft tissues. CT/CT head wo con* [id number] IMPRESSION: 1. No evidence of intracranial hemorrhage or mass effect. 2. Mild small vessel changes. Mild parenchymal volume loss. 3. No acute intracranial findings and no significant changes from previous.
--- NOTE | 2022-04-04 12:11 | XR_ITS ---
WS: [id number] PORTABLE CHEST HISTORY: tachycardia, ams COMPARISON: None available. Lungs are clear and well expanded. Linear subsegmental atelectasis posterior to LEFT heart and mild p leural thickening along the minor fissure. Mild fullness and congestion at the hilar regions. Cardiac size: Normal. Mediastinum/Aorta: Mild atherosclerosis aorta. No osseous abnormality seen. XR/XR chest 1V portable [id number] IMPRESSION: 1. Mild bilateral perihilar stranding. Suspect mild edema versus overlying pne umonia and pneumonitis. 2. No pneumonia. 3. No pleural effusion.
--- NOTE | 2022-04-04 12:12 | ECG_ITS ---
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 Measurements Intervals [place] Rate: 136 P: 64 NH: 150 QRS: 57 QRSD: 80 T: 68 QT: 360 QTc: 543 Interpretive Statements SINUS TACHYCARDIA NONSPECIFIC T-WAVE ABNORMALITY Compared to ECG 10/30/2021 16:51:30 T-wave abnormality now present Sinus bradycardia no longer present Prolonged QT interval no longer present Electronically Signed On 04-04-2022 14:23:27 CDT by Guillaume Maria M.D. [email or web address] Acquisitionjefferson davis community hospitalEAP Technology Systemschildren's hospital of columbus.[email or web address]/store/[id number]
[2022-04-04 12:22] LABS: Glucose Point of Care 310 mg/dL (70-110)
[2022-04-04 12:33] LABS: ABG PCO2 41.8 mmHg (35-45); ABG PH Result 7.47 (7.35-7.45); Arterial Blood Gas Hematocrit 35.5 % (42-52); Base Excess ABG 6.2 mmol/L (-2.0-2.0); Blood Gas Allen Test Pos; Blood Gas Operator Identificat CAK; Blood Gas Sample Site Radial, left; Blood Gas Sample Type Arterial; HCO3 ABG 30.5 mmol/L (22-26); Oxygen Device NC; PO2 ABG 55.7 mmHg (80.0-100.0)
[2022-04-04 12:41] LABS: Basophils # 0.1 10^3/uL (0.0-0.1); Basophils % 0.5 %; Eosinophils # 0.2 10^3/uL (0.0-0.8); Eosinophils % 1.1 %; Hematocrit 41.4 % (42.0-52.0); Hemoglobin 11.9 g/dL (11.7-16.6); Lymphocytes # 1.8 10^3/uL (0.8-4.8); Mean Corpuscular HGB Conc 28.7 g/dL (30.0-36.0); Mean Corpuscular Hemoglobin 25.2 pg (28.0-34.0); Mean Corpuscular Volume 87.5 fl (80-94); Mean Platelet Volume 11.3 fL (7.4-10.4); Monocytes % 6.3 %; Neutrophils # 13.05 10^3/uL (1.8-7.7); Neutrophils % 80.6 %; Nucleated Red Blood Cells % 0 %; Platelet Count 318 10^3/cmm (130-400); Red Blood Count 4.73 10^6/uL (4.1-5.3); Red Cell Distribution Width 14.8 % (12.1-15.1); White Blood Count 16.2 10^3/uL (4.0-10.0)
[2022-04-04] MEDS: sodium chloride 0.9% 1,000 ML 999 ML IV ×2 (12:47→15:12)
[2022-04-04 12:51] LABS: Ketone (Acetest) Serum Negative (Negative)
[2022-04-04 12:58] LABS: Troponin(5th) Baseline 34 ng/L (0-15)
--- NOTE | 2022-04-04 13:09 | CT_ITS ---
WS: [id number] CT CHEST, ABDOMEN, AND PELVIS TECHNIQUE: Noncontrast CT of the chest, abdomen, and pelvis with coronal and sagittal reformatted rojelio ges. CLINICAL INFORMATION: Altered mental status, abnormal cxr, ?infection sorce COMPARISON: CTA October 30, 2021 DLP: 1255.[address] scans at [facility] use at least one of these dose optimization techniques: automated e xposure control; mA and/or kV adjustment per patient size (includes targeted exams where dose is matc hed to clinical indication); or iterative reconstruction. CT CHEST: Bilateral perihilar bronchovascular thickening with perihilar infiltrates. Subsegmental atelectasis L EFT lower lobe medially with air bronchograms. Subsegmental atelectasis in the RIGHT upper lobe poste riorly with air bronchograms. Subsegmental atelectasis in the lung bases. Trace pleural fluid. Round atelectasis in the lung bases. Normal caliber thoracic aorta. No mediastinal lymphadenopathy. Prominent bilateral hilar lymph nodes nonspecific but likely reactive. No axillary lymphadenopathy. Hypertrophic changes thoracic spine. CT ABDOMEN AND PELVIS: Hepatomegaly with diffuse fatty infiltration liver. Splenomegaly. Small esophageal hiatal hernia. No high-grade small or large bowel obstruction. Fatty atrophy of the pancreas. Adrenal glands are normal . No hydronephrosis in either kidney. No obstructing renal or ureteral calculi. Dempsey catheter. Sigmoid constipation. Mild constipation transverse colon and RIGHT ascending colon. N o periaortic lymphadenopathy. Fat-containing umbilical hernia. No free fluid in the pelvis. Tiny RIGH T adrenal adenoma. CT/[place] [id number] IMPRESSION: 1. Subsegmental and round atelectasis in the lung bases. 2. Compressive atelectasis LEFT lower lobe and posterior segment RIGHT upper l obe with associated air bronchograms. Recommend correlation for pneumonia. 3. Bilateral perihilar bronchovascular thickening with prominent hilar lymph n odes nonspecific but likely reactive. No mediastinal lymphadenopathy. 4. Hepatomegaly. Mild splenomegaly. 5. Small esophageal hiatal hernia. 6. Dempsey catheter. 7. Mild pancolonic constipation. 8. No other remarkable findings
[2022-04-04] MEDS: piperacillin-tazobactam 4.5 GM in sodium chloride 0.9% (plus) 50 ML IV (13:12)
[2022-04-04 13:16] VITALS: BP 160/121; PULSE 128; RESP 18; O2SAT 90
[2022-04-04 13:19] LABS: Alanine Aminotransferase 11 U/L (0-41); Albumin Level 3.6 g/dL (3.5-5.2); Alkaline Phosphatase 124 U/L (40-130); Aspartate Amino Transferase 9 U/L (0-40); Blood Urea Nitrogen 15 mg/dL (6-20); C Reactive Protein 175.3 mg/L (0.0-4.9); Calcium 10.3 mg/dL (8.5-10.5); Carbon Dioxide 25 mmol/L (22-29); Chloride 97 mmol/L (98-107); Globulin 3.5 g/dL (1.3-4.6); Glomerular Filtration Rate 49.3 mL/min (90-130); Glucose 335 mg/dL (65-115); Magnesium 1.7 mg/dL (1.7-2.3); Osmolality Calculated 304 mOsm/kg (285-295); Sodium 140 mmol/L (136-145); Total Bilirubin 0.4 mg/dL (0.15-1.2); Total Protein 7.1 g/dL (6.6-8.7)
[2022-04-04 13:20] LABS: Lactic Sepsis W/Reflex 1.9 mmol/L (0.5-2.2)
--- NOTE | 2022-04-04 14:28 | PC.PHAR ---
PTS STS SHE WAS ONLY ABLE TO GIVE PT MEDICATIONS YESTERDAY MORNING- PTS STATES HE NO LONGER TAKES ELIQUIS 2.5 MG BID- PTS STATES SHE HAS PICKED UP MORPHINE SULFATE ANA 100 MG AND MORPHINE SULFATE 30MG TABLETS BUT HAS NOT GIVEN TO PATIENT AND DOES NOT KNOW THE DOSAGE FOR SURE- ALSO HAS PICKED UP HYOSCYAMINE SULFATE 0.125 MG AND HAS NOT GIVEN TO PT BECAUSE SHE IS NOT SURE WHAT IT IS FOR OR DOSAGE.
[2022-04-04 14:37] LABS: Acetaminophen < 5.0 ug/mL (10-30); Alcohol Level < 10 mg/dL (0-10); Salicylate < 0.3 mg/dL (3-10)
--- NOTE | 2022-04-04 14:39 | ECG_ITS ---
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 Measurements Intervals [place] Rate: 128 P: 60 MI: 153 QRS: 55 QRSD: 82 T: 79 QT: 334 QTc: 488 Interpretive Statements SINUS TACHYCARDIA NONSPECIFIC T-WAVE ABNORMALITY Compared to ECG 04/04/2022 12:22:39 No significant changes Electronically Signed On 04-04-2022 14:40:56 CDT by Guillaume Maria M.D. [email or web address] [email or web address] [id number]
[2022-04-04 14:59] LABS: Glucose Urine UA 4+ (Normal); Ketones Urine 2+ (Negative); Protein Urine 1+ (Negative); Urine Appearance Hazy (CLEAR); Urine Color Yellow (Yellow); pH Urine 5 (5-7)
[2022-04-04 14:59] LABS: Troponin 5 2HR 31.71 ng/L (0-15)
[2022-04-04 15:00] LABS: Add Urine Microscopic? YES; Bilirubin Urine Neg (Negative); Blood Urine 3+ (Negative); Leukocyte Esterase Urine Negative (Negative); Nitrate Urine Positive (Negative); Urobilinogen Urine Norm (Negative)
[2022-04-04 15:00] LABS: Troponin 5 2HR Delta -2.29 ABS# (0-10)
[2022-04-04 15:04] LABS: Amorphous Sediment Urine 1+ /hpf; Bacteria Urine 1+ /hpf; Squamous Epithelial Cell Urine 0-4 /hpf (0-5)
[2022-04-04 15:06] LABS: Add Urine Culture? Yes
[2022-04-04 15:13] LABS: Amphetamines Screen Urine Negative (Negative); Benzodiazepines Screen Urine Positive (Negative); Cocaine Screen Urine Negative (Negative); Opiate Screen Urine Positive (Negative); PCP Screen Urine Negative (Negative); THC Screen Urine Negative (Negative)
[2022-04-04 15:14] LABS: Barbiturates Screen Urine Negative (Negative)
[2022-04-04 16:04] VITALS: BP 160/121; PULSE 128; RESP 18; O2SAT 90
[2022-04-04 16:22] VITALS: BMI 44.1
--- NOTE | 2022-04-04 17:18 | P.HP_ITS ---
Providers/Chief Complaint Admitting Physician: Travis Braswell MD Primary Care Provider: Venkat Peralta MD Chief Complaint: CONFUSION/ UNRESPONSIVESS History of Present Illness Buddy Yanez is a 51 year old male with past medical history of Lewy body dementia, hallucinations, obstructive sleep apnea, BiPAP dependent, type 2 diabetes mellitus who has been on hospice since October of this year with [facility] was brought into the ER today via EMS because he was found to have wo rsening responsiveness over the last 1 week. History taken through who is at bedside. As per the patient has had worsening decreased responsiveness on and off he has been getting worse for last 1 week since Thursday, erratic oral intake and he has been taking his oxygen on and off for last 1 week. He has a chronic Dempsey catheter which is supposed to be changed yesterday but as patient refused it was deferred. He has brought to the ER today because of worsening mental status. In the ER physician was not aware of patient being on hospice hence multiple work-up was done including blood work and CT imaging as below. On my examination upon the floor patient is lying comfortably in bed with at bedside. confirms all the history. We had a long goals of care discussion. and patient wants to continue being on hospice. We discussed being on hospice would mean to continue life sustaining medication but not to start life saving medications or ailment including chest compressions or ventilation. We also discussed hospice would mean if and when his health deteriorate at that point to continue his baseline oxygen supplementation, home medications and oral intake as per his comfort and not bring him to hospital for further evaluation and management as per hospice. verbalizes understanding and states again that for her it is most important that he remains on hospice because over the goals they want to achieve and do not want any active treatment. She stated that she has been confused regarding what hospice entails still now. They want to change his CODE STATUS to DNR/DNI. Review of Systems General: Reports: ROS unobtainable due to mental status Medications/Allergies Home Medications Medication Instructions Recorded Confirmed Last Taken Type albuterol sulfate 90 mcg/actuation 2 puff inhalation QID PRN 08/24/19 04/04/22 08/09/21 History aerosol inhaler (ProAir HFA) Shortness Of Breath cyclobenzaprine 10 mg tablet 10 mg PO TID PRN Spasms 08/24/19 04/04/22 08/15/21 20:00 History hydralazine 50 mg tablet 25 mg PO BID@899,209908/24/19 04/04/22 04/03/22 History melatonin 5 mg capsule 10 mg PO BEDTIME@209908/24/19 04/04/22 08/15/21 21:00 History insulin aspart U-100 100 unit/mL See Rx Instructions .Route .COMPLEX 08/28/19 04/04/22 04/04/22 History subcutaneous cartridge (Novolog PenFill U-100 Insulin aspart) Diabetic Shoes #1 ea 11/06/20 04/04/22 Unknown Rx albuterol sulfate 2.5 mg (3 mL) inhalation Q4H PRN 01/10/21 04/04/22 01/24/21 Rx shortness of breath or wheezing #90 mL clonazepam 0.5 mg tablet 0.5 mg PO BID PRN Anxiety 01/26/21 04/04/22 08/15/21 20:00 History donepezil 10 mg tablet 10 mg PO BEDTIME@209901/26/21 04/04/22 04/02/22 History lamotrigine 200 mg tablet 200 mg PO DAILY@89901/26/21 04/04/22 04/03/22 History (Lamictal) pantoprazole 40 mg tablet,delayed 40 mg PO DAILY@89901/26/21 04/04/22 04/03/22 History release spironolactone 25 mg tablet 25 mg PO DAILY@89901/26/21 04/04/22 04/03/22 History trazodone 100 mg tablet 200 mg PO BEDTIME@209901/26/21 04/04/22 04/02/22 History Cam Boot to left #1 ea 08/12/21 04/04/22 Unknown Rx insulin degludec 200 unit/mL (3 70 unit SUBCUT BEDTIME 08/15/21 04/04/22 04/03/22 History mL) subcutaneous pen (Tresiba FlexTouch U-200 insulin) tizanidine 4 mg capsule 4 mg PO Q6H PRN muscle spasms 08/15/21 04/04/22 08/15/21 09:00 History erenumab-aooe 140 mg/mL 140 mg SUBCUT Q30D 08/17/21 04/04/22 03/27/22 History subcutaneous auto-injector (Aimovig Autoinjector) ergocalciferol (vitamin D2) 1,250 1,250 mcg PO DAILY 08/17/21 04/04/22 04/02/22 History mcg (50,000 unit) capsule Hospital Bed #1 ea 09/26/21 04/04/22 Unknown Rx Trapeze #1 ea 10/09/21 04/04/22 Unknown Rx tamsulosin 0.4 mg capsule 0.4 mg PO QDAY #30 caps 10/14/21 04/04/22 04/03/22 Rx ASO to the Left #1 ea 10/15/21 04/04/22 Unknown Rx cholecalciferol (vitamin D3) 25 25 mcg PO DAILY 04/04/22 04/04/22 04/03/22 History mcg (1,000 unit) tablet (Vitamin D3) gabapentin 300 mg capsule 300 mg PO TID 04/04/22 04/04/22 04/03/22 History hyoscyamine sulfate 0.125 mg See Rx Instructions .Route .COMPLEX 04/04/22 04/04/22 Unknown History sublingual tablet lorazepam 2 mg/mL oral concentrate See Rx Instructions .Route .COMPLEX 04/04/22 04/04/22 Unknown History metoprolol tartrate 100 mg tablet 100 mg PO BID 04/04/22 04/04/22 04/03/22 History morphine 30 mg immediate release See Rx Instructions .Route .COMPLEX 04/04/22 04/04/22 Unknown History tablet morphine concentrate 100 mg/5 mL See Rx Instructions .Route .COMPLEX 04/04/22 04/04/22 Unknown History (20 mg/mL) oral solution olanzapine 2.5 mg tablet 2.5 mg PO DAILY 04/04/22 04/04/22 04/03/22 History promethazine 25 mg tablet 25 mg PO Q6H PRN Allergy Symptoms 04/04/22 04/04/22 Unknown History simvastatin 20 mg tablet 20 mg PO QPM 04/04/22 04/04/22 04/02/22 History Allergies Allergy/AdvReac Type Severity Reaction Status Date / Time lithium Allergy Unknown Verified 04/04/22 13:18 venom-wasp Allergy breathing Verified 04/04/22 13:18 issues PFSH Acute PFSH: Medical History (Updated 04/04/22 @ 17:25 by Travis Braswell MD) Acute respiratory failure with hypoxia -likely secondary to acute COPD exacerbation with superimposed infectious process as well as mild acute diastolic CHF exacerbation -continue Neb treatments, empiric antibiotics. Discontinue steroids given anasarca, hyperglycemia -reviewed CXR, CT chest -supplemental oxygen as needed; home oxygen evaluation if unable to wean as not oxygen dependent at baseline -no leukocytosis, afebrile, pro-calcitonin wnl -continue to monitor respiratory status -ABG noted -negative Legionella, bacterial antigens -blood cx: prelim negative -Echo: EF=67%, G2DD, no RWMA, mild MR, mild AR, mild TR -due to concern for fluid overload, off IVF. On diuresis with Bumex, metolazone. Negative fluid balance of 6.9 L. Will hold off on further d iuresis today to allow for renal recovery -continue to monitor daily weights, Is & Os -telemetry monitoring -due to persistent wheezing, added pulmicort -may benefit from outpatient sleep study to assess for LORENZA Anemia -has acute on chronic iron deficiency anemia -per patient report, he has had extensive GI w/u done in [place] including EGD, colonoscopy, small capsule endoscopy, all negative -iron panel noted -baseline Hg around 10 -continue to monitor H/H Asthma Bipolar 1 disorder CKD (chronic kidney disease) CKD stage 3 due to type 2 diabetes mellitus Depression Diabetes Diabetes mellitus with diabetic polyneuropathy Diabetes mellitus with diabetic polyneuropathy Fibromyalgia Fracture of distal end of fibula JACY (generalized anxiety disorder) Hammer toe Hospice care Hypertension Hypothyroidism Insomnia Left knee pain Legally blind in right eye, as defined in [place] Lewy body dementia Onychodystrophy Pes planus of both feet Risk for falls Type 2 diabetes mellitus Undescended testicle Surgical History S/P hernia repair S/P ORIF (open reduction internal fixation) fracture Family History Mother , at age 71 CAD (coronary artery disease) Father CAD (coronary artery disease) Social History Smoking and tobacco status: never smoked Alcohol intake: never Marital status: Current occupational status: disabled History of recent travel: No Vitals/I&O/Wt Last Vital Signs Pulse 128 H 04/04/22 16:04 Resp 18 04/04/22 16:04 BP 160/121 04/04/22 16:04 Pulse Ox 90 04/04/22 16:04 O2 Del Method 04/04/22 16:22 O2 Flow Rate 2 04/04/22 13:16 04/04/22 04/04/22 04/04/22 06:59 14:59 22:59 Intake Total 1050 / 1050 Balance 1050 / 1050 Weight last 48 hrs Weight 116.755 kg Physical Exam Narrative: Examination deferred given hospice care goals. Data : 04/04/22 12:25 04/04/22 12:25 Micro: Microbiology 04/04/22 12:25 Blood Culture - Preliminary Blood SPECIMEN COLLECTED 04/04/22 12:20 Blood Culture - Preliminary Blood SPECIMEN COLLECTED A&P Assessment and plan (1) Hospice care: Status: Acute (2) Altered mental status: Status: Acute (3) Lewy body Parkinson disease: Status: Acute (4) Diabetic peripheral neuropathy associated with type 2 diabetes mellitus: Status: Acute (5) Esophageal stricture: Status: Acute (6) Chronic migraine without aura, intractable, with status migrainosus: Status: Acute (7) Morbid obesity: Status: Acute (8) Obstructive sleep apnea: Status: Acute (9) Lewy body dementia: Status: Acute Plan Hospice care as above. Continue chronic home medications. UA concerning for possible UTI. Change Dempsey catheter. Start on oral Levaquin 500 mg daily for next 5 days. Urine culture has been sent through the ER. We will follow and will change to any other oral antibiotic needed. No further blood work. Vital check as per hospice care. Attestations Medical Necessity Statement*: Admission for less than 2 midnights for continuation of hospice care while Dempsey is changed and he started on oral antibiotics Time Spent in Patient Care: Greater than 35 minutes Coding Level of Care Code Acute Substitute Teacher for Riki Fwvenancio Diagnoses Hospice care Z51.5 Altered mental status R41.82 Lewy body Parkinson disease G31.83 Diabetic peripheral neuropathy associated with type 2 diabetes mellitus E11.42 Esophageal stricture K22.2 Chronic migraine without aura, intractable, with status migrainosus G43.711 Morbid obesity E66.01 Obstructive sleep apnea G47.33 Lewy body dementia G31.83; F02.80
--- NOTE | 2022-04-04 18:07 | ECG_ITS ---
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 Measurements Intervals [place] Rate: 117 P: 62 VT: 165 QRS: 34 QRSD: 83 T: 70 QT: 433 QTc: 606 Interpretive Statements SINUS TACHYCARDIA NONSPECIFIC ST & T-WAVE ABNORMALITY Compared to ECG 04/04/2022 14:39:33 No significant changes Electronically Signed On 04-06-2022 13:34:54 CDT by Guillaume Maria M.D. [email or web address] [email or web address] county hospitalCybitsuniversity [id number]
[2022-04-04 18:21] VITALS: PULSE 78; RESP 18; O2SAT 94
[2022-04-04] MEDS: levoFLOXacin 500 mg Tablet PO (19:36)
[2022-04-04] MEDS: atorvastatin 40 mg Tablet 20 MG PO (19:37)
[2022-04-04] MEDS: donepezil 5 MG Tablet 10 MG PO (21:05)
[2022-04-04] MEDS: gabapentin 300 mg Capsule PO (21:05)
[2022-04-04] MEDS: metoprolol tartrate 50 mg Tablet 100 MG PO (21:05)
[2022-04-04] MEDS: trazodone 100 mg Tablet 200 MG PO (21:05)
[2022-04-04] MEDS: hyDRALAzine 25 mg Tablet PO (21:05)
[2022-04-04] MEDS: tamsulosin 0.4 mg Capsule PO (21:06)
[2022-04-04] MEDS: tizanidine 4 mg Tablet PO (21:06)
[2022-04-04 21:36] VITALS: PULSE 81; RESP 16; O2SAT 90
[2022-04-05] MEDS: levoFLOXacin 500 mg Tablet PO (05:08)
[2022-04-05 08:00] VITALS: PULSE 95; RESP 18; O2SAT 94
[2022-04-05 08:05] VITALS: BP 127/84; PULSE 79; RESP 16; O2SAT 94
[2022-04-05] MEDS: gabapentin 300 mg Capsule PO (09:07)
[2022-04-05] MEDS: metoprolol tartrate 50 mg Tablet 100 MG PO (09:08)
[2022-04-05] MEDS: tizanidine 4 mg Tablet PO (09:08)
[2022-04-05] MEDS: cholecalciferol (vitamin D3) 1,000 unit Tablet 1000 UNIT PO (09:08)
[2022-04-05] MEDS: pantoprazole DR 40 mg Tablet PO (09:08)
[2022-04-05] MEDS: spironolactone 25 mg Tablet PO (09:08)
[2022-04-05] MEDS: lamoTRIgine 100 mg Tablet 200 MG PO (09:08)
[2022-04-05] MEDS: hyDRALAzine 25 mg Tablet PO (09:09)
[2022-04-05] MEDS: OLANZapine 5 mg TABLET 2.5 MG PO (09:09)
--- NOTE | 2022-04-05 12:24 | PC.NURSE ---
04/04/22 @ APPROX 1815, PT AND WERE EDUC ABT WANTING TO CHANGE PTS CHRONIC TORO CATH, PTS STATED, I WANT THE HOSPICE TO CHANGE IT. I EDUC HER THAT HOSPICE COULD NOT COME TO THE HOSPITAL TO CHANGE IT. SHE THEN STATED, WELL, THEY WILL BE TO THE HOUSE ON THURSDAY, THEY CAN JUST CHANGE IT THEN. EDUC PT AND PTS ON RISKS AND BENEFITS OF WAITING TO CHANGE. THEY BOTH INSISTED ON WAITING FOR HOSPICE CHANGE IT. NOTIFIED AND ACKNOWLEDGED PTS DECISION.
--- NOTE | 2022-04-05 12:32 | P.DS_ITS ---
Discharge Providers Date of Admission: 04/04/22 14:58 Date of Discharge: April 05, 2022 Attending Provider at Admission: Travis Braswell MD Attending Provider at Discharge: Travis Braswell MD Primary Care Provider: Venkat Peralta MD Diagnoses at Discharge Discharge Diagnosis (1) Hospice care: Status: Acute (2) Altered mental status: Status: Acute (3) Lewy body Parkinson disease: Status: Acute (4) Diabetic peripheral neuropathy associated with type 2 diabetes mellitus: Status: Acute (5) Esophageal stricture: Status: Acute (6) Chronic migraine without aura, intractable, with status migrainosus: Status: Acute (7) Morbid obesity: Status: Acute (8) Obstructive sleep apnea: Status: Acute (9) Lewy body dementia: Status: Acute Reason for Visit Reason for Visit: CONFUSION/ UNRESPONSIVESS Hospital Course Hospital Course Buddy Yanez is a 51 year old male with past medical history of Lewy body dementia, hallucinations, obstructive sleep apnea, BiPAP dependent, type 2 diabetes mellitus who has been on hospice since October of this year with [facility] was brought into the ER today via EMS because he was found to have worsening responsiveness over the last 1 week. History taken through who is at bedside.? As per the patient has had worsening decreased responsiveness on and off he has been getting worse for last 1 week since Thursday, erratic oral intake and he has been taking his oxygen on and off for last 1 week.? He has a chronic Dempsey catheter which is supposed to be changed yesterday but as patient refused it was deferred. He has brought to the ER today because of worsening mental status.? In the ER physician was not aware of patient being on hospice hence multiple work-up was done including blood work and CT imaging as below. On my examination upon the floor patient is lying comfortably in bed with at bedside.? confirms all the history.? We had a long goals of care d iscussion.? and patient wants to continue being on hospice.? We discussed being on hospice would mean to continue life sustaining medication but not to start life saving medications or ailment including chest compressions or ventilation.? We also discussed hospice would mean if and when his health deteriorate at that point to continue his baseline oxygen supplementation, home medications and oral intake as per his comfort and not bring him to hospital for further evaluation and management as per hospice. verbalizes understanding and states again that for her it is most important that he remains on hospice because over the goals they want to achieve and do not want any active treatment.? She stated that she has been confused regarding what hospice entails still now.? They want to change his CODE STATUS to DNR/DNI. Patient was admitted. He was started on oral Levaquin after discussing with family members. Patient was advised for a Dmepsey replacement but he refused. He has been discharged back to hospice on her oral Levaquin for 5 days. Physical Exam Narrative: Examination deferred given hospice care goals. Urinary Catheter Management: Dempsey: Cath Placed During This Visit: no Reason for Continuing Indwelling Catheter: Hospice/Comfort/Palliative Care Discharge Data Studies Completed and Pending Completed Studies During Hospitalization Category Date Time Status CT chest abdomen pelvis [[place] [id number] Cat Scan 04/04/22 13:09 Completed ] Stat CT head wo con* [id number] Stat Cat Scan 04/04/22 12:11 Completed XR chest 1V portable [id number] Stat Exams 04/04/22 12:11 Completed Pending at discharge Category Date Time Status Blood Culture Stat Lab 04/04/22 12:25 Results Urine Culture Stat Lab 04/04/22 14:50 Results Radiology Impressions Chest X-Ray 04/04/22 12:11 IMPRESSION: 1. Mild bilateral perihilar stranding. Suspect mild edema versus overlying pneumonia and pneumonitis. 2. No pneumonia. 3. No pleural effusion. Head CT 04/04/22 12:11 IMPRESSION: 1. No evidence of intracranial hemorrhage or mass effect. 2. Mild small vessel changes. Mild parenchymal volume loss. 3. No acute intracranial findings and no significant changes from previous. Chest/Abdomen/Pelvis CT 04/04/22 13:09 IMPRESSION: 1. Subsegmental and round atelectasis in the lung bases. 2. Compressive atelectasis LEFT lower lobe and posterior segment RIGHT upper lobe with associated air bronchograms. Recommend correlation for pneumonia. 3. Bilateral perihilar bronchovascular thickening with prominent hilar lymph nodes nonspecific but likely reactive. No mediastinal lymphadenopathy. 4. Hepatomegaly. Mild splenomegaly. 5. Small esophageal hiatal hernia. 6. Dempsey catheter. 7. Mild pancolonic constipation. 8. No other remarkable findings Laboratory Results WBC 16.2 10^3/uL (4.0-10.0) H 04/04/22 12:25 RBC 4.73 10^6/uL (4.1-5.3) 04/04/22 12:25 Hgb 11.9 g/dL (11.7-16.6) 04/04/22 12:25 Hct 41.4 % (42.0-52.0) L 04/04/22 12:25 MCV 87.5 fl (80-94) 04/04/22 12:25 MCH 25.2 pg (28.0-34.0) L 04/04/22 12:25 MCHC 28.7 g/dL (30.0-36.0) L 04/04/22 12:25 RDW 14.8 % (12.1-15.1) 04/04/22 12:25 Plt Count 318 10^3/cmm (130-400) 04/04/22 12:25 MPV 11.3 fL (7.4-10.4) H 04/04/22 12:25 Neut % (Auto) 80.6 % 04/04/22 12:25 Lymph % (Auto) 11.0 % 04/04/22 12:25 [place] % (Auto) 6.3 % 04/04/22 12:25 Eos % (Auto) 1.1 % 04/04/22 12:25 Baso % (Auto) 0.5 % 04/04/22 12:25 Neut # (Auto) 13.05 10^3/uL (1.8-7.7) H 04/04/22 12:25 Lymph # (Auto) 1.8 10^3/uL (0.8-4.8) 04/04/22 12:25 [place] # (Auto) 1.0 10^3/uL (0.2-0.9) H 04/04/22 12:25 Eos # (Auto) 0.2 10^3/uL (0.0-0.8) 04/04/22 12:25 Baso # (Auto) 0.1 10^3/uL (0.0-0.1) 04/04/22 12:25 Nucleated RBC % (auto) 0 % 04/04/22 12:25 Nucleated RBCs # 0.0 /100WBC 04/04/22 12:25 Specimen Type Arterial 04/04/22 12:22 Sample Site Radial, left 04/04/22 12:22 ABG pH 7.47 (7.35-7.45) H 04/04/22 12:22 ABG pCO2 41.8 mmHg (35-45) 04/04/22 12:22 ABG pO2 55.7 mmHg (80.0-100.0) L 04/04/22 12:22 ABG HCO3 30.5 mmol/L (22-26) H 04/04/22 12:22 ABG Base Excess 6.2 mmol/L (-2.0-2.0) H 04/04/22 12:22 Balwinder Test Pos 04/04/22 12:22 Hematocrit 35.5 % (42-52) L 04/04/22 12:22 O2 Delivery Device Nc 04/04/22 12:22 O2 Liters/Min 2.0 % 04/04/22 12: FiO2 28.0 % 04/04/22 12:22 Electronic Warfare Specialist ID Cak 04/04/22 12:22 Sodium 140 mmol/L (136-145) 04/04/22 12:25 Potassium 4.0 mmol/L (3.5-5.1) 04/04/22 12:25 Chloride 97 mmol/L (98-107) L 04/04/22 12:25 Carbon Dioxide 25 mmol/L (22-29) 04/04/22 12:25 Anion Gap 22.0 (5-19) H 04/04/22 12:25 BUN 15 mg/dL (6-20) 04/04/22 12:25 Creatinine 1.5 mg/dL (0.7-1.2) H 04/04/22 12:25 GFR Calculation 49.3 mL/min (90-130) L 04/04/22 12:25 Glucose 335 mg/dL (65-115) H 04/04/22 12:25 POC Glucose 310 mg/dL (70-110) H 04/04/22 12:20 Calculated Osmolality 304 mOsm/kg (285-295) H 04/04/22 12:25 Lactic Acid 1.9 mmol/L (0.5-2.2) 04/04/22 12:25 Calcium 10.3 mg/dL (8.5-10.5) 04/04/22 12:25 Magnesium 1.7 mg/dL (1.7-2.3) 04/04/22 12:25 Total Bilirubin 0.4 mg/dL (0.15-1.2) 04/04/22 12:25 AST 9 U/L (0-40) 04/04/22 12:25 ALT 11 U/L (0-41) 04/04/22 12:25 Alkaline Phosphatase 124 U/L (40-130) 04/04/22 12:25 Troponin T Baseline 34 ng/L (0-15) H 04/04/22 12:25 Troponin T 120 Minute 31.71 ng/L (0-15) H 04/04/22 14:32 Delta Troponin T -2.29 ABS# (0-10) L 04/04/22 14:32 C-Reactive Protein 175.3 mg/L (0.0-4.9) H 04/04/22 12:25 Total Protein 7.1 g/dL (6.6-8.7) 04/04/22 12:25 Albumin 3.6 g/dL (3.5-5.2) 04/04/22 12:25 Globulin 3.5 g/dL (1.3-4.6) 04/04/22 12:25 Procalcitonin 0.20 ng/mL (0-0.5) 04/04/22 12:25 TSH 1.00 uIU/mL (0.27-4.20) 04/04/22 12:25 Urine Color Yellow (Yellow) 04/04/22 14:50 Urine Appearance Hazy (CLEAR) A 04/04/22 14:50 Urine pH 5 (5-7) 04/04/22 14:50 Ur Specific [place] 1.010 (1.005-1.030) 04/04/22 14:50 Urine Protein 1+ (Negative) H 04/04/22 14:50 Urine Glucose (UA) 4+ (Normal) H 04/04/22 14:50 Urine Ketones 2+ (Negative) H 04/04/22 14:50 Urine Blood 3+ (Negative) H 04/04/22 14:50 Urine Nitrate Positive (Negative) H 04/04/22 14:50 Urine Bilirubin Neg (Negative) 04/04/22 14:50 Urine Urobilinogen Norm mg/dL (Negative) 04/04/22 14:50 Ur Leukocyte Esterase Negative (Negative) 04/04/22 14:50 Urine RBC 5-10 /hpf (0-2) H 04/04/22 14:50 Urine WBC 5-10 /hpf (0-5) H 04/04/22 14:50 Ur Squamous Epith Cells 0-4 /hpf (0-5) H 04/04/22 14:50 Amorphous Sediment 1+ /hpf 04/04/22 14:50 Urine Bacteria 1+ /hpf (NONE) H 04/04/22 14:50 Salicylates < 0.3 mg/dL (3-10) L 04/04/22 12:25 Urine Opiates Screen Positive ng/mL (Negative) H 04/04/22 14:50 Acetaminophen < 5.0 ug/mL (10-30) L 04/04/22 12:25 Ur Barbiturates Screen Negative ng/mL (Negative) 04/04/22 14:50 Ur Phencyclidine Scrn Negative ng/mL (Negative) 04/04/22 14:50 Ur Amphetamines Screen Negative ng/mL (Negative) 04/04/22 14:50 U Benzodiazepines Scrn Positive ng/mL (Negative) H 04/04/22 14:50 Urine Cocaine Screen Negative ng/mL (Negative) 04/04/22 14:50 U Marijuana (THC) Screen Negative ng/mL (Negative) 04/04/22 14:50 Ethyl Alcohol < 10 mg/dL (0-10) 04/04/22 12:25 Serum Ketones Negative (Negative) 04/04/22 12:25 Vitals Last Vital Signs Pulse 79 04/05/22 08:05 Resp 16 04/05/22 08:05 BP 127/84 04/05/22 08:05 Pulse Ox 94 04/05/22 08:05 O2 Del Method 04/05/22 08:05 O2 Flow Rate 2 04/05/22 08:05 Discharge Plan Discharge Patient Disposition: Hospice - Home Condition: Stable Prescriptions: New levofloxacin 500 mg Tablet 500 mg PO DAILY@0600 Qty: 5 0RF Continued (DME) Diabetic Shoes See Rx Instructions .ROUTE .MEDSUPPLY Qty: 1 0RF Rx Instructions: As directed, with 3 pairs of inserts made by [employer] [place] [place] See Rx Instructions .Route .MEDSUPPLY Qty: 1 0RF Rx Instructions: As directed cyclobenzaprine 10 mg tablet 10 mg PO TID PRN (Reason: Spasms) hydralazine 50 mg tablet 25 mg PO BID@0900,2100 melatonin 5 mg capsule 10 mg PO BEDTIME@2100 albuterol sulfate [ProAir HFA] 90 mcg/actuation HFA aerosol inhaler 2 puff INHALATION QID PRN (Reason: Shortness Of Breath) (DME) Cam Boot to left See Rx Instructions .Route .MEDSUPPLY Qty: 1 0RF Rx Instructions: As directed tamsulosin 0.4 mg capsule 0.4 mg PO QDAY Qty: 30 12RF (DME) ASO to the Left See Rx Instructions .Route .MEDSUPPLY Qty: 1 0RF Rx Instructions: As directed (DME) Hospital Bed See Rx Instructions .Route .MEDSUPPLY Qty: 1 0RF Rx Instructions: As directed insulin aspart U-100 [Novolog PenFill U-100 Insulin] 100 unit/mL Cartridge See Rx Instructions .ROUTE .COMPLEX Rx Instructions: PER SLIDING SCALE albuterol sulfate 2.5 mg /3 mL (0.083 %) solution for nebulization 2.5 mg INHALATION Q4H PRN (Reason: shortness of breath or wheezing) Qty: 90 0RF lamotrigine [Lamictal] 200 mg tablet 200 mg PO DAILY@0900 donepezil 10 mg tablet 10 mg PO BEDTIME@2100 clonazepam 0.5 mg tablet 0.5 mg PO BID PRN (Reason: Anxiety) spironolactone 25 mg tablet 25 mg PO DAILY@0900 trazodone 100 mg Tablet 200 mg PO BEDTIME@2100 pantoprazole 40 mg tablet,delayed release (DR/EC) 40 mg PO DAILY@0900 tizanidine 4 mg Capsule 4 mg PO Q6H PRN (Reason: muscle spasms) Tresiba FlexTouch U-200 200 unit/mL (3 mL) insulin pen 70 unit SUBCUT BEDTIME ergocalciferol (vitamin D2) 1,250 mcg (50,000 unit) Capsule 1,250 mcg PO DAILY Rx Instructions: ON WEDNESDAYS Aimovig Autoinjector 140 mg/mL Auto-Injector 140 mg SUBCUT Q30D Rx Instructions: ( OF THE MONTH) metoprolol tartrate 100 mg tablet 100 mg PO BID olanzapine 2.5 mg tablet 2.5 mg PO DAILY morphine concentrate 100 mg/5 mL (20 mg/mL) solution See Rx Instructions .ROUTE .COMPLEX Rx Instructions: as directed morphine 30 mg tablet See Rx Instructions .ROUTE .COMPLEX Rx Instructions: as directed simvastatin 20 mg Tablet 20 mg PO QPM hyoscyamine sulfate 0.125 mg tablet, sublingual See Rx Instructions .ROUTE .COMPLEX Rx Instructions: 0.125 mg orally as directed promethazine 25 mg Tablet 25 mg PO Q6H PRN (Reason: Allergy Symptoms) gabapentin 300 mg Capsule 300 mg PO TID lorazepam 2 mg/mL concentrate See Rx Instructions .ROUTE .COMPLEX Rx Instructions: as directed Vitamin D3 25 mcg (1,000 unit) Tablet 25 mcg PO DAILY Discharge Orders: Discharge Order (Routine); Ordered 04/05/22 Ordered By: Travis Braswell Referrals: Venkat Peralta MD [Primary Care Provider] - Discharge Diet: Usual diet Discharge Activity: Resume usual activity Patient Instructions: Opioid Safety Discharge Attestations Time Spent in Discharge Care*: greater than 30 min Specific Discharge Activities: educating patient, educating and/or supporting family/caregiver, discussing with case operator/social workers/dc planners, documenting/other paperwork and evaluating patient/reviewing data Status at Discharge: Cognitive status at discharge: cognitively intact , Behavioral status at discharge: cooperative , Quality Metrics Clinical Quality Measures [ No reported AMI, CVA or VTE this stay] Coding Level of Care Code Acute [facility] DC note Diagnoses Hospice care Z51.5 Altered mental status R41.82 Lewy body Parkinson disease G31.83 Diabetic peripheral neuropathy associated with type 2 diabetes mellitus E11.42 Esophageal stricture K22.2 Chronic migraine without aura, intractable, with status migrainosus G43.711 Morbid obesity E66.01 Obstructive sleep apnea G47.33 Lewy body dementia G31.83; F02.80
[2022-04-05 16:10] VITALS: BP 127/84; PULSE 79; RESP 16; O2SAT 94
== END 2022-04-05 13:45 | disposition hospice, home (50) ==
LOC: ER 14:54 → MEDSURG 16:57
PROVIDERS: Admitting Provider Student in an Organized Health Care Education/Training Program; Emergency Provider Emergency Medicine; PCP Family Medicine; Visit Provider Student in an Organized Health Care Education/Training Program
DX: Z51.5 Encounter for palliative care (principal); R41.82 Altered mental status, unspecified; G31.83 Neurocognitive disorder with Lewy bodies; E11.42 Type 2 diabetes mellitus with diabetic polyneuropathy; K22.2 Esophageal obstruction; G43.711 Chronic migraine without aura, intractable, with status migrainosus; E66.01 Morbid (severe) obesity due to excess calories; Z68.41 Body mass index [BMI] 40.0-44.9, adult; G47.33 Obstructive sleep apnea (adult) (pediatric); F02.80 Dementia in other diseases classified elsewhere, unspecified severity, without behavioral disturbance, psychotic disturbance, mood disturbance, and anxiety; Z66 Do not resuscitate; Z79.4 Long term (current) use of insulin; E11.22 Type 2 diabetes mellitus with diabetic chronic kidney disease; I12.9 Hypertensive chronic kidney disease with stage 1 through stage 4 chronic kidney disease, or unspecified chronic kidney disease; N18.30 Chronic kidney disease, stage 3 unspecified; Z91.81 History of falling; D63.1 Anemia in chronic kidney disease
CPT/HCPCS: 36416; 36600; 70450; 71045; 71250; 74176; 80053; 80306; 80307; 81001; 82009; 82803; 82962; 83605; 83735; 84145; 84443; 84484; 85025; 86140; 87040; 87077; 87086; 87186; 93005; 96365; 96367; 99285; G0378; J2543; J3370; J7030; J7040